=== PATIENT | female | born 1975 | race Caucasian/White ===

== ENCOUNTER → 2018-06-08 14:21 | Outpatient (REF) | payer OTHER, SELFPAY ==
[2018-06-08 18:00] LABS: Basophils # 0.1 K/mm3 (0-0.2); Basophils % 0.5 % (0.1-2.0); Eosinophils # 0.4 K/mm3 (0.0-0.4); Eosinophils % 3.6 % (0.1-12.0); Hematocrit 46.1 % (37.0-47.0); Hemoglobin 14.6 g/dL (12.2-16.2); Lymphocytes # 2.4 K/mm3 (0.7-4.5); Lymphocytes % 23.5 K/mm3 (10-50); Mean Corpuscular HGB Conc 31.7 g/dL (31.8-35.4); Mean Corpuscular Hemoglobin 32.1 pg (27.0-31.2); Mean Platelet Volume 7.6 fl (7.4-10.4); Monocytes # 0.8 K/mm3 (0.1-1.0); Monocytes % 7.4 % (1.7-9.3); Neutrophils # 6.6 K/mm3 (1.8-7.8); Platelet Count 411 K/mm3 (142-424); Red Blood Count 4.57 M/mm3 (4.20-5.40); Red Cell Distribution Width 13.1 % (11.5-17.5); White Blood Count 10.2 K/mm3 (4.8-10.8)
[2018-06-08 19:06] LABS: Chol/HDL Ratio 5.2 (1-3.5); Cholesterol 235 mg/dL (140-200); HDL Cholesterol 45 mg/dL (29-89); LDL Cholesterol 139 mg/dL (0-130); Triglycerides 255 mg/dL (30-200); VLDL Cholesterol 51 mg/dL (0-40)
[2018-06-08 21:20] LABS: Alanine Aminotransferase 26 U/L (12-78); Albumin Level 3.9 gm/dL (3.4-5.0); Albumin/Globulin Ratio 1.4 (1.1-1.8); Alkaline Phosphatase 79 U/L (46-116); Anion Gap 11.5 mEq/L (5-15); Aspartate Amino Transferase 12 U/L (15-37); Bilirubin,Total 0.2 mg/dL (0.2-1.0); Blood Urea Nitrogen 14 mg/dL (7-18); Calcium 9.3 mg/dL (8.5-10.1); Carbon Dioxide 28 mmol/L (21.0-32.0); Chloride 105 mmol/L (98-107); Creatinine,Serum 0.71 mg/dL (0.55-1.02); Estimated Glomerular Filt Rate 89 ml/min (>60); GFR (African American) 108 ML/MIN (>60); Globulin 2.8 gm/dl (1.3-3.2); Glucose 69 mg/dL (74-106); Potassium 4.5 mmoL/L (3.5-5.1); Sodium 140 mmol/L (136-145); T4 (Thyroxine) 6.8 ug/dl (4.7-13.3); Thyroid Stimulating Hormone 0.86 uIU/ml (0.358-3.740); Total Protein,Serum 6.7 gm/dL (6.4-8.2)
[2018-06-15 23:22] LABS: 1,25-Dihydroxy, Vitamin D-2 <10 pg/mL (.)
[2018-06-16 06:15] LABS: 1,25 Dihydroxy Vitamin D 22 pg/mL (.); 1,25-Dihydroxy, Vitamin D-3 22 pg/mL (.)
== END ==
LOC: LAB 14:21
PROVIDERS: Visit Provider Physician Assistant
DX: R63.5 Abnormal weight gain (principal); R68.89 Other general symptoms and signs; E66.9 Obesity, unspecified; Z68.32 Body mass index [BMI] 32.0-32.9, adult; G25.0 Essential tremor; M25.561 Pain in right knee; M25.562 Pain in left knee; G89.29 Other chronic pain
CPT/HCPCS: 80053; 80061; 82652; 84436; 84443; 85025

== ENCOUNTER → 2018-12-02 18:04 | Outpatient (CLI) | payer OTHER, SELFPAY ==
[2018-12-02 18:24] LABS: Basophils # 0.1 K/mm3 (0-0.2); Basophils % 0.4 % (0.1-2.0); Eosinophils # 0.3 K/mm3 (0.0-0.4); Eosinophils % 2.7 % (0.1-12.0); Hematocrit 44.4 % (37.0-47.0); Hemoglobin 14.6 g/dL (12.2-16.2); Lymphocytes # 3.6 K/mm3 (0.7-4.5); Lymphocytes % 32.7 % (10-50); Mean Corpuscular HGB Conc 32.9 g/dL (31.8-35.4); Mean Corpuscular Hemoglobin 33.9 pg (27.0-31.2); Mean Corpuscular Volume 102.9 fl (81-99); Mean Platelet Volume 7.1 fl (7.4-10.4); Monocytes # 0.6 K/mm3 (0.1-1.0); Monocytes % 5.4 % (1.7-9.3); Neutrophils # 6.4 K/mm3 (1.8-7.8); Neutrophils % 58.7 % (37.0-80.0); Platelet Count 439 K/mm3 (142-424); Red Blood Count 4.31 M/mm3 (4.20-5.40); Red Cell Distribution Width 13.1 % (11.5-17.5)
[2018-12-02 19:30] LABS: Alanine Aminotransferase 39 U/L (12-78); Albumin Level 4.1 gm/dL (3.4-5.0); Albumin/Globulin Ratio 1.3 (1.1-1.8); Alkaline Phosphatase 72 U/L (46-116); Aspartate Amino Transferase 20 U/L (15-37); Bilirubin,Total 0.3 mg/dL (0.2-1.0); Blood Urea Nitrogen 14 mg/dL (7-18); Calcium 8.9 mg/dL (8.5-10.1); Carbon Dioxide 26 mmol/L (21.0-32.0); Chloride 101 mmol/L (98-107); Chol/HDL Ratio 5.4 (1-3.5); Cholesterol 243 mg/dL (140-200); Creatinine,Serum 0.63 mg/dL (0.55-1.02); Estimated Glomerular Filt Rate 103 ml/min (>60); GFR (African American) 124 ML/MIN (>60); Globulin 3.1 gm/dl (1.3-3.2); Glucose 81 mg/dL (74-106); HDL Cholesterol 45 mg/dL (29-89); LDL Cholesterol 164 mg/dL (0-130); Sodium 140 mmol/L (136-145); T4 (Thyroxine) 7.9 ug/dl (4.7-13.3); Thyroid Stimulating Hormone 1.14 uIU/ml (0.358-3.740); Total Protein,Serum 7.2 gm/dL (6.4-8.2); Triglycerides 168 mg/dL (30-200); VLDL Cholesterol 34 mg/dL (0-40)
[2018-12-04 11:11] LABS: Testosterone,Total 17 ng/dL (8-48)
[2018-12-04 22:50] LABS: FSH 7.8 mIU/mL (.); LH 9.7 mIU/mL (.); Vitamin D 25 Hydroxy 32.1 ng/mL (30.0-100.0)
[2018-12-06 07:05] LABS: Estrogen 261 pg/mL (.)
== END ==
PROVIDERS: Visit Provider Physician Assistant
DX: E66.9 Obesity, unspecified (principal); R53.83 Other fatigue; R63.5 Abnormal weight gain
CPT/HCPCS: 80053; 80061; 82652; 82672; 83001; 83002; 84403; 84436; 84443; 85025

== ENCOUNTER → 2019-09-21 07:32 | Outpatient (CLI) | payer OTHER, SELFPAY ==
--- NOTE | 2019-09-21 07:38 | CT_ITS ---
PROCEDURE: CT SOFT TISSUE NECK WO CON CLINICAL HISTORY: enlarged thyroid Enlarged thyroid, difficulty swallowing right-sided knot on the inside of the throat COMPARISON: CXR CHEST(2 VIEWS-NOT PORTABLE) from 10/21/2017 TECHNIQUE: Oral Contrast: None IV Contrast: None Axial images obtained with sagittal and coronal reformats. All CT scans at the facility use one or more dose reduction, viz: automated exposure control, ma/kV adjustment per patient size (including targeted exams where dose is matched to indication, i.e. head), or iterative reconstruction technique. FINDINGS: Slight asymmetry in the nasopharyngeal soft tissues noted with minimal prominence on right. This may only be due to incomplete distention. Direct visualization suggested. The oropharynx and hypopharynx have an unremarkable appearance. The epiglottis, glottic region, and subglottic area have an unremarkable appearance. The thyroid gland does not appear enlarged. No obvious mass. The visualized sinuses have an unremarkable appearance. No mastoid effusion. The parotid and submandibular glands are unremarkable. There are scattered small lymph nodes in the neck with no dominant adenopathy. The lung apices are clear. Upper thoracic images show bilateral breast implants. IMPRESSION: 1. Slight asymmetric prominence of the nasopharyngeal soft tissues on the right which may only be due to nondistention. This may be confirmed with direct visualization. Study is somewhat limited without IV contrast. 2. Scattered small cervical lymph nodes. No dominant adenopathy or other significant anomaly. Dictated by: Esvin Pérez MD 09/22/2019 07:22 Electronically signed by Esvin Pérez MD in [place] 09/22/2019 07:22
== END ==
PROVIDERS: PCP Emergency Medicine; Visit Provider Nurse Practitioner Family
DX: E04.9 Nontoxic goiter, unspecified (principal); Z85.3 Personal history of malignant neoplasm of breast
CPT/HCPCS: 70490

== ENCOUNTER → 2019-10-13 16:58 | Outpatient (CLI) | payer OTHER, SELFPAY | PROVIDERS: Visit Provider Nurse Practitioner Family | DX: J02.9 Acute pharyngitis, unspecified (principal) | CPT/HCPCS: 87070 ==

== ENCOUNTER → 2019-12-15 14:44 | Outpatient (CLI) | payer OTHER, SELFPAY ==
[2019-12-15 15:11] LABS: Basophils # 0.1 K/mm3 (0-0.2); Basophils % 0.5 % (0.1-2.0); Eosinophils # 0.3 K/mm3 (0.0-0.4); Eosinophils % 1.9 % (0.1-12.0); Hematocrit 45.7 % (37.0-47.0); Lymphocytes % 26.7 % (10-50); Mean Corpuscular HGB Conc 32.8 g/dL (31.8-35.4); Mean Corpuscular Hemoglobin 33.3 pg (27.0-31.2); Mean Corpuscular Volume 101.4 fl (81-99); Mean Platelet Volume 7.6 fl (7.4-10.4); Monocytes # 0.9 K/mm3 (0.1-1.0); Monocytes % 5.7 % (1.7-9.3); Neutrophils # 9.7 K/mm3 (1.8-7.8); Neutrophils % 65.2 % (37.0-80.0); Platelet Count 423 K/mm3 (142-424); Red Blood Count 4.51 M/mm3 (4.20-5.40); White Blood Count 14.8 K/mm3 (4.8-10.8)
[2019-12-15 15:52] LABS: Alanine Aminotransferase 18 U/L (12-78); Albumin Level 4.1 gm/dL (3.4-5.0); Albumin/Globulin Ratio 1.8 (1.1-1.8); Alkaline Phosphatase 66 U/L (46-116); Aspartate Amino Transferase 16 U/L (15-37); Bilirubin,Total 0.4 mg/dL (0.2-1.0); Blood Urea Nitrogen 16 mg/dL (7-18); Calcium 9.1 mg/dL (8.5-10.1); Carbon Dioxide 29 mmol/L (21.0-32.0); Chloride 103 mmol/L (98-107); Chol/HDL Ratio 5.3 (1-3.5); Cholesterol 217 mg/dL (140-200); Creatinine,Serum 0.72 mg/dL (0.55-1.02); Estimated Glomerular Filt Rate 88 ml/min (>60); GFR (African American) 106 ML/MIN (>60); Globulin 2.3 gm/dl (1.3-3.2); Glucose 76 mg/dL (74-106); HDL Cholesterol 41 mg/dL (29-89); LDL Cholesterol 149 mg/dL (0-130); Sodium 141 mmol/L (136-145); T4 (Thyroxine) 9.2 ug/dl (4.7-13.3); Thyroid Stimulating Hormone 1.43 uIU/ml (0.358-3.740); Total Protein,Serum 6.4 gm/dL (6.4-8.2); Triglycerides 137 mg/dL (30-200); VLDL Cholesterol 27 mg/dL (0-40)
[2019-12-17 09:35] LABS: Vitamin B12 582 pg/mL (232-1245)
[2019-12-17 09:45] LABS: Vitamin D 25 Hydroxy 25.7 ng/mL (30.0-100.0)
== END ==
PROVIDERS: Visit Provider Nurse Practitioner Family
DX: F32.9 Major depressive disorder, single episode, unspecified (principal); E55.9 Vitamin D deficiency, unspecified
CPT/HCPCS: 36415; 80053; 80061; 82607; 82652; 84436; 84443; 85025

== ENCOUNTER → 2019-12-19 12:53 | Outpatient (CLI) | payer OTHER, SELFPAY ==
--- NOTE | 2019-12-19 13:02 | XR_ITS ---
PROCEDURE: XR CHEST 2V CLINICAL HISTORY: elevated wbc, cough Smoker, COMPARISON: CXR CHEST(2 VIEWS-NOT PORTABLE) from 10/21/2017 FINDINGS: The cardiomediastinal silhouette and pulmonary vascularity are within normal limits. There are bilateral breast implants. There is increased density along the right heart border some of which may be due to pericardial fat pad. Superimposed atelectasis or infiltrate is also considered . degenerative changes upper thoracic spine IMPRESSION: Atelectasis or infiltrate of the right middle lobe Dictated by: Esvin Pérez MD 12/19/2019 14:23 Electronically signed by Esvin Pérez MD in [facility] 12/19/2019 14:23
== END ==
PROVIDERS: PCP Emergency Medicine; Visit Provider Nurse Practitioner Family
DX: D72.829 Elevated white blood cell count, unspecified (principal); R05 Cough
CPT/HCPCS: 71046

== ENCOUNTER → 2019-12-27 13:08 | Outpatient (CLI) | payer OTHER, SELFPAY ==
--- NOTE | 2019-12-27 13:15 | XR_ITS ---
PROCEDURE: XR FOOT WT BEARING RT 3V CLINICAL INDICATION: pain Foot pain COMPARISON: Foot R from 06/07/2019 FINDINGS: No fracture or dislocation. No lytic or blastic change. There is normal mineralization. The joint spaces are well-preserved. No significant degenerative/arthritic changes. No erosive changes evident. Other findings:There is a small calcaneal spur in there is mild spurring of the anterior distal tibia. Borderline pes planus IMPRESSION: No acute findings. See above for detail Dictated by: Esvin Pérez MD 12/27/2019 18:17 Electronically signed by Esvin Pérez MD in [facility] 12/27/2019 18:17
--- NOTE | 2019-12-27 13:15 | XR_ITS ---
PROCEDURE: XR FOOT WT BEARING LT 3V CLINICAL INDICATION: pain COMPARISON: Foot R from 06/07/2019 XR FOOT WT BEARING RT 3V from 12/27/2019 FINDINGS: No fracture or dislocation. No lytic or blastic change. There is normal mineralization. The joint spaces are well-preserved. No significant degenerative/arthritic changes. No erosive changes evident. Other findings:There is a small calcaneal spur. There is borderline planus IMPRESSION: No acute findings. Dictated by: Esvin Pérez MD 12/27/2019 18:16 Electronically signed by Esvin Pérez MD in [facility] 12/27/2019 18:16
== END ==
PROVIDERS: PCP Nurse Practitioner Family; Visit Provider Podiatrist
DX: M79.672 Pain in left foot (principal); M79.671 Pain in right foot
CPT/HCPCS: 73630

== ENCOUNTER → 2019-12-29 16:36 | Outpatient (CLI) | payer OTHER, SELFPAY ==
[2019-12-29 17:06] LABS: Basophils # 0.1 K/mm3 (0-0.2); Basophils % 0.4 % (0.1-2.0); Eosinophils # 0.2 K/mm3 (0.0-0.4); Eosinophils % 1.9 % (0.1-12.0); Hematocrit 45.5 % (37.0-47.0); Hemoglobin 15.4 g/dL (12.2-16.2); Lymphocytes # 2.5 K/mm3 (0.7-4.5); Mean Corpuscular HGB Conc 33.9 g/dL (31.8-35.4); Mean Corpuscular Hemoglobin 33.4 pg (27.0-31.2); Mean Corpuscular Volume 98.3 fl (81-99); Mean Platelet Volume 7.8 fl (7.4-10.4); Monocytes # 0.6 K/mm3 (0.1-1.0); Neutrophils # 8.7 K/mm3 (1.8-7.8); Neutrophils % 71.8 % (37.0-80.0); Platelet Count 401 K/mm3 (142-424); Red Blood Count 4.63 M/mm3 (4.20-5.40); Red Cell Distribution Width 12.8 % (11.5-17.5); White Blood Count 12.1 K/mm3 (4.8-10.8)
[2019-12-29 17:40] LABS: Alanine Aminotransferase 22 U/L (12-78); Albumin Level 4.1 gm/dL (3.4-5.0); Albumin/Globulin Ratio 1.6 (1.1-1.8); Alkaline Phosphatase 74 U/L (46-116); Anion Gap 14.9 mEq/L (5-15); Aspartate Amino Transferase 15 U/L (15-37); Bilirubin,Total 0.4 mg/dL (0.2-1.0); Blood Urea Nitrogen 12 mg/dL (7-18); C-Reactive Protein < 0.2 mg/dL (0.0-0.9); Calcium 9.2 mg/dL (8.5-10.1); Carbon Dioxide 26 mmol/L (21.0-32.0); Chloride 104 mmol/L (98-107); Creatinine,Serum 0.74 mg/dL (0.55-1.02); Estimated Glomerular Filt Rate 84 ml/min (>60); GFR (African American) 102 ML/MIN (>60); Globulin 2.6 gm/dl (1.3-3.2); Glucose 90 mg/dL (74-106); Potassium 3.9 mmoL/L (3.5-5.1); Sodium 141 mmol/L (136-145); Total Protein,Serum 6.7 gm/dL (6.4-8.2)
[2019-12-29 18:05] LABS: Erythrocyte Sedimentation Rate 11 mm/hr (0-20)
[2019-12-31 15:30] LABS: RA Latex Turbid. <10.0 IU/mL (0.0-13.9)
[2019-12-31 16:41] LABS: Peripheral Smear Review Scanned Result
[2020-01-01 17:44] LABS: Anti-Cyclic Citrullinated Pept 7 units (0-19)
[2020-01-02 11:08] LABS: Anti-Centromere B Antibodies <0.2 AI (0.0-0.9); Anti-Jo-1 <0.2 AI (0.0-0.9); Anti-Smith Antibody <0.2 AI (0.0-0.9); Antichromatin Antibodies <0.2 AI (0.0-0.9); Antiscleroderma-70 Antibodies <0.2 AI (0.0-0.9); RNP Antibodies <0.2 AI (0.0-0.9); Sjogren's Anti-SS-A <0.2 AI (0.0-0.9); Sjogren's Anti-SS-B <0.2 AI (0.0-0.9)
[2020-01-02 17:10] LABS: Anti-DNA (DS) Ab Qn <1 IU/mL (0-9)
== END ==
PROVIDERS: Visit Provider Nurse Practitioner Family
DX: M77.50 Other enthesopathy of unspecified foot and ankle (principal); M25.50 Pain in unspecified joint
CPT/HCPCS: 80053; 85025; 85651; 86140; 86200; 86225; 86235; 86431

== ENCOUNTER → 2020-02-02 13:08 | Outpatient (CLI) | payer OTHER, SELFPAY ==
--- NOTE | 2020-02-02 13:23 | CT_ITS ---
PROCEDURE: CT SOFT TISSUE NECK W CON CLINICAL HISTORY: mass under left mandible Left-sided neck mass COMPARISON: CT SOFT TISSUE NECK WO CON from 09/21/2019 TECHNIQUE: Oral Contrast: 75ml Optiray 350 IV Contrast: None Axial images obtained with sagittal and coronal reformats. All CT scans at the facility use one or more dose reduction, viz: automated exposure control, ma/kV adjustment per patient size (including targeted exams where dose is matched to indication, i.e. head), or iterative reconstruction technique. FINDINGS: A BB is placed on the left neck marking the area of palpable concern. There is a small lymph node along the anterior lateral aspect of the left submandibular gland measuring approximately 1.5 by 0.8 cm and may correspond to the palpable abnormality. No dominant adenopathy is evident. The nasopharynx, oropharynx, hypopharynx, and laryngeal region have an unremarkable appearance. No abscess is evident. The epiglottis and glottic region has an unremarkable appearance. There is mild degenerative disc disease at C5-C6. The lung apices are clear. There is a small hypodensity of the left lobe of the thyroid gland at 4 mm. The thyroid gland otherwise is unremarkable. IMPRESSION: There is a small left submandibular lymph node which may correspond to the palpable abnormality. This is less than 1 cm in short axis. No dominant adenopathy, abnormal fluid collections, or other significant anomalies evident Dictated by: Esvin Pérez MD 02/03/2020 09:19 Electronically signed by Esvin Pérez MD in [place] 02/03/2020 09:19
[2020-02-02 13:26] LABS: Basophils # 0.1 K/mm3 (0-0.2); Basophils % 0.5 % (0.1-2.0); Eosinophils # 0.4 K/mm3 (0.0-0.4); Eosinophils % 2.8 % (0.1-12.0); Hematocrit 44.9 % (37.0-47.0); Hemoglobin 15.5 g/dL (12.2-16.2); Lymphocytes # 3.3 K/mm3 (0.7-4.5); Lymphocytes % 25.6 % (10-50); Mean Corpuscular HGB Conc 34.5 g/dL (31.8-35.4); Mean Corpuscular Hemoglobin 33.8 pg (27.0-31.2); Mean Corpuscular Volume 98.1 fl (81-99); Mean Platelet Volume 7.5 fl (7.4-10.4); Monocytes # 0.7 K/mm3 (0.1-1.0); Monocytes % 5.4 % (1.7-9.3); Neutrophils # 8.4 K/mm3 (1.8-7.8); Neutrophils % 65.6 % (37.0-80.0); Platelet Count 457 K/mm3 (142-424); Red Blood Count 4.58 M/mm3 (4.20-5.40); Red Cell Distribution Width 12.8 % (11.5-17.5); White Blood Count 12.8 K/mm3 (4.8-10.8)
[2020-02-02 14:48] LABS: Erythrocyte Sedimentation Rate 11 mm/hr (0-20)
[2020-02-02 17:18] LABS: C-Reactive Protein 3.2 mg/L (0-4)
[2020-02-04 13:11] LABS: Peripheral Smear Review Scanned Result
== END ==
PROVIDERS: Internal Medicine Medical Oncology; Visit Provider Physician Assistant
DX: R22.0 Localized swelling, mass and lump, head; D72.829 Elevated white blood cell count, unspecified; F17.210 Nicotine dependence, cigarettes, uncomplicated
CPT/HCPCS: 36415; 70491; 85025; 85651; 86140; Q9967

== ENCOUNTER 2021-04-24 10:29 | Emergency (ER) | payer OTHER, SELFPAY ==
[2021-04-24 10:51] VITALS: BP 117/71; PULSE 71; RESP 18; O2SAT 100; BMI 34.7
--- NOTE | 2021-04-24 11:14 | HMH.EDUTC ---
[facility] [place] Disposition Clinical Impression: Ingrown left big toenail Disposition: Home, Self-Care Condition on Discharge: Good Instructions: Ingrown Toenail, Cephalexin, DI for Infected Ingrown Toenail Additional Instructions: Soak foot in warm water and epson salt for 10-15 min 3-4 times daily then apply ointment Take medication as prescribed FOllow up with Family Doctor or Podiatry for removal Return if needed Straight to ER if any life threatening symptoms Prescriptions: Bacitracin [Bacitracin Oint 0.9GM UDP] 1 each TP TID 10 Days #30 packet Transmission Status: Pending to [facility] cephALEXin [cephALEXin 500mg capsule*] 500 mg PO Q6H 7 Days #28 cap Transmission Status: Pending to [facility] Referrals: Shawn Chester MD [Primary Care Provider] - As needed Nikia Hi DPM [Staff Physician] - Time of Disposition: 11:26 Medical Decision Making - Lopez Inquiry Pt receiving controlled substance: No Lopez was queried for this patient: No Vital Signs: 04/24/21 10:51 Temperature Source Oral Pulse Rate [Right] 71 Respiratory Rate 18 Blood Pressure [Right Arm] 117/71 Blood Pressure Mean [Right Arm] 86 Blood Pressure Source [Right Arm] Automatic Cuff Blood Pressure Position [Right Arm] Sitting 02 Sat by Pulse Oximetry 100 Oxygen Delivery Method Room Air [facility] [place] HPI - General Stated complaint: possible vaginal inf Time Seen by Provider: 04/24/21 11:15 Mode of Arrival: Ambulatory Source of Information: Patient Limitations: No Limitations Description of Symptoms (Recalled from Triage Doc. by RN): pt c/o ingrown toe nail on her big to of her L foot. toe is red and swollen. HEENT Symptoms (Recalled from RN notes): No Resp Symptoms (Recalled from RN notes): No Skin Symptoms (Recalled from RN notes): No MS Symptoms (Recalled from RN notes): Yes (ingrown L big toe) Functional Status (Recalled from RN notes): na - Related Data Home Medications Medication Instructions Recorded Confirmed meloxicam 15 mg tablet 15 mg PO DAILY 09/07/19 02/02/20 Previous Rx's Medication Instructions Recorded diclofenac sodium 1 % topical gel 4 g TOPICAL QID PRN #100 g 12/27/19 mupirocin 2 % topical ointment 1 applic TOPICAL BID #30 g 01/25/20 escitalopram oxalate 20 mg tablet See Rx Instructions .ROUTE 02/10/20 .COMPLEX #90 tablet propranolol 80 mg capsule,24 See Rx Instructions .ROUTE 04/24/20 hr,extended release .COMPLEX #180 each ropinirole 1 mg tablet See Rx Instructions .ROUTE 04/24/20 .COMPLEX #90 each Bacitracin [Bacitracin Oint 0.9GM 1 each TP TID 10 Days #30 packet 04/24/21 UDP] cephALEXin [cephALEXin 500mg 500 mg PO Q6H 7 Days #28 cap 04/24/21 capsule*] Allergies Allergy/AdvReac Type Severity Reaction Status Date / Time atorvastatin Allergy Intermediate Verified 04/24/21 10:58 glucosamine Allergy Mild Verified 04/24/21 10:58 - Worker's Comp Is this a Worker's Comp case?: No [facility] History - Hepatitis A Screen Drug use history?: No High risk sexual behaviors?: No History of sexually transmitted infection?: No Currently employed?: No Childcare worker?: No Do you have indoor plumbing?: Yes Do you have electricity?: Yes Attestation statement:: This patient has been screened for Hepatitis A risk factors. I have reviewed the patient's past medical history: Yes Medical History: Reports:: Anxiety, Cancer, Depression Denies:: Diabetes Mellitus Type 1, Diabetes Mellitus Type 2, MRSA Other Medical History: Reports: Arthritis Laterality Cases: Bilateral: Mastectomy, Tonsillectomy Other Surgeries: Yes: Appendectomy, Cholecystectomy, Colonoscopy, , Plastic Surgery, Other Amputation: No Fractures: No Comment: reconstructive breast surgery - Social History Smoking Status: Current every day smoker Tobacco Type: cigarettes # Packs/Day (cigarettes): 1 Alcohol Intake: never Alcohol Intake Frequency:: holidays/special occasions only Substance Use Type: denies use
[2021-04-24 11:36] VITALS: BP 115/76; PULSE 80; RESP 16; TEMP 36.8
== END 2021-04-24 11:38 | disposition home or self-care (01) ==
PROVIDERS: Emergency Provider Nurse Practitioner; PCP Emergency Medicine
DX: L60.0 Ingrowing nail (principal); F41.8 Other specified anxiety disorders; F17.210 Nicotine dependence, cigarettes, uncomplicated
CPT/HCPCS: 99202; G0463

== ENCOUNTER 2021-06-02 13:44 | Emergency (ER) | payer OTHER, SELFPAY ==
[2021-06-02 14:40] VITALS: BP 142/81; PULSE 69; RESP 18; TEMP 37.2; O2SAT 100; BMI 34.9
--- NOTE | 2021-06-02 15:17 | HMH.EDUTC ---
[facility] [place] Disposition Clinical Impression: Ingrown left big toenail Disposition: Home, Self-Care Condition on Discharge: Good Instructions: Ingrown Toenail, DI for Ingrown Toenail, Mupirocin, Cephalexin Additional Instructions: Continue with soaks in warm water with epson salt Use cream, as prescribed Take oral antibiotics as prescribed Follow up with Family Doctor if no improvement or any worsening of symptoms Return if needed Prescriptions: cephALEXin [cephALEXin 500mg capsule*] 500 mg PO Q6H 7 Days #28 cap Transmission Status: Pending to [facility] Mupirocin Calcium [Mupirocin 2% Cream 15gm] 1 applicatio TP TID 10 Days #1 tube Transmission Status: Pending to [facility] Referrals: hSirin Ortiz APRN [Primary Care Provider] - As needed Time of Disposition: 15:28 Medical Decision Making - Lopez Inquiry Pt receiving controlled substance: No Lopez was queried for this patient: No Vital Signs: 06/02/21 14:40 Temperature 99.0 F Temperature Source Oral Pulse Rate [Left Brachial] 69 Respiratory Rate 18 Blood Pressure [Left Arm] 142/81 H Blood Pressure Mean [Left Arm] 101 Blood Pressure Source [Left Arm] Automatic Cuff Blood Pressure Position [Left Arm] Sitting 02 Sat by Pulse Oximetry 100 Oxygen Delivery Method Room Air [facility] [place] HPI - General Stated complaint: left foot big toe, possible infection Time Seen by Provider: 06/02/21 15:17 Mode of Arrival: Ambulatory Source of Information: Patient Limitations: No Limitations Description of Symptoms (Recalled from Triage Doc. by RN): PATIENT C/O REDNESS AND SWELLING TO LEFT GREAT TOE SINCE MARCH. SHE WAS SEEN IN [facility] ON 04/24 FOR SAME PROBLEM AND GIVEN ORAL ANTIBIOTICS AND OINTMENT, BUT STATES INFECTION HAS GOTTEN WORSE HEENT Symptoms (Recalled from RN notes): No Resp Symptoms (Recalled from RN notes): No Skin Symptoms (Recalled from RN notes): Yes MS Symptoms (Recalled from RN notes): No Functional Status (Recalled from RN notes): WNL - History of Present Illness Provider Complaint: Patient states that she was seen about a month ago for ingrown toenail and was put on antibiotics State that she took all of them and it was doing better no longer red but over the last couple of days it has started to get red and swollen again and she was soaking it and it a spot beside her toenail opened up and large amount of white matter came from it States that now it is starting to look red again so she came in to get it checked Statse that she has appointment with Podiatry in Jun but didnt want to wait that long for antibiotics - Related Data Home Medications Medication Instructions Recorded Confirmed Escitalopram Oxalate 20 mg PO DAILY 06/02/21 06/02/21 Propranolol HCl [Propranolol HCl 80 mg PO DAILY 06/02/21 06/02/21 ER] Ropinirole HCl 1 mg PO HS 06/02/21 06/02/21 Previous Rx's Medication Instructions Recorded Mupirocin Calcium [Mupirocin 2% 1 applicatio TP TID 10 Days #1 tube 06/02/21 Cream 15gm] cephALEXin [cephALEXin 500mg 500 mg PO Q6H 7 Days #28 cap 06/02/21 capsule*] Allergies Allergy/AdvReac Type Severity Reaction Status Date / Time atorvastatin Allergy Intermediate Verified 04/24/21 10:58 glucosamine Allergy Mild Verified 04/24/21 10:58 - Worker's Comp Is this a Worker's Comp case?: No [facility] History - Hepatitis A Screen Drug use history?: No High risk sexual behaviors?: No History of sexually transmitted infection?: No Currently employed?: No Childcare worker?: No Do you have indoor plumbing?: Yes Do you have electricity?: Yes Attestation statement:: This patient has been screened for Hepatitis A risk factors. I have reviewed the patient's past medical history: Yes Medical History: Reports:: Anxiety, Cancer (BREAST), Depression Denies:: Diabetes Mellitus Type 1, Diabetes Mellitus Type 2, MRSA Other Medical History: Reports: Arthritis Laterality Cases: Bilateral: Mastectomy, Tonsillectomy Other Surgeries:
[2021-06-02 15:30] VITALS: BP 142/81; PULSE 69; RESP 18; TEMP 37.2; O2SAT 100
== END 2021-06-02 15:35 | disposition home or self-care (01) ==
PROVIDERS: Emergency Provider Nurse Practitioner; PCP Nurse Practitioner Family
DX: L60.0 Ingrowing nail (principal); F41.8 Other specified anxiety disorders; Z79.899 Other long term (current) drug therapy; F17.210 Nicotine dependence, cigarettes, uncomplicated; Z88.8 Allergy status to other drugs, medicaments and biological substances

== ENCOUNTER → 2021-06-11 14:15 | Outpatient (POV) | payer OTHER, SELFPAY | PROVIDERS: Visit Provider Dermatology | DX: Z00.00 Encounter for general adult medical examination without abnormal findings (principal) ==

== ENCOUNTER 2021-07-21 17:17 | Emergency (ER) | payer OTHER, BC, SELFPAY ==
[2021-07-21 18:02] VITALS: BP 130/79; PULSE 67; RESP 16; TEMP 36.7; O2SAT 98; BMI 34.9
--- NOTE | 2021-07-21 18:08 | ECG_ITS ---
APPROVED REPORT Exam: Resting ECG HR:61 bpm ECG Measurements Heart Rate 61 AXES SC 178 P 54 QRSd 78 QRS 51 QT 422 T 67 QTc 424 Conclusion Normal sinus rhythm Normal ECG Electronically signed by : Alfredo Craig MD 07/23/2021 12:09:44
--- NOTE | 2021-07-21 18:09 | XR_ITS ---
PROCEDURE INFORMATION: Exam: XR Chest Exam date and time: 07/21/2021 6:09 PM Age: 45 years old Clinical indication: Other: Dizzy; Prior surgery; Surgery date: 6+ months; Surgery type: Double mastectomy RT breast cancer; Additional info: Dizziness TECHNIQUE: Imaging protocol: XR of the chest. Views: 1 view. COMPARISON: CR XR CHEST 2V 12/19/2019 1:17 PM FINDINGS: Limitations: Radiographic technique - mild. Tubes, catheters and devices: Surgical clips projected over thorax. Lungs: Apparent rounded density within RIGHT infrahilar region. Pleural spaces: No pleural effusion. No pneumothorax. Heart/Mediastinum: No cardiomegaly. Bones/joints: No displaced fracture. Soft tissues: Unremarkable. IMPRESSION: Apparent rounded density within RIGHT infrahilar region, indeterminate significance. Recommend CT to exclude underlying pathology.
--- NOTE | 2021-07-21 18:10 | CT_ITS ---
PROCEDURE INFORMATION: Exam: CT Head Without Contrast Exam date and time: 07/21/2021 6:10 PM Age: 45 years old Clinical indication: Dizziness TECHNIQUE: Imaging protocol: Computed tomography of the head without contrast. Radiation optimization: All CT scans at this facility use at least one of these dose optimization techniques: automated exposure control; mA and/or kV adjustment per patient size (includes targeted exams where dose is matched to clinical indication); or iterative reconstruction. COMPARISON: CT SOFT TISSUE NECK W CON 02/02/2020 1:50 PM FINDINGS: Brain: Minimal atrophy. No intracranial hemorrhage. No mass. No definite edema. Cerebral ventricles: No hydrocephalus. Paranasal sinuses: No acute sinusitis. Mastoid air cells: No significant effusion. Orbital cavity: Unremarkable as visualized. Bones/joints: No acute fracture. Soft tissues: Unremarkable. IMPRESSION: No definite acute intracranial abnormality. If symptoms persist, consider MRI.
[2021-07-21 18:21] LABS: Basophils # 0.1 K/mm3 (0-0.2); Basophils % 0.9 % (0.1-2.0); Eosinophils # 0.3 K/mm3 (0.0-0.4); Eosinophils % 2.3 % (0.1-12.0); Hematocrit 48.2 % (37.0-47.0); Hemoglobin 15.8 g/dL (12.2-16.2); Lymphocytes # 3.3 K/mm3 (0.7-4.5); Lymphocytes % 26.9 % (10-50); Mean Corpuscular HGB Conc 32.8 g/dL (31.8-35.4); Mean Corpuscular Volume 100.7 fl (81-99); Mean Platelet Volume 7.2 fl (7.4-10.4); Monocytes # 0.6 K/mm3 (0.1-1.0); Neutrophils % 64.8 % (37.0-80.0); Platelet Count 439 K/mm3 (142-424); Red Blood Count 4.78 M/mm3 (4.20-5.40); Red Cell Distribution Width 12.8 % (11.5-17.5); White Blood Count 12.3 K/mm3 (4.8-10.8)
[2021-07-21 18:27] LABS: Alanine Aminotransferase 26 U/L (12-78); Albumin Level 4.3 g/dl (3.5-5.0); Albumin/Globulin Ratio 1.6 (1.1-1.8); Alkaline Phosphatase 66 U/L (38-126); Aspartate Amino Transferase 29 U/L (14-36); Bilirubin,Total 0.3 mg/dl (0.2-1.3); Blood Urea Nitrogen 14 mg/dl (7-17); Calcium 9.4 mg/dl (8.4-10.2); Carbon Dioxide 26 mmol/L (22.0-30.0); Chloride 106 mmol/L (98-107); Creatinine Clearance Estimated 154 mL/min (50-200); Estimated Glomerular Filt Rate 107 ml/min (>60); GFR (African American) 130 ML/MIN (>60); Globulin 2.7 g/dL (1.3-3.2); Glucose 91 mg/dl (74-100); Sodium 141 mmol/L (136-145)
[2021-07-21 18:35] LABS: HCG Qualitative, Serum Negative (Negative)
[2021-07-21 18:43] LABS: Troponin I < 0.01 ng/ml (0.00-0.034)
--- NOTE | 2021-07-21 21:34 | HMH.EDDIZZ ---
ED Disposition Clinical Impression: Benign paroxysmal positional vertigo Qualifiers: Laterality: bilateral Qualified Code(s): H81.13 - Benign paroxysmal vertigo, bilateral Fatigue Qualifiers: Fatigue type: unspecified Qualified Code(s): R53.83 - Other fatigue Disposition: Home, Self-Care Condition on Discharge: Good Instructions: Dizziness, Nonvertigo Additional Instructions: see pcp in am Referrals: Shirin Ortiz APRN [Primary Care Provider] - - Critical Care Critical Care Time: No Attestation: On 07/21/21, the high probability of a clinically significant, sudden or life threatening deterioration of the following system(s) required my full and direct attention, intervention and personal management. The time I documented below is in addition to time spent performing reported procedures but includes the following listed in this critical care notation. Medical Decision Making - Medical Records Medical records reviewed: Yes: I reviewed the patient's medical records. - Lopez Inquiry Pt receiving controlled substance: No Vital Signs: 07/21/21 18:02 Temperature 98.1 F Temperature Source Oral Pulse Rate [Radial] 67 Respiratory Rate 16 Blood Pressure [Right Arm] 130/79 Blood Pressure Mean [Right Arm] 96 Blood Pressure Position [Right Arm] Sitting 02 Sat by Pulse Oximetry 98 Oxygen Delivery Method Room Air - Lab Data Lab results reviewed: Yes: I reviewed the patient's lab results. Lab Results 07/21/21 18:12: WBC 12.3 H, RBC 4.78, Hgb 15.8, Hct 48.2 H, MCV 100.7 H, MCH 33.0 H, MCHC 32.8, RDW 12.8, Plt Count 439 H, MPV 7.2 L, Neut % (Auto) 64.8, Lymph % (Auto) 26.9, [place] % (Auto) 5.0, Eos % (Auto) 2.3, Baso % (Auto) 0.9, Neut # (Auto) 8.0 H, Lymph # (Auto) 3.3, [place] # (Auto) 0.6, Eos # (Auto) 0.3, Baso # (Auto) 0.1 07/21/21 18:12: Sodium 141, Potassium 4.0, Chloride 106, Carbon Dioxide 26, Anion Gap 13.0, BUN 14, Creatinine 0.60, Estimated Creat Clear 154, Estimated GFR 107, Est GFR ( Amer) 130, Glucose 91, Calcium 9.4, Total Bilirubin 0.3, AST 29, ALT 26, Alkaline Phosphatase 66, Troponin I < 0.01, Total Protein 7.0, Albumin 4.3, Globulin 2.7, Albumin/Globulin Ratio 1.6 07/21/21 18:12: Serum HCG, Qual Negative 07/21/21 18:12: C-Reactive Protein 4.6 H 07/21/21 21:10: Troponin I < 0.01 Result diagrams: 07/21/21 18:12 07/21/21 18:12 Orders (Tests/Meds): ED MEDICATIONS Generic Name Dose Route Start Last Admin Trade Name Freq PRN Reason Stop Dose Admin Sodium Chloride 1,000 mls @ 999 mls/hr 07/21/21 19:00 Sod Chlor 0.9% 1000ml Bag IV 07/21/21 20:00 .Q1H1M SARAH Discontinued Medications Generic Name Dose Route Start Last Admin Trade Name Freq PRN Reason Stop Dose Admin Meclizine HCl 25 mg 07/21/21 21:58 Meclizine 25mg Tablet PO 07/21/21 21:59 ONCE ONE ORDERS Category Date Time Status ESR [Erythrocyte Sedimentation Rate] Stat Lab 07/21/21 18:12 Received T4 (Thyroxine) Stat Lab 07/21/21 21:59 Ordered TSH [Thyroid Stimulating Hormone] Stat Lab 07/21/21 21:59 Ordered Troponin I Q3H Lab 07/22/21 00:15 Ordered Urinalysis and Microscopic Stat Lab 07/21/21 18:10 Ordered - Radiology Data #1 Image(s): Chest Image Reviewed: Yes I have reviewed radiologist's interpretation Preliminary Findings: Abnormal (see report ) - CT Data CT Scan: Head Time Received: 21:[address] Reviewed: Yes: I have viewed the radiologist's interpretation Preliminary Findings: Normal/NAD - ECG Data Tracing #1 Normal Sinus Rhythm: Yes Ischemic changes: non-specific ST-T wave changes Medical Decision Narrative: weakness and dizzyness x 10 days - no focal changes- stable labs Dizzy HPI - General Chief Complaint: Dizziness Stated Complaint: weakness Time Seen by Provider: 07/21/21 20:00 Mode of Arrival: Ambulatory Source of Information: Patient, Medical Record Limitations: No Limitations Description of Symptoms (Recalled from ER Triage Doc. by RN): TO
[2021-07-21 21:54] LABS: C-Reactive Protein 4.6 mg/L (0-4)
[2021-07-21 21:55] LABS: Troponin I < 0.01 ng/ml (0.00-0.034)
[2021-07-21 22:05] LABS: Erythrocyte Sedimentation Rate 18 mm/hr (0-20)
[2021-07-21 22:11] VITALS: BP 124/60; PULSE 67; RESP 16; TEMP 36.6; O2SAT 97
[2021-07-21 22:26] LABS: T4 (Thyroxine) 8.3 ug/dl (5.53-11.0)
[2021-07-21 22:40] LABS: Thyroid Stimulating Hormone 1.05 uIU/mL (0.465-4.68)
== END 2021-07-21 22:13 | disposition home or self-care (01) ==
PROVIDERS: Emergency Medicine; Emergency Provider Emergency Medicine; PCP Nurse Practitioner Family
DX: H81.13 Benign paroxysmal vertigo, bilateral (principal); F41.8 Other specified anxiety disorders; E78.5 Hyperlipidemia, unspecified; F17.210 Nicotine dependence, cigarettes, uncomplicated
CPT/HCPCS: 36415; 70450; 71045; 80053; 84436; 84443; 84484; 84703; 85025; 85651; 86140; 93005; 99283

== ENCOUNTER → 2021-07-31 12:53 | Outpatient (CLI) | payer OTHER, BC, SELFPAY | PROVIDERS: PCP Physician Assistant; Visit Provider Physician Assistant | DX: R40.0 Somnolence (principal) | CPT/HCPCS: G0399 ==

== ENCOUNTER → 2021-08-12 13:05 | Outpatient (CLI) | payer OTHER, BC, SELFPAY ==
--- NOTE | 2021-08-12 13:10 | CT_ITS ---
PROCEDURE: CT CHEST WO/W CON CLINCAL INDICATION: abnormal cxr - smoker COMPARISON: No exams were available for comparison TECHNIQUE: IV Contrast: 75ml Isovue 370 Axial images obtained with sagittal and coronal reformats. All CT scans at the facility use one or more dose reduction, viz: automated exposure control, ma/kV adjustment per patient size (including targeted exams where dose is matched to indication, i.e. head), or iterative reconstruction technique. FINDINGS: HEART AND MEDIASTINAL STRUCTURES: No mediastinal or hilar mass or adenopathy. Mild prominence the right atrial appendage as well as a mildly prominent right pericardial fat pad accounting for the radiographic abnormality. Prominent left pericardial fat pad also noted. LUNGS AND PLEURAL SPACES: There are atelectatic or fibrotic changes right middle lobe lingula. Small subpleural opacity in the right middle lobe region nonspecific at 3 mm. 3 mm subpleural opacity left lower lobe also nonspecific. BONY STRUCTURES: No acute bony abnormalities apparent. UPPER ABDOMEN: 13 mm hypodensity is noted in the hepatic dome on the right. A subtle 6 mm hypodensity is present in the right hepatic lobe laterally and also 1 in the medial segment of the left hepatic lobe at 7 mm suggesting hepatic cysts ADDITIONAL FINDINGS: There are bilateral breast implants. Small metallic density is present in the peristomal region on the right in the subcu tissue and a small metallic density is present along the posterior aspect of the left implant in the axillary area. IMPRESSION: 1. Mildly prominent right atrial appendage as well as prominent pericardial fat pad on the right with lingular atelectatic changes which may account for the radiographic abnormality. No suspicious pulmonary nodule evident. 2. The other nonacute findings as described above Dictated by: Esvin Pérez MD 08/13/2021 11:48 Esvin Pérez MD in [place] 08/13/2021 11:48
--- NOTE | 2021-08-12 13:27 | CA_ITS ---
APPROVED REPORT Senior It Security Analyst: [email or web address] Laterality: Bilateral Study Quality: Fair Indications: vertigo Risk Factors Smoking x-migraine headaches Doppler Spectral Velocity Analysis ECA (R) 125.20/18.30 cm/s ECA (L) 114.60/16.40 cm/s dICA (R) 121.40/41.40 cm/s dICA (L) 77.00/32.00 cm/s Janice (R) 85.70/31.80 cm/s Janice (L) 91.00/34.00 cm/s pICA (R) 124.20/27.90 cm/s pICA (L) 99.20/28.90 cm/s dCCA (R) 112.70/32.70 cm/s dCCA (L) 99.20/25.00 cm/s pCCA (R) 108.80/26.00 cm/s pCCA (L) 111.70/19.30 cm/s Vert (R) 50.10/11.60 cm/s Vert (L) 65.00/21.00 cm/s ICA/CCA 1.13 ICA/CCA 1.00 Findings Duplex evaluation demonstrates stenosis of the right proximal internal carotid artery in the range of 20-49% with PSV <140 cm/sec. Duplex evaluation demonstrates stenosis of the left proximal internal carotid artery in the range of 20-49% with PSV <140 cm/sec. Duplex evaluation demonstrates antegrade flow of the right Vertebral Artery. Spectral broadening present in the Left ICA. Conclusion Duplex evaluation demonstrates stenosis of the right proximal internal carotid artery in the range of 20-49% with PSV <140 cm/sec. Duplex evaluation demonstrates stenosis of the left proximal internal carotid artery in the range of 20-49% with PSV <140 cm/sec. Duplex evaluation demonstrates antegrade flow of the right Vertebral Artery. Spectral broadening present in the Left ICA. Electronically signed by : Esvin Pérez MD 08/12/2021 16:29:19
[2021-08-12 14:21] LABS: Basophils # 0.1 K/mm3 (0-0.2); Basophils % 0.6 % (0.1-2.0); Eosinophils # 0.3 K/mm3 (0.0-0.4); Eosinophils % 2.5 % (0.1-12.0); Hematocrit 47.2 % (37.0-47.0); Hemoglobin 15.8 g/dL (12.2-16.2); Lymphocytes # 2.5 K/mm3 (0.7-4.5); Lymphocytes % 22.2 % (10-50); Mean Corpuscular HGB Conc 33.4 g/dL (31.8-35.4); Mean Corpuscular Hemoglobin 33.6 pg (27.0-31.2); Mean Corpuscular Volume 100.7 fl (81-99); Mean Platelet Volume 6.8 fl (7.4-10.4); Monocytes # 0.6 K/mm3 (0.1-1.0); Monocytes % 5.4 % (1.7-9.3); Neutrophils # 7.8 K/mm3 (1.8-7.8); Neutrophils % 69.3 % (37.0-80.0); Platelet Count 407 K/mm3 (142-424); Red Blood Count 4.69 M/mm3 (4.20-5.40); Red Cell Distribution Width 12.7 % (11.5-17.5); White Blood Count 11.3 K/mm3 (4.8-10.8)
--- NOTE | 2021-08-12 14:34 | MR_ITS ---
PROCEDURE: MR HEAD/BRAIN WO CON CLINICAL INDICATION: vertigo, headache COMPARISON: CT CT HEAD/BRAIN WO CON from 07/21/2021 TECHNIQUE: Routine multiplanar multi echo sequences are performed without gadolinium enhancement. FINDINGS: No midline shift, mass effect, intracranial hemorrhage, hydrocephalus, or acute infarction. The cerebellopontine angles, cerebellum, and brainstem have an unremarkable appearance. There are a few scant T2 white matter hyperintensities which are nonspecific. The pituitary, optic chiasm, corpus callosum, and craniocervical junction have an unremarkable appearance. No mastoid effusion or sinus air-fluid level. IMPRESSION: No acute intracranial findings. There are few T2 white matter hyperintensities which are nonspecific most commonly seen with ischemic gliotic foci from microangiopathy. Correlation with clinical parameters needed. Dictated by: Esvin Pérez MD 08/14/2021 07:46 Esvin Pérez MD in [facility] 08/14/2021 07:46
--- NOTE | 2021-08-12 16:18 | MR_ITS ---
PROCEDURE: MR ANGIO HEAD WO CON CLINICAL INDICATION: Dizziness COMPARISON: No exams were available for comparison TECHNIQUE: MR angiography of the intracranial circulation acquired without contrast, using 3D time of flight imaging with multiplanar 3D reformations. FINDINGS: ANTERIOR CIRCULATION: Carotids: The distal cervical, petrous, cavernous, and supraclinoid portions of the internal carotid arteries are patent without any significant stenosis. Anterior circulation: Both supraclinoid ICAs bifurcate into normal anterior and middle cerebral arteries without any significant stenosis, aneurysm, or other abnormality. Anterior additional: POSTERIOR CIRCULATION: Posterior circulation: Both vertebral arteries form a normal caliber basilar trunk that proceeds to terminate in paired superior cerebellar and posterior cerebral arteries bilaterally without any significant stenosis, aneurysm, or other abnormality. Posterior additional: No other significant findings are noted. IMPRESSION: Unremarkable appearance of the intracranial circulation without any significant stenosis, aneurysm, or other abnormality. Dictated by: Esvin Pérez MD 08/14/2021 07:50 Esvin Pérez MD in [place] 08/14/2021 07:50
[2021-08-12 16:48] LABS: Vitamin B12 391 pg/mL (239-931)
[2021-08-12 17:20] LABS: Folate 9.48 ng/mL
[2021-08-12 17:35] LABS: Ferritin 70.6 ng/ml (6.24-137)
== END ==
PROVIDERS: Nurse Practitioner Family; PCP Physician Assistant; Visit Provider Physician Assistant
DX: R51.9 Headache, unspecified (principal); R42 Dizziness and giddiness; R93.89 Abnormal findings on diagnostic imaging of other specified body structures; D75.89 Other specified diseases of blood and blood-forming organs; G25.81 Restless legs syndrome; Z86.69 Personal history of other diseases of the nervous system and sense organs
CPT/HCPCS: 36415; 70544; 70551; 71270; 82607; 82728; 82746; 85025; 93880; Q9967

== ENCOUNTER → 2021-09-05 10:43 | Outpatient (CLI) | payer OTHER, BC, SELFPAY ==
--- NOTE | 2021-09-05 10:50 | NM_ITS ---
APPROVED REPORT Exam: Nuclear Stress Test Indication: Chest pain, SOB, Palpitations, Syncope, Fatigue, High cholesterol, Tobacco use, Family history Patient Location: Outpatient Stress Tech: Harleen Tran [place] Tech:FROY Buckley RT(R)(N) Ht: 5 ft 1 in Wt: 186 lbs Bra Size: D HR: 74 bpm BP: 118/74 mmHg BSA: 1.83 m2 BMI: 35.1 History: Chest pain, SOB, Palpitations, Syncope, Fatigue, High cholesterol, Tobacco use, Family history Procedure: Patient exercised on Wm protocol 9:00 minutes and sec, resting heart rate 74 bpm, resting blood pressure 118/74 mmHg, with exercise maximum heart rate achived was 149 bpm which is 86 % of the maximum predicted heart rate and blood pressure was 180/82 mmHg. Test was stopped due to SOB and fatigue. Patient denied any complaint of chest pain. Patient has good exercise capacity, achieved 10.1 METs of workload on treadmill, the blood pressure response to exercise was Adequate. Electrocardiogram Resting electrocardiogram shows sinus rhythm, with exercise there is less than 1.[address] segment depression noted from the baseline EKG. The EKG portion of the exercise Myoview is negative for ischemia. Cardiac Stress and Resting SPECT Images: Cardiac Stress and Resting SPECT images were obtained using technetium 99m Myoview 30.5 mCi stress and 10.04 mCi at rest. Gated SPECT for analysis of segmental wall motion and calculation of the ejection fraction also done. Cardiac stress and resting SPECT images show mild fixed defect in the anterior wall with normal contractility on the gated SPECT is likely secondary to soft tissue attenuation, no reversible ischemia seen, computer derived ejection fraction is 62% with no regional wall motion abnormality, right ventricle is normal size and contractility. Conclusion: 1. The EKG portion of the exercise is negative for ischemia, patient has good exercise capacity achieved 10.1 METs of workload on treadmill, the blood pressure response to exercise was adequate, there was no exercise-induced chest discomfort. 2. No scintigraphic evidence of reversible ischemia seen, a mild fixed defect in the anterior wall is likely secondary to soft tissue attenuation, computer derived ejection fraction is 62% with no regional wall motion abnormality, right ventricle is normal size and contractility. 3. Normal exercise Myoview study. Electronically signed by : Rubén Wetzel MD 09/06/2021 11:24:06
--- NOTE | 2021-09-05 12:35 | CA_ITS ---
APPROVED REPORT EXAM: Comprehensive 2D, Doppler, and color-flow Echocardiogram Heel Attacher Wood: Jacey Gillis RVT Ht: 5 ft 1 in Wt: 186lbs BSA: 1.83 BP: 123/78 mmHg Indications: CP,SMOKER,GERD,HLD,FATIGUE,HX OF BREAST RECONSTRUCTION SURGERY 2D Dimensions LVOT 2.19 cm (M/F) 1.5-2.5 LA Volume 21.60 mL LA Volume Index 11.80 mL/m2 (M/F) 16-34 M-Mode Dimensions RVDd 1.54 cm (0.9-2.6) LA Diam 3.70 cm (1.9-4.0) LVDd 4.49 cm (3.5-5.7) Ao Diam 2.40 cm (2.0-3.7) LVDs 2.52 cm (3.5-5.7) IVSd 1.17 cm (0.6-1.1) PWd 0.94 cm (0.6-1.1) EF (Teich) 75.20% FS 43.90% EDV (Teich) 92.00 mL TAPSE 2.36 (<1.7) ESV (Teich) 22.80 mL LV Diastology E Decel Time 230.00 (160-240 msec) E/A Ratio 2.0 MED E' 7.90 (< 7 cm/sec) E'/MED E' Ratio 13.77 (>14) LAT E' 14.50 (<10 cm/sec) E/LAT E' Ratio 7.50 (>14) Aortic Valve AO Peak GR. 8.00 mmHg Mitral Valve MV E Max Trent. 109.00 (40-130 cm/s) MV A Velocity 55.00 (40-130 cm/s) E/A Ratio 1.97 MV Decel. Time 230.00 (160-240 ms) MV PHT 67.00 ms Pulmonary Valve PV Peak Velocity 75.00 (50-150 cm/s) Tricuspid Valve TR P. Velocity 201.00 cm/s RAP Estimate 10.00 mmHg RVSP 26.20 mmHg Left Ventricle Left atrium is normal size, left ventricle is normal size, there is no concentric left ventricular hypertrophy, visually estimated ejection fraction 55% with no regional wall motion abnormality. Right Ventricle Right atrium and right ventricle is normal size and contractility. Aortic Valve Aortic valve is grossly normal, there is no aortic stenosis or aortic insufficiency. Mitral Valve Mitral valve is grossly normal, there is mild mitral regurgitation. Tricuspid Valve Tricuspid valve grossly normal, there is trace tricuspid regurgitation, tricuspid regurgitation jet velocity is inadequate for calculation of the right ventricular systolic pressure. Pulmonic Valve Pulmonic valve is poorly visualized. Great Vessels Aortic root is normal size. Inferior vena cava is normal size with normal inspiratory collapse. Pericardium No significant pericardial effusion noted. Conclusion 1. Normal left ventricular size, preserved left ventricular systolic function, visually estimated ejection fraction 55% with no regional wall motion abnormality, diastolic parameters are within normal range. 2. Mild mitral and trace tricuspid regurgitation. 3. No significant pericardial effusion noted. 4. Inferior vena cava is normal size with normal inspiratory collapse. Electronically signed by : Rubén Wetzel MD 09/05/2021 14:29:04
--- NOTE | 2021-09-05 14:57 | HMH.ITSHM ---
Current Home Medications as stated by this patient Brooks Chua or operations support representative. []ROSUVASTATIN ROPINIROLE PROPRANOLOL OMEPRAZOLE MECLIZINE FERROUS SULFATE ESCITALOPRAM
--- NOTE | 2021-09-05 15:45 | CA_ITS ---
APPROVED REPORT Exam: Exercise Treadmill Technologist: ,, Ht: 5 ft 1 in Wt: 186 lbs BSA: 1.83 m2 HR: 65 bpm BP: 123/73 mmHg Indications: Chest pain Medical History Medications: Propranolol,,,,, Ferrous sulfate,,,,, Escitalopram,,,,, Ropinirole,,,,, Meclizine,,,,, RoSUVASTATIN,,,,, Stress Test Details Test: Wm HR Resting HR: 74 bpm Max Heart Rate (APMHR): 173.996333 bpm Max HR Achieved: 149 bpm Target HR (85% APMHR): 147.014109 bpm % of APMHR: 86.13 Recovery HR: 88 bpm BP Resting BP: 118/74 mmHg Max BP: 180/82 mmHg Recovery BP: 133.0/80.0 mmHg ECG Resting ECG: NSR, normal Clinical Exercise duration: 09:00 min Highest Stage Achieved: Exercise capacity: 10.1 METs Stress ECG Conclusion Exercised 9:00 on Wm Protocol. Max HR: 149 % of PM: 86% Max BP: 180/82 METs: 10.1 Test stopped due to: SOA, leg fatigue Symptoms: No CP. Arrhythmias/Ectopy: None. ST-T Changes: Normal ST response to exercise. Conclusion: Normal GXT. Myoview images reported separately. Test Summary RECOVERY 02:00 0.0 0.0 92 . 180/ 82 . . REST . . . . . . . Standing REST 03:06 0.0 0.0 74 . 118/ 74 . . Stage 1 01:00 10.0 1.7 96 . . . . Stage 1 02:00 10.0 1.7 104 . . . . Stage 1 03:00 10.0 1.7 108 . 138/ 76 . . Stage 2 01:00 12.0 2.5 117 . . . . Stage 2 02:00 12.0 2.5 118 . . . . Stage 2 03:00 12.0 2.5 116 . 152/ 76 . . Stage 3 01:00 14.0 3.4 132 . . . . Stage 3 02:00 14.0 3.4 143 . . . . Stage 3 03:00 14.0 3.4 149 . . . Stop exercise at 09:00 RECOVERY 01:00 0.0 0.0 121 . 180/ 82 . . RECOVERY 02:00 0.0 0.0 92 . 180/ 82 . . RECOVERY 03:00 0.0 0.0 96 . 180/ 82 . . RECOVERY 04:00 0.0 0.0 90 . 158/ 85 . . RECOVERY 05:00 0.0 0.0 85 . 133/ 80 . . RECOVERY 05:19 0.0 0.0 84 . 133/ 80 . . Electronically signed by : Rubén Wetzel MD 09/06/2021 09:52:00
== END ==
PROVIDERS: PCP Physician Assistant; Visit Provider Internal Medicine Cardiovascular Disease
DX: R07.89 Other chest pain (principal); I65.23 Occlusion and stenosis of bilateral carotid arteries; E78.5 Hyperlipidemia, unspecified; K21.9 Gastro-esophageal reflux disease without esophagitis; R53.83 Other fatigue; F17.200 Nicotine dependence, unspecified, uncomplicated; E66.9 Obesity, unspecified; Z68.35 Body mass index [BMI] 35.0-35.9, adult
CPT/HCPCS: 78452; 93017; 93306; A9502

== ENCOUNTER → 2021-09-16 09:26 | Outpatient (CLI) | payer OTHER, BC, SELFPAY | PROVIDERS: PCP Physician Assistant; Visit Provider Nurse Practitioner Family | DX: R42 Dizziness and giddiness (principal); R46.89 Other symptoms and signs involving appearance and behavior | CPT/HCPCS: 95819 ==

== ENCOUNTER → 2021-10-02 13:17 | Outpatient (CLI) | payer OTHER, BC, SELFPAY ==
--- NOTE | 2021-10-02 13:20 | XR_ITS ---
PROCEDURE: XR WRIST LT MIN 3V CLINICAL INDICATION: left wrist pain/ CTS COMPARISON: No exams were available for comparison FINDINGS: No fracture or dislocation. No lytic or blastic change. There is normal mineralization. The joint spaces are well-preserved. No significant degenerative/arthritic changes. No erosive changes evident. Other findings:None. IMPRESSION: Negative left wrist Dictated by: Esvin Pérez MD 10/02/2021 14:11 Esvin Pérez MD in [place] 10/02/2021 14:11
--- NOTE | 2021-10-02 13:20 | XR_ITS ---
PROCEDURE: XR WRIST RT MIN 3V CLINICAL INDICATION: RT wrist pain/ CTS COMPARISON: No exams were available for comparison FINDINGS: No fracture or dislocation. No lytic or blastic change. There is normal mineralization. The joint spaces are well-preserved. No significant degenerative/arthritic changes. No erosive changes evident. Other findings:None. IMPRESSION: Negative right wrist Dictated by: Esvin Pérez MD 10/02/2021 14:12 Esvin Pérez MD in [place] 10/02/2021 14:12
== END ==
PROVIDERS: PCP Physician Assistant; Visit Provider Orthopaedic Surgery
DX: M25.531 Pain in right wrist (principal); M25.532 Pain in left wrist
CPT/HCPCS: 73110

== ENCOUNTER → 2021-10-08 13:22 | Outpatient (CLI) | payer OTHER, BC, SELFPAY ==
[2021-10-08 14:12] LABS: Basophils # 0.1 K/mm3 (0-0.2); Basophils % 0.6 % (0.1-2.0); Eosinophils # 0.4 K/mm3 (0.0-0.4); Eosinophils % 2.7 % (0.1-12.0); Hematocrit 45.2 % (37.0-47.0); Hemoglobin 15.6 g/dL (12.2-16.2); Lymphocytes # 2.6 K/mm3 (0.7-4.5); Lymphocytes % 17.7 % (10-50); Mean Corpuscular HGB Conc 34.4 g/dL (31.8-35.4); Mean Corpuscular Hemoglobin 34.2 pg (27.0-31.2); Mean Corpuscular Volume 99.3 fl (81-99); Mean Platelet Volume 7.6 fl (7.4-10.4); Monocytes % 6.5 % (1.7-9.3); Neutrophils # 10.7 K/mm3 (1.8-7.8); Neutrophils % 72.5 % (37.0-80.0); Platelet Count 399 K/mm3 (142-424); Red Blood Count 4.55 M/mm3 (4.20-5.40); Red Cell Distribution Width 13.3 % (11.5-17.5); Urine Pregnancy, HCG Qual. Negative (Negative); White Blood Count 14.8 K/mm3 (4.8-10.8)
[2021-10-08 14:34] LABS: Alanine Aminotransferase 45 U/L (12-78); Albumin Level 4.3 g/dl (3.5-5.0); Alkaline Phosphatase 63 U/L (38-126); Aspartate Amino Transferase 36 U/L (14-36); Bilirubin,Direct 0.1 mg/dl (0.0-0.4); Bilirubin,Indirect 0.4 mg/dL (0.0-0.9); Bilirubin,Total 0.5 mg/dl (0.2-1.3); Bilirubin,Unconjugated 0.3 mg/dL (0.0-1.1); Chol/HDL Ratio 2.4 (1-3.5); Cholesterol 107 mg/dl (140-200); HDL Cholesterol 45 mg/dl (40-60); Total Protein,Serum 6.5 g/dl (6.3-8.2); Triglycerides 90 mg/dl (30-150); VLDL Cholesterol 18 mg/dL (0-40)
[2021-10-08 14:36] LABS: Alanine Aminotransferase 45 U/L (12-78); Albumin Level 4.3 g/dl (3.5-5.0); Albumin/Globulin Ratio 1.8 (1.1-1.8); Alkaline Phosphatase 62 U/L (38-126); Anion Gap 10.5 mEq/L (5-15); Aspartate Amino Transferase 37 U/L (14-36); Bilirubin,Total 0.4 mg/dl (0.2-1.3); Blood Urea Nitrogen 12 mg/dl (7-17); Calcium 9.5 mg/dl (8.4-10.2); Carbon Dioxide 31 mmol/L (22.0-30.0); Chloride 102 mmol/L (98-107); Estimated Glomerular Filt Rate 132 ml/min (>60); GFR (African American) 160 ML/MIN (>60); Globulin 2.4 g/dL (1.3-3.2); Glucose 99 mg/dl (74-100); Potassium 4.5 mmoL/L (3.5-5.1); Sodium 139 mmol/L (136-145); Total Protein,Serum 6.7 g/dl (6.3-8.2)
[2021-10-08 14:45] LABS: Direct LDL Cholesterol 80.75 mg/dL (100-129)
== END ==
PROVIDERS: Internal Medicine Cardiovascular Disease; Visit Provider Orthopaedic Surgery
DX: Z01.818 Encounter for other preprocedural examination (principal); Z11.52 Encounter for screening for COVID-19; G56.02 Carpal tunnel syndrome, left upper limb; I25.10 Atherosclerotic heart disease of native coronary artery without angina pectoris; I10 Essential (primary) hypertension; E78.5 Hyperlipidemia, unspecified; F17.200 Nicotine dependence, unspecified, uncomplicated; I65.29 Occlusion and stenosis of unspecified carotid artery
CPT/HCPCS: 36415; 80053; 80061; 80076; 81025; 85025; C9803; U0003; U0005

== ENCOUNTER 2021-10-10 09:22 | Day surgery (SDC) | payer OTHER, BC, SELFPAY ==
[2021-10-07 11:33] VITALS: BMI 36.1
[2021-10-10] VITALS (9 sets, daily range): BP systolic 103–150; BP diastolic 73–98; PULSE 70–83; RESP 14–18; TEMP 36.7–36.8; O2SAT 91–97
--- NOTE | 2021-10-10 12:12 | HMH.ANESI ---
[facility] Anesthesia Record Part I Intake, IV Amount: 600 Estimated blood loss (mL): 2 Urine output (mL): 0 Blood Pressure: 125/76 SaO2: 97 Pulse Rate: 82 Respiratory Rate: 16 Temperature: 98.3 F Patient is:: Drowsy Stable to PACU at:: 12:07
--- NOTE | 2021-10-10 13:27 | SUR.PHASEI ---
1215- pt in PACU to receive a breathing treatment from respiratory per tatiana Teran. Pt to go to post op immediately following. 1216- respiratory in at this time to give pt a breathing treatment.
--- NOTE | 2021-10-10 16:17 | HMH.OPNOTE ---
Date of procedure: 10/10/21 Pre-op Diagnosis:: Carpal tunnel syndrome, left Post-op Diagnosis:: Same Procedure performed:: Open carpal tunnel release, left wrist Surgeon:: Froilan Coles MD Prn Physical Therapist(s):: Hollie Billingsley PA-C MERCERIZER:: Other (Loc Petersen) Anesthesia: MAC Estimated blood loss (mL): 2 Clinical Note:: Patient is a 45-year-old female with bilateral carpal tunnel syndrome with long-standing symptoms. The clinical findings are consistent with the diagnosis of carpal tunnel syndrome. EMG/NCV studies confirmed carpal tunnel syndrome on both sides and her symptoms are worse on the left side. Patient is having significant and disabling symptoms and has failed to respond adequately to conservative management. Therefore, she opted for left carpal tunnel release to begin with. Carpal tunnel release surgery is necessary to relieve symptoms, preserve the remaining fibers of the median nerve, improve function and decrease the pain, paresthesias and weakness and to prevent permanent nerve damage. Please refer to my office note for full details. Operative findings:: The intraoperative findings showed the median nerve to be tightly compressed and hyperemic. The flexor retinaculum was noted to be thick and tight. There was mild synovitis in the carpal tunnel. There was no evidence of any space-occupying lesions within the carpal tunnel. Operative note:: On the day of the surgery the patient was met in the preoperative area. Patient was positively identified and the operative site was marked and initialed by me. A physical examination was performed and the chart was updated. I have again discussed the procedure, risks, benefits and alternatives with the patient. The complications discussed include but are not limited to- bleeding, injury to nerves, blood vessels and tendons, infection, wound dehiscence, incomplete relief/continued pain, persistent numbness, palmar hypersensitivity, pillar pain, DVT/PE, complex regional pain syndrome(CRPS), worsening of nerve damage, failure of the condition to improve, incomplete return of function, bowstringing of tendons, weakness of gynecologist strength, recurrence, failure of the surgery to accomplish the desired goals, decreased use of the hand, loss of use of the arm, loss of the hand or arm, loss of life. Likely need for further surgery in the future has been discussed. I've indicated to the patient where the proposed incision would be made and also discussed the possibility of extending the incision if needed to accomplish an effective release. We have discussed how the goal of surgery is to protect the fibers which have remained healthy and hopefully reverse the symptoms of the fibers which are compromised but still recoverable. We have explained that, fibers that are permanently damaged will not recover. Patient asked appropriate questions and all have been answered by me. Patient wished to proceed with the surgery. Patient understood the risks, agreed to proceed with surgery and no guarantees or assurances were given or implied. The patient was brought to the operating room and placed supine on the operating table. The left upper extremity was placed over a side table. All the bony prominences were well-padded. The patient had a MAC anesthesia administered by the biology adjunct instructor. A well-padded tourniquet cuff was placed over the upper arm. The left upper extremity was prepped and draped in the usual sterile fashion. A preprocedure timeout was performed as per hospital policy. Administration of prophylactic antibiotics was confirmed with the biology adjunct instructor. The skin incision was marked using the [place]'s landmarks, just ulnar to the thenar crease. The skin and soft tissue around the incision were then infiltrated with 10 mL of lidocaine with epinephrine. The limb was exsanguinated with the Esmarch bandage and tourniquet was inflated to 250 mmHg. Please see nursing records for the total tourniquet time. [place]'s landmarks we
--- NOTE | 2021-10-11 08:05 | P.PN_ITS ---
[facility] Anesthesia Record Part II Discharge Time: 12:27 [facility] nurse assessment reviewed?: Yes Patient Condition:: Good Anesthesia Complications:: None Swallowing reflex intact?: Yes Cyanosis?: No Blood Pressure: 103/77 Pulse Rate: 82 Temperature: 98.2 F Mental Status: Alert & Oriented Pain level:: 0 Nausea and/or vomitting:: None Intake, IV Amount: 1,500
[2021-10-11 08:06] VITALS: BP 103/77; PULSE 82; TEMP 36.8
== END 2021-10-10 13:04 | disposition home or self-care (01) ==
LOC: OR 09:23
PROVIDERS: PCP Physician Assistant; Visit Provider Orthopaedic Surgery
PROC: (CPT 64721; principal; 2021-10-10 11:15)
DX: G56.02 Carpal tunnel syndrome, left upper limb (principal)
CPT/HCPCS: 64721; 94640; 96374; J2405

== ENCOUNTER → 2021-10-24 20:51 | Outpatient (CLI) | payer OTHER, BC, SELFPAY | PROVIDERS: PCP Physician Assistant; Visit Provider Specialist | DX: G47.33 Obstructive sleep apnea (adult) (pediatric) (principal) | CPT/HCPCS: 95810 ==

== ENCOUNTER → 2021-10-29 09:37 | Outpatient (CLI) | payer OTHER, BC, SELFPAY | PROVIDERS: Visit Provider Orthopaedic Surgery | DX: Z01.818 Encounter for other preprocedural examination (principal); Z11.52 Encounter for screening for COVID-19 | CPT/HCPCS: C9803; U0003; U0005 ==

== ENCOUNTER 2021-10-31 07:19 | Day surgery (SDC) | payer OTHER, BC, SELFPAY ==
[2021-10-25 08:47] VITALS: BMI 35.9
[2021-10-31 07:47] LABS: Urine Pregnancy, HCG Qual. Negative (Negative)
[2021-10-31 07:49] VITALS: BP 128/79; PULSE 83; RESP 20; TEMP 36.1; O2SAT 96
--- NOTE | 2021-10-31 09:13 | HMH.ANESCL ---
[facility] Anesthesia Checklist - Patient Identification Patient Identification: Arm Band - Structural Data Admitted From: Home Planned Operative Procedure/s: Right CTR Consent for Planned Operative Procedure(s) Verified: Yes Verified Documents: Surgical Consent, History and Physical - NPO Status Verified Time NPO: 00:00 - Additional verifications Anesthesia Reactions: No Hx Blood Transfusions: No Blood Transfusion Reaction: No - Airway Assessment C-Spine Mobility Assessed: Yes (mp2) TMJ Mobility Assessed: Yes Dentition: Good Dentition - Neurological Assessment Level of Consciousness: Awake, Alert - Anesthesia Plan Anesthesia Risk discussed: Yes Anesthesia Plan: Verified ASA Class: II Anesthesia Type: MAC w/Block (Supraclavicular block. Risks/benefits explained. Pt verbalized understanding) [facility] History I have reviewed the patient's past medical history: Yes Medical History: Reports:: Anxiety, Depression, Hyperlipidemia, Migraine Denies:: Cancer, Diabetes Mellitus Type 1, Diabetes Mellitus Type 2, Internal Pacemaker, MRSA, Seizures *Have you ever received a pneumonia vaccine?: No *Have you received a flu vaccine this season?: Yes Other Medical History: Reports: Arthritis. Denies: Blood Transfusion Reaction Anesthesia experience/problems:: nac Laterality Cases: Left: Carpal Tunnel Release, Right: Lumpectomy, Bilateral: Mastectomy, Tonsillectomy Other Surgeries: Yes: Appendectomy, Cancer Surgery, Cholecystectomy, Colonoscopy, , Plastic Surgery, Other. No: Pacemaker Amputation: No Fractures: No - *Social History Last grade of school completed: High school graduate Smoking Status: Current every day smoker Tobacco Type: cigarettes # Packs/Day (cigarettes): 1 Alcohol Intake: never Alcohol Intake Frequency:: holidays/special occasions only Substance Use Type: denies use *Occupational Status:: employed Housing: house Household Members: spouse *Travel in the last 8 weeks: None - Psychiatric History Pschychiatric History:: Reports:: Anxiety, Depression Family Hx:: Cancer, Heart Attack, Hyperlipidemia, Hypertension, Thyroid Disorder
[2021-10-31 10:12] VITALS: TEMP 43
[2021-10-31 10:30] VITALS: BP 150/102; PULSE 91; RESP 16; TEMP 36.8; O2SAT 91
[2021-10-31 10:45] VITALS: BP 139/90; PULSE 71; RESP 18; O2SAT 92
[2021-10-31 11:00] VITALS: BP 119/63; PULSE 73; RESP 18; O2SAT 95
[2021-10-31 11:30] VITALS: BP 113/75; PULSE 72; RESP 18; O2SAT 96
--- NOTE | 2021-10-31 14:19 | HMH.OPNOTE ---
Date of procedure: 10/31/21 Pre-op Diagnosis:: Carpal tunnel syndrome, right Post-op Diagnosis:: Same Procedure performed:: Open carpal tunnel release, right wrist Surgeon:: Froilan Coles MD Faceter(s):: Hollie Billingsley PA-C ANIMAL NURSERY WORKER:: Jacky Garcia Anesthesia: regional (Supraclavicular nerve block) Estimated blood loss (mL): 2 Clinical Note:: Patient is a 45-year-old female with right carpal tunnel syndrome with long-standing symptoms. The clinical findings are consistent with the diagnosis of carpal tunnel syndrome. Previously EMG/NCV studies confirmed carpal tunnel syndrome on both sides and she previously underwent successful carpal tunnel release on the left side. Patient is having significant and disabling symptoms on the right side and has failed to respond adequately to conservative management. Therefore, carpal tunnel release surgery is necessary to relieve symptoms, preserve the remaining fibers of the median nerve, improve function and decrease the pain, paresthesias and weakness and to prevent permanent nerve damage. Please refer to my office note for full details. Operative findings:: The intraoperative findings showed the median nerve to be tightly compressed and hyperemic. The flexor retinaculum was noted to be thick and tight. There was mild synovitis in the carpal tunnel. There was no evidence of any space-occupying lesions within the carpal tunnel. Operative note:: On the day of the surgery the patient was met in the preoperative area. Patient was positively identified and the operative site was marked and initialed by me. A physical examination was performed and the chart was updated. I have again discussed the procedure, risks, benefits and alternatives with the patient. The complications discussed include but are not limited to- bleeding, injury to nerves, blood vessels and tendons, infection, wound dehiscence, incomplete relief/continued pain, persistent numbness, palmar hypersensitivity, pillar pain, DVT/PE, complex regional pain syndrome(CRPS), worsening of nerve damage, failure of the condition to improve, incomplete return of function, bowstringing of tendons, weakness of dealer account manager strength, recurrence, failure of the surgery to accomplish the desired goals, decreased use of the hand, loss of use of the arm, loss of the hand or arm, loss of life. Likely need for further surgery in the future has been discussed. I've indicated to the patient where the proposed incision would be made and also discussed the possibility of extending the incision if needed to accomplish an effective release. We have discussed how the goal of surgery is to protect the fibers which have remained healthy and hopefully reverse the symptoms of the fibers which are compromised but still recoverable. We have explained that, fibers that are permanently damaged will not recover. Patient asked appropriate questions and all have been answered by me. Patient wished to proceed with the surgery. Patient understood the risks, agreed to proceed with surgery and no guarantees or assurances were given or implied. The patient was brought to the operating room and placed supine on the operating table. The right upper extremity was placed over a side table. All the bony prominences were well-padded. The patient had a supraclavicular nerve block and IV sedation administered by the truck driver supervisor. A well-padded tourniquet cuff was placed over the upper arm. The right upper extremity was prepped and draped in the usual sterile fashion. A preprocedure timeout was performed as per hospital policy. Administration of prophylactic antibiotics was confirmed with the truck driver supervisor. The skin incision was marked using the [place]'s landmarks, just ulnar to the thenar crease. The limb was exsanguinated with the Esmarch bandage and tourniquet was inflated to 250 mmHg. Please see nursing records for the total tourniquet time. [place]'s landmarks were utilized and a skin incision was made p
== END 2021-10-31 11:30 | disposition home or self-care (01) ==
LOC: OR 07:20
PROVIDERS: PCP Physician Assistant; Visit Provider Orthopaedic Surgery
PROC: (CPT 64721; principal; 2021-10-31 07:30)
DX: G56.01 Carpal tunnel syndrome, right upper limb (principal)
CPT/HCPCS: 64721; 81025; 96374; J0670

== ENCOUNTER → 2022-04-22 15:43 | Outpatient (CLI) | payer BC, SELFPAY ==
--- NOTE | 2022-04-22 15:47 | XR_ITS ---
PROCEDURE INFORMATION: Exam: XR Right Knee Exam date and time: 04/22/2022 3:56 PM Age: 46 years old Clinical indication: Pain; Knee; Right; Additional info: Right knee pain TECHNIQUE: Imaging protocol: XR Right knee. Views: 4 or more views. COMPARISON: CR [id number] XR knee RT 3V 05/11/2018 10:22 PM FINDINGS: Bones/joints: Mild-moderate narrowing medial knee compartment. Mild patellofemoral degenerative changes medial aspect of the patellofemoral articulation. No evidence of acute osseous injury. Soft tissues: Normal. IMPRESSION: 1. No evidence of acute osseous injury. 2. Mild-moderate degenerative arthritic type change medial knee compartment.
--- NOTE | 2022-04-22 15:47 | XR_ITS ---
PROCEDURE INFORMATION: Exam: XR Left Knee Exam date and time: 04/22/2022 3:56 PM Age: 46 years old Clinical indication: Pain; Knee; Bilateral; Additional info: Left knee pain TECHNIQUE: Imaging protocol: XR Left knee. Views: 4 or more views. COMPARISON: CR XR FOOT WT BEARING LT 3V 12/27/2019 1:27 PM FINDINGS: Bones/joints: Moderate narrowing of the medial knee compartment. Mild patellofemoral degenerative changes greatest along the medial aspect. Soft tissues: Normal. IMPRESSION: 1. Moderate degenerative arthritic type change lateral knee compartment, left knee. Mild patellofemoral degenerative changes as described above. 2. No evidence of acute osseous injury.
== END ==
PROVIDERS: PCP Physician Assistant; Visit Provider Orthopaedic Surgery
DX: M25.561 Pain in right knee (principal); M25.562 Pain in left knee
CPT/HCPCS: 73564

== ENCOUNTER 2022-05-13 16:01 | Outpatient (RCR) | payer BC, SELFPAY | END 2022-05-13 17:00 | disposition home or self-care (01) | LOC: PT 16:01 | PROVIDERS: Visit Provider Orthopaedic Surgery | DX: M25.562 Pain in left knee (principal) | CPT/HCPCS: 97760 ==

== ENCOUNTER → 2022-05-15 15:50 | Outpatient (CLI) | payer BC, SELFPAY ==
[2022-05-15 17:27] LABS: Thyroid Stimulating Hormone 1.04 uIU/mL (0.465-4.68)
[2022-05-15 17:30] LABS: Ferritin 69.5 ng/ml (6.24-137)
[2022-05-20 04:08] LABS: Estradiol <5.0 pg/mL (.); FSH 15.7 mIU/mL (.); Progesterone 0.1 ng/mL (.)
== END ==
PROVIDERS: Nurse Practitioner Family; PCP Physician Assistant; Visit Provider Obstetrics & Gynecology
DX: R09.89 Other specified symptoms and signs involving the circulatory and respiratory systems (principal); G25.81 Restless legs syndrome; G47.9 Sleep disorder, unspecified
CPT/HCPCS: 36415; 82670; 82728; 83001; 83002; 84144; 84443

== ENCOUNTER → 2022-05-22 07:58 | Outpatient (CLI) | payer BC, SELFPAY ==
--- NOTE | 2022-05-22 08:56 | US_ITS ---
PROCEDURE INFORMATION: Exam: US Right Breast, Complete Exam date and time: 05/22/2022 9:19 AM Age: 46 years old Clinical indication: Bilat mastectomy with implants -- PT states nod bxpd but sister of breast CA; Patient HX: RT lat chest wall palp area TECHNIQUE: Imaging protocol: Complete ultrasound of all four quadrants of the Right breast and the retroareolar regions, including ultrasound of the axilla when performed. COMPARISON: No relevant prior studies available. FINDINGS: Breast: Sonographic images on the right do not demonstrate any solid or cystic masses. No architectural distortion or acoustical shadowing. The patient is status post right mastectomy with implant reconstruction. No focal findings where the patient reports a palpable abnormality along the lateral aspect of the chest. No axillary adenopathy IMPRESSION: No sonographic evidence of malignancy. Further evaluation of a palpable abnormality should be based on clinical grounds regardless of radiographic findings or lack thereof. ASSESSMENT: BI-RADS Category 1: Negative
== END ==
PROVIDERS: PCP Physician Assistant; Visit Provider Obstetrics & Gynecology
DX: N63.10 Unspecified lump in the right breast, unspecified quadrant (principal)
CPT/HCPCS: 76641

== ENCOUNTER → 2022-08-11 08:14 | Outpatient (CLI) | payer BC, SELFPAY ==
--- NOTE | 2022-08-11 08:26 | US_ITS ---
FINAL REPORT CLINICAL HISTORY: RUQ pain FINDINGS: ULTRASOUND RIGHT UPPER QUADRANT Sonographic imaging of the right upper quadrant was obtained. The pancreas is partially obscured. The liver has increased echogenicity consistent with mild fatty infiltration. There is no evidence of gallstones. There is no gallbladder wall thickening. There is no biliary ductal dilatation. The common duct is normal at 3 mm. Limited images of the right kidney are unremarkable. IMPRESSION: Mild fatty liver. Reviewed, Interpreted and Dictated by Moe Samaniego MD Transcribed by Rani Osorio Authenticated and . [facility]
== END ==
PROVIDERS: PCP Physician Assistant; Visit Provider Surgery
DX: R10.11 Right upper quadrant pain (principal)
CPT/HCPCS: 76705

== ENCOUNTER 2022-09-03 08:53 | Emergency (ER) | payer BC, SELFPAY ==
[2022-09-03] VITALS (8 sets, daily range): BP systolic 123–152; BP diastolic 78–97; PULSE 81–89; RESP 12–20; TEMP 36.7–36.8; O2SAT 94–99; BMI 38.4
--- NOTE | 2022-09-03 08:53 | ECG_ITS ---
APPROVED REPORT Exam: Resting ECG HR:80 bpm ECG Measurements Heart Rate 80 AXES SC 160 P 77 QRSd 74 QRS 64 QT 358 T 77 QTc 393 Conclusion SINUS RHYTHM NORMAL ECG UNCONFIRMED REPORT Electronically signed by : Alfredo Craig MD 09/03/2022 14:01:38
--- NOTE | 2022-09-03 09:00 | CT_ITS ---
FINAL REPORT TECHNIQUE: Then section axial CT images of the chest were obtained with contrast. Three-D reformatted images were also obtained.This study was performed with techniques to keep radiation doses as low as reasonably achievable (ALARA). Individualized dose reduction techniques using automated exposure control or adjustment of mA and/or kV according to the patient''s size were employed. CLINICAL HISTORY: mid back pain, HTN COMPARISON: July 2021 FINDINGS: There is no evidence of pulmonary embolism. There is no evidence of thoracic aortic aneurysm or dissection. There is no evidence of mediastinal or hilar mass or adenopathy. There is a 3 mm pleural base nodule in the left lower lobe on image 69, stable. There is a 3 mm left lower lobe nodule on image 94, also stable. These are most likely benign. No follow-up recommended per Fleischner guidelines. No new mass or pulmonary nodule identified. There is mild scarring or atelectasis. IMPRESSION: No evidence of pulmonary embolism. Stable small pulmonary nodules. No follow-up recommended per Fleischner guidelines. Reviewed, Interpreted and Dictated by Brett Horton III, MD Transcribed by Brock Winchester Authenticated and [facility]
--- NOTE | 2022-09-03 09:00 | CT_ITS ---
FINAL REPORT CLINICAL HISTORY: back pain, HTN FINDINGS: Post contrast axial imaging of the abdomen was obtained and reviewed.This study was performed with techniques to keep radiation doses as low as reasonably achievable (ALARA). Individualized dose reduction techniques using automated exposure control or adjustment of mA and/or kV according to the patient''s size were employed. There is no evidence of aortic aneurysm. There is no evidence of aortic stenosis. The celiac axis, superior mesenteric artery and inferior mesenteric artery are patent without stenosis. There is no evidence of renal artery stenosis. The iliac arteries are unremarkable, without stenosis. The internal iliac arteries are patent. Review of the remaining abdomen and pelvis demonstrates fatty infiltration of the liver. There is a 10 mm low-attenuation mass favoring a cyst adjacent to the gallbladder fossa, stable. There is a 13 mm mass in the right liver dome that may represent a cyst or hemangioma, stable from prior. The gallbladder is present. There is a small umbilical hernia containing fat only. An IUD is seen in the uterus. There is a partially calcified 3.3 cm mass in the uterus consistent with uterine fibroid. There are several sigmoid diverticulum. IMPRESSION: No evidence of stenosis or occlusion. No acute process. Reviewed, Interpreted and Dictated by Brett Horton III, MD Transcribed by Brock Winchester Authenticated and [facility]
--- NOTE | 2022-09-03 09:00 | XR_ITS ---
FINAL REPORT CLINICAL HISTORY: SOB/CP COMPARISON: November 2019; June 2021 FINDINGS: The heart size is normal. The mediastinum is within normal limits. There is no acute cardiopulmonary process. There is no pleural effusion. There is no pneumothorax. The bony thorax is intact. There are postoperative changes in the thorax bilaterally. IMPRESSION: No acute cardiopulmonary process. Reviewed, Interpreted and Dictated by Brett Horton III, MD Transcribed by Brock Winchester Authenticated and [facility]
--- NOTE | 2022-09-03 09:00 | HMH.EDGENADL ---
Discharge Plan Disposition Patient Disposition: Home, Self-Care Condition: Good Chief Complaint: Chest Pain Prescriptions Prescriptions: No Action atomoxetine [Strattera] 80 mg capsule 80 mg PO DAILY Qty: 30 1RF aspirin [Adult Aspirin Regimen] 81 mg tablet,delayed release (DR/EC) 81 mg PO DAILY Slow Fe 142 mg (45 mg iron) tablet extended release 142 mg PO DAILY Mirena 20 mcg/24 hours (7 yrs) 52 mg intrauterine device INTRAUTERI melatonin 5 mg tablet 5 mg PO HS PRN propranolol 120 mg capsule,extended release 24 hr 120 mg PO DAILY Qty: 90 3RF ropinirole 1 mg tablet See Rx Instructions .ROUTE .COMPLEX Qty: 90 3RF Dose Instruction: TAKE 1 TABLET BY MOUTH AT BEDTIME Rx Instructions: TAKE 1 TABLET BY MOUTH AT BEDTIME omeprazole 40 mg capsule,delayed release(DR/EC) See Rx Instructions .ROUTE .COMPLEX Qty: 90 1RF Dose Instruction: Take 1 capsule by mouth once daily Rx Instructions: Take 1 capsule by mouth once daily escitalopram oxalate 20 mg tablet See Rx Instructions .ROUTE .COMPLEX Qty: 90 3RF Dose Instruction: TAKE 1 TABLET BY MOUTH ONCE DAILY FOR DEPRESSION Rx Instructions: TAKE 1 TABLET BY MOUTH ONCE DAILY FOR DEPRESSION rosuvastatin 20 MG tablet 20 mg PO QHS Referrals Follow up/Referrals: Jessica Brannon PA [Primary Care Provider] - See instructions Indio Zepeda PA [Physician Video Specialist] - See instructions Clinical Impressions Clinical Impression: Chest pain, Pain in thoracic spine Instructions Patient Instructions: DI for Atypical Chest Pain Discharge ED Provider: Jc Olvera General Adult HPI General Chief complaint: Chest Pain Stated complaint: chest pain Time Seen by Provider: 09/03/22 09:02 Mode of Arrival: Wheelchair History of Present Illness HPI narrative: Patient is a 46-year-old female with past medical history of CAD with calcifications noted on coronary CT, follows with cardiology and in fact was seen at their office this morning and brought from there. She reports having mid scapular back pain described as tearing over the past 2 days and worsening. She did not develop shortness of breath, was noted to be diaphoretic in the office and appeared markedly uncomfortable. EKG obtained in the office showed no acute ischemic changes. She denies numbness, tingling, weakness of the extremities, denies any abdominal pain or other chest pain, cough, fever or other symptoms. She does have history of hypertension blood pressure was noted to be 150 systolic today, denies any known history of aortic dissection or other vascular issues. She had stress test and echocardiogram approximately 1 year ago both which appeared grossly normal. She reports compliance with daily aspirin. Related Data Home Medications Medication Instructions Recorded Confirmed ferrous sulfate 142 mg (45 mg 142 mg PO DAILY Supplement 08/22/21 09/03/22 iron) tablet,extended release (Slow Fe) aspirin 81 mg tablet,delayed 81 mg PO DAILY HEART HEALTH 09/12/21 09/03/22 release (Adult Aspirin Regimen) rosuvastatin 20 mg tablet 20 mg PO QHS Cholesterol 10/07/21 09/03/22 levonorgestrel 20 mcg/24 hours (8 intrauterine 02/24/22 09/03/22 yrs) 52 mg intrauterine device (Mirena) melatonin 5 mg tablet 5 mg PO HS PRN 05/05/22 09/03/22 Previous Rx's Medication Instructions Recorded propranolol 120 mg capsule,24 120 mg PO DAILY Tremors #90 caps 12/02/21 hr,extended release ropinirole 1 mg tablet See Rx Instructions .Route 05/13/22 .COMPLEX #90 tabs omeprazole 40 mg capsule,delayed See Rx Instructions .Route 05/15/22 release .COMPLEX #90 caps escitalopram oxalate 20 mg tablet See Rx Instructions .Route 06/12/22 .COMPLEX #90 tabs atomoxetine 80 mg capsule 80 mg PO DAILY #30 caps 08/14/22 (Strattera) Allergies Allergy/AdvReac Type Severity Reaction Status Date / Time atorvastatin Allergy Intermediate Bret
[2022-09-03 09:16] LABS: Basophils # 0.2 K/mm3 (0-0.2); Basophils % 1.7 % (0.1-2.0); Eosinophils # 0.3 K/mm3 (0.0-0.4); Eosinophils % 2.1 % (0.1-12.0); Hematocrit 46.3 % (37.0-47.0); Hemoglobin 15.3 g/dL (12.2-16.2); Lymphocytes % 25.1 % (10-50); Mean Corpuscular HGB Conc 33.1 g/dL (31.8-35.4); Mean Corpuscular Hemoglobin 32.3 pg (27.0-31.2); Mean Corpuscular Volume 97.8 fl (81-99); Mean Platelet Volume 7.5 fl (7.4-10.4); Monocytes # 0.7 K/mm3 (0.1-1.0); Neutrophils # 7.9 K/mm3 (1.8-7.8); Neutrophils % 65.2 % (37.0-80.0); Platelet Count 382 K/mm3 (142-424); Red Blood Count 4.73 M/mm3 (4.20-5.40); Red Cell Distribution Width 13.4 % (11.5-17.5); White Blood Count 12.1 K/mm3 (4.8-10.8)
[2022-09-03 09:19] LABS: Chloride 101 mmol/L (98-107); Sodium 139 mmol/L (136-145)
[2022-09-03 09:21] LABS: Blood Urea Nitrogen 14 mg/dl (7-17); Creatinine Clearance Estimated 148 mL/min (50-200); Estimated Glomerular Filt Rate 89 ml/min (>60); GFR (African American) 108 ML/MIN (>60)
[2022-09-03 09:22] LABS: Alanine Aminotransferase 50 U/L (12-78); Albumin Level 4.5 g/dl (3.5-5.0); Albumin/Globulin Ratio 1.9 (1.1-1.8); Alkaline Phosphatase 79 U/L (38-126); Aspartate Amino Transferase 50 U/L (14-36); Bilirubin,Total 0.5 mg/dl (0.2-1.3); Calcium 9.1 mg/dl (8.4-10.2); Carbon Dioxide 29 mmol/L (22.0-30.0); Globulin 2.4 g/dL (1.3-3.2); Glucose 88 mg/dl (74-100); Magnesium 2.1 mg/dl (1.6-2.3); Total Protein,Serum 6.9 g/dl (6.3-8.2)
--- NOTE | 2022-09-03 09:23 | PC.NURSE ---
portable xr at the bedside
[2022-09-03 09:31] LABS: NT Pro Brain Natriuretic Pep. 24.9 pg/mL (0-125)
--- NOTE | 2022-09-03 09:36 | PC.NURSE ---
pt to radiology for CT scans
--- NOTE | 2022-09-03 09:38 | PC.NURSE ---
pt back from radiology
[2022-09-03 09:42] LABS: Troponin I < 0.01 ng/ml (0.00-0.034)
--- NOTE | 2022-09-03 09:43 | PC.NURSE ---
pt medicated per MAR. no needs at this time
--- NOTE | 2022-09-03 10:17 | PC.NURSE ---
Rounded on patient. PAtient stated she did not need anything at this time
[2022-09-03 12:20] LABS: Troponin I < 0.01 ng/ml (0.00-0.034)
== END 2022-09-03 12:08 | disposition home or self-care (01) ==
PROVIDERS: Emergency Provider Emergency Medicine; PCP Physician Assistant
DX: R07.9 Chest pain, unspecified (principal); M25.562 Pain in left knee; M25.561 Pain in right knee; M54.6 Pain in thoracic spine; R63.5 Abnormal weight gain; R25.1 Tremor, unspecified; I10 Essential (primary) hypertension; I25.10 Atherosclerotic heart disease of native coronary artery without angina pectoris; K21.9 Gastro-esophageal reflux disease without esophagitis; E78.5 Hyperlipidemia, unspecified; F17.210 Nicotine dependence, cigarettes, uncomplicated; Z79.82 Long term (current) use of aspirin; Z79.899 Other long term (current) drug therapy; Z88.8 Allergy status to other drugs, medicaments and biological substances; Z68.32 Body mass index [BMI] 32.0-32.9, adult
CPT/HCPCS: 36415; 71045; 71275; 74174; 80053; 83735; 83880; 84484; 85025; 93005; 96374; 99285; Q9967

== ENCOUNTER → 2022-09-30 10:33 | Outpatient (CLI) | payer BC, SELFPAY ==
--- NOTE | 2022-09-30 10:34 | NM_ITS ---
FINAL REPORT CLINICAL HISTORY: gallbladder sludge 10:45am 8.14 MCI TC CHOLETEC 1.9 MCG CCK MILD PAIN WITH CCK FINDINGS: HEPATOBILIARY SCAN WITH CCK INJECTION Following intravenous administration of approximately 8.14 of technetium Choletec, multiple scintigraphic images were obtained. The hepatic parenchymal phase shows homogeneous distribution of the tracer throughout the liver. Prompt appearance of tracer is noted in the intrahepatic and extrahepatic biliary systems, gallbladder , and bowel. Following injection of 1.9 uCi of CCK, gallbladder ejection fraction is estimated to be 7 %. IMPRESSION: Abnormally low gallbladder ejection fraction of 7 %. Reviewed, Interpreted and Dictated by Moe Samaniego MD Transcribed by Brock Winchester Authenticated and [facility]
--- NOTE | 2022-09-30 12:37 | HMH.ITSHM ---
Current Home Medications as stated by this patient Brooks Chua or international representative. []SEMAGLUTIDE ROSUVASTATIN ROPINIROLE PROPRANOLOL OMEPRAZOLE MELATONIN LIRAGLUTIDE IRON CLONIDINE ESCITALOPRAM ATOMOXETINE ASA
== END ==
PROVIDERS: PCP Physician Assistant; Visit Provider Physician Assistant
DX: R10.11 Right upper quadrant pain (principal); K82.8 Other specified diseases of gallbladder
CPT/HCPCS: 78227; A9537; J2805

== ENCOUNTER → 2022-10-01 11:07 | Outpatient (CLI) | payer BC, SELFPAY ==
[2022-10-01 11:51] LABS: Basophils # 0.1 K/mm3 (0-0.2); Basophils % 0.9 % (0.1-2.0); Eosinophils # 0.2 K/mm3 (0.0-0.4); Eosinophils % 1.5 % (0.1-12.0); Hematocrit 45.2 % (37.0-47.0); Hemoglobin 14.3 g/dL (12.2-16.2); Lymphocytes # 2.9 K/mm3 (0.7-4.5); Lymphocytes % 24.6 % (10-50); Mean Corpuscular HGB Conc 31.7 g/dL (31.8-35.4); Mean Corpuscular Hemoglobin 32.1 pg (27.0-31.2); Mean Corpuscular Volume 101.4 fl (81-99); Mean Platelet Volume 7.5 fl (7.4-10.4); Monocytes # 0.7 K/mm3 (0.1-1.0); Monocytes % 6.1 % (1.7-9.3); Neutrophils % 66.9 % (37.0-80.0); Platelet Count 374 K/mm3 (142-424); Red Blood Count 4.45 M/mm3 (4.20-5.40); Red Cell Distribution Width 13.2 % (11.5-17.5); White Blood Count 11.9 K/mm3 (4.8-10.8)
[2022-10-01 12:30] LABS: Alanine Aminotransferase 45 U/L (12-78); Albumin Level 4.1 g/dl (3.5-5.0); Albumin/Globulin Ratio 2.1 (1.1-1.8); Alkaline Phosphatase 89 U/L (38-126); Anion Gap 15.9 mEq/L (5-15); Aspartate Amino Transferase 31 U/L (14-36); Bilirubin,Total 0.2 mg/dl (0.2-1.3); Blood Urea Nitrogen 10 mg/dl (7-17); Calcium 9.4 mg/dl (8.4-10.2); Carbon Dioxide 30 mmol/L (22.0-30.0); Chloride 99 mmol/L (98-107); Chol/HDL Ratio 3.1 (1-3.5); Cholesterol 119 mg/dl (140-200); Estimated Glomerular Filt Rate 89 ml/min (>60); GFR (African American) 108 ML/MIN (>60); Glucose 76 mg/dl (74-100); HDL Cholesterol 39 mg/dl (40-60); Potassium 3.9 mmoL/L (3.5-5.1); Sodium 141 mmol/L (136-145); Total Protein,Serum 6.1 g/dl (6.3-8.2); Triglycerides 217 mg/dl (30-150); VLDL Cholesterol 43 mg/dL (0-40)
[2022-10-01 12:42] LABS: Direct LDL Cholesterol 58.02 mg/dL (100-129)
[2022-10-01 12:47] LABS: 25-OH Vitamin D, Total 22.8 ng/mL (30-100)
[2022-10-01 13:02] LABS: Thyroid Stimulating Hormone 0.77 uIU/mL (0.465-4.68)
== END ==
PROVIDERS: PCP Physician Assistant; Visit Provider Physician Assistant
DX: K76.0 Fatty (change of) liver, not elsewhere classified (principal)
CPT/HCPCS: 36415; 80053; 80061; 82306; 84443; 85025

== ENCOUNTER 2022-10-10 14:42 | Outpatient (RCR) | payer BC, SELFPAY | END 2022-10-10 16:00 | disposition home or self-care (01) | LOC: PT 14:42 | PROVIDERS: Visit Provider Orthopaedic Surgery | DX: M25.562 Pain in left knee (principal); M25.561 Pain in right knee ==

== ENCOUNTER → 2022-12-25 13:01 | Outpatient (CLI) | payer BC, SELFPAY ==
--- NOTE | 2022-12-25 13:08 | ECG_ITS ---
APPROVED REPORT Exam: Resting ECG HR:76 bpm ECG Measurements Heart Rate 76 AXES RI 172 P 71 QRSd 81 QRS 58 QT 389 T 65 QTc 419 Conclusion SINUS RHYTHM NORMAL ECG UNCONFIRMED REPORT Electronically signed by : Alfredo Craig MD 12/25/2022 21:49:34
--- NOTE | 2022-12-25 13:21 | XR_ITS ---
FINAL REPORT CLINICAL HISTORY: pre op, cough, congestion COMPARISON: 09/03/2022 FINDINGS: Two views of the chest were obtained. The heart size and pulmonary vascularity are within normal limits. The mediastinum is normal. No acute pulmonary abnormality is identified. There is no pneumothorax. There are postoperative changes in the left thorax. IMPRESSION: No active cardiopulmonary disease. Reviewed, Interpreted and Dictated by Brett Horton III, MD Transcribed by Rani Osorio Authenticated and [facility]
[2022-12-25 14:17] LABS: Chloride 103 mmol/L (98-107); Sodium 139 mmol/L (136-145)
[2022-12-25 14:20] LABS: Alanine Aminotransferase 32 U/L (12-78); Albumin Level 4.3 g/dl (3.5-5.0); Alkaline Phosphatase 78 U/L (38-126); Aspartate Amino Transferase 28 U/L (14-36); Basophils # 0.1 K/mm3 (0-0.2); Bilirubin,Total 0.4 mg/dl (0.2-1.3); Blood Urea Nitrogen 14 mg/dl (7-17); Carbon Dioxide 28 mmol/L (22.0-30.0); Eosinophils # 0.3 K/mm3 (0.0-0.4); Eosinophils % 1.9 % (0.1-12.0); Estimated Glomerular Filt Rate 67 ml/min (>60); GFR (African American) 81 ML/MIN (>60); Globulin 2.2 g/dL (1.3-3.2); Glucose 102 mg/dl (74-100); Hematocrit 45.8 % (37.0-47.0); Hemoglobin 14.6 g/dL (12.2-16.2); Lymphocytes # 3.4 K/mm3 (0.7-4.5); Lymphocytes % 22.7 % (10-50); Mean Corpuscular HGB Conc 31.9 g/dL (31.8-35.4); Mean Corpuscular Hemoglobin 31.8 pg (27.0-31.2); Mean Corpuscular Volume 99.7 fl (81-99); Mean Platelet Volume 8.2 fl (7.4-10.4); Monocytes # 0.8 K/mm3 (0.1-1.0); Monocytes % 5.7 % (1.7-9.3); Neutrophils # 10.1 K/mm3 (1.8-7.8); Neutrophils % 68.7 % (37.0-80.0); Platelet Count 422 K/mm3 (142-424); Red Blood Count 4.59 M/mm3 (4.20-5.40); Total Protein,Serum 6.5 g/dl (6.3-8.2); White Blood Count 14.8 K/mm3 (4.8-10.8)
== END ==
PROVIDERS: PCP Physician Assistant; Visit Provider Orthopaedic Surgery
DX: M17.0 Bilateral primary osteoarthritis of knee; Z01.818 Encounter for other preprocedural examination
CPT/HCPCS: 36415; 71046; 80053; 85025; 86850; 93005

== ENCOUNTER → 2022-12-26 16:08 | Outpatient (CLI) | payer BC, SELFPAY ==
[2022-12-26 16:42] LABS: Barbiturates Screen,Urine Negative ng/ml (<200)
[2022-12-26 16:43] LABS: Benzodiazepines Screen,Urine Negative ng/ml (<200)
[2022-12-26 16:44] LABS: Amphetamine/Metha Screen,Urine Negative ng/ml (<1000)
[2022-12-26 16:45] LABS: Cannabinoid Screen,Urine Negative ng/ml (<50); Methadone Screen,Urine Negative ng/ml (<300)
[2022-12-26 16:46] LABS: Cocaine Screen,Urine Negative ng/ml (<300)
[2022-12-26 16:47] LABS: Opiate Screen,Urine Negative ng/ml (<300); Phencyclidine Screen,Urine Negative ng/ml (<25)
== END ==
PROVIDERS: PCP Physician Assistant; Visit Provider Nurse Practitioner Psychiatric/Mental Health
DX: Z02.83 Encounter for blood-alcohol and blood-drug test (principal)
CPT/HCPCS: 80305

== ENCOUNTER 2023-01-06 13:08 | Observation (INO) | payer BC, SELFPAY ==
--- NOTE | 2022-12-25 13:54 | SW/DCPLANNER ---
I called and spoke with this patient regarding upcoming total knee replacement surgery on 01/06/23. Patient stated that she resides at home with her family and they will be home to assist her. Patient does not have any further needs at this time. I will follow up with this patient once surgery is completed.
--- NOTE | 2023-01-02 13:43 | CARE MANAGER ---
Addendum entered by Pam Mckeon RN 01/07/23 13:36: Patient will have HH services provided by [facility] . PT will see her tomorrow, 01/08. Addendum entered by Angélica Shannon 01/07/23 13:04: [facility] has accepted this patient. Addendum entered by Angélica Shannon 01/07/23 09:04: Patient information/order has been faxed to [facility]. I will follow up once information is reviewed. Patient will discharge home today. Addendum entered by Pam Mckeon RN 01/06/23 15:34: Spoke with patient at bedside. No DME needs. Patient is planned for discharge home with HH services. Choice letter signed for [facility] and Susan, and placed on chart. Order/clinical will be faxed in the AM. Original Note: Called and spoke with patient regarding knee surgery that has been scheduled for 01/06. Patient is planning to return home with HH services, and stated that she has a walker does not feel like she will need a BSC. has taken off for a week to help her following surgery. CM will plan to f/u with patient following surgery.
[2023-01-02 14:37] VITALS: BMI 40.0
--- NOTE | 2023-01-05 09:53 | SUR.PREOP ---
Dr. Mcdonnell made aware of elevated WBC count, no new orders.
[2023-01-06] VITALS (20 sets, daily range): BP systolic 123–165; BP diastolic 69–110; PULSE 73–98; RESP 16–20; TEMP 36.1–43; O2SAT 93–96; BMI 41.6
[2023-01-06 08:50] LABS: Coronavirus 19, PCR Not Detected (NotDetected); Influenza A, PCR Not Detected (NotDetected); Influenza B, PCR Not Detected (NotDetected)
[2023-01-06 08:58] LABS: Urine Pregnancy, HCG Qual. Negative (Negative)
--- NOTE | 2023-01-06 09:15 | EXP.ANES.CKL ---
[facility] Disclaimer: The information contained in this section may have been updated after the patient was seen, as this information can be updated by other users. Medical History Attention deficit disorder (ADD) in adult Bilateral knee pain BMI 32.0-32.9,adult Breast cancer Chest pain Essential tremor Gastroesophageal reflux disease Hyperlipidemia (~06/15/18) Major depressive disorder Migraine Obesity (BMI 30.0-34.9) Osteoarthritis Tobacco dependence syndrome Weight gain Surgical History H/O mastectomy History of appendectomy History of carpal tunnel release of both wrists History of section History of reconstruction of both breasts History of tonsillectomy Family History Other Family history of cancer Lung cancer Social History Smoking Status: Current every day smoker tobacco type: cigarettes packs per day: 1 second hand exposure: Yes alcohol intake: current substance use type: denies use current occupational status: employed Travel in the last 8 weeks: None household members: spouse housing: house number of children: 1 current occupation: [email or web address] current occupational exposures/hazards: No caffeine: Yes [facility] Anesthesia Checklist Patient Identification Patient Identification: Arm Band and Verbal (Name & ) Structural Data Admitted From: Home Planned Operative Procedure/s: TKA Consent for Planned Operative Procedure(s) Verified: Yes NPO Status Verified Time NPO: 00:00 Additional verifications Anesthesia Reactions: No Hx Blood Transfusions: No Blood Transfusion Reaction: No Airway Assessment C-Spine Mobility Assessed: Yes TMJ Mobility Assessed: Yes Dentition: Good Dentition Neurological Assessment Level of Consciousness: Awake Hx Seizures: No Numbness or tingling in extremities: No Anesthesia Plan Anesthesia Risk discussed: Yes Anesthesia Plan: Verified ASA Class: III Anesthesia Type: MAC w/Spinal (Adductor canal block)
--- NOTE | 2023-01-06 12:26 | EXP.OP.NOTE ---
Date of procedure: 01/06/23 Pre-op Diagnosis:: Left knee osteoarthritis Post-op Diagnosis:: Left knee osteoarthritis Procedure performed:: Left total knee arthroplasty Surgeon:: Jcarlos Mcdonnell MD Physician Practice Coordinator(s):: AZIZA Pettit [employer] SHELLER OPERATOR:: Other Anesthesia: MAC, regional, local and spinal Estimated blood loss (mL): 5 Clinical Note:: Brooks is a very pleasant 47-year-old female with activity limiting left knee pain secondary to osteoarthritis. X-rays revealed moderate to severe tricompartmental degenerative changes with almost complete loss of medial joint space and marginal osteophyte formation. She has failed conservative treatment measures including injections. We discussed all the risks, benefits and alternatives to left total knee arthroplasty. She agreed to proceed and surgical consent form was signed. Operative findings:: Left knee moderate to severe tricompartmental degenerative changes with almost complete loss of medial joint space and marginal osteophyte formation with varus deformity. Operative note:: The patient was seen in the preoperative holding area. She was seen by anesthesia. She received Ancef 2 g IV prophylactic antibiotics within 1 hour of incision time. She was brought back to the OR. Spinal was performed without difficulty. She is placed in the supine position all bony prominences were well-padded. Bump placed underneath the left hip. Nonsterile tourniquet applied to the left thigh. Left lower extremity was prepped and draped in usual sterile fashion. Timeout performed to confirm left total knee arthroplasty for Brooks Chua. The left lower extremity was examined with an Esmarch. Tourniquet was inflated to 300 mmHg. With the knee flexed a midline incision was made with a 10 blade scalpel. Adequate hemostasis maintained with Bovie electrocautery. Full-thickness medial and lateral flaps were elevated. We then made a medial parapatellar arthrotomy. The patella was everted. Patellar fat pad and anterior femoral fat pads were excised. Marginal osteophytes were removed. Medial release was performed using Bovie electrocautery. Z retractors placed medially and laterally. Distal femur was then drilled and intramedullary distal femoral cutting guide was pinned in place set at a 5 degree valgus cut for 9.5 mm cut. This cut was made with the oscillating saw. The femur was then sized to a size 3 set it 3 degrees of external rotation. 4-in-1 cutting guide was pinned in place. Anterior and posterior cuts were made as were the chamfer cuts. Cut bone was removed and we then turned our attention to the tibia. The tibia was subluxed anteriorly. PCL retractor was placed as were medial and lateral Hohmann retractors. Using the extramedullary tibial cutting guide set at a 3 degree posterior slope this was pinned in place to remove 5 mm from the low medial side and a centimeter from the high lateral side. This cut was made with the oscillating saw. Medial and lateral menisci were excised as were the posterior osteophytes. With a 9 mm block we achieved full extension and flexion with excellent alignment. Tibia is then sized a size 2 tibial tray centered off the medial third of the tibial tubercle. The tray was pinned in place. We impacted the tibial punch. We then placed a size 3 trial femur and then made the box cuts with the reamer and punch. We proceeded to trial with the 9 mm poly, 3 femur and 2 tibia. With these trial components in place we achieved full extension of flexion with excellent alignment and stable throughout. We turned our attention to the patella. Patella was sized to 22 mm in thickness so we made a 9 mm patellar cut with the reciprocal saw. We then placed 3 drill holes through the guide and then placed a 29 trial button. There seem to be excellent tracking. Trial components removed. Final components have been on the back table. Posterior capsule injected with 20 cc of half percent ropivacaine and 5 mg of m
--- NOTE | 2023-01-06 12:37 | P.PNANES_ITS ---
[facility] Anesthesia Record Part I Anesthesia Record I Intake, IV Amount: 1,100 Estimated blood loss (mL): 50 Urine output (mL): 0 Blood Products used (#): none Blood Pressure: 126/78 SaO2: 93 Pulse Rate: 90 Respiratory Rate: 18 Temperature: 97.2 F Patient is:: Drowsy and Stable Stable to PACU at:: 12:30
--- NOTE | 2023-01-06 12:39 | XR_ITS ---
FINAL REPORT CLINICAL HISTORY: Postop TKA COMPARISON: 04/22/2022 FINDINGS: Left knee Two views were obtained. There is no acute fracture or dislocation. Patient is status total knee replacement. The hardware is intact. There are expected soft tissue changes. No immediate complication is identified. IMPRESSION: Postsurgical changes. Reviewed, Interpreted and Dictated by Fabby Del Castillo MD Transcribed by Juanis Domingo Authenticated and [facility]
--- NOTE | 2023-01-06 13:57 | HMH.PHAINT1 ---
Pharmacy Intervention Comments: Home medication reconciliation completed using external fill history and patient interview
--- NOTE | 2023-01-06 14:53 | PC.NURSE ---
Pt arrived to the floor via PACU staff. She is alert and oriented x4. Polar pack in place to left knee. She denies any pain at this time. She is currently on 2L NC with O2 saturations measuring mid 90's. BP has been slightly elevated (see intervention). Tolerating PO intake. IV fluids infusing at 75 mls/hr per mar. is at bedside. Bed is locked and in the lowest position, call light is within reach.
--- NOTE | 2023-01-06 17:00 | EXP.HP ---
History of Present Illness *Admission Date: 01/06/23 *Reason for visit:: Chief complaint: Osteoarthritis left knee *History of present illness: This is a 47-year-old female that presented to her orthopedic doctor with concerns of left knee pain not responding to conservative care. She presented to [facility] for left total knee arthroplasty performed today. She is currently postoperative and reports adequate pain control with no associated chest pain, dyspnea or confusion. Her postoperative x-ray has been reviewed and identifies no postoperative complications. Laboratory evaluation from December identifies a stable hemoglobin, hematocrit and platelet count. Her electrolytes were normal and her creatinine was 0.9. She is awaiting PT and OT evaluations. She plans to return home to the care of her and family members. She is also interested in home health PT/OT. [facility] Medical History (Updated 01/07/23 @ 09:27 by Pasquale Spann MD) Adult BMI 40.0-44.9 kg/sq m Attention deficit disorder (ADD) in adult Bilateral knee pain Breast cancer Essential tremor Gastroesophageal reflux disease Hyperlipidemia (~06/15/18) Major depressive disorder Migraine Osteoarthritis Tobacco dependence Surgical History (Updated 01/06/23 @ 17:31 by Pasquale Spann MD) H/O mastectomy History of appendectomy History of carpal tunnel release of both wrists History of section History of reconstruction of both breasts History of tonsillectomy S/P total knee arthroplasty Family History Other Family history of cancer Lung cancer Social History Smoking Status: Current every day smoker tobacco type: cigarettes packs per day: 1 second hand exposure: Yes alcohol intake: current substance use type: denies use current occupational status: employed Travel in the last 8 weeks: None household members: spouse housing: house number of children: 1 current occupation: [employer] current occupational exposures/hazards: No caffeine: Yes Review of Systems Review of Systems Review of systems:: pertinent systems reviewed and negative unless documented below Meds Home Medications and Allergies Home Medications Medication Instructions Recorded Confirmed Type levonorgestrel 21 mcg/24 hours (8 1 mcg intrauterine DIRECTED 02/24/22 01/06/23 History yrs) 52 mg intrauterine device control (Mirena) melatonin 5 mg tablet 5 mg PO HS PRN sleep aid 05/05/22 01/06/23 History rosuvastatin 20 mg tablet 20 mg PO QHS Cholesterol #90 tabs 09/10/22 01/06/23 Rx dextroamphetamine-amphetamine ER 10 mg PO DAILY ADHD 01/02/23 01/06/23 History 10 mg 24hr capsule,extend release (Adderall XR) ergocalciferol (vitamin D2) 1,250 1,250 mcg PO WEEKLY Supplement 01/02/23 01/06/23 History mcg (50,000 unit) capsule escitalopram oxalate 20 mg tablet 20 mg PO DAILY Depression 01/02/23 01/06/23 History omeprazole 40 mg capsule,delayed 40 mg PO DAILY acid reflux 01/02/23 01/06/23 History release propranolol 120 mg capsule,24 120 mg PO DAILY Tremors #90 caps 01/02/23 01/06/23 Rx hr,extended release ropinirole 1 mg tablet 1 mg PO HS leg cramps 01/02/23 01/06/23 History varenicline 1 mg tablet (Chantix) 1 mg PO BID smoking cessation 01/02/23 01/06/23 History aspirin 325 mg tablet 325 mg PO DAILY heart health 01/06/23 01/06/23 History clonidine HCl 0.1 mg tablet 0.1 mg PO BIDP PRN hot flashes 01/06/23 01/06/23 History oxycodone 5 mg tablet 5 mg PO Q4H PRN pain #30 tabs 01/06/23 01/06/23 Rx New Prescriptions to Start Prescriptions: Allergies Allergy/AdvReac Type Severity Reaction Status Date / Time glucosamine Allergy Mild Verified 01/02/23 14:30 Exam Data for Last 24 hours Vital signs and Labs for Last 24 Hours: Temp Pulse Resp BP Pulse Ox 97.8 F 81 18 126/88 91 L 01/07/23
--- NOTE | 2023-01-06 17:20 | EXP.MED.CON ---
History of Present Illness *Admission Date: 01/06/23 *Reason for visit:: Chief complaint: Left total knee replacement *History of present illness: This is a 47-year-old female that presented to her orthopedic doctor with concerns of knee pain not responding to conservative care. She presented to [facility] for left total knee arthroplasty performed today. She is currently postoperative and reports adequate pain control with no associated chest pain, dyspnea or confusion. Her postoperative x-ray has been reviewed and identifies no postoperative complications. Laboratory evaluation from December identifies a stable hemoglobin hematocrit and platelet count. Her electrolytes were normal and her creatinine was 0.9. She is awaiting PT and OT evaluations. She plans to return home to the care of her and family members. She is also interested in home health PT/OT. [facility] Medical History (Updated 01/06/23 @ 17:31 by Pasquale Spann MD) Adult BMI 40.0-44.9 kg/sq m Attention deficit disorder (ADD) in adult Bilateral knee pain Breast cancer Essential tremor Gastroesophageal reflux disease Hyperlipidemia (~06/15/18) Major depressive disorder Migraine Osteoarthritis Tobacco dependence Surgical History (Updated 01/06/23 @ 17:31 by Pasquale Spann MD) H/O mastectomy History of appendectomy History of carpal tunnel release of both wrists History of section History of reconstruction of both breasts History of tonsillectomy S/P total knee arthroplasty Family History Other Family history of cancer Lung cancer Social History Smoking Status: Current every day smoker tobacco type: cigarettes packs per day: 1 second hand exposure: Yes alcohol intake: current substance use type: denies use current occupational status: employed Travel in the last 8 weeks: None household members: spouse housing: house number of children: 1 current occupation: [employer] current occupational exposures/hazards: No caffeine: Yes Review of Systems Review of Systems Review of systems:: pertinent systems reviewed and negative unless documented below Exam Data for Last 24 hours Vital signs and Labs for Last 24 Hours: Temp Pulse Resp BP Pulse Ox 97.7 F 98 H 16 133/74 94 L 01/06/23 15:50 01/06/23 15:50 01/06/23 15:50 01/06/23 15:50 01/06/23 15:50 Laboratory Results - last 24 hr 01/06/23 08:42: Urine HCG, Qual Negative 01/06/23 08:47: SARS-CoV-2 (PCR) Not detected, Influenza A Untype (PCR) Not detected, Influenza Type B (PCR) Not detected I & O for Last 24 hours: Intake & Output 01/03/23 01/04/23 01/05/23 01/06/23 23:59 23:59 23:59 23:59 Intake Total 1100 / 1100 Output Total 400 / 400 Balance 700 / 700 Weight 99.96 kg Meds Home Medications and Allergies Home Medications Medication Instructions Recorded Confirmed Type levonorgestrel 21 mcg/24 hours (8 1 mcg intrauterine DIRECTED 02/24/22 01/06/23 History yrs) 52 mg intrauterine device control (Mirena) melatonin 5 mg tablet 5 mg PO HS PRN sleep aid 05/05/22 01/06/23 History rosuvastatin 20 mg tablet 20 mg PO QHS Cholesterol #90 tabs 09/10/22 01/06/23 Rx dextroamphetamine-amphetamine ER 10 mg PO DAILY ADHD 01/02/23 01/06/23 History 10 mg 24hr capsule,extend release (Adderall XR) ergocalciferol (vitamin D2) 1,250 1,250 mcg PO WEEKLY Supplement 01/02/23 01/06/23 History mcg (50,000 unit) capsule escitalopram oxalate 20 mg tablet 20 mg PO DAILY Depression 01/02/23 01/06/23 History omeprazole 40 mg capsule,delayed 40 mg PO DAILY acid reflux 01/02/23 01/06/23 History release propranolol 120 mg capsule,24 120 mg PO DAILY Tremors #90 caps 01/02/23 01/06/23 Rx hr,extended release ropinirole 1 mg tablet 1 mg PO HS leg cramps 01/02/23 01/06/23 History varenicline 1 mg table
[2023-01-07] VITALS: BP 138/60; PULSE 73; RESP 17; TEMP 36.8; O2SAT 94
[2023-01-07 04:00] VITALS: BP 132/78; PULSE 86; RESP 16; TEMP 37; O2SAT 90; BMI 44.2
--- NOTE | 2023-01-07 04:21 | PC.NURSE ---
Pt has been medicated per MAR for left knee pain this shift. Pt has had no other complaints. Voids per bedpan. Pt has no ambulated this shift. Remains on RA. VSS. Call light within reach.
[2023-01-07 06:47] LABS: Basophils % 0.2 % (0.1-2.0); Hemoglobin 12.2 g/dL (12.2-16.2); Lymphocytes # 1.5 K/mm3 (0.7-4.5); Lymphocytes % 7.3 % (10-50); Mean Corpuscular Hemoglobin 32.8 pg (27.0-31.2); Mean Corpuscular Volume 96.6 fl (81-99); Mean Platelet Volume 7.6 fl (7.4-10.4); Monocytes # 1.2 K/mm3 (0.1-1.0); Monocytes % 5.7 % (1.7-9.3); Neutrophils # 17.7 K/mm3 (1.8-7.8); Neutrophils % 86.8 % (37.0-80.0); Platelet Count 369 K/mm3 (142-424); Red Blood Count 3.73 M/mm3 (4.20-5.40); Red Cell Distribution Width 12.8 % (11.5-17.5); White Blood Count 20.4 K/mm3 (4.8-10.8)
[2023-01-07 06:50] LABS: Chloride 108 mmol/L (98-107); Potassium 3.9 mmoL/L (3.5-5.1); Sodium 141 mmol/L (136-145)
[2023-01-07 06:53] LABS: Anion Gap 8.9 mEq/L (5-15); Blood Urea Nitrogen 13 mg/dl (7-17); Calcium 8.2 mg/dl (8.4-10.2); Carbon Dioxide 28 mmol/L (22.0-30.0); Creatinine Clearance Estimated 73 mL/min (50-200); Estimated Glomerular Filt Rate 89 ml/min (>60); GFR (African American) 108 ML/MIN (>60); Glucose 156 mg/dl (74-100)
[2023-01-07 07:04] LABS: MANUAL DIFFERENTIAL MANUAL DIFFERENTIAL (MANUAL DIFF)
[2023-01-07 07:22] LABS: Anisocytosis 1+; Lymphocytes % 8 % (10-50); Macrocytosis 1+; Monocytes % 6 % (2-9); Neutrophils % 86 % (42-76); Platelet Estimate Normal; RBC Morphology Normal; Total Cells Counted 100
[2023-01-07 07:33] VITALS: BP 125/66; PULSE 92; RESP 18; TEMP 36.7; O2SAT 91
--- NOTE | 2023-01-07 07:37 | EXP.ANES.II ---
[facility] Anesthesia Record Part II Anesthesia Record Part II Discharge Time: 13:00 Destination: Second Floor PACU nurse assessment reviewed?: Yes Patient Condition:: Good Anesthesia Complications:: None Swallowing reflex intact?: Yes Cyanosis?: No Blood Pressure: 126/88 Pulse Rate: 81 Temperature: 97.8 F Mental Status: Alert & Oriented Pain level:: 0 Nausea and/or vomitting:: None Intake, IV Amount: 0
[2023-01-07 07:38] VITALS: BP 126/88; PULSE 81; TEMP 36.6
--- NOTE | 2023-01-07 09:30 | EXP.ORTH.PN ---
Subjective *Date: 01/07/23 *Time: 08:45 Interval history: Brooks is a pleasant 47-year-old female patient who underwent an uneventful primary left total knee replacement performed by Dr. Mcdonnell yesterday 01/06/2023. Today the patient is postop day #1. This morning she is sitting up comfortably in bed. She reports some left knee pain as to be expected but states it is well controlled with as needed pain medication and rest. She has been eating and drinking well and denies any episodes of nausea or vomiting. She has not yet ambulated, but is eager to get up and begin mobilizing. She is able to sit at the side of the bed and stand with my assistance this morning. No history of any distal tingling/numbness, fevers, chills, or rigors. She denies any other symptoms or concerns at this time Ortho Exam (Inpt) Vital signs and Labs for Last 24 Hours: Temp Pulse Resp BP Pulse Ox 97.8 F 81 18 126/88 91 L 01/07/23 07:38 01/07/23 07:38 01/07/23 07:33 01/07/23 07:38 01/07/23 07:33 Laboratory Results - last 24 hr 01/06/23 08:47: SARS-CoV-2 (PCR) Not detected, Influenza A Untype (PCR) Not detected, Influenza Type B (PCR) Not detected 01/07/23 06:15: WBC 20.4 H*, RBC 3.73 L, Hgb 12.2, Hct 36.0 L, MCV 96.6, MCH 32.8 H, MCHC 34.0, RDW 12.8, Plt Count 369, MPV 7.6, Neut % (Auto) 86.8 H, Lymph % (Auto) 7.3 L, [place] % (Auto) 5.7, Eos % (Auto) 0.0 L, Baso % (Auto) 0.2, Neut # (Auto) 17.7 H, Lymph # (Auto) 1.5, [place] # (Auto) 1.2 H, Eos # (Auto) 0.0, Baso # (Auto) 0.0, Total Counted 100, Neutrophils % (Manual) 86 H, Lymphocytes % (Manual) 8 L, Monocytes % (Manual) 6, Platelet Estimate Normal, RBC Morphology Normal, Anisocytosis 1+, Macrocytosis 1+ 01/07/23 06:15: Sodium 141, Potassium 3.9, Chloride 108 H, Carbon Dioxide 28, Anion Gap 8.9, BUN 13, Creatinine 0.70, Estimated Creat Clear 73, Estimated GFR 89, Est GFR ( Amer) 108, Glucose 156 H, Calcium 8.2 L I & O for Labs for Last 24 Hours: Intake & Output 01/04/23 01/05/23 01/06/23 01/07/23 23:59 23:59 23:59 23:59 Intake Total 2028 1219 / 1219 Output Total 400 / 400 Balance 1629 / 1629 1219 / 1219 Weight 220 lb 6 oz 234 lb 4.8 oz Head: Present normocephalic and atraumatic Eyes: Present as per HPI ENT: Present normal exam Neck: Present normal inspection, full ROM and trachea midline; Absent lymphadenopathy Respiratory: Present normal respiratory effort, able to speak in complete sentences and symmetric chest movement; Absent accessory muscle use Cardiac: Present Reg Rate and Rhythm GI: Present soft; Absent tenderness Comment:: Upon examination of the left knee: Dressings present are clean, dry, and intact. Out of the dressings, the surgical incision appears healthy and is healing well. No erythema, induration, purulent drainage, bleeding, or other signs of infection noted. There is a Dermabond Prineo skin closure system in place. Attempted movements of left knee are somewhat painful. Thigh and calf are soft nontender; Homans' sign is negative. No clinical evidence of DVT or compartment syndrome noted. Posterior tibial pulse 2+; capillary refill is brisk. Sensation to light touch is grossly intact throughout. Patient is actively mobilizing the foot, ankle, and toes. Diagnostic imaging: Postoperative x-ray performed at [facility] on 01/06/2023 reviewed along with radiologist report. X-ray of the left knee demonstrates a total knee arthroplasty with orthopedic components in satisfactory alignment and fixation. No evidence of orthopedic complications noted. Radiologist report is as follows: FINDINGS: Left knee Two views were obtained. There is no acute fracture or dislocation. Patient is status total knee replacement. The hardware is intact. There are expected soft tissue changes. No immediate complication is identified. IMPRESSION: Postsurgical changes. Reviewed, Interpreted and Dictated by Fabby Del Castillo MD Transcribed by Juanis Kolb
--- NOTE | 2023-01-07 09:45 | EXP.DC.SUM ---
General Admission date:: 01/06/23 Discharge date: 01/07/23 HPI HPI HPI: This is a 47-year-old female that presented to her orthopedic doctor with concerns of left knee pain not responding to conservative care. She presented to [facility] for left total knee arthroplasty performed today. She is currently postoperative and reports adequate pain control with no associated chest pain, dyspnea or confusion. Her postoperative x-ray has been reviewed and identifies no postoperative complications. Laboratory evaluation from December identifies a stable hemoglobin, hematocrit and platelet count. Her electrolytes were normal and her creatinine was 0.9. She is awaiting PT and OT evaluations. She plans to return home to the care of her and family members. She is also interested in home health PT/OT. Hospital Course Hospital Course Hospital Course: The patient was admitted to the medical floor with routine pulse oximetry monitoring. Postop care was provided and the patient reported adequate pain control on her parenterally administered controlled substance. Nursing staff identified that she remained afebrile with stable vital signs and saturated appropriately on room air. PT and OT assessments were made. She identified significant improvement and inquired about discharge home. Case management is assisting with discharge home with home health for PT and OT evaluations. The patient reports a safe home environment with her taking off work to assist with her recovery. She has a follow-up appointment with her orthopedic doctor already scheduled. Orthopedic physician has already prescribed opioid therapy on discharge. Her postop day 1 laboratory results identified a leukocytoses. The patient reports a chronic history of leukocytosis with her previous breast cancer diagnoses and previous hematology evaluations. She reported no fever, no chills, no unusual headaches, no sore throat, no cough, no dyspnea, no nausea, no vomiting, no diarrhea, no abdominal pain, no rashes. She reports being intimate with her prior to her surgical procedure. She reports that she does not usually get UTIs. A urinalysis with culture is requested on day of discharge and the patient will be discharged on a course of cefdinir to follow-up with her PCP. She will continue follow-up with orthopedic as scheduled. I spent 35 minutes in [id number] time with the patient and nursing staff (Ella MARRUFO) concerning the discharge process. We discussed the admitting diagnoses and hospital course. We discussed identified improvement and the patient's desire to be discharged. We reviewed inpatient studies and imaging. The patient voiced understanding on the importance of follow-up with her primary care provider and specialist(s). The patient plans to be compliant with the medication regimen prescribed and follow-up appointments. She understands that she can return to the emergency department with any sudden changes or concerns. Exam Data for Last 24 hours Vital signs and Labs for Last 24 Hours: Temp Pulse Resp BP Pulse Ox 97.8 F 81 18 126/88 91 L 01/07/23 07:38 01/07/23 07:38 01/07/23 07:33 01/07/23 07:38 01/07/23 07:33 Laboratory Results - last 24 hr 01/07/23 06:15: WBC 20.4 H*, RBC 3.73 L, Hgb 12.2, Hct 36.0 L, MCV 96.6, MCH 32.8 H, MCHC 34.0, RDW 12.8, Plt Count 369, MPV 7.6, Neut % (Auto) 86.8 H, Lymph % (Auto) 7.3 L, [place] % (Auto) 5.7, Eos % (Auto) 0.0 L, Baso % (Auto) 0.2, Neut # (Auto) 17.7 H, Lymph # (Auto) 1.5, [place] # (Auto) 1.2 H, Eos # (Auto) 0.0, Baso # (Auto) 0.0, Total Counted 100, Neutrophils % (Manual) 86 H, Lymphocytes % (Manual) 8 L, Monocytes % (Manual) 6, Platelet Estimate Normal, RBC Morphology Normal, Anisocytosis 1+, Macrocytosis 1+ 01/07/23 06:15: Sodium 141, Potassium 3.9, Chloride 108 H, Carbon Dioxide 28, Anion Gap 8.9, BUN 13, Creatinine 0.70, Estimated Creat Clear 73, Estimated GFR 89, Est GFR ( Amer)
--- NOTE | 2023-01-07 09:53 | HMH.PHAINT1 ---
Pharmacy Intervention Comments: Discussed discharge medications with patient. Patient verbalized understanding and had no questions at this time.
--- NOTE | 2023-01-07 09:55 | HMH.PTEV ---
Physical Therapy Evaluation Rehab PT IP Evaluation Start: 01/06/23 12:36 Freq: ONCE Status: Active Protocol: Document 01/07/23 09:50 DEREK (Rec: 01/07/23 09:55 PHOTASH [id number]) Subjective/History History History 47 yowf adm to [facility] for L TKA due to OA. She reports she lives with spouse, 4 steps to enter the home, She was generally independent with all mobility prior to surgery. Subjective Subjective Currently she reports expected post-op knee pain. Rehab PT IP Eval Objective Appearance Patient Behavior Appropriate Patient Orientation Person,Place,Time Difficulty following instructions none Speech Pattern Clear Ambulation Patient Able to Ambulate Yes Ambulation Observation IP General Gait Pattern Observation Antalgic Gait Ambulation Distance (feet) 50 Ambulation Assistive Device Rolling Walker Ambulation Ability Supervision/Stand by Balance Ability to Arise Able, uses arms to help Sitting Balance Steady, safe Standing Balance Steady, wide stance Dynamic Sitting Balance Ability Good Dynamic Standing Balance Ability Good Transfers Bed Transfer Ability Supervision/Stand by Chair Transfer Ability Supervision/Stand by Sit to Stand Bed Transfer Ability Supervision/Stand by Sit to Stand Chair Transfer Ability Supervision/Stand by Rehab PT IP prob,goals,plan Problems Date of Evaluation: 01/07/23 PT IP Problems Bed Mobility,Transfers,Gait Rehab Potential Rehab Potential Good Equipment Needs Assistive Devices Rolling / Wheeled Walker Plan PT Intervention Plan Bed Mobility,Transfers,Gait, Therapeutic Exercise PT Plan Frequency BID Duration LOS Discharge Goals Bed Transfer Ability Independent Sit to Stand Chair Transfer Ability Independent Ambulation Assistive Device Rolling Walker Ambulation Distance (feet) 75 Discharge Plan PT Discharge Plan Pt is appropriate to return home once medically stable for d/c, recommend outpatient therapy. G -code Required No Eval Complexity Eval Charge Codes 16076 - Moderate Complexity PHYSICIAN CERTIFICATION: I certify the specified therapy services for Brooks Chua are required, authorized, and reviewed every 30 days.
--- NOTE | 2023-01-07 10:05 | HMH.OTEV ---
OT Inpatient Evaluation Rehab OT IP Evaluation Start: 01/06/23 12:36 Freq: ONCE Status: Active Protocol: Document 01/07/23 09:49 [facility] (Rec: 01/07/23 10:04 [facility] [id number]) Rehab OT IP Assessment Subjective History Pt was seen resting in bed upon arrivial. Pt was oriented x3 person, place, and . Pt was agreeable to engage in therapy evaluation. Pt was admitted to [facility] on 01/06/23 following a L TKA procedure. Pt reports that she was independent in all ADLs and IADLs. She reports that she lives with her . Pt reports that she was still able to drive prior to the procedure. Pt has a past medical history of the following: Adult BMI 40.0-44.9 kg/sq m Attention deficit disorder ( ADD) in adult Bilateral knee pain Breast cancer Essential tremor Gastroesophageal reflux disease Hyperlipidemia (~06/15/18) Major depressive disorder Migraine Osteoarthritis Tobacco dependence Pt was left resting in bed with call aquino and all other needs within reach. Subjective I'm ready to get up. Objective Patient Orientation Person,Place,Birthday Upper Extremity Gross ROM WNL Bed Mobility bed mobility-scooting,bed mobility - supine/sit Assist Level Supervision/Stand by Transfer Training Sit/Stand Transfer Assist Level Independent Lower Body Dressing Ability Assistance X1 decrease in endurance Yes Rehab OT IP prob,goals,plan Problems Date of Evaluation: 01/07/23 OT IP Problems Bed Mobility,Transfers,Balance ,Self care,Safety Rehab Potential Rehab Potential Good Equipment Needs Assistive Devices Rolling / Wheeled Walker Plan OT intervention Plan Bed Mobility,Transfers,Balance
[2023-01-07 10:32] LABS: Microscopic, Urine URINE MICROSCOPIC (MICROSCOPIC)
[2023-01-07 10:35] LABS: Appearance,Urine CLEAR (Clear); Bilirubin,Urine Negative (Negative); Blood, Urine 1+ (Negative); Color,Urine YELLOW (Yellow); Glucose,Urine (UA) Negative (Negative); Ketones,Urine Negative (Negative); Leukocyte Esterase,Urine Negative (Negative); Nitrate,Urine Negative (Negative); Protein,Urine Negative (Negative); Specific Gravity, Urine <= 1.005 (1.005-1.030); Urobilinogen,Urine 0.2 EU/dl (0.2)
[2023-01-07 10:56] LABS: Bacteria,Urine Trace /lpf
--- NOTE | 2023-01-08 11:44 | CARE MANAGER ---
Called and spoke with patient in regards to recent discharge. Patient stated that she is doing ok, continues to have pain but that is expected. 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 No other concerns or complaints at time of call.
== END 2023-01-07 13:42 | disposition home health service (06) ==
LOC: 2ND 13:09
PROVIDERS: Orthopaedic Surgery; Admitting Provider Family Medicine; PCP Physician Assistant; Visit Provider Family Medicine
PROC: (CPT 27447; principal; 2023-01-06 10:00)
DX: M17.12 Unilateral primary osteoarthritis, left knee (principal); F17.210 Nicotine dependence, cigarettes, uncomplicated; Z79.899 Other long term (current) drug therapy; G25.0 Essential tremor
CPT/HCPCS: 27447; 36415; 73560; 80048; 81001; 81025; 85007; 85025; 87086; 96374; 97162; 97166; C1713; C1776; C9803; G0378; J2405; J2704; U0003; U0005

== ENCOUNTER → 2023-01-21 08:37 | Outpatient (CLI) | payer BC, SELFPAY ==
--- NOTE | 2023-01-21 08:41 | XR_ITS ---
FINAL REPORT CLINICAL HISTORY: s/p knee replacement COMPARISON: 01/06/2023 FINDINGS: AP, lateral and oblique views of the left knee were obtained. There is no acute osseous abnormality of the left knee. There are changes from left knee arthroplasty. The hardware is intact. The previously seen subcutaneous air has resolved. There is a small joint effusion with mild anterior subcutaneous edema. IMPRESSION: Postsurgical changes as detailed above. Reviewed, Interpreted and Dictated by Fabby Del Castillo MD Transcribed by Juanis Domingo Authenticated and [facility]
== END ==
PROVIDERS: PCP Physician Assistant; Visit Provider Orthopaedic Surgery
DX: M25.562 Pain in left knee (principal); Z96.652 Presence of left artificial knee joint
CPT/HCPCS: 73562

== ENCOUNTER → 2023-01-28 12:00 | Outpatient (CLI) | payer BC, SELFPAY ==
[2023-01-28 14:09] LABS: Basophils # 0.1 K/mm3 (0-0.2); Basophils % 0.9 % (0.1-2.0); Eosinophils # 0.3 K/mm3 (0.0-0.4); Eosinophils % 2.7 % (0.1-12.0); Hematocrit 43.4 % (37.0-47.0); Lymphocytes # 2.6 K/mm3 (0.7-4.5); Lymphocytes % 22.8 % (10-50); Mean Corpuscular HGB Conc 32.3 g/dL (31.8-35.4); Mean Corpuscular Volume 98.9 fl (81-99); Mean Platelet Volume 8.5 fl (7.4-10.4); Monocytes # 0.9 K/mm3 (0.1-1.0); Monocytes % 7.7 % (1.7-9.3); Neutrophils # 7.4 K/mm3 (1.8-7.8); Neutrophils % 65.8 % (37.0-80.0); Platelet Count 619 K/mm3 (142-424); Red Blood Count 4.39 M/mm3 (4.20-5.40); Red Cell Distribution Width 13.7 % (11.5-17.5); White Blood Count 11.3 K/mm3 (4.8-10.8)
[2023-01-28 15:25] LABS: Alanine Aminotransferase 32 U/L (12-78); Albumin Level 4.3 g/dl (3.5-5.0); Albumin/Globulin Ratio 1.9 (1.1-1.8); Alkaline Phosphatase 84 U/L (38-126); Aspartate Amino Transferase 36 U/L (14-36); Bilirubin,Total 0.5 mg/dl (0.2-1.3); Blood Urea Nitrogen 15 mg/dl (7-17); Calcium 9.3 mg/dl (8.4-10.2); Carbon Dioxide 29 mmol/L (22.0-30.0); Estimated Glomerular Filt Rate 106 ml/min (>60); GFR (African American) 129 ML/MIN (>60); Globulin 2.3 g/dL (1.3-3.2); Glucose 74 mg/dl (74-100); Potassium 4.4 mmoL/L (3.5-5.1); Sodium 137 mmol/L (136-145); Total Protein,Serum 6.6 g/dl (6.3-8.2)
[2023-01-28 15:26] LABS: Anion Gap 10.4 mEq/L (5-15)
[2023-01-28 15:44] LABS: Hemoglobin A1C 5.4 % (4.0-6.0)
[2023-01-28 15:46] LABS: Chloride 102 mmol/L (98-107)
[2023-01-28 17:16] LABS: Ferritin 167 ng/ml (6.24-137)
[2023-01-28 17:44] LABS: Magnesium 2.3 mg/dl (1.6-2.3)
== END ==
PROVIDERS: PCP Physician Assistant; Visit Provider Physician Assistant
DX: Z00.00 Encounter for general adult medical examination without abnormal findings (principal); R53.83 Other fatigue; Z79.899 Other long term (current) drug therapy
CPT/HCPCS: 80053; 82728; 83036; 83735; 85025

== ENCOUNTER 2023-02-09 13:00 | Outpatient (RCR) | payer BC, SELFPAY ==
--- NOTE | 2023-01-30 10:00 | HMH.PTOPEV ---
PT Outpatient Evaluation Rehab PT Outpatient Evaluation Start: 01/30/23 09:34 Freq: Status: Active Protocol: Document 01/30/23 09:34 TAMICA (Rec: 01/30/23 09:59 TAMICA [id number]) E-signed By Lesa Robles, PT Outpatient Therapy Subjective History Subjective History Pt is a pleasant 47 year old female that presents to the PT clinic s/p L TKA on 01/06/[address] Mcdonnell. Pt reports she was experiencing L knee pain, limited functional ability and L knee popping/clicking for ~ 1 year prior to L TKA. Pt reports she attempted conserverative care prior to surgery but it failed to relieve her pain. Pt presents ambulating with [facility]. Chief Complaint Pain,Stiff,Swelling,Weakness Symptom Type Ache,Burning,Numbness Symptoms Relieved By Rest/Positioning,Ice,Activity, Elevation Symptoms Aggravated By Sitting,Standing,Bending/ Stooping,Walking,Lifting Prior Functional Limitations Lifting,Standing,Squatting, Recreation Activity,Walking, Stairs,Balance,Bending/ Stooping Current Functional Limitations Standing,Sitting,Squatting, Recreation Activity,Walking, Stairs,Balance,Bending/ Stooping Symptom Description Intermittent,Activity Dependent Level of pain today (0-10) 0 Pain scale - at its best (0-10) 0 Pain scale - at its worst (0-10) 5 Hip/Knee Eval Gait Observation General Gait Pattern Observation Antalgic Gait Assistive Device Assistive Devices Straight Cane Palpation Tenderness left Knee Palpation Finding Tenderness Knee Palpation Overall Comment Throughout anterior surface of knee MMT right Hip Strength Reason Not Measured WFL Knee Strength Reason Not Measured WFL left Hip Flexion Strength Grade 4- Good- Hip Abduction Strength Grade 3+ Fair+ Hip Adduction Strength Grade 3+ Fair+ Hip Extension Strength Grade Not Tested Gluteus Jose Strength Grade Not Tested Knee Extension Strength Grade 3+ Fair+ Knee Flexion Strength Grade 4- Good- ROM right Knee Extension Active Range of Motion ( -5 degrees) Knee Flexion Active Range of Motion ( 126 degrees)
== END 2023-02-09 13:05 | disposition home or self-care (01) ==
LOC: PT 13:00
PROVIDERS: PCP Physician Assistant; Visit Provider Orthopaedic Surgery
DX: M25.562 Pain in left knee (principal); Z96.652 Presence of left artificial knee joint
CPT/HCPCS: 97010; 97014; 97110; 97140; 97163; 97530; G0283

== ENCOUNTER → 2023-02-24 13:28 | Outpatient (CLI) | payer BC, SELFPAY ==
--- NOTE | 2023-02-24 13:32 | XR_ITS ---
FINAL REPORT CLINICAL HISTORY: s/p knee replacement COMPARISON: January 21, 2023 FINDINGS: 3 views of the left knee were obtained. There is soft tissue swelling anterior to the patella measuring up to 2.2 cm. There has been total joint arthroplasty. There is no acute bony abnormality. IMPRESSION: Stable postoperative changes. Reviewed, Interpreted and Dictated by Moe Samaniego MD Transcribed by Brock Winchester Authenticated and [facility]
== END ==
LOC: RAD 13:30
PROVIDERS: PCP Physician Assistant; Visit Provider Orthopaedic Surgery
DX: M25.562 Pain in left knee (principal); Z96.652 Presence of left artificial knee joint
CPT/HCPCS: 73562

== ENCOUNTER → 2023-03-18 14:08 | Outpatient (CLI) | payer BC, SELFPAY ==
--- NOTE | 2023-03-18 14:18 | XR_ITS ---
FINAL REPORT CLINICAL HISTORY: post op left knee COMPARISON: 02/24/2023 FINDINGS: LEFT KNEE A two view exam demonstrates surgical changes of total left knee arthroplasty. The hardware has a normal appearance. No fracture is identified. Small calcification medial aspect of the joint is stable. No new abnormality. There is a moderate joint effusion. IMPRESSION: Surgical changes of total left arthroplasty without hardware complication. Moderate joint effusion Reviewed, Interpreted and Dictated by Brett Horton III, MD Transcribed by Gina Javier Authenticated and [facility]
== END ==
LOC: RAD 14:08
PROVIDERS: PCP Family Medicine; Visit Provider Orthopaedic Surgery
DX: M25.562 Pain in left knee (principal); Z96.652 Presence of left artificial knee joint
CPT/HCPCS: 73560

== ENCOUNTER 2023-03-25 08:22 | Emergency (ER) | payer BC, SELFPAY ==
[2023-03-25 08:37] VITALS: BP 140/85; PULSE 77; RESP 16; TEMP 36.9; O2SAT 98; BMI 40.0
--- NOTE | 2023-03-25 08:42 | EXP.UTC ---
Discharge Plan Disposition Patient Disposition: Home, Self-Care Condition: Good Prescriptions Prescriptions: New mupirocin 2 % ointment 1 applic topical TID Qty: 22 0RF Rx Instructions: apply as directed amoxicillin-pot clavulanate 875-125 mg Tablet 1 tab PO Q12H Qty: 20 0RF No Action Mirena 20 mcg/24 hours (7 yrs) 52 mg intrauterine device 1 mcg INTRAUTERI DIRECTED melatonin 5 mg tablet 5 mg PO HS PRN (Reason: sleep aid) metformin 500 mg tablet extended release 24 hr 500 mg PO DAILY Qty: 30 2RF propranolol 120 mg capsule,extended release 24 hr 120 mg PO DAILY Qty: 90 3RF dextroamphetamine-amphetamine [Adderall XR] 10 mg capsule,extended release 24hr 10 mg PO DAILY Qty: 30 0RF clonidine HCl 0.1 mg tablet See Rx Instructions .ROUTE .COMPLEX Qty: 60 0RF Dose Instruction: TAKE 1 TABLET BY MOUTH TWICE DAILY NEEDED FOR HOT FLASHES Rx Instructions: TAKE 1 TABLET BY MOUTH TWICE DAILY NEEDED FOR HOT FLASHES dextroamphetamine-amphetamine [Adderall] 10 mg tablet 5 mg PO BID Qty: 30 0RF Rx Instructions: take in the am; and again at noon dextroamphetamine-amphetamine [Adderall XR] 15 mg capsule,extended release 24hr 15 mg PO DAILY Qty: 30 0RF rosuvastatin 20 mg tablet 20 mg PO QHS Qty: 90 1RF ropinirole 1 mg tablet 1 mg PO HS omeprazole 40 mg capsule,delayed release(DR/EC) 40 mg PO DAILY ergocalciferol (vitamin D2) 1,250 mcg (50,000 unit) capsule 1,250 mcg PO WEEKLY escitalopram oxalate 20 mg tablet 20 mg PO DAILY Eliquis 5 mg Tablet 2.5 mg PO BID Qty: 12 0RF Referrals Follow up/Referrals: Jessica Brannon PA [Primary Care Provider] - See instructions Activity Restrictions/Add. Instructions Additional Instructions/Restrictions: Warm compresses may help Use topical medication as prescribed to the inside of your nose Take oral medication as prescribed Follow up with ENT if no improvement or any worseninng of blisters in nose Return if needed Straight to ER if any life threatening symptoms Clinical Impressions Clinical Impression: Sinusitis Qualifiers: Sinusitis location: unspecified location Chronicity: unspecified Qualified Code(s): J32.9 - Chronic sinusitis, unspecified Instructions Patient Instructions: Sinusitis, DI for Sinusitis, Mupirocin Discharge ED Provider: Aiyana Luna [facility] [place] General Stated complaint: Sore throat, blisters in nose, LT ear pain Mode of Arrival: Ambulatory Source of Information: Patient Limitations: No Limitations Time Seen by Provider: 03/25/23 08:42 Description of Symptoms (Recalled from Triage Doc. by RN): pt c/o a L ear ache, sore throat, and blisters in her nose HEENT Symptoms (Recalled from RN notes): Yes Resp Symptoms (Recalled from RN notes): No Skin Symptoms (Recalled from RN notes): No MS Symptoms (Recalled from RN notes): No Functional Status (Recalled from RN notes): wnl History of Present Illness Provider Complaint: Patient states that she has been having left ear pain, sinus congestion, blisters in her nose and sore throat that has continued for several days States that when she woke up this morning she had some clear like blisters on the tip of her nose and she blew her nose States that she feels like she has a hard area in her throat may be swollen lymph node so she came in to get it checked Related Data Home Medications Medication Instructions Recorded Confirmed levonorgestrel 21 mcg/24 hours (8 1 mcg intrauterine DIRECTED 02/24/22 03/09/23 yrs) 52 mg intrauterine device control (Mirena) melatonin 5 mg tablet 5 mg PO HS PRN sleep aid 05/05/22 03/09/23 ergocalciferol (vitamin D2) 1,250 1,250 mcg PO WEEKLY Supplement 01/02/23 03/09/23 mcg (50,000 unit) capsule escitalopram oxalate 20 mg tablet 20 mg PO DAILY Depression 01/02/23 03/09/23 omeprazole 40 mg capsule,delayed 40 mg PO DAILY acid reflux 01/02/23
[2023-03-25 08:51] LABS: UTC Strep Screen (Rapid) Negative (Negative)
[2023-03-25 09:12] VITALS: BP 140/85; PULSE 77; RESP 16; TEMP 36.9
== END 2023-03-25 09:13 | disposition home or self-care (01) ==
PROVIDERS: Emergency Provider Nurse Practitioner; PCP Physician Assistant
DX: J01.90 Acute sinusitis, unspecified (principal); H92.02 Otalgia, left ear; R07.0 Pain in throat; F17.210 Nicotine dependence, cigarettes, uncomplicated; K21.9 Gastro-esophageal reflux disease without esophagitis; E78.5 Hyperlipidemia, unspecified
CPT/HCPCS: 87880; 99212; 99214; G0463

== ENCOUNTER → 2023-05-27 07:48 | Outpatient (CLI) | payer BC, SELFPAY ==
--- NOTE | 2023-05-27 08:03 | ECG_ITS ---
APPROVED REPORT Exam: Resting ECG HR:73 bpm ECG Measurements Heart Rate 73 AXES HI 168 P 63 QRSd 81 QRS 66 QT 380 T 76 QTc 407 Conclusion SINUS RHYTHM NORMAL ECG UNCONFIRMED REPORT Electronically signed by : Alfredo Craig MD 05/28/2023 21:17:39
[2023-05-27 08:17] LABS: Urine Pregnancy, HCG Qual. Negative (Negative)
[2023-05-27 08:19] LABS: Basophils # 0.1 K/mm3 (0-0.2); Basophils % 0.4 % (0.1-2.0); Eosinophils # 0.4 K/mm3 (0.0-0.4); Eosinophils % 2.9 % (0.1-12.0); Hemoglobin 15.3 g/dL (12.2-16.2); Lymphocytes # 3.2 K/mm3 (0.7-4.5); Mean Corpuscular HGB Conc 31.8 g/dL (31.8-35.4); Mean Corpuscular Hemoglobin 30.9 pg (27.0-31.2); Mean Corpuscular Volume 96.9 fl (81-99); Monocytes # 0.9 K/mm3 (0.1-1.0); Monocytes % 7.6 % (1.7-9.3); Neutrophils # 7.8 K/mm3 (1.8-7.8); Neutrophils % 63.2 % (37.0-80.0); Platelet Count 368 K/mm3 (142-424); Red Blood Count 4.96 M/mm3 (4.20-5.40); Red Cell Distribution Width 14.3 % (11.5-17.5); White Blood Count 12.4 K/mm3 (4.8-10.8)
--- NOTE | 2023-05-27 08:20 | XR_ITS ---
FINAL REPORT CLINICAL HISTORY: Lt knee pain COMPARISON: 02/24/2023 FINDINGS: LEFT KNEE SERIES Three views of the left knee were obtained. There are postoperative changes from a total knee arthroplasty. There is no acute fracture or dislocation. There is a small joint effusion. IMPRESSION: No acute bony abnormality. Small joint effusion. Reviewed, Interpreted and Dictated by Brett Horton III, MD Transcribed by Hugo Magana Authenticated and [facility]
--- NOTE | 2023-05-27 08:20 | XR_ITS ---
FINAL REPORT CLINICAL HISTORY: Rt knee pain COMPARISON: 04/22/2022 FINDINGS: RIGHT KNEE SERIES Three views of the right knee were obtained. There is no acute fracture or dislocation. There is mild degenerative change. There is medial compartment narrowing. There is no soft tissue abnormality. IMPRESSION: Mild degenerative change. Medial compartment narrowing. Reviewed, Interpreted and Dictated by Brett Horton III, MD Transcribed by Hugo Magana Authenticated and [facility]
[2023-05-27 09:23] LABS: Alanine Aminotransferase 44 U/L (12-78); Albumin Level 4.6 g/dl (3.5-5.0); Alkaline Phosphatase 73 U/L (38-126); Anion Gap 14.4 mEq/L (5-15); Aspartate Amino Transferase 44 U/L (14-36); Bilirubin,Total 0.5 mg/dl (0.2-1.3); Blood Urea Nitrogen 15 mg/dl (7-17); Calcium 9.5 mg/dl (8.4-10.2); Carbon Dioxide 27 mmol/L (22.0-30.0); Chloride 100 mmol/L (98-107); Estimated Glomerular Filt Rate 89 ml/min (>60); GFR (African American) 108 ML/MIN (>60); Globulin 2.3 g/dL (1.3-3.2); Glucose 75 mg/dl (74-100); Potassium 4.4 mmoL/L (3.5-5.1); Sodium 137 mmol/L (136-145); Total Protein,Serum 6.9 g/dl (6.3-8.2)
== END ==
LOC: LAB 07:49
PROVIDERS: PCP Physician Assistant; Visit Provider Nurse Practitioner
DX: Z01.818 Encounter for other preprocedural examination (principal); J35.8 Other chronic diseases of tonsils and adenoids; M25.561 Pain in right knee; M25.562 Pain in left knee; Z96.652 Presence of left artificial knee joint
CPT/HCPCS: 36415; 73562; 80053; 81025; 85025; 93005

== ENCOUNTER 2023-06-01 09:40 | Day surgery (SDC) | payer BC, SELFPAY ==
[2023-05-28 15:00] VITALS: BMI 40.2
[2023-06-01] VITALS (13 sets, daily range): BP systolic 89–143; BP diastolic 57–93; PULSE 79–95; RESP 15–22; TEMP 36.2–37.1; O2SAT 92–95
--- NOTE | 2023-06-01 10:41 | P.PN_ITS ---
[facility] Disclaimer: The information contained in this section may have been updated after the patient was seen, as this information can be updated by other users. Medical History Adult BMI 40.0-44.9 kg/sq m Attention deficit disorder (ADD) in adult Blister of nose Breast cancer Essential tremor Gastroesophageal reflux disease Hyperlipidemia (~06/15/18) Major depressive disorder Migraine Osteoarthritis Shingles Tobacco dependence Tonsil stone pre op Surgical History H/O mastectomy History of appendectomy History of carpal tunnel release of both wrists History of section History of reconstruction of both breasts History of tonsillectomy S/P total knee arthroplasty Family History Other Family history of cancer Lung cancer Social History Smoking Status: Current every day smoker tobacco type: cigarettes packs per day: 1 second hand exposure: Yes alcohol intake: current substance use type: denies use current occupational status: employed Travel in the last 8 weeks: None household members: spouse housing: house number of children: 1 current occupation: [employer] current occupational exposures/hazards: No caffeine: Yes [facility] Anesthesia Checklist Patient Identification Patient Identification: Arm Band and Family Structural Data Admitted From: Home Planned Operative Procedure/s: Left Tonsillectomy Consent for Planned Operative Procedure(s) Verified: Yes Verified Documents: Surgical Consent and History and Physical NPO Status Verified Time NPO: 00:00 Additional verifications Anesthesia Reactions: No Hx Blood Transfusions: No Blood Transfusion Reaction: No Airway Assessment C-Spine Mobility Assessed: Yes TMJ Mobility Assessed: Yes Dentition: Good Dentition Neurological Assessment Level of Consciousness: Awake and Alert Anesthesia Plan Anesthesia Risk discussed: Yes Anesthesia Plan: Verified ASA Class: II Anesthesia Type: General
--- NOTE | 2023-06-01 11:41 | EXP.OP.NOTE ---
Date of procedure: 06/01/23 Pre-op Diagnosis:: Chronic left tonsillitis with recurrent tonsil lithiasis Post-op Diagnosis:: Same Procedure performed:: Left completion tonsillectomy Surgeon:: Mendel Sommer III, MD [employer] OPERATOR:: Katelyn Jacobs Anesthesia: GETA Estimated blood loss (mL): 10 Operative findings:: Left inferior pole tonsil remnant with crypt formation Operative note:: The patient was brought to the operating room placed under general endotracheal anesthesia. She was then placed in the Jerilyn position and a McIvor mouthgag was used to better expose the oral cavity and oropharynx. She previous had her tonsils removed but she did have an area inferiorly on the left side with some residual tonsillar tissue and a fairly generous tonsil crypt that had debris present. This was isolated and retracted medially was then dissected free from its underlying fascial and muscular attachments using electrocautery dissection. Any bleeding spots were then spot coagulated. The specimen was inspected grossly but also sent for pathologic evaluation and confirmation. After observation for approximate 5 minutes without evidence of further bleeding, I injected half percent Marcaine with epinephrine into the tonsillar fossa on the left approximately 2 mL total. The patient stomach contents were aspirated clear. She was then awakened in the operating room taken recovery in good condition Condition: stable Disposition: PACU Specimens:: Left tonsil remnant Complications:: none
--- NOTE | 2023-06-01 11:51 | EXP.ANES.I ---
[facility] Anesthesia Record Part I Anesthesia Record I Intake, IV Amount: 600 Estimated blood loss (mL): 30 Urine output (mL): 0 Blood Pressure: 89/57 SaO2: 93 Pulse Rate: 95 Respiratory Rate: 20 Temperature: 97.8 F Patient is:: Awake Stable to PACU at:: 11:50
--- NOTE | 2023-06-02 07:20 | EXP.ANES.II ---
[facility] Anesthesia Record Part II Anesthesia Record Part II Discharge Time: 12:39 Destination: Surgical Day Care (OP Surgery) PACU nurse assessment reviewed?: Yes Patient Condition:: Good Anesthesia Complications:: None Swallowing reflex intact?: Yes Cyanosis?: No Blood Pressure: 141/85 Pulse Rate: 89 Temperature: 98.7 F Mental Status: Alert & Oriented Pain level:: 0 Nausea and/or vomitting:: None Intake, IV Amount: 0
[2023-06-02 07:21] VITALS: BP 141/85; PULSE 89; TEMP 37.1
== END 2023-06-01 13:28 | disposition home or self-care (01) ==
PROVIDERS: PCP Physician Assistant; Visit Provider Otolaryngology
PROC: (CPT 42826; principal; 2023-06-01 11:30)
DX: J35.01 Chronic tonsillitis (principal); J35.8 Other chronic diseases of tonsils and adenoids
CPT/HCPCS: 42826; 96374; J2405

== ENCOUNTER → 2023-10-09 06:33 | Outpatient (CLI) | payer BC, SELFPAY ==
--- NOTE | 2023-10-09 06:36 | US_ITS ---
PROCEDURE: US TRANSVAGINAL CLINICAL INDICATION: pelvic pain COMPARISON: No exams were available for comparison FINDINGS: Transvaginal and transabdominal sonographic images of the pelvis were obtained. UTERUS: 7.7 cm x 4.0 cmx 3.1 cm anteverted with a thin endometrium. There is a fibroid in the anterior lower uterine segment measuring 3.3 cm x 3.6 cm x 3.6 cm. There is an IUD within the endometrial cavity in the correct position. LEFT OVARY: 1.9 cmx2.3 cmx1.2cm with a volume of 2.8ml. RIGHT OVARY: 2.2 cmx 1.7 cmx1.2 cm with a volume of 2.3ml. Both ovaries are seen and appear normal. Doppler flow to both ovaries are seen. There is no fluid in the cul-de-sac. IMPRESSION: 1. Anteverted uterus normal in size. Within the endometrium is an IUD. 2. There is a fibroid anteriorly in the lower uterine segment measuring 3.6 cm. 3. Both ovaries are seen and appear normal. 4. No fluid in the cul-de-sac. Dictated by: Stefan Cordero MD 10/11/2023 11:07 Stefan Cordero MD in OV 10/11/2023 11:07
== END ==
PROVIDERS: PCP Family Medicine; Visit Provider Obstetrics & Gynecology
DX: R10.2 Pelvic and perineal pain (principal); R56.9 Unspecified convulsions
CPT/HCPCS: 76830; 95816; 95819

== ENCOUNTER → 2023-11-13 18:11 | Outpatient (CLI) | payer BC, SELFPAY | LOC: LAB.DROPOF 18:12 | PROVIDERS: PCP Specialist; Visit Provider Specialist | DX: R55 Syncope and collapse (principal); G25.0 Essential tremor; E78.5 Hyperlipidemia, unspecified | CPT/HCPCS: 80053; 80061; 82607; 82746; 84443; 84702; 85025 ==

== ENCOUNTER 2023-11-26 16:10 | Outpatient (CLI) | payer BC, SELFPAY ==
[2023-11-26 18:52] LABS: Coronavirus 19, PCR Not Detected (NotDetected); Influenza A, PCR Not Detected (NotDetected)
[2023-11-26 20:44] LABS: Influenza B, PCR Detected (NotDetected)
== END 2023-11-26 23:59 ==
LOC: LAB.DROPOF 11-27 11:11
PROVIDERS: PCP Family Medicine; Visit Provider Family Medicine
DX: J10.1 Influenza due to other identified influenza virus with other respiratory manifestations (principal); H92.01 Otalgia, right ear; R69 Illness, unspecified; Z72.0 Tobacco use
CPT/HCPCS: 87636

== ENCOUNTER 2024-01-12 16:41 | Outpatient (CLI) | payer BC, SELFPAY | END 2024-01-12 23:59 | LOC: LAB.DROPOF 16:41 | PROVIDERS: PCP Obstetrics & Gynecology; Visit Provider Obstetrics & Gynecology | DX: N39.3 Stress incontinence (female) (male) (principal) | CPT/HCPCS: 87086 ==

== ENCOUNTER 2024-01-14 18:50 | Outpatient (CLI) | payer BC, SELFPAY ==
[2024-01-14 18:07] LABS: Basophils % 0.3 % (0.1-2.0); Eosinophils # 0.2 K/mm3 (0.0-0.4); Eosinophils % 1.2 % (0.1-12.0); Hematocrit 44.4 % (37.0-47.0); Hemoglobin 14.6 g/dL (12.2-16.2); Lymphocytes # 3.7 K/mm3 (0.7-4.5); Lymphocytes % 26.9 % (10-50); Mean Corpuscular HGB Conc 32.9 g/dL (31.8-35.4); Mean Corpuscular Hemoglobin 34.2 pg (27.0-31.2); Mean Corpuscular Volume 104.1 fl (81-99); Mean Platelet Volume 8.4 fl (7.4-10.4); Monocytes # 0.8 K/mm3 (0.1-1.0); Neutrophils # 9.1 K/mm3 (1.8-7.8); Neutrophils % 65.7 % (37.0-80.0); Platelet Count 338 K/mm3 (142-424); Red Blood Count 4.26 M/mm3 (4.20-5.40); Red Cell Distribution Width 13.6 % (11.5-17.5); White Blood Count 13.9 K/mm3 (4.8-10.8)
[2024-01-14 18:09] LABS: Alanine Aminotransferase 39 U/L (12-78); Albumin/Globulin Ratio 1.9 (1.1-1.8); Alkaline Phosphatase 89 U/L (38-126); Anion Gap 8.1 mEq/L (5-15); Aspartate Amino Transferase 38 U/L (14-36); Bilirubin,Total 0.4 mg/dl (0.2-1.3); Blood Urea Nitrogen 12 mg/dl (7-17); Calcium 9.3 mg/dl (8.4-10.2); Carbon Dioxide 28 mmol/L (22.0-30.0); Chloride 105 mmol/L (98-107); Estimated Glomerular Filt Rate 76 ml/min (>60); GFR (African American) 92 ML/MIN (>60); Globulin 2.1 g/dL (1.3-3.2); Glucose 118 mg/dl (74-100); Potassium 4.1 mmoL/L (3.5-5.1); Sodium 137 mmol/L (136-145); Total Protein,Serum 6.1 g/dl (6.3-8.2)
[2024-01-14 18:24] LABS: HCG,Quantitative < 2 mIU/ml (0-5.42)
== END 2024-01-14 23:59 ==
LOC: LAB.DROPOF 18:51
PROVIDERS: PCP Obstetrics & Gynecology; Visit Provider Obstetrics & Gynecology
DX: N39.3 Stress incontinence (female) (male) (principal)
CPT/HCPCS: 80053; 84702; 85025

== ENCOUNTER 2024-01-21 06:02 | Day surgery (SDC) | payer BC, SELFPAY ==
[2024-01-19 16:56] VITALS: BMI 39.2
[2024-01-21] VITALS (9 sets, daily range): BP systolic 93–133; BP diastolic 57–109; PULSE 68–89; RESP 15–20; TEMP 36.1–36.7; O2SAT 88–97
[2024-01-21] MEDS: LACTATED RINGERS 1000ML 1,000 ML 25 ML IV (06:22)
--- NOTE | 2024-01-21 07:17 | P.PNANES_ITS ---
[facility] Disclaimer: The information contained in this section may have been updated after the patient was seen, as this information can be updated by other users. Medical History Attention deficit disorder (ADD) in adult Breast cancer Essential tremor Bilateral hands, minimal with intention, on BB, unchanged for years Gastroesophageal reflux disease Hyperlipidemia (~06/15/18) Major depressive disorder Migraine Osteoarthritis Recurrent major depression resistant to treatment Shingles Syncope Suspected convulsive syncope. Asymptomatic Tobacco dependence Tympanosclerosis, bilateral Surgical History H/O mastectomy History of appendectomy History of carpal tunnel release of both wrists History of section History of reconstruction of both breasts History of tonsillectomy S/P total knee arthroplasty Family History Other Family history of cancer Lung cancer Social History Smoking Status: Former smoker tobacco type: cigarettes packs per day: 1 second hand exposure: Yes alcohol intake: current substance use type: denies use current occupational status: employed Travel in the last 8 weeks: None household members: spouse housing: house number of children: 1 current occupation: [employer] current occupational exposures/hazards: No caffeine: Yes [facility] Anesthesia Checklist Patient Identification Patient Identification: Arm Band Structural Data Admitted From: Home Planned Operative Procedure/s: Tension Free Vaginal Taping, Cystoscopy Consent for Planned Operative Procedure(s) Verified: Yes Verified Documents: Surgical Consent and History and Physical NPO Status Verified Time NPO: 00:00 Additional verifications Anesthesia Reactions: No Hx Blood Transfusions: No Blood Transfusion Reaction: No Airway Assessment Mallampati Score:: Class II C-Spine Mobility Assessed: Yes TMJ Mobility Assessed: Yes Dentition: Good Dentition Neurological Assessment Level of Consciousness: Awake, Alert and Appropriate Anesthesia Plan Anesthesia Risk discussed: Yes Anesthesia Plan: Verified ASA Class: III Anesthesia Type: General
[2024-01-21] MEDS: ROPIVACAINE 0.5% 30ML VIAL 150 MG (07:46)
[2024-01-21] MEDS: LIDOCAINE 1% W/EPI 1:100,000 20ML VIAL 20 ML (07:46)
[2024-01-21] MEDS: WATER FOR IRRIGATION,STERILE 3,000 ML 100 ML IR (07:47)
--- NOTE | 2024-01-21 08:44 | EXP.OP.NOTE ---
Date of procedure: 01/21/24 Pre-op Diagnosis:: Stress urinary incontinence Post-op Diagnosis:: Stress urinary incontinence Procedure performed:: Tension-free retropubic mid urethral sling Surgeon:: Milli Kwan DO Food Safety Manager(s):: Stefan Cordero MD SOCCER PLAYER:: Jacky Garcia Anesthesia: GETA Estimated blood loss (mL): 100 Clinical Note:: Brooks Chua is a 48-year-old presenting today for surgical management of stress urinary incontinence. The patient was counseled on the risks, benefits, and alternatives to a mid-urethral sling, including but not limited to infection, urinary retention, mesh erosion, bleeding, injury to surrounding structures specifically including the bladder, urethra, and surrounding vasculature, voiding dysfunction, and unforeseen complications. Consent was preoperatively signed. Operative findings:: 1. Normal external genitalia. Normal appearing cervix. Mobile and mid-position urethra palpated. 2. On cystourethroscopy, a full survey of the bladder was performed after passage of the trocars, demonstrating no evidence of trocar perforation, other injury, trauma bleeding, or lesions. Brisk bilateral reflux of clear urine was visualized from the ureteral orifices. The urethra was intact without evidence of injury. Operative note:: The patient was taken to the operating room where anesthesia was induced. Preoperative antibiotics were given of 2g IV Ancef. IV access was patent. The patient was positioned in standard dorsal lithotomy using stirrups, taking care to avoid hyperextension and flexion of the joints, as well as pad any pressure points. The patient was prepped and draped in the sterile fashion. A time-out was performed. A Latex-free Leonardo was placed into the bladder. The suprapubic area was marked for the site of the future trocar passes, approximately 2 cm lateral to the midline. This area was hydrodistended with Neurontin 20 mL and each site. An Allis clamp was placed 1 cm proximal to the urethral meatus and another at the level of the urethrovesical junction along the midline. The mid-urethra was palpated. Local anesthetic with epinephrine was injected in the suburethral and bilaterally in the periurethral space. A vertical incision was then made in the vaginal epithelium at the level of the mid urethra. The vaginal epithelium was dissected off the underlying fascia with Metzenbaum scissors. Allis clamps were used for traction and Metzenbaum scissors were used to dissect the periurethral tunnel to the level of the inferior pubic ramus. This was repeated on the contralateral side. The bladder was confirmed to be empty. The rigid urethral catheter guide was placed in the bladder neck, deviating the bladder to the patient's left, with the trocar being passed on the patient's right. The [employer] advantage transvaginal tape trocar was placed in the previously dissected periurethral tunnel and passed retropubically, hugging the back of the pubic bone, and exiting through the suprapubic skin site. The vaginal epithelium was then inspected and no perforation was seen. Passage of the trocar was then repeated on the patient's left side, this time with the bladder deviated to the right with the rigid urethral catheter guide. The vaginal epithelium was inspected and no perforation was seen. The Leonardo was removed and a cystoscopy performed. A full survey of the bladder was performed again, demonstrating no evidence of trocar perforation, other injury, bleeding, or lesions. Brisk bilateral efflux of clear urine was visualized from the ureteral orifices. The urethra was intact without evidence of injury. The cystoscope was removed, and the bladder drained. The mesh was pulled to a tension free position in the mid urethra. An Allis was used to dontrell 1 cm in the midline to ensure that the mesh was not too tight/restrictive. The plastic sheaths were removed. A repeat vaginal exam confirmed that there were no vaginal perforations with the mesh. Curved Montalvo scissors were used to ensure tension-free mesh placement in the midline, setting the sling in place. Excess mesh was removed suprapubically and these sites are closed with Dermabond. The suburethral incision was closed with 2-0 Vicryl running locking stich, taking care to not incorporate the mesh into the closure. Hemostasis was excellent. There was increased bleeding from the mucosal edges and a vaginal packing was placed to hold pressure on the incision line for the next hour of recovery. This must be removed prior to discharge. Nursing staff aware. The counts were correct. The patient tolerated the procedure well. She was brought to the recovery room in stable condition. She will be discharged after meeting all discharge criteria to include voiding independently with a normal PVR. Condition: stable Disposition: same day Specimens:: None Complications:: None
--- NOTE | 2024-01-21 08:48 | EXP.ANES.I ---
[facility] Anesthesia Record Part I Anesthesia Record I Intake, IV Amount: 1,000 Hydration: Adequate Estimated blood loss (mL): 100 Urine output (mL): 0 Blood Products used (#): none Blood Pressure: 122/75 SaO2: 92 Pulse Rate: 76 Airway Patency: Patent Respiratory Rate: 16 Temperature: 98 F Patient is:: Drowsy and Stable Stable to PACU at:: 08:35
--- NOTE | 2024-01-21 09:49 | SUR.PHASEII ---
Pt up to bathroom, voided 10 cc of dark urine. Per orders from Dr. Kwan pt in/out cathed to check residual post void. 5 cc of dark urine noted. Pt tolerated well.
--- NOTE | 2024-01-21 11:40 | SUR.OPER ---
Pt has a vaginal pack in and report was given to HAILEY to remove before discharge.
--- NOTE | 2024-01-22 10:12 | EXP.ANES.II ---
[facility] Anesthesia Record Part II Anesthesia Record Part II Discharge Time: 09:05 Destination: Surgical Day Care (OP Surgery) PACU nurse assessment reviewed?: Yes Patient Condition:: Good Anesthesia Complications:: None Swallowing reflex intact?: Yes Airway Patency: Patent Cyanosis?: No Blood Pressure: 119/57 SaO2: 94 Respiratory Rate: 18 Pulse Rate: 88 Temperature: 98.1 F Mental Status: Alert & Oriented Pain level:: 0 Nausea and/or vomitting:: None Intake, IV Amount: 0 Hydration: Adequate
[2024-01-22 10:14] VITALS: BP 119/57; PULSE 88; RESP 18; TEMP 36.7; O2SAT 94
== END 2024-01-21 10:05 | disposition home or self-care (01) ==
PROVIDERS: PCP Family Medicine; Visit Provider Obstetrics & Gynecology
PROC: (CPT 57288; principal; 2024-01-21 07:30)
DX: N39.3 Stress incontinence (female) (male) (principal)
CPT/HCPCS: 57288; 96374; C1771; J2405

== ENCOUNTER 2024-01-22 21:39 | Inpatient (IN) | payer BC, SELFPAY ==
[2024-01-22 21:41] VITALS: BP 116/63; PULSE 71; RESP 18; TEMP 36.4; O2SAT 97; BMI 39.6
--- NOTE | 2024-01-22 21:45 | XR_ITS ---
PROCEDURE INFORMATION: Exam: XR Chest Exam date and time: 01/22/2024 9:47 PM Age: 48 years old Clinical indication: Shortness of breath; Additional info: SOA, hypoxemia, recent surgery TECHNIQUE: Imaging protocol: Radiologic exam of the chest. Views: 1 view. COMPARISON: CR XR CHEST 2V 12/25/2022 1:37 PM FINDINGS: Tubes, catheters and devices: Left hilar surgical clips are noted. Lungs: There is heterogeneous opacity in the mid to lower lungs bilaterally. Lungs are mildly hyperinflated. Indistinct right hemidiaphragm and right heart border suggest airspace disease. Pleural spaces: No pleural effusion. No pneumothorax. Heart/Mediastinum: Cardiac silhouette is normal in size for technique. Bones/joints: Age appropriate. IMPRESSION: Bilateral mid to lower lung heterogeneous opacity could reflect atelectasis or developing pneumonia.
--- NOTE | 2024-01-22 21:46 | ECG_ITS ---
APPROVED REPORT Exam: Resting ECG HR:76 bpm ECG Measurements Heart Rate 76 AXES TX 185 P 62 QRSd 84 QRS 54 QT 378 T 69 QTc 409 Conclusion SINUS RHYTHM NORMAL ECG Electronically signed by : TIFFANY LUBIN, 01/22/2024 23:45:26
[2024-01-22 22:00] LABS: Basophils # 0.1 K/mm3 (0-0.2); Basophils % 0.7 % (0.1-2.0); Eosinophils # 0.2 K/mm3 (0.0-0.4); Eosinophils % 1.1 % (0.1-12.0); Hematocrit 41.7 % (37.0-47.0); Hemoglobin 13.3 g/dL (12.2-16.2); Lymphocytes # 4.5 K/mm3 (0.7-4.5); Lymphocytes % 27.2 % (10-50); Mean Corpuscular Hemoglobin 33.7 pg (27.0-31.2); Mean Corpuscular Volume 105.5 fl (81-99); Mean Platelet Volume 7.6 fl (7.4-10.4); Monocytes # 0.9 K/mm3 (0.1-1.0); Monocytes % 5.7 % (1.7-9.3); Neutrophils # 10.8 K/mm3 (1.8-7.8); Neutrophils % 65.5 % (37.0-80.0); Platelet Count 360 K/mm3 (142-424); Red Blood Count 3.96 M/mm3 (4.20-5.40); Red Cell Distribution Width 13.9 % (11.5-17.5); White Blood Count 16.5 K/mm3 (4.8-10.8)
[2024-01-22 22:01] LABS: MANUAL DIFFERENTIAL MANUAL DIFFERENTIAL (MANUAL DIFF)
[2024-01-22 22:06] LABS: Alanine Aminotransferase 41 U/L (12-78); Albumin Level 3.9 g/dl (3.5-5.0); Albumin/Globulin Ratio 1.7 (1.1-1.8); Alkaline Phosphatase 81 U/L (38-126); Anion Gap 8.8 mEq/L (5-15); Aspartate Amino Transferase 35 U/L (14-36); Bilirubin,Total 0.5 mg/dl (0.2-1.3); Blood Urea Nitrogen 11 mg/dl (7-17); Calcium 8.9 mg/dl (8.4-10.2); Carbon Dioxide 25 mmol/L (22.0-30.0); Chloride 109 mmol/L (98-107); Creatinine Clearance Estimated 127 mL/min (50-200); Estimated Glomerular Filt Rate 76 ml/min (>60); GFR (African American) 92 ML/MIN (>60); Globulin 2.3 g/dL (1.3-3.2); Glucose 99 mg/dl (74-100); Potassium 3.8 mmoL/L (3.5-5.1); Sodium 139 mmol/L (136-145); Total Protein,Serum 6.2 g/dl (6.3-8.2)
--- NOTE | 2024-01-22 22:07 | ED_ITS ---
Discharge Plan Disposition Patient Disposition: Admitted Chief Complaint: Shortness of Breath/Dyspnea Prescriptions Prescriptions: No Action topiramate 100 mg tablet 150 mg PO HS 90 Days Qty: 135 1RF lisdexamfetamine [Vyvanse] 30 mg capsule 30 mg PO DAILY Qty: 30 0RF Mirena 20 mcg/24 hours (7 yrs) 52 mg intrauterine device 1 mcg INTRAUTERI DIRECTED varenicline [Chantix Starting Month Box] 0.5 mg (11)- 1 mg (42) tablets,dose pack See Rx Instructions PO PER PKG DIR Qty: 53 0RF Rx Instructions: PO PER PKG DIR hydroxyzine pamoate [Vistaril] 25 mg capsule 25 mg PO TID PRN (Reason: for increased anxiety) Qty: 90 0RF omeprazole 40 mg capsule,delayed release(DR/EC) See Rx Instructions .ROUTE .COMPLEX Qty: 90 1RF Dose Instruction: Take 1 capsule by mouth once daily Rx Instructions: Take 1 capsule by mouth once daily ondansetron 4 mg tablet,disintegrating 4 mg PO Q8H PRN (Reason: nausea) Qty: 20 0RF rosuvastatin 20 mg tablet 20 mg PO QHS Qty: 90 1RF escitalopram oxalate 20 mg tablet 20 mg PO DAILY Qty: 90 0RF aripiprazole [Abilify] 5 mg tablet 5 mg PO QHS Qty: 30 2RF clonidine HCl 0.1 mg tablet 0.1 mg PO BID 90 Days Qty: 180 0RF ropinirole 1 mg tablet See Rx Instructions .ROUTE .COMPLEX Qty: 90 1RF Rx Instructions: TAKE 1 TABLET BY MOUTH AT BEDTIME propranolol 120 mg capsule,extended release 24 hr 120 mg PO DAILY Qty: 90 3RF ibuprofen 800 mg tablet 800 mg PO Q8H PRN (Reason: pain) Qty: 60 2RF acetaminophen 500 mg tablet 500 mg PO Q6H PRN (Reason: fever) Qty: 30 3RF oxycodone 5 mg tablet 5 mg PO Q8H PRN (Reason: pain) Qty: 5 0RF ergocalciferol (vitamin D2) 1,250 mcg (50,000 unit) capsule 1,250 mcg PO WEEKLY Referrals Follow up/Referrals: Иван Harris MD [Primary Care Provider] - See instructions Clinical Impressions Clinical Impression: CHF exacerbation, Acute hypoxemic respiratory failure Discharge ED Provider: Mo Rincon HPI General Chief Complaint: Shortness of Breath/Dyspnea Stated Complaint: SOA,Surgery 2 days ago Time Seen by Provider: 01/22/24 21:43 Mode of Arrival: Wheelchair Source of Information: Patient Limitations: No Limitations Description of Symptoms (Recalled from ER Triage Doc. by RN): trouble breathing all day; worse with movement/ walking; wheezing; surgery 2 days ago- transvagin al mesh; feels swollen in chest area; has had productive cough today, sore throat as well; asthma hx but feels different then issues with that in past; had home pulse ox on and said it dropped to 88 with ambulation History of Present Illness HPI narrative: 48-year-old female history of hypertension, hyperlipidemia, long-term tobacco u se not currently smoking with mild COPD not on home oxygen, CAD and is now 1 day status post transabdominal urethral sling placement presenting with shortness of breath. Patient states that she feels short of breath with minimal exertion since her surgery. Better at rest. Denies fevers or chills, but has had also had cough productive of white sputum. No diaphoresis, chest pain, PND, orthopnea, lower extremity swelling, or any other concerns. No history of DVT or PE. Related Data Home Medications Medication Instructions Recorded Confirmed levonorgestrel 21 mcg/24 hours (8 1 mcg intrauterine DIRECTED 02/24/22 yrs) 52 mg intrauterine device control (Mirena) ergocalciferol (vitamin D2) 1,250 1,250 mcg PO WEEKLY Supplement 01/02/23 01/21/24 mcg (50,000 unit) capsule Previous Rx's Medication Instructions Recorded hydroxyzine pamoate 25 mg capsule 25 mg PO TID PRN for increased 07/01/23 (Vistaril) anxiety #90 caps omeprazole 40 mg capsule,delayed See Rx Instructions .Route 08/19/23 release .COMPLEX #90 caps ondansetron 4 mg disintegrating 4 mg PO Q8H PRN nausea #20 tabs 09/10/23 tablet rosuvastatin 20 mg tablet 20 mg PO QHS Cholesterol #90 tabs 09/14/23 escitalopram oxalate 20 mg tablet 20 mg PO DAILY Depression #90 tabs 12/16/23 lisdexamfetamine 30 mg capsule 30 mg PO DAILY #30 caps 12/29/23 (Vyvanse) aripiprazole 5 mg tablet (Abilify) 5 mg PO QHS * #30 tabs 01/01/24 clonidine HCl 0.1 mg tablet 0.1 mg PO BID mood 90 days #180 01/01/24 tabs varenicline 0.5 mg (11)-1 mg (42) See Rx Instructions PO PER PKG DIR 01/06/24 tablets in a dose pack (Chantix #53 tabs Starting Month Box) propranolol 120 mg capsule,24 120 mg PO DAILY Tremors #90 caps 01/11/24 hr,extended release ropinirole 1 mg tablet See Rx Instructions .Route 01/11/24 .COMPLEX * #90 tabs topiramate 100 mg tablet 150 mg PO HS migraine, tremor 90 01/12/24 days #135 tabs acetaminophen 500 mg tablet 500 mg PO Q6H PRN fever #30 tabs 01/21/24 ibuprofen 800 mg tablet 800 mg PO Q8H PRN pain #60 tabs 01/21/24 oxycodone 5 mg tablet 5 mg PO Q8H PRN pain #5 tabs 01/21/24 Allergies Allergy/AdvReac Type Severity Reaction Status Date / Time No Known Allergies Allergy Verified 01/21/24 06:19 [facility] Disclaimer: The information contained in this section may have been updated after the patient was seen, as this information can be updated by other users. Medical History Attention deficit disorder (ADD) in adult Breast cancer Essential tremor Bilateral hands, minimal with intention, on BB, unchanged for years Gastroesophageal reflux disease Hyperlipidemia (~06/15/18) Major depressive disorder Migraine Osteoarthritis Recurrent major depression resistant to treatment Shingles Syncope Suspected convulsive syncope. Asymptomatic Tobacco dependence Tympanosclerosis, bilateral Surgical History H/O mastectomy History of appendectomy History of carpal tunnel release of both wrists History of section History of reconstruction of both breasts History of tonsillectomy S/P total knee arthroplasty Family History Other Family history of cancer Lung cancer Social History Smoking Status: Former smoker tobacco type: cigarettes packs per day: 1 second hand exposure: Yes alcohol intake: current substance use type: denies use current occupational status: employed Travel in the last 8 weeks: None household members: spouse housing: house number of children: 1 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 current occupational exposures/hazards: No caffeine: Yes ROS Obtained: Yes All systems reviewed & no additional complaints except as documented Physical Exam General General appearance: alert Neck Neck exam: Present trachea midline Chest Chest inspection: Present normal inspection and symmetric chest wall rise Respiratory Respiratory exam: Present normal lung sounds bilaterally; Absent respiratory distress, wheezes, stridor, accessory muscle use or prolonged expiratory phase Cardiovascular Cardiovascular exam: Present regular rate, normal rhythm and systolic murmur Extremities Exam Extremities exam: Absent edema Neurological Exam Neurological exam: Present alert, oriented X3 and CN II-XII intact Skin Skin exam: Present warm and dry; Absent cyanosis, diaphoresis or pallor HEART Score HEART Score HEART Score assessment performed?: Yes History (anamnesis): Slightly suspicious ECG: Normal Age: 45-65 years Risk factors: 1-2 risk factors Troponin: </= normal limit HEART Score: 2 Procedures Limited Ultrasound Indication:: Limited cardiac ultrasound Indication: Shortness Identified cardiac views: -Cardiac parasternal long axis -Cardiac parasternal short axis Findings: -Cardiac activity present -Gross wall motion normal -Pericardial effusion absent -Right heart strain absent Impression: -Normal cardiac ultrasound Images were saved to permanent archive The study was technically adequate CPT: 86969 This study was performed by me, and I personally interpreted all images/videos. Based on my clinical judgement, these images were adequate and not necessitate further imaging. Critical Care Critical Care Time Critical Care Time: Yes (CV) Attestation: On 01/22/24, the high probability of a clinically significant, sudden or life threatening deterioration of the following system(s) required my full and direct attention, intervention and personal management. The time I documented below is in addition to time spent performing reported procedures but includes the following listed in this critical care notation. Total Time Total Critical Care Time: 45 Medical Decision Making Medical Records Medical records reviewed: Yes I reviewed the patient's medical records. Lopez Inquiry Pt receiving controlled substance: No Lopez was queried for this patient: No Vital Signs Vital Signs: 01/22/24 21:41 01/22/24 22:24 01/22/24 22:24 Temperature 97.6 F Temperature Source Oral Pulse Rate 87 85 Pulse Rate [Right Brachial] 71 Respiratory Rate 18 Blood Pressure [Right Arm] 116/63 Blood Pressure Mean [Right Arm] 80 Blood Pressure Source [Right Arm] Automatic Cuff Blood Pressure Position [Right Arm] Supine 02 Sat by Pulse Oximetry 97 Oxygen Delivery Method Room Air Lab Data Labs: Lab Results 01/22/24 21:50: WBC 16.5 H, RBC 3.96 L, Hgb 13.3, Hct 41.7, MCV 105.5 H, MCH 33.7 H, MCHC 32.0, RDW 13.9, Plt Count 360, MPV 7.6, Neut % (Auto) 65.5, Lymph % (Auto) 27.2, [place] % (Auto) 5.7, Eos % (Auto) 1.1, Baso % (Auto) 0.7, Neut # (Auto) 10.8 H, Lymph # (Auto) 4.5, [place] # (Auto) 0.9, Eos # (Auto) 0.2, Baso # (Auto) 0.1, Total Counted 100, Neutrophils % (Manual) 67, Lymphocytes % (Manual) 29, Monocytes % (Manual) 4, Platelet Estimate Normal, Macrocytosis 1+, D-Dimer 0.58 H, Sodium 139, Potassium 3.8, Chloride 109 H, Carbon Dioxide 25, Anion Gap 8.8, BUN 11, Creatinine 0.80, Estimated Creat Clear 127, Estimated GFR 76, Est GFR ( Amer) 92, Glucose 99, Calcium 8.9, Total Bilirubin 0.5, AST 35, ALT 41, Alkaline Phosphatase 81, Troponin I < 0.01, NT-Pro-B Natriuret Pep 968 H, T otal Protein 6.2 L, Albumin 3.9, Globulin 2.3, Albumin/Globulin Ratio 1.7 01/22/24 22:29: VBG pH 7.34, VBG pCO2 43.1, VBG pO2 46.3 H, VBG HCO3 22.9 L, VBG Total CO2 24.2, VBG O2 Saturation 81.6 H, VBG Base Excess -2.8 L, VBG Lactic Acid 1.9 01/22/24 21:50 01/22/24 21:50 Response Orders (Tests/Meds): ED MEDICATIONS Discontinued Medications Generic Name Dose Route Start Last Admin Trade Name Chong PRN Reason Stop Dose Admin Albuterol/Ipratropium 6 ml 01/22/24 22:05 01/22/24 22:23 Ipratropium/Albuterol 3 Ml Neb IH 01/22/24 22:06 6 ml ONCE ONE Administration Iopamidol 75 ml 01/22/24 22:44 01/22/24 22:45 Iopamidol-370 (76%);100ml Bottle IV 01/22/24 22:45 75 ml ONCE ONE Administration Methylprednisolone Sodium Succinate 125 mg 01/22/24 22:05 01/22/24 22:14 Methylprednisolone Sod Succ 125mg Vial IV 01/22/24 22:06 125 mg ONCE ONE Administration Sodium Chloride 10 ml 01/22/24 22:44 01/22/24 22:45 Sodium Chloride 0.9% 10ml Syr (Rad Only) IV 01/22/24 22:45 10 ml ONCE ONE Administration Sodium Chloride 50 ml 01/22/24 22:44 01/22/24 22:44 0.9 % Sodium Chloride 50 Ml Vial IV 01/22/24 22:45 50 ml ONCE ONE Administration ORDERS Category Date Time Status CT angio chest PE protocol Stat Cat Scan 01/22/24 22:25 Completed CXR --portable [XR chest portable] Stat Exams 01/22/24 21:45 Completed POCUS Point of Care (ER Only) Stat Exams 01/22/24 21:46 Ordered Brain Natriuretic Peptide Stat Lab 01/22/24 21:50 Completed CBC w/Auto Diff [Complete Blood Count Auto Diff] Stat Lab 01/22/24 21:50 Completed CMP [Comprehensive Metabolic Panel] Stat Lab 01/22/24 21:50 Completed D-Dimer Stat Lab 01/22/24 21:50 Completed Lactate Venous Stat Lab 01/22/24 22:29 Completed Trop I [Troponin I] Stat Lab 01/22/24 21:50 Completed Troponin I Q3H Lab 01/23/24 01:00 Ordered Troponin I Q3H Lab 01/23/24 04:00 Ordered VBG [Venous Blood Gas] Stat RT 01/22/24 22:29 Completed MDM Narrative Medical Decision Narrative: 48-year-old female history of hypertension, hyperlipidemia, long-term tobacco use not currently smoking with mild COPD not on home oxygen, CAD and is now 1 day status post transabdominal urethral sling placement presenting with shortness of breath. Patient states that she feels short of breath with minimal exertion since her surgery. Better at rest. Denies fevers or chills, but has had also had cough productive of white sputum. No diaphoresis, chest pain, PND, orthopnea, lower extremity swelling, or any other concerns. No history of DVT or PE. History was obtained via conversation with patient and chart review. On arrival, patient hemodynamically stable, alert, oriented x4, appropriate, GCS 15, moving all extremities spontaneously, pupils equal and reactive to light. Full physical exam performed and significant for well-appearing woman in no acute distress. 92% with good waveform initially, improved to 95 to 100% at rest. No evidence of wheezes, abnormal lung sounds. Patient does have left upper sternal border 2 out of 6 murmur. No lower extremity edema. Abdomen is soft, tender around incisions. Patient intermittently coughing. Differential includes pneumothorax, pneumonia, PE, COPD exacerbation, ACS, CT, dehydration, among others. Patient was given DuoNeb, Solu-Medrol, for symptomatic management and correction of underlying abnormalities. Workup independently interpreted and significant for Leukocytosis 16.5 with neutrophilia. Nonactionable chemistry. Initial troponin negative, but proBNP elevated around 900. D-dimer elevated 0.58. VBG with pH 7.34, CO2 normal at 43, oxygen and bicarb unremarkable. Lactate negative. Chest x-ray with concern for pulmonary vascular congestion without acute effusion. Given positive D-dim er, recent surgery, and elevated BNP, CT PE was ordered to evaluate for clot. This demonstrated no PE, but sequela of heart failure. See radiology read for full review of final results. Independent interpretation of EKG shows sinus rhythm 76 beats a minute with no ST or T wave changes concerning for acute ischemia. NV, QRS, QT intervals within normal limits. [place] normal. Bedside cardiac ultrasound demonstrated normal cardiac echo. Heart score 2. On reevaluation, patient resting comfortably in bed. Desaturating to 90% with minimal exertion. Patient was given 40 mg IV Lasix. Given patient presentation, workup, history, this most likely represents new onset heart failure. Hospital medicine contacted and case discussed at length, patient be admitted for further cardiac workup. Because patient high risk for clinical decompensation, deemed appropriate for inpatient admission. Results were relayed to patient who voiced understanding and patient was agreeable to inpatient admission and management. Patient was admitted to the hospital for further definitive management.
[2024-01-22] MEDS: METHYLPREDNISOLONE SOD SUCC 125MG VIAL 125 MG IV (22:14)
[2024-01-22 22:16] LABS: Lymphocytes % 29 % (10-50); Macrocytosis 1+; Monocytes % 4 % (2-9); NT Pro Brain Natriuretic Pep. 968 pg/mL (0-125); Neutrophils % 67 % (42-76); Platelet Estimate Normal; Total Cells Counted 100
--- NOTE | 2024-01-22 22:16 | PC.NURSE ---
in room talking with patient at this time.
[2024-01-22 22:19] LABS: Troponin I < 0.01 ng/ml (0.00-0.034)
[2024-01-22 22:20] LABS: D-Dimer 0.58 ug/mL (0.0-0.5)
[2024-01-22] MEDS: IPRATROPIUM/ALBUTEROL 3 ML NEB 6 ML IH (22:23)
[2024-01-22 22:24] VITALS: PULSE 85; PULSE 87
--- NOTE | 2024-01-22 22:25 | CT_ITS ---
PROCEDURE INFORMATION: Exam: CTA Chest With Contrast Exam date and time: 01/22/2024 10:37 PM Age: 48 years old Clinical indication: Shortness of breath; Prior surgery; Surgery date: 6+ months; Surgery type: Double mastectomy; Additional info: Recent surgery, SOA, hypoxemia, bnp elevated TECHNIQUE: Imaging protocol: Computed tomographic angiography of the chest with contrast. Exam focused on the arteries. 3D rendering (Not supervised by radiologist): MIP and/or 3D reconstructed images were created by the technologist. Radiation optimization: All CT scans at this facility use at least one of these dose optimization techniques: automated exposure control; mA and/or kV adjustment per patient size (includes targeted exams where dose is matched to clinical indication); or iterative reconstruction. Contrast material: ISO 370; Contrast volume: 100 ml; Contrast route: INTRAVENOUS (IV); COMPARISON: CT ANGIO CHEST 09/03/2022 9:25 AM FINDINGS: Pulmonary arteries: Normal. No pulmonary emboli. Aorta: Normal caliber aorta with typical branching pattern. No evidence of acute aortic dissection. Lungs: Bilateral basilar interlobular septal thickening is noted. There is diffuse edema the peribronchovascular interstitium. Patchy atelectasis is demonstrated at the right lung base. Patchy atelectasis noted in the lingula. Pleural spaces: Small bilateral pleural effusions without evidence of loculation. Fissural thickening noted bilaterally. No pneumothorax on either side. Heart: Unremarkable. No cardiomegaly. No pericardial effusion. Lymph nodes: Unremarkable. No enlarged lymph nodes. Gallbladder and bile ducts: Postprandial gallbladder is contracted. Adrenal glands: Normal adrenals. Bones/joints: Unremarkable. No acute fracture. Soft tissues: Prior mastectomy with bilateral subpectoral breast prostheses. No periprosthetic fluid. IMPRESSION: Constellation of findings is compelling for heart failure with pulmonary edema and bilateral pleural effusions. No findings of acute pulmonary embolism.
[2024-01-22 22:33] LABS: Lactate Venous 1.9 mmol/L (0.4-2.0); VBG Base Excess -2.8 mmol/L (-2.4-2.3); VBG HCO3 22.9 mmol/L (23-30); VBG Oxygen Saturation 81.6 % (50-70); VBG PCO2 43.1 mmol/L (35-51); VBG PH 7.34 mmol/L (7.31-7.41); VBG PO2 46.3 mmol/L (28-40); VBG Total CO2 24.2 mmol/L (23-27)
--- NOTE | 2024-01-22 22:33 | PC.NURSE ---
patient gone to CT at this time.
--- NOTE | 2024-01-22 22:42 | PC.NURSE ---
patient back in room at this time.
[2024-01-22] MEDS: 0.9 % SODIUM CHLORIDE 50 ML VIAL IV (22:44)
[2024-01-22] MEDS: IOPAMIDOL-370 (76%);100ML BOTTLE 75 ML IV (22:45)
[2024-01-22] MEDS: SODIUM CHLORIDE 0.9% 10ML SYR (RAD ONLY) 10 ML IV (22:45)
--- NOTE | 2024-01-22 23:03 | PC.NURSE ---
on phone with hospitalist
--- NOTE | 2024-01-22 23:07 | PC.NURSE ---
called house piping inspector for bed for admission
[2024-01-22] MEDS: FUROSEMIDE 40MG/4ML VIAL 40 MG IV (23:11)
--- NOTE | 2024-01-22 23:15 | PC.NURSE ---
OBSERVATION ADMISSIONTO 219 WITH DX OF NEW ONSET CHF, AND HYPOEMIA TO SERVICE OF THE HOSPITALIST.
[2024-01-22 23:29] VITALS: BP 118/66; PULSE 82; RESP 18; TEMP 36.5; O2SAT 93
--- NOTE | 2024-01-22 23:34 | PC.NURSE ---
Patient arrived to floor via wheelchair from ED at 23:32.
--- NOTE | 2024-01-22 23:36 | P.HP_ITS ---
Attending attestation Patient was seen and evaluated at the bedside myself, agree with SRI note. History of Present Illness *Admission Date: 01/22/24 *Reason for visit:: chf exacerbation *History of present illness: 48 year old female presented to [facility] ED for c/o SOB. PMHX hypertension, hyperlipidemia, tobacco abuse, COPD not on home oxygen, CAD and is now 1 day status post transabdominal urethral sling placement presenting with shortness of breath. Patient states that she feels short of breath with minimal exertion since her surgery. Her ED workup revealed an elevated bnp of 968. CTA of chest reveals bilateral pleural effusion, pulmonary edema, and heart failure. Her troponins are negative. Her EKG is sinus rhythm without ST elevation. The ED physician reported a new oxygen requirement and need for further cardiac workup. The ED physician consulted the hospitalist team for further medical management. I admitted the pt to the medical floor and have placed a cardiac consult [facility] Disclaimer: The information contained in this section may have been updated after the patient was seen, as this information can be updated by other users. Medical History Attention deficit disorder (ADD) in adult Breast cancer Essential tremor Bilateral hands, minimal with intention, on BB, unchanged for years Gastroesophageal reflux disease Hyperlipidemia (~06/15/18) Major depressive disorder Migraine Osteoarthritis Recurrent major depression resistant to treatment Shingles Syncope Suspected convulsive syncope. Asymptomatic Tobacco dependence Tympanosclerosis, bilateral Surgical History H/O mastectomy History of appendectomy History of carpal tunnel release of both wrists History of section History of reconstruction of both breasts History of tonsillectomy S/P total knee arthroplasty Family History Other Family history of cancer Lung cancer Social History Smoking Status: Former smoker tobacco type: cigarettes packs per day: 1 second hand exposure: Yes alcohol intake: current substance use type: denies use current occupational status: employed Travel in the last 8 weeks: None household members: spouse housing: house number of children: 1 current occupation: [employer] current occupational exposures/hazards: No caffeine: Yes Review of Systems Review of Systems Review of systems:: pertinent systems reviewed and negative unless documented below *Cardiovascular Cardiovascular: Reports dyspnea *Respiratory Respiratory: Reports dyspnea Meds Home Medications and Allergies Home Medications Medication Instructions Recorded Confirmed Type aripiprazole 5 mg tablet 5 mg PO HS 01/22/24 01/22/24 History clonidine HCl 0.1 mg tablet 0.1 mg PO BID 01/22/24 01/22/24 History escitalopram oxalate 20 mg tablet 20 mg PO DAILY 01/22/24 01/22/24 History lisdexamfetamine 30 mg capsule 30 mg PO DAILY 01/22/24 01/22/24 History omeprazole 40 mg capsule,delayed 40 mg PO DAILY 01/22/24 01/22/24 History release propranolol 120 mg capsule,24 120 mg PO DAILY 01/22/24 01/22/24 History hr,extended release ropinirole 1 mg tablet 1 mg PO HS 01/22/24 01/22/24 History rosuvastatin 20 mg tablet 20 mg PO HS 01/22/24 01/22/24 History topiramate 100 mg tablet 150 mg PO HS 01/22/24 01/22/24 History New Prescriptions to Start Prescriptions: Allergies Allergy/AdvReac Type Severity Reaction Status Date / Time No Known Allergies Allergy Verified 01/21/24 06:19 Exam Data for Last 24 hours Vital signs and Labs for Last 24 Hours: Temp Pulse Resp BP Pulse Ox O2 Del Method 97.7 F 82 18 118/66 97 Room Air 01/22/24 23:29 01/22/24 23:29 01/22/24 23:29 01/22/24 23:29 01/22/24 21:41 01/22/24 23:29 Laboratory Results - last 24 hr 01/22/24 21:50: WBC 16.5 H, RBC 3.96 L, Hgb 13.3, Hct 41.7, MCV 105.5 H, MCH 33.7 H, MCHC 32.0, RDW 13.9, Plt Count 360, MPV 7.6, Neut % (Auto) 65.5, Lymph % (Auto) 27.2, [place] % (Auto) 5.7, Eos % (Auto) 1.1, Baso % (Auto) 0.7, Neut # (Auto) 10.8 H, Lymph # (Auto) 4.5, [place] # (Auto) 0.9, Eos # (Auto) 0.2, Baso # (Auto) 0.1, Total Counted 100, Neutrophils % (Manual) 67, Lymphocytes % (Manual) 29, Monocytes % (Manual) 4, Platelet Estimate Normal, Macrocytosis 1+, D-Dimer 0.58 H, Sodium 139, Potassium 3.8, Chloride 109 H, Carbon Dioxide 25, Anion Gap 8.8, BUN 11, Creatinine 0.80, Estimated Creat Clear 127, Estimated GFR 76, Est GFR ( Amer) 92, Glucose 99, Calcium 8.9, Total Bilirubin 0.5, AST 35, ALT 41, Alkaline Phosphatase 81, Troponin I < 0.01, NT-Pro-B Natriuret Pep 968 H, T otal Protein 6.2 L, Albumin 3.9, Globulin 2.3, Albumin/Globulin Ratio 1.7 01/22/24 22:29: VBG pH 7.34, VBG pCO2 43.1, VBG pO2 46.3 H, VBG HCO3 22.9 L, VBG Total CO2 24.2, VBG O2 Saturation 81.6 H, VBG Base Excess -2.8 L, VBG Lactic Acid 1.9 I & O for Last 24 hours: Intake & Output 01/19/24 01/20/24 01/21/24 01/22/24 23:59 23:59 23:59 23:59 Weight 95.254 kg Constitutional Constitutional: obese *Routine HEENT Exam Head: Present normocephalic Eye: Present EOMI ENT: Present mucous membranes moist *Routine Neck Exam Neck: Present full ROM *Routine Respiratory Exam Respiratory: Present wheezes and symmetric chest movement *Routine Cardiovascular Exam Cardiovascular: Present RRR *Routine Abdominal Exam Abdominal: Present soft and normoactive bowel sounds; Absent tenderness *Routine Rectal Exam Rectal:: deferred *Routine Genitalia Exam Genitalia:: deferred *Routine Extremities Exam Extremities: Present edema Comments: BLE edema *Routine Skin Exam Skin: Present intact *Routine Neurological Exam Neurological: Present alert and oriented X3 Assessment and Plan *Assessment and plan (1) CHF exacerbation: Status: Acute Category: Medical Code(s): I50.9 - Heart failure, unspecified (2) Status post creation of urethral sling by suprapubic approach: Status: Acute Category: Surgical Code(s): Z98.890 - Other specified postprocedural states (3) Depression: Problem Comment: Currently asymptomatic. Indications and possible side effect of topiramate were disclosed include but not limited to worsening of depression. He voiced understanding and was in agreement with the plan. Her mi graine can be incapacitating and lasting several days in a row. CGRP therapy in the event of recurrent symptoms. Status: Chronic Qualifiers: Depression Type: unspecified Qualified Code(s): F32.A - Depression, unspecified Category: Medical Code(s): F32.A - Depression, unspecified (4) Hyperlipidemia: Status: Chronic Qualifiers: Hyperlipidemia type: unspecified Qualified Code(s): E78.5 - Hyperlipidemia, unspecified Category: Medical Code(s): E78.5 - Hyperlipidemia, unspecified (5) Tobacco abuse: Problem Comment: On Chantix, has not smoked for 1 week as of 01/12/2024 Status: Chronic Category: Medical Code(s): Z72.0 - Tobacco use (6) BMI 39.0-39.9,adult: Problem Comment: 9 pound weight loss since starting topiramate Status: Chronic Category: Medical Code(s): Z68.39 - Body mass index [BMI] 39.0-39.9, adult Plan 48 year old female presented to [facility] ED for c/o SOB. PMHX hypertension, hyperlipidemia, tobacco abuse, COPD not on home oxygen, CAD and is now 1 day status post transabdominal urethral sling placement presenting with shortness of breath. Patient states that she feels short of breath with minimal exertion since her surgery. Her ED workup revealed an elevated bnp of 968. CTA of chest reveals bilateral pleural effusion, pulmonary edema, and heart failure. Her troponins are negative. Her EKG is sinus rhythm without ST elevation. The ED physician reported a new oxygen requirement and need for further cardiac workup. The ED physician consulted the hospitalist team for further medical management. I admitted the pt to the medical floor and have placed a cardiac consult CHF EXACERBATION -Her ED workup revealed an elevated bnp of 968. -CTA of chest reviewed and reveals bilateral pleural effusion, pulmonary edema, and heart failure. -troponin is negative. EKG is without ST elevation -maintain o2 above 92% -40 mg lasix given in ED. Continue Lasix 40 mg BID ->monitor BMP and mag -echo for morning -strict I/O. please place external catheter -cardiac monitoring -cardiology consult, thank you for the recommendations!! S/P URETHRAL SLING on 01/21/24 -leukocytosis of 16.5 with neutrophil of 10.8 -repeat cbc in morning -UA pending DEPRESSION HLD TOBACCO ABUSE -continue home medications of aripiprazole, protonix, propranolol, requip, rosuvastatin, and topamax. -HAS NOT SMOKED FOR ONE WEEK OBESITY -complicates all aspects of care FULL CODE CARDIAC DIET DVT: HEPARIN SQ
[2024-01-22 23:46] VITALS: BP 113/74; PULSE 76; RESP 17; TEMP 36.8; O2SAT 98
[2024-01-22 23:56] VITALS: BMI 39.6
[2024-01-23] VITALS (8 sets, daily range): BP systolic 103–119; BP diastolic 60–72; PULSE 68–85; RESP 16–19; TEMP 36.7–37.3; O2SAT 93–97; BMI 39.6
[2024-01-23] MEDS: ROPINIROLE 1MG TABLET 1 MG PO ×2 (00:22→20:23)
[2024-01-23] MEDS: TOPIRAMATE 100MG TABLET 150 MG PO ×2 (00:22→20:23)
[2024-01-23] MEDS: PROPRANOLOL HCL 120 MG PO ×2 (00:22→09:27)
[2024-01-23] MEDS: ARIPIPRAZOLE 5 MG 5 EACH PO (00:23)
--- NOTE | 2024-01-23 00:51 | PC.NURSE ---
TECHNICAL SERVICE REP at bedside seeing patient and would like documenting RN to place a [place] external catheter so patient is not getting up and down from bed. TECHNICAL SERVICE REP concerned for acute hypoxic episodes and excretion which could compromise patient's breathing or heart function. Patient is agreeable for this plan.
[2024-01-23 01:16] LABS: Troponin I < 0.01 ng/ml (0.00-0.034)
[2024-01-23 04:58] LABS: Troponin I < 0.01 ng/ml (0.00-0.034)
--- NOTE | 2024-01-23 05:14 | PC.NURSE ---
Patient admitted and has been resting without acute changes. Remains sinus rhythm on tele. Has slept on and off without complaints. NAD, VSS otherwise. Adequate urinary output since her dose of IV Lasix.
[2024-01-23 06:09] LABS: Microscopic, Urine URINE MICROSCOPIC (MICROSCOPIC)
[2024-01-23 06:11] LABS: Appearance,Urine CLEAR (Clear); Bilirubin,Urine Negative (Negative); Blood, Urine TRACE-I (Negative); Color,Urine YELLOW (Yellow); Glucose,Urine (UA) Negative (Negative); Ketones,Urine Negative (Negative); Leukocyte Esterase,Urine Negative (Negative); Nitrate,Urine Negative (Negative); PH,Urine 5.5 (5.0-8.5); Protein,Urine Negative (Negative); Specific Gravity, Urine <= 1.005 (1.005-1.030); Urobilinogen,Urine 0.2 EU/dl (0.2)
[2024-01-23 06:40] LABS: Basophils % 0.2 % (0.1-2.0); Eosinophils # 0.1 K/mm3 (0.0-0.4); Eosinophils % 0.4 % (0.1-12.0); Hematocrit 41.7 % (37.0-47.0); Hemoglobin 13.4 g/dL (12.2-16.2); Lymphocytes # 1.1 K/mm3 (0.7-4.5); Lymphocytes % 7.5 % (10-50); Mean Corpuscular Hemoglobin 33.6 pg (27.0-31.2); Mean Corpuscular Volume 104.8 fl (81-99); Mean Platelet Volume 7.7 fl (7.4-10.4); Monocytes # 0.2 K/mm3 (0.1-1.0); Monocytes % 1.4 % (1.7-9.3); Neutrophils # 13.4 K/mm3 (1.8-7.8); Neutrophils % 90.4 % (37.0-80.0); Platelet Count 334 K/mm3 (142-424); Red Blood Count 3.98 M/mm3 (4.20-5.40); Red Cell Distribution Width 13.9 % (11.5-17.5); White Blood Count 14.8 K/mm3 (4.8-10.8)
[2024-01-23 06:46] LABS: MANUAL DIFFERENTIAL MANUAL DIFFERENTIAL (MANUAL DIFF)
[2024-01-23 07:04] LABS: Anion Gap 11.7 mEq/L (5-15); Blood Urea Nitrogen 13 mg/dl (7-17); Calcium 9.2 mg/dl (8.4-10.2); Carbon Dioxide 26 mmol/L (22.0-30.0); Chloride 105 mmol/L (98-107); Creatinine Clearance Estimated 145 mL/min (50-200); Estimated Glomerular Filt Rate 89 ml/min (>60); GFR (African American) 107 ML/MIN (>60); Glucose 126 mg/dl (74-100); Potassium 3.7 mmoL/L (3.5-5.1); Sodium 139 mmol/L (136-145)
[2024-01-23 08:01] LABS: Bacteria,Urine Trace /lpf; Squamous Epithelial Cell,Urine Occasional #/hpf (0-5)
[2024-01-23] MEDS: CITALOPRAM 40MG TABLET 40 MG PO (09:27)
[2024-01-23] MEDS: HEPARIN SODIUM 5,000 UNIT/ML VIAL 5000 UNIT SQ ×2 (09:27→20:23)
[2024-01-23 11:38] LABS: Lymphocytes % 5 % (10-50); Monocytes % 3 % (2-9); Neutrophils % 89 % (42-76); Total Cells Counted 100
[2024-01-23 11:40] LABS: Platelet Estimate Normal; RBC Morphology Normal
[2024-01-23] MEDS: FUROSEMIDE 40MG/4ML VIAL 40 MG IV (11:45)
--- NOTE | 2024-01-23 14:21 | HMH.PHAINT1 ---
Pharmacy Intervention Comments: MED LIST UPDATED PER FILL HISTORY.
--- NOTE | 2024-01-23 17:37 | P.PN_ITS ---
Subjective *Date: 01/23/24 *Time: 17:37 Interval history: seen at [facility], mentions her SOb is better, her leg swelling has also gone down, she has good UOP Exam Data for Last 24 hours Vital signs and Labs for Last 24 Hours: Temp Pulse Resp BP Pulse Ox O2 Del Method 98.1 F 80 17 119/64 94 L Room Air 01/23/24 15:32 01/23/24 16:00 01/23/24 15:32 01/23/24 15:01/23/24 15:01/23/24 17:00 Laboratory Results - last 24 hr 01/22/24 21:50: WBC 16.5 H, RBC 3.96 L, Hgb 13.3, Hct 41.7, MCV 105.5 H, MCH 33.7 H, MCHC 32.0, RDW 13.9, Plt Count 360, MPV 7.6, Neut % (Auto) 65.5, Lymph % (Auto) 27.2, [place] % (Auto) 5.7, Eos % (Auto) 1.1, Baso % (Auto) 0.7, Neut # (Auto) 10.8 H, Lymph # (Auto) 4.5, [place] # (Auto) 0.9, Eos # (Auto) 0.2, Baso # (Auto) 0.1, Total Counted 100, Neutrophils % (Manual) 67, Lymphocytes % (Manual) 29, Monocytes % (Manual) 4, Platelet Estimate Normal, Macrocytosis 1+, D-Dimer 0.58 H, Sodium 139, Potassium 3.8, Chloride 109 H, Carbon Dioxide 25, Anion Gap 8.8, BUN 11, Creatinine 0.80, Estimated Creat Clear 127, Estimated GFR 76, Est GFR ( Amer) 92, Glucose 99, Calcium 8.9, Total Bilirubin 0.5, AST 35, ALT 41, Alkaline Phosphatase 81, Troponin I < 0.01, NT-Pro-B Natriuret Pep 968 H, Total Protein 6.2 L, Albumin 3.9, Globulin 2.3, Albumin/Globulin Ratio 1.7 01/22/24 22:29: VBG pH 7.34, VBG pCO2 43.1, VBG pO2 46.3 H, VBG HCO3 22.9 L, VBG Total CO2 24.2, VBG O2 Saturation 81.6 H, VBG Base Excess -2.8 L, VBG Lactic Acid 1.9 01/23/24 00:23: Troponin I < 0.01 01/23/24 00:44: Magnesium 2.0 01/23/24 03:16: Urine Color Yellow, Urine Appearance Clear, Urine pH 5.5, Ur Specific [place] <= 1.005, Urine Protein Negative, Urine Glucose (UA) Negative, Urine Ketones Negative, Urine Blood Trace-i, Urine Nitrate Negative, Urine Bilirubin Negative, Urine Urobilinogen 0.2, Ur Leukocyte Esterase Negative, Urine RBC None, Urine WBC None, Ur Squamous Epith Cells Occasional, Urine Bacteria Trace 01/23/24 04:15: Troponin I < 0.01 01/23/24 06:23: WBC 14.8 H, RBC 3.98 L, Hgb 13.4, Hct 41.7, MCV 104.8 H, MCH 33.6 H, MCHC 32.0, RDW 13.9, Plt Count 334, MPV 7.7, Neut % (Auto) 90.4 H, Lymph % (Auto) 7.5 L, [place] % (Auto) 1.4 L, Eos % (Auto) 0.4, Baso % (Auto) 0.2, Neut # (Auto) 13.4 H, Lymph # (Auto) 1.1, [place] # (Auto) 0.2, Eos # (Auto) 0.1, Baso # (Auto) 0.0, Total Counted 100, Neutrophils % (Manual) 89 H, Band Neutrophils % 3.0, Lymphocytes % (Manual) 5 L, Monocytes % (Manual) 3, Platelet Estimate Normal, RBC Morphology Normal, Sodium 139, Potassium 3.7, Chloride 105, Carbon Dioxide 26, Anion Gap 11.7, BUN 13, Creatinine 0.70, Estimated Creat Clear 145, Estimated GFR 89, Est GFR ( Amer) 107, Glucose 126 H D, Calcium 9.2, Magnesium 2.0 I & O for Last 24 hours: Intake & Output 01/20/24 01/21/24 01/22/24 01/23/24 23:59 23:59 23:59 23:59 Intake Total 0 / 0 640 / 640 Output Total 600 / 600 1400 / 1400 Balance -600 / -600 -760 / -760 Weight 95.345 kg 95.3 kg Constitutional Constitutional: no acute distress *Routine HEENT Exam Head: Present normocephalic Eye: Present EOMI and PERRL ENT: Present mucous membranes moist *Routine Neck Exam Neck: Present supple; Absent lymphadenopathy *Routine Respiratory Exam Respiratory: Present CTA bilaterally *Routine Cardiovascular Exam Cardiovascular: Present RRR *Routine Abdominal Exam Abdominal: Present soft and normoactive bowel sounds; Absent tenderness *Routine Extremities Exam Extremities: Absent cyanosis, clubbing or edema *Routine Skin Exam Skin: Present warm; Absent rash *Routine Neurological Exam Neurological: Present alert and oriented X3 Assessment and Plan *Assessment and plan (1) CHF exacerbation: Status: Acute Category: Medical Code(s): I50.9 - Heart failure, unspecified (2) Status post creation of urethral sling by suprapubic approach: Status: Acute Category: Surgical Code(s): Z98.890 - Other specified postprocedural states (3) Depression: Problem Comment: Currently asymptomatic. Indications and possible side effect of topiramate were disclosed include but not limited to worsening of depression. He voiced understanding and was in agreement with the plan. Her migraine can be incapacitating and lasting several days in a row. CGRP therapy in the event of recurrent symptoms. Status: Chronic Qualifiers: Depression Type: unspecified Qualified Code(s): F32.A - Depression, unspecified Category: Medical Code(s): F32.A - Depression, unspecified (4) Hyperlipidemia: Status: Chronic Qualifiers: Hyperlipidemia type: unspecified Qualified Code(s): E78.5 - Hyperlipide [place], unspecified Category: Medical Code(s): E78.5 - Hyperlipidemia, unspecified (5) Tobacco abuse: Problem Comment: On Chantix, has not smoked for 1 week as of 01/12/2024 Status: Chronic Category: Medical Code(s): Z72.0 - Tobacco use (6) BMI 39.0-39.9,adult: Problem Comment: 9 pound weight loss since starting topiramate Status: Chronic Category: Medical Code(s): Z68.39 - Body mass index [BMI] 39.0-39.9, adult Plan 48 year old female presented to [facility] ED for c/o SOB. PMHX hypertension, hyperlipidemia, tobacco abuse, COPD not on home oxygen, CAD and is now 1 day status post transabdominal urethral sling placement presenting with shortness of breath. Patient states that she feels short of breath with minimal exertion since her surgery. Her ED workup revealed an elevated bnp of 968. CTA of chest reveals bilateral pleural effusion, pulmonary edema, and heart failure. Her troponins are negative. Her EKG is sinus rhythm without ST elevation. The ED physician reported a new oxygen requirement and need for further cardiac workup. CHF EXACERBATION -Her ED work-up -CTA of chest reviewed and reveals bilateral pleural effusion, pulmonary edema, and heart failure. -troponin is negative. -EKG is without ST elevation -maintain o2 above 92% Continue Lasix 40 mg BID ->monitor BMP and mag -echo for morning -cardiac monitoring -cardiology consult, may not see patient till thursday, so likely plan to f/u as OP S/P URETHRAL SLING on 01/21/24 -leukocytosis of 16.5 with neutrophil of 10.8 -repeat cbc in morning -UA pending DEPRESSION HLD TOBACCO ABUSE -continue home medications of aripiprazole, protonix, propranolol, requip, rosuvastatin, and topamax. -HAS NOT SMOKED FOR ONE WEEK OBESITY -complicates all aspects of care FULL CODE CARDIAC DIET DVT: HEPARIN SQ -cardiology consult, may not see patient till thursday, so likely plan to f/u as OP, continue IV diuresis
[2024-01-23] MEDS: ARIPiprazole 10MG TABLET 5 MG PO (20:22)
[2024-01-23] MEDS: PANTOPRAZOLE 40MG TABLET 40 MG PO (20:23)
[2024-01-23] MEDS: ATORVASTATIN 40MG TABLET 40 MG PO (20:23)
[2024-01-24] VITALS (8 sets, daily range): BP systolic 93–115; BP diastolic 47–75; PULSE 60–82; RESP 16–18; TEMP 36.3–36.8; O2SAT 90–96; BMI 39.5
--- NOTE | 2024-01-24 06:44 | PC.NURSE ---
PT A/OX4. PT HAS NOT VOICED ANY COMPLAINTS TO STAFF DURING SHIFT. PT HAS RESTED WELL MAJORITY OF NIGHT. NO ACUTE CHANGES. VSS. CALL LIGHT WITHIN REACH.
[2024-01-24] MEDS: PROPRANOLOL HCL 120 MG PO (09:17)
[2024-01-24] MEDS: HEPARIN SODIUM 5,000 UNIT/ML VIAL 5000 UNIT SQ ×2 (09:17→21:07)
[2024-01-24] MEDS: CITALOPRAM 40MG TABLET 40 MG PO (09:17)
--- NOTE | 2024-01-24 11:12 | XR_ITS ---
PROCEDURE INFORMATION: Exam: XR Chest Exam date and time: 01/24/2024 11:57 AM Age: 48 years old Clinical indication: Shortness of breath; Additional info: SOB TECHNIQUE: Imaging protocol: Radiologic exam of the chest. Views: 1 view. COMPARISON: CT ANGIO CHEST PE PROTOCOL 01/22/2024 10:37 PM FINDINGS: Lungs: Increased density seen involving both lung bases likely due to bilateral mammographic implants. Pleural spaces: Unremarkable. No pleural effusion. No pneumothorax. Heart/Mediastinum: Stable prominent right pericardial fat pad. Bones/joints: Unremarkable. Soft tissues: Surgical clips, small overlie the left hilum but on the CT scan these are in the anterior subcutaneous tissues. IMPRESSION: No acute findings.
[2024-01-24] MEDS: FUROSEMIDE 40MG/4ML VIAL 40 MG IV ×2 (11:16→17:33)
--- NOTE | 2024-01-24 16:33 | P.PN_ITS ---
Subjective *Date: 01/24/24 *Time: 16:33 Interval history: seen at [facility], mentions her SOB is better, her breathing is better, denied CP, N/V, she had SOB today in the morning Exam Data for Last 24 hours Vital signs and Labs for Last 24 Hours: Temp Pulse Resp BP Pulse Ox O2 Del Method 98.1 F 66 18 107/68 L 95 Room Air 01/24/24 15:02 01/24/24 15:02 01/24/24 15:02 01/24/24 15:02 01/24/24 15:02 01/24/24 15:02 I & O for Last 24 hours: Intake & Output 01/21/24 01/22/24 01/23/24 01/24/24 23:59 23:59 23:59 23:59 Intake Total 0 / 0 880 / 880 480 / 480 Output Total 600 / 600 1950 / 2150 1000 / 1000 Balance -600 / -600 -1070 / -1270 -520 / -520 Weight 95.345 kg 95.3 kg 95.073 kg Constitutional Constitutional: no acute distress *Routine HEENT Exam Head: Present normocephalic Eye: Present EOMI and PERRL ENT: Present mucous membranes moist *Routine Neck Exam Neck: Present supple; Absent lymphadenopathy *Routine Respiratory Exam Respiratory: Present CTA bilaterally *Routine Cardiovascular Exam Cardiovascular: Present RRR *Routine Abdominal Exam Abdominal: Present soft and normoactive bowel sounds; Absent tenderness *Routine Extremities Exam Extremities: Absent cyanosis, clubbing or edema *Routine Skin Exam Skin: Present warm; Absent rash *Routine Neurological Exam Neurological: Present alert and oriented X3 Assessment and Plan *Assessment and plan (1) CHF exacerbation: Status: Acute Category: Medical Code(s): I50.9 - Heart failure, unspecified (2) Status post creation of urethral sling by suprapubic approach: Status: Acute Category: Surgical Code(s): Z98.890 - Other specified postprocedural states (3) Depression: Problem Comment: Currently asymptomatic. Indications and possible side effect of topiramate were disclosed include but not limited to worsening of depression. He voiced understanding and was in agreement with the plan. Her migraine can be incapacitating and lasting several days in a row. CGRP therapy in the event of recurrent symptoms. Status: Chronic Qualifiers: Depression Type: unspecified Qualified Code(s): F32.A - Depression, unspecified Category: Medical Code(s): F32.A - Depression, unspecified (4) Hyperlipidemia: Status: Chronic Qualifiers: Hyperlipidemia type: unspecified Qualified Code(s): E78.5 - Hyperlipidemia, unspecified Category: Medical Code(s): E78.5 - Hyperlipidemia, unspecified (5) Tobacco abuse: Problem Comment: On Chantix, has not smoked for 1 week as of 01/12/2024 Status: Chronic Category: Medical Code(s): Z72.0 - Tobacco use (6) BMI 39.0-39.9,adult: Problem Comment: 9 pound weight loss since starting topiramate Status: Chronic Category: Medical Code(s): Z68.39 - Body mass index [BMI] 39.0-39.9, adult Plan 48 year old female presented to [facility] ED for c/o SOB. PMHX hypertension, hyperlipidemia, tobacco abuse, COPD not on home oxygen, CAD and is now 1 day status post transabdominal urethral sling placement presenting with shortness of breath. Patient states that she feels short of breath with minimal exertion since her surgery. Her ED workup revealed an elevated bnp of 968. CTA of chest reveals bilateral pleural effusion, pulmonary edema, and heart failure. Her troponins are negative. Her EKG is sinus rhythm without ST elevation. The ED physician reported a new oxygen requirement and need for further cardiac workup. CHF EXACERBATION -CTA of chest reviewed and reveals bilateral pleural effusion, pulmonary edema, and heart failure -troponin is negative -EKG is without ST elevation - Continue Lasix 40 mg BID ->monitor BMP and mag -echo ordered -cardiac monitoring -cardiology consult for possible new onset CHF S/P URETHRAL SLING on 01/21/24 -leukocytosis of 16.5 with neutrophil of 10.8 -repeat cbc in morning -UA pending DEPRESSION HLD TOBACCO ABUSE -continue home medications of aripiprazole, protonix, propranolol, requip, rosuvastatin, and topamax. -HAS NOT SMOKED FOR ONE WEEK OBESITY -complicates all aspects of care FULL CODE CARDIAC DIET DVT: HEPARIN SQ -cardiology consult, continue IV diuresis, cardiac echo, likely dc tomorrow
--- NOTE | 2024-01-24 19:20 | PC.NURSE ---
Patient a&ox4 and vss. Patient tolerating diuretics.
[2024-01-24] MEDS: TOPIRAMATE 100MG TABLET 150 MG PO (21:07)
[2024-01-24] MEDS: ATORVASTATIN 40MG TABLET 40 MG PO (21:07)
[2024-01-24] MEDS: PANTOPRAZOLE 40MG TABLET 40 MG PO (21:07)
[2024-01-24] MEDS: ROPINIROLE 1MG TABLET 1 MG PO (21:07)
[2024-01-24] MEDS: ARIPiprazole 10MG TABLET 5 MG PO (21:08)
[2024-01-25] VITALS: BP 106/64; PULSE 62; PULSE 64; RESP 16; TEMP 36.8; O2SAT 93
[2024-01-25 04:00] VITALS: BP 114/63; PULSE 64; RESP 16; TEMP 36.8; O2SAT 95; BMI 39.5
--- NOTE | 2024-01-25 05:30 | PC.NURSE ---
A&Ox4. Pt has had no complaints throughout the shift and has been resting. Lung sounds clear. No edema noted. No complaints of soa or chest pain. Call light in reach.
[2024-01-25 08:00] VITALS: BP 108/72; PULSE 65; PULSE 70; RESP 18; TEMP 36.6; O2SAT 95
[2024-01-25] MEDS: PROPRANOLOL HCL 120 MG PO (09:20)
[2024-01-25] MEDS: HEPARIN SODIUM 5,000 UNIT/ML VIAL 5000 UNIT SQ (09:20)
[2024-01-25] MEDS: CITALOPRAM 40MG TABLET 40 MG PO (09:20)
[2024-01-25] MEDS: FUROSEMIDE 40MG/4ML VIAL 40 MG IV (09:20)
[2024-01-25 09:33] LABS: Basophils # 0.1 K/mm3 (0-0.2); Basophils % 0.9 % (0.1-2.0); Eosinophils # 0.1 K/mm3 (0.0-0.4); Hematocrit 44.8 % (37.0-47.0); Hemoglobin 14.7 g/dL (12.2-16.2); Lymphocytes # 3.5 K/mm3 (0.7-4.5); Lymphocytes % 25.8 % (10-50); Mean Corpuscular HGB Conc 32.9 g/dL (31.8-35.4); Mean Corpuscular Hemoglobin 34.2 pg (27.0-31.2); Monocytes # 0.9 K/mm3 (0.1-1.0); Monocytes % 6.5 % (1.7-9.3); Neutrophils % 65.8 % (37.0-80.0); Platelet Count 430 K/mm3 (142-424); Red Cell Distribution Width 13.9 % (11.5-17.5); White Blood Count 13.7 K/mm3 (4.8-10.8)
[2024-01-25 09:41] LABS: Anion Gap 11.5 mEq/L (5-15); Blood Urea Nitrogen 27 mg/dl (7-17); Calcium 9.8 mg/dl (8.4-10.2); Carbon Dioxide 27 mmol/L (22.0-30.0); Chloride 104 mmol/L (98-107); Creatinine Clearance Estimated 126 mL/min (50-200); Estimated Glomerular Filt Rate 76 ml/min (>60); GFR (African American) 92 ML/MIN (>60); Glucose 107 mg/dl (74-100); Potassium 3.5 mmoL/L (3.5-5.1); Sodium 139 mmol/L (136-145)
[2024-01-25 12:00] VITALS: BP 120/75; PULSE 65; PULSE 74; RESP 16; TEMP 36.6; O2SAT 96
--- NOTE | 2024-01-25 15:14 | P.CONCA_ITS ---
History of Present Illness History of Present Illness Consult date: 01/25/24 Requesting physician: Jerrell Ag Consult reason: shortness of breath Chief complaint: SOB History of present illness: This is a 48-year-old white female presented to the emergency department complaints of shortness of breath. On of last week the patient had a transabdominal urethral sling placed and the next day she states that she woke up fine but as the day progressed she got more and more short of breath and then had sudden onset of bilateral lower extremity edema. The patient states that she was show short of breath she could not walk from the bathroom to the living room. She decided to come into the emergency department and she was found to have an elevated D-dimer. She had a CTA of her chest which showed no pulmonary emboli but she did have bilateral pleural effusions, pulmonary edema and right- sided heart failure. Her troponins were negative. The patient was diuresed with IV Lasix over the weekend and she is feeling much better today. [facility] Disclaimer: The information contained in this section may have been updated after the patient was seen, as this information can be updated by other users. Medical History (Updated 01/25/24 @ 16:15 by Milli Saunders APRN) (HFpEF) heart failure with preserved ejection fraction Attention deficit disorder (ADD) in adult Breast cancer Essential tremor Gastroesophageal reflux disease Hyperlipidemia (~06/15/18) Major depressive disorder Migraine Mitral regurgitation, acute Osteoarthritis Recurrent major depression resistant to treatment Shingles Syncope Tobacco dependence Tympanosclerosis, bilateral Surgical History H/O mastectomy History of appendectomy History of carpal tunnel release of both wrists History of section History of reconstruction of both breasts History of tonsillectomy S/P total knee arthroplasty Family History Other Family history of cancer Lung cancer Social History Smoking Status: Former smoker tobacco type: cigarettes packs per day: 1 second hand exposure: Yes alcohol intake: current substance use type: denies use current occupational status: employed Travel in the last 8 weeks: None household members: spouse housing: house number of children: 1 current occupation: [employer] current occupational exposures/hazards: No caffeine: Yes Review of Systems Review of Systems Review of systems:: pertinent systems reviewed and negative unless documented below Constitutional Constitutional: Reports system reviewed and no additional complaints, except as documented Eyes Eyes: Reports system reviewed and no additional complaints, except as documented ENT Ears, Nose, Mouth, and Throat: Reports system reviewed and no additional complaints, except as documented *Cardiovascular Cardiovascular: Reports system reviewed and no additional complaints, except as documented, Denies chest pain, Reports dyspnea, Reports dyspnea on exertion and Reports leg edema *Respiratory Respiratory: Reports system reviewed and no additional complaints, except as documented, Reports dyspnea and Reports dyspnea on exertion *Gastrointestinal Gastrointestinal: Reports system reviewed and no additional complaints, except as documented *Musculoskeletal Musculoskeletal: Reports system reviewed and no additional complaints, except as documented Integumentary/Breasts Skin/Breast: Reports system reviewed and no additional complaints, except as documented *Neurologic Neurologic: Reports system reviewed and no additional complaints, except as documented Psychiatric Psychiatric: Reports system reviewed and no additional complaints, except as documented Endocrine Endocrine: Reports system reviewed and no additional complaints, except as documented Hematologic/Lymphatic Hematologic/Lymphatic: Reports system reviewed and no additional complaints, except as documented Allergic/Immunologic Allergic/Immunologic: Reports system reviewed and no additional complaints, except as documented Exam Data for Last 24 hours Vital signs and Labs for Last 24 Hours: Temp Pulse Resp BP Pulse Ox O2 Del Method 98 F 74 16 120/75 96 Room Air 01/25/24 12:00 01/25/24 12:00 01/25/24 12:00 01/25/24 12:00 01/25/24 12:00 01/25/24 15:00 Laboratory Results - last 24 hr 01/25/24 09:20: WBC 13.7 H, RBC 4.30, Hgb 14.7, Hct 44.8, MCV 104.0 H, MCH 34.2 H, MCHC 32.9, RDW 13.9, Plt Count 430 H D, MPV 8.0, Neut % (Auto) 65.8, Lymph % (Auto) 25.8, [place] % (Auto) 6.5, Eos % (Auto) 1.0, Baso % (Auto) 0.9, Neut # (Auto) 9.0 H, Lymph # (Auto) 3.5, [place] # (Auto) 0.9, Eos # (Auto) 0.1, Baso # (Auto) 0.1, Sodium 139, Potassium 3.5, Chloride 104, Carbon Dioxide 27, Anion Gap 11.5, BUN 27 H D, Creatinine 0.80, Estimated Creat Clear 126, Estimated GFR 76, Est GFR ( Amer) 92, Glucose 107 H, Calcium 9.8 I & O for Last 24 hours: Intake & Output 01/22/24 01/23/24 01/24/24 01/25/24 23:59 23:59 23:59 23:59 Intake Total 0 / 0 880 / 880 720 / 720 360 / 360 Output Total 600 / 600 1950 / 2150 1400 / 2300 900 / 900 Balance -600 / -600 -1070 / -1270 -680 / -1580 -540 / -540 Weight 210 lb 3.2 oz 210 lb 1.608 oz 209 lb 7.026 oz 209 lb 9.6 oz Constitutional Constitutional: no acute distress and average body habitus *Routine HEENT Exam Head: Present normocephalic and atraumatic ENT: Present mucous membranes moist *Routine Neck Exam Neck: Present supple, full ROM and normal carotid upstroke; Absent JVD, carotid bruit or lymphadenopathy *Routine Respiratory Exam Respiratory: Present CTA bilaterally, normal respiratory effort, able to speak in complete sentences and symmetric chest movement *Routine Cardiovascular Exam Cardiovascular: Present RRR, Normal S1, Normal S2 and murmur; Absent gallop *Routine Abdominal Exam Abdominal: Present soft and normoactive bowel sounds; Absent tenderness, distended or organomegaly *Routine Extremities Exam Extremities: Present full ROM, pulses intact and normal capillary refill; Absent cyanosis, clubbing or edema *Routine Skin Exam Skin: Present intact and warm; Absent erythema *Routine Neurological Exam Neurological: Present alert, oriented X3 and CN II-XII intact; Absent sensory deficit or motor deficit Routine Psychiatric Exam Psychiatric: Present normal affect Meds Home Medications and Allergies Home Medications Medication Instructions Recorded Confirmed Type aripiprazole 5 mg tablet 5 mg PO HS MOOD 01/22/24 01/22/24 History clonidine HCl 0.1 mg tablet 0.1 mg PO BID Hypertension 01/22/24 01/22/24 History escitalopram oxalate 20 mg tablet 20 mg PO DAILY Depression 01/22/24 01/22/24 History lisdexamfetamine 30 mg capsule 30 mg PO DAILY ADHD 01/22/24 01/22/24 History omeprazole 40 mg capsule,delayed 40 mg PO DAILY GERD 01/22/24 01/22/24 History release propranolol 120 mg capsule,24 120 mg PO DAILY TREMORS 01/22/24 01/22/24 History hr,extended release ropinirole 1 mg tablet 1 mg PO HS RESTLESS LEGS 01/22/24 01/22/24 History rosuvastatin 20 mg tablet 20 mg PO HS Cholesterol 01/22/24 01/22/24 History topiramate 100 mg tablet 150 mg PO HS MIGRAINES, TREMOR 01/22/24 01/22/24 History New Prescriptions to Start Prescriptions: Allergies Allergy/AdvReac Type Severity Reaction Status Date / Time No Known Allergies Allergy Verified 01/21/24 06:19 Assessment and Plan *Assessment and plan (1) (HFpEF) heart failure with preserved ejection fraction: Status: Acute Qualifiers: Heart failure chronicity: acute Qualified Code(s): I50.31 - Acute diastolic (congestive) heart failure Category: Medical Code(s): I50.30 - Unspecified diastolic (congestive) heart failure (2) HTN (hypertension): Status: Acute Qualifiers: Hypertension type: primary hypertension Qualified Code(s): I10 - Essential (primary) hypertension Category: Medical Code(s): I10 - Essential (primary) hypertension (3) Hyperlipidemia: Status: Chronic Qualifiers: Hyperlipidemia type: unspecified Qualified Code(s): E78.5 - Hyperlipidemia, unspecified Category: Medical Code(s): E78.5 - Hyperlipidemia, unspecified (4) Mitral regurgitation, acute: Status: Acute Category: Medical Code(s): I34.0 - Nonrheumatic mitral (valve) insufficiency (5) Coronary artery calcification seen on CAT scan: Status: Chronic Category: Medical Code(s): I25.10 - Atherosclerotic heart disease of solomon coronary artery without angina pectoris (6) Stenosis of carotid artery: Status: Chronic Qualifiers: Laterality: unspecified laterality Qualified Code(s): I65.29 - Occlusion and stenosis of unspecified carotid artery Category: Medical Code(s): I65.29 - Occlusion and stenosis of unspecified carotid artery Plan Plan: 1. The patient was admitted to the hospital with shortness of breath and an elevated BNP at 968. She also had a CT of the chest that showed pulmonary edema and a CHF exacerbation with right-sided heart failure. She did rule out for an PA. The patient has been treated with IV Lasix and did diurese well over the weekend. 2. Preliminary echocardiogram shows a normal ejection fraction with at least moderate mitral regurgitation. The patient likely got fluid overloaded following her surgery due to her mitral regurgitation and the increase fluids given to her mark and postoperatively. 3. We do recommend the patient going home on Lasix 20 mg p.o. daily. 4. We do recommend aspirin 81 mg daily. On further review of her chart it does show that she has a history of coronary calcifications on his CT and a history of carotid artery stenosis. So she should be on aspirin 81 mg daily. 5. Continue Crestor. 6. She would benefit from outpatient stress testing once she has been discharged from the hospital. 7. Her blood pressure is well-controlled. 8. Her LDL goal is less than 55. On Crestor. 9. Carotid artery stenosis is present bilaterally, 20 to 49%. Will need repeat evaluation on an outpatient basis. 10. The patient is stable for discharge home today from a cardiac standpoint. She will need to follow-up in cardiology clinic in 1 week on an outpatient basis to be set up for outpatient stress testing. Thank you for the opportunity to help participate in the care of this patient. All recommendations and orders are per Dr. Henriquez.
[2024-01-25 16:00] VITALS: BP 119/67; PULSE 60; PULSE 67; RESP 16; TEMP 37; O2SAT 95
--- NOTE | 2024-01-25 16:36 | P.DS_ITS ---
General Admission date:: 01/22/24 Discharge date: 01/25/24 HPI HPI HPI: 48 year old female presented to [facility] ED for c/o SOB. PMHX hypertension, hyperlipidemia, tobacco abuse, COPD not on home oxygen, CAD and is now 1 day status post transabdominal urethral sling placement presenting with shortness of breath. Patient states that she feels short of breath with minimal exertion since her surgery. Her ED workup revealed an elevated bnp of 968. CTA of chest reveals bilateral pleural effusion, pulmonary edema, and heart failure. Her troponins are negative. Her EKG is sinus rhythm without ST elevation. The ED p bam reported a new oxygen requirement and need for further cardiac workup. The ED physician consulted the hospitalist team for further medical management. I admitted the pt to the medical floor and have placed a cardiac consult Hospital Course Hospital Course Hospital Course: 48 year old female presented to [facility] ED for c/o SOB. PMHX hypertension, hyperlipidemia, tobacco abuse, COPD not on home oxygen, CAD and is now 1 day status post transabdominal urethral sling placement presenting with shortness of breath. Patient states that she feels short of breath with minimal exertion since her surgery. Her ED workup revealed an elevated bnp of 968. CTA of chest reveals bilateral pleural effusion, pulmonary edema, and heart failure. Her troponins are negative. Her EKG is sinus rhythm without ST elevation. The ED physician reported a new oxygen requirement and need for further cardiac workup. CHF EXACERBATION CAD - dc on [id number], f/u with cardiology as OP DC on lasix DEPRESSION HLD TOBACCO ABUSE - counselled OBESITY -complicates all aspects of care FULL CODE CARDIAC DIET DVT: HEPARIN SQ -cardiology consult, continue IV diuresis, cardiac echo, likely dc tomorrow Exam Data for Last 24 hours Vital signs and Labs for Last 24 Hours: Temp Pulse Resp BP Pulse Ox O2 Del Method 98.6 F 67 16 119/67 95 Room Air 01/25/24 16:00 01/25/24 16:00 01/25/24 16:00 01/25/24 16:00 01/25/24 16:00 01/25/24 16:00 Laboratory Results - last 24 hr 01/25/24 09:20: WBC 13.7 H, RBC 4.30, Hgb 14.7, Hct 44.8, MCV 104.0 H, MCH 34.2 H, MCHC 32.9, RDW 13.9, Plt Count 430 H D, MPV 8.0, Neut % (Auto) 65.8, Lymph % (Auto) 25.8, [place] % (Auto) 6.5, Eos % (Auto) 1.0, Baso % (Auto) 0.9, Neut # (Auto) 9.0 H, Lymph # (Auto) 3.5, [place] # (Auto) 0.9, Eos # (Auto) 0.1, Baso # (Auto) 0.1, Sodium 139, Potassium 3.5, Chloride 104, Carbon Dioxide 27, Anion Gap 11.5, BUN 27 H D, Creatinine 0.80, Estimated Creat Clear 126, Estimated GFR 76, Est GFR ( Amer) 92, Glucose 107 H, Calcium 9.8 I & O for Last 24 hours: Intake & Output 01/22/24 01/23/24 01/24/24 01/25/24 23:59 23:59 23:59 23:59 Intake Total 0 / 0 880 / 880 720 / 720 360 / 360 Output Total 600 / 600 1950 / 2150 1400 / 2300 1800 / 1800 Balance -600 / -600 -1070 / -1270 -680 / -1580 -1440 / -1440 Weight 95.345 kg 95.3 kg 95 kg 95.073 kg Constitutional Constitutional: no acute distress *Routine HEENT Exam Head: Present normocephalic Eye: Present EOMI and PERRL ENT: Present mucous membranes moist *Routine Neck Exam Neck: Present supple; Absent lymphadenopathy *Routine Respiratory Exam Respiratory: Present CTA bilaterally *Routine Cardiovascular Exam Cardiovascular: Present RRR *Routine Abdominal Exam Abdominal: Present soft and normoactive bowel sounds; Absent tenderness *Routine Extremities Exam Extremities: Absent cyanosis, clubbing or edema *Routine Skin Exam Skin: Present warm; Absent rash *Routine Neurological Exam Neurological: Present alert and oriented X3 Results Data Completed and Pending Labs on day of discharge: Labs from last 24 hours 01/25/24 09:20 WBC 13.7 H RBC 4.30 Hgb 14.7 Hct 44.8 MCV 104.0 H MCH 34.2 H MCHC 32.9 RDW 13.9 Plt Count 430 H D MPV 8.0 Neut % (Auto) 65.8 Lymph % (Auto) 25.8 [place] % (Auto) 6.5 Eos % (Auto) 1.0 Baso % (Auto) 0.9 Neut # (Auto) 9.0 H Lymph # (Auto) 3.5 [place] # (Auto) 0.9 Eos # (Auto) 0.1 Baso # (Auto) 0.1 Sodium 139 Potassium 3.5 Chloride 104 Carbon Dioxide 27 Anion Gap 11.5 BUN 27 H D Creatinine 0.80 Estimated Creat Clear 126 Estimated GFR 76 Est GFR ( Amer) 92 Glucose 107 H Calcium 9.8 DS: Diagnosis Discharge Diagnosis (1) (HFpEF) heart failure with preserved ejection fraction: Status: Acute Code(s): I50.30 - Unspecified diastolic (congestive) heart failure Qualifiers: Heart failure chronicity: acute Qualified Code(s): I50.31 - Acute diastolic (congestive) heart failure (2) HTN (hypertension): Status: Acute Code(s): I10 - Essential (primary) hypertension Qualifiers: Hypertension type: primary hypertension Qualified Code(s): I10 - Essential (primary) hypertension (3) Hyperlipidemia: Status: Chronic Code(s): E78.5 - Hyperlipidemia, unspecified Qualifiers: Hyperlipidemia type: unspecified Qualified Code(s): E78.5 - Hyperlipidemia, unspecified (4) Mitral regurgitation, acute: Status: Acute Code(s): I34.0 - Nonrheumatic mitral (valve) insufficiency (5) Coronary artery calcification seen on CAT scan: Status: Chronic Code(s): I25.10 - Atherosclerotic heart disease of [place] coronary artery without angina pectoris (6) Stenosis of carotid artery: Status: Chronic Code(s): I65.29 - Occlusion and stenosis of unspecified carotid artery Qualifiers: Laterality: unspecified laterality Qualified Code(s): I65.29 - Occlusion and stenosis of unspecified carotid artery Meds Home Medications and Allergies Home Medications Medication Instructions Recorded Confirmed Type aripiprazole 5 mg tablet 5 mg PO HS MOOD 01/22/24 01/22/24 History clonidine HCl 0.1 mg tablet 0.1 mg PO BID Hypertension 01/22/24 01/22/24 History escitalopram oxalate 20 mg tablet 20 mg PO DAILY Depression 01/22/24 01/22/24 History lisdexamfetamine 30 mg capsule 30 mg PO DAILY ADHD 01/22/24 01/22/24 History omeprazole 40 mg capsule,delayed 40 mg PO DAILY GERD 01/22/24 01/22/24 History release propranolol 120 mg capsule,24 120 mg PO DAILY TREMORS 01/22/24 01/22/24 History hr,extended release ropinirole 1 mg tablet 1 mg PO HS RESTLESS LEGS 01/22/24 01/22/24 History rosuvastatin 20 mg tablet 20 mg PO HS Cholesterol 01/22/24 01/22/24 History topiramate 100 mg tablet 150 mg PO HS MIGRAINES, TREMOR 01/22/24 01/22/24 History aspirin 81 mg tablet,delayed 81 mg PO DAILY 30 days #30 tabs 01/25/24 Rx release furosemide 20 mg tablet 20 mg PO DAILY 30 days #30 tabs 01/25/24 Rx New Prescriptions to Start Prescriptions: aspirin Jerrell Ag furosemide Ancelmo,Jerrell Allergies Allergy/AdvReac Type Severity Reaction Status Date / Time No Known Allergies Allergy Verified 01/21/24 06:19 Discharge Plan Disposition Patient Disposition: Home, Self-Care Condition: Good Discharge Order Discharge Orders: Discharge Order (Routine); Ordered 01/25/24 Ordered By: Jerrell Ag Follow up Plan Follow up with: Adi Cortes MD [Staff Physician] - 02/04/24 2:00 pm Иван Harris MD [Primary Care Provider] - 02/01/24 10:00 am Prescriptions/Medication Reconciliation: New aspirin 81 mg Tablet,Delayed Release (Dr/Ec) 81 mg PO DAILY 30 Days Qty: 30 0RF furosemide 20 mg Tablet 20 mg PO DAILY 30 Days Qty: 30 0RF Continued clonidine HCl 0.1 mg tablet 0.1 mg PO BID Patient Comments: TAKE 1 TABLET BY MOUTH TWICE DAILY ropinirole 1 mg tablet 1 mg PO HS Patient Comments: TAKE 1 TABLET BY MOUTH AT BEDTIME omeprazole 40 mg capsule,delayed release(DR/EC) 40 mg PO DAILY Patient Comments: TAKE 1 CAPSULE BY MOUTH ONCE DAILY propranolol 120 mg capsule,extended release 24 hr 120 mg PO DAILY Patient Comments: TAKE 1 CAPSULE BY MOUTH ONCE DAILY FOR TREMORS topiramate 100 mg tablet 150 mg PO HS Patient Comments: TAKE 1 & 1/2 (ONE & ONE-HALF) TABLETS BY MOUTH AT BEDTIME NIGHTLY FOR MIGRAINE, TREMOR escitalopram oxalate 20 mg tablet 20 mg PO DAILY Patient Comments: TAKE 1 TABLET BY MOUTH ONCE DAILY FOR DEPRESSION aripiprazole 5 mg tablet 5 mg PO HS Patient Comments: TAKE 1 TABLET BY MOUTH EVERY DAY AT BEDTIME rosuvastatin 20 mg tablet 20 mg PO HS Patient Comments: TAKE 1 TABLET BY MOUTH EVERY DAY AT BEDTIME FOR CHOLESTEROL lisdexamfetamine 30 mg capsule 30 mg PO DAILY Patient Comments: TAKE 1 CAPSULE BY MOUTH ONCE DAILY Problem Reconciliation Problems Reviewed?: Yes Patient Discharge Instructions ACTIVITY: Ambulate as tolerated DIET: continue same diet Patient Instructions: Heart Failure, Heart-Healthy Diet, DI for Heart Failure Providers Primary Care Provider: Иван Harris Admit Provider: Jerrell Ag Attending Provider: Jerrell Ag
[2024-01-25] MEDS: ASPIRIN EC 81MG TABLET 81 MG PO (16:54)
[2024-01-25] MEDS: FUROSEMIDE 20MG TABLET 20 MG PO (16:54)
--- NOTE | 2024-01-25 23:26 | CA_ITS ---
APPROVED REPORT EXAM: Comprehensive 2D, Doppler, and color-flow Echocardiogram Blueprinter: Jumana Cervantes CRT Ht: 5 ft 1 in Wt: 210lbs BSA: 1.93 BP: 118/66 mmHg Indications: Chest Pain, Hypervolemia, COPD, Shortness of Breath, Fatigue, Hyperlipidemia, Hypertension/HDD, bilateral pleural effusions Breast CA, Bilateral Mastectomies and Reconstruction Post op- transabdominal urethral sling placement 01/21/24 2D Dimensions LA Volume 32.90 mL LA Volume Index 16.60 mL/m2 (M/F) 16-34 M-Mode Dimensions RVDd 2.43 cm (0.9-2.6) LA Diam 3.52 cm (1.9-4.0) LVDd 5.15 cm (3.5-5.7) LVDs 3.46 cm (3.5-5.7) IVSd 1.16 cm (0.6-1.1) PWd 0.68 cm (0.6-1.1) EF (Teich) 60.90% FS 32.80% EDV (Teich) 126.60 mL TAPSE 2.02 (<1.7) ESV (Teich) 49.50 mL LV Diastology E Decel Time 220 (160-240 msec) E/A Ratio 0.48 MED A' 6.10 cm/s LAT A' 5.90 cm/s Aortic Valve AO Peak GR. 5.00 mmHg Mitral Valve MV E Max Trent. 119.0 (40-130 cm/s) MV A Velocity 250.0 (40-130 cm/s) E/A Ratio 0.48 MV PHT 64.0 ms Pulmonary Valve PV Peak Velocity 176.0 (50-150 cm/s) Tricuspid Valve TR P. Velocity 122.00 cm/s RAP Estimate 10.00 mmHg RVSP 16.00 mmHg Left Ventricle The left ventricle is normal size. The left ventricular systolic function is normal. The left ventricular ejection fraction is within the normal range. There is increased LV wall thickness. There is normal LV segmental wall motion. Diastolic function is indeterminate. LVEF is 60%. Right Ventricle The right ventricle is normal size. The right ventricular systolic function is normal. Atria The left atrium size is normal. The right atrium size is normal. There is no Doppler evidence of interatrial shunt. Aortic Valve The aortic valve opens well. There is no aortic valvular stenosis. No aortic regurgitation is present. Mitral Valve There is possibly bileaflet mitral valve prolapse. However, this is difficult to visualize in the setting of technically challenging study. Flail segment or chordal rupture cannot be ruled out. No evidence of mitral valve stenosis. MVA by PHT is 3.4 cm???. Moderate to severe mitral regurgitation. The MR jet is eccentric and posteriorly directed. EROA is 0.30 cm2. The EROA may be underestimated in the setting of eccentric jet. Regurgitant volume 52 mL. Regurgitant fraction 50%. Tricuspid Valve The tricuspid valve leaflets are thin and pliable. Trace tricuspid regurgitation. There is insufficient TR jet to estimate RVSP. Pulmonic Valve The pulmonary valve is normal in structure. Trace pulmonic regurgitation. Great Vessels The aortic root is normal in size. The ascending aorta is normal in size. IVC is normal in size and collapses >50% with inspiration. Pericardium There is no pericardial effusion. Other Information Study Quality: Technically Difficult Conclusion Technically difficult study due to poor acoustic windows. Normal biventricular systolic function. Possibly bileaflet mitral valve prolapse. However, this is difficult to visualize in the setting of technically challenging study. Flail segment or chordal rupture cannot be ruled out. Moderate to severe mitral regurgitation. The MR jet is eccentric and posteriorly directed. EROA is 0.30 cm2. The EROA may be underestimated in the setting of eccentric jet. Regurgitant volume 52 mL. Regurgitant fraction 50%. MVA by PHT is 3.4 cm???. In the setting of significant MR and clinical symptoms, further evaluation with LAVELLE is recommended to confirm the mechanism of MR and its severity. Electronically signed by : Caitie Henriquez MD 01/25/2024 21:52:39
--- NOTE | 2024-01-26 14:05 | CARE MANAGER ---
Called and spoke with patient regarding recent discharge. She stated that she has started new medication and was aware of scheduled f/u appts. No questions or concerns voiced at time of call.
== END 2024-01-25 17:41 | disposition home or self-care (01) | DRG 291 ==
LOC: ER 23:13 → 2ND 23:35
PROVIDERS: Nurse Practitioner Critical Care Medicine; Admitting Provider Internal Medicine; Emergency Provider Emergency Medicine; PCP Family Medicine; Visit Provider Internal Medicine
DX: I11.0 Hypertensive heart disease with heart failure (principal); I50.33 Acute on chronic diastolic (congestive) heart failure; Z68.1 Body mass index [BMI] 19.9 or less, adult; E78.5 Hyperlipidemia, unspecified; Z87.891 Personal history of nicotine dependence; F32.A Depression, unspecified; J44.9 Chronic obstructive pulmonary disease, unspecified; E66.9 Obesity, unspecified; I34.0 Nonrheumatic mitral (valve) insufficiency
CPT/HCPCS: 36415; 71045; 71275; 80048; 80053; 81001; 82803; 83605; 83735; 83880; 84484; 85007; 85025; 85378; 93005; 93306; 99291; Q9967

== ENCOUNTER 2024-02-04 15:00 | Outpatient (CLI) | payer BC, SELFPAY ==
[2024-02-05 20:39] LABS: Chloride 101 mmol/L (98-107); Potassium 3.8 mmoL/L (3.5-5.1); Sodium 136 mmol/L (136-145)
[2024-02-05 20:42] LABS: Blood Urea Nitrogen 13 mg/dl (7-17); Estimated Glomerular Filt Rate 89 ml/min (>60); GFR (African American) 107 ML/MIN (>60)
[2024-02-05 20:43] LABS: Anion Gap 9.8 mEq/L (5-15); Calcium 9.3 mg/dl (8.4-10.2); Carbon Dioxide 29 mmol/L (22.0-30.0); Glucose 112 mg/dl (74-100)
== END 2024-02-04 23:59 ==
LOC: LAB.DROPOF 02-25 10:20
PROVIDERS: PCP Internal Medicine; Visit Provider Internal Medicine
DX: I34.0 Nonrheumatic mitral (valve) insufficiency (principal); R93.1 Abnormal findings on diagnostic imaging of heart and coronary circulation; R06.09 Other forms of dyspnea
CPT/HCPCS: 80048

== ENCOUNTER 2024-02-15 19:58 | Outpatient (CLI) | payer BC, SELFPAY ==
[2024-02-15 20:44] LABS: Chloride 103 mmol/L (98-107)
[2024-02-15 20:45] LABS: Potassium 3.3 mmoL/L (3.5-5.1); Sodium 141 mmol/L (136-145)
[2024-02-15 20:47] LABS: Blood Urea Nitrogen 13 mg/dl (7-17); Estimated Glomerular Filt Rate 76 ml/min (>60); GFR (African American) 92 ML/MIN (>60)
[2024-02-15 20:48] LABS: Anion Gap 12.3 mEq/L (5-15); Calcium 9.7 mg/dl (8.4-10.2); Carbon Dioxide 29 mmol/L (22.0-30.0); Glucose 124 mg/dl (74-100)
== END 2024-02-15 23:59 ==
LOC: LAB.DROPOF 20:00
PROVIDERS: PCP Physician Assistant; Visit Provider Physician Assistant
DX: I34.0 Nonrheumatic mitral (valve) insufficiency (principal)
CPT/HCPCS: 80048

== ENCOUNTER 2024-02-24 08:20 | Day surgery (SDC) | payer BC, SELFPAY ==
[2024-02-23 12:03] VITALS: BMI 38.9
[2024-02-24] VITALS (8 sets, daily range): BP systolic 110–145; BP diastolic 68–98; PULSE 63–78; RESP 16–18; TEMP 36.2–36.9; O2SAT 94–100
--- NOTE | 2024-02-24 08:35 | CA_ITS ---
APPROVED REPORT EXAM: Comprehensive 2D, Doppler, and color-flow Echocardiogram Shaker Screen Operator: Jacey Gillis RVT Ht: 5 ft 1 in Wt: 206lbs BSA: 1.91 BP: 121/73 mmHg Indications: MOD TO SEVERE MR,HOLLAND,EX SMOKER,HLD Procedure After obtaining informed consent, patient underwent transesophageal echo in the [facility]. Type of Sedation : MAC Sedation start time: 12:00 Case end Time: 12:15 Sedation was achieved intravenously with: Propofol () Transesophageal probe was inserted and advanced into esophagus without difficulty by Dr. Antonio Henriquez. The LAVELLE was performed without complications. Throughout the procedure, the blood pressure, pulse oximetry, cardiac rhythm, and rate were monitored. The patient tolerated the procedure without adverse effects. Recovery from conscious sedation was uneventful and vital signs were stable. Left Ventricle The left ventricle is normal size. The left ventricular systolic function is normal. The left ventricular ejection fraction is within the normal range. There is increased LV wall thickness. There is normal LV segmental wall motion. LVEF is 65%. Right Ventricle The right ventricle is normal size. The right ventricular systolic function is normal. Atria There is severe left atrial dilatation. The right atrium size is normal. Interatrial septum is intact without evidence of ASD or PFO. Aortic Valve The aortic valve is trileaflet. The aortic valve opens well. There is no aortic valvular stenosis. Trace aortic regurgitation. Mitral Valve The posterior mitral valve leaflet is tethered with restricted motion. No evidence of mitral valve stenosis. There is severe mitral regurgitation. The mitral regurgitation jet is eccentric and posteriorly directed. The mitral regurgitation is likely due to tethering of the posterior MV leaflet (Lina class IIIB). EROA is 0.56 cm2. Regurgitant volume is 74 mL. Coaptation gap is 5 mm. Coaptation depth is 40 mm. There is pulmonary vein systolic flow reversal, consistent with significant mitral regurgitation. 3D LAVELLE is not available in the study. Tricuspid Valve The tricuspid valve leaflets are thin and pliable. Mild tricuspid regurgitation. RVSP is 50 mmHg plus RA pressure. Pulmonic Valve The pulmonary valve is normal in structure. Trace pulmonic regurgitation. Great Vessels The aortic root is normal in size. The ascending aorta is normal in size. Pericardium There is no pericardial effusion. Other Information Study Quality: Fair Conclusion Normal biventricular systolic function. LA dilation. Severe mitral regurgitation. The mitral regurgitation jet is eccentric and posteriorly directed. The mitral regurgitation is likely due to tethering of the posterior MV leaflet (Lina class IIIB). EROA is 0.56 cm2. Regurgitant volume is 74 mL. Coaptation gap is 5 mm. Coaptation depth is 40 mm. There is pulmonary vein systolic flow reversal, consistent with significant mitral regurgitation. 3D LAVELLE is not available in the study. Mild TR. Setting of severe mitral regurgitation, outside referral to interventional cardiology versus CT surgery is recommended in the setting of recent HF symptoms + severe MR. Electronically signed by : Caitie Henriquez MD 02/25/2024 12:21:06
[2024-02-24] MEDS: LACTATED RINGERS 1000ML 1,000 ML 25 ML IV (08:44)
--- NOTE | 2024-02-24 08:55 | ECG_ITS ---
APPROVED REPORT Exam: Resting ECG HR:64 bpm ECG Measurements Heart Rate 64 AXES CA 195 P 45 QRSd 90 QRS 29 QT 421 T 58 QTc 430 Conclusion SINUS RHYTHM NORMAL ECG UNCONFIRMED REPORT Electronically signed by : Alfredo Craig MD 02/25/2024 13:47:31
[2024-02-24 08:59] LABS: Basophils # 0.1 K/mm3 (0-0.2); Chloride 109 mmol/L (98-107); Eosinophils # 0.2 K/mm3 (0.0-0.4); Eosinophils % 1.9 % (0.1-12.0); Hematocrit 44.5 % (37.0-47.0); Hemoglobin 14.5 g/dL (12.2-16.2); Lymphocytes # 2.6 K/mm3 (0.7-4.5); Lymphocytes % 21.7 % (10-50); Mean Corpuscular HGB Conc 32.6 g/dL (31.8-35.4); Mean Corpuscular Hemoglobin 33.7 pg (27.0-31.2); Mean Corpuscular Volume 103.3 fl (81-99); Mean Platelet Volume 7.7 fl (7.4-10.4); Monocytes # 0.6 K/mm3 (0.1-1.0); Monocytes % 4.9 % (1.7-9.3); Neutrophils # 8.4 K/mm3 (1.8-7.8); Neutrophils % 70.6 % (37.0-80.0); Platelet Count 351 K/mm3 (142-424); Potassium 3.7 mmoL/L (3.5-5.1); Red Cell Distribution Width 13.3 % (11.5-17.5); Sodium 138 mmol/L (136-145); White Blood Count 11.9 K/mm3 (4.8-10.8)
[2024-02-24 09:02] LABS: Blood Urea Nitrogen 13 mg/dl (7-17); Creatinine Clearance Estimated 142 mL/min (50-200); Estimated Glomerular Filt Rate 89 ml/min (>60); GFR (African American) 107 ML/MIN (>60)
[2024-02-24 09:02] LABS: Urine Pregnancy, HCG Qual. Negative (Negative)
[2024-02-24 09:03] LABS: Anion Gap 7.7 mEq/L (5-15); Calcium 9.4 mg/dl (8.4-10.2); Carbon Dioxide 25 mmol/L (22.0-30.0); Glucose 116 mg/dl (74-100)
[2024-02-24 09:05] LABS: INR 0.95 (0.9-1.1); Prothrombin Time 10.3 seconds (10.1-12.5)
--- NOTE | 2024-02-24 10:02 | EXP.ANES.I ---
[facility] Anesthesia Record Part I Anesthesia Record I Intake, IV Amount: 500 Hydration: Adequate Estimated blood loss (mL): 0 Urine output (mL): 0 Blood Products used (#): none Blood Pressure: 145/98 SaO2: 94 Pulse Rate: 63 Airway Patency: Patent Respiratory Rate: 16 Temperature: 97.3 F Patient is:: Awake (Talking) and Stable Stable to PACU at:: 10:05
--- NOTE | 2024-02-24 11:32 | EXP.ANES.I ---
[facility] Anesthesia Record Part I Anesthesia Record I Intake, IV Amount: 300 Hydration: Adequate Estimated blood loss (mL): 0 Urine output (mL): 0 Blood Products used (#): none Blood Pressure: 110/68 SaO2: 97 Pulse Rate: 77 Airway Patency: Patent Respiratory Rate: 18 Temperature: 97.1 F Patient is:: Awake (Talking), Oral/Nasal airway (28Fr. nasal trumpet to Left nare) and Stable Stable to PACU at:: 11:36
== END 2024-02-24 12:10 | disposition home or self-care (01) ==
PROVIDERS: PCP Family Medicine; Visit Provider Internal Medicine
DX: I34.0 Nonrheumatic mitral (valve) insufficiency (principal); R93.1 Abnormal findings on diagnostic imaging of heart and coronary circulation; Z79.899 Other long term (current) drug therapy; R06.09 Other forms of dyspnea; Z87.891 Personal history of nicotine dependence; I25.10 Atherosclerotic heart disease of native coronary artery without angina pectoris; I65.29 Occlusion and stenosis of unspecified carotid artery; E78.5 Hyperlipidemia, unspecified
CPT/HCPCS: 80048; 81025; 85025; 85610; 93005; 93270; 93312; 93319

== ENCOUNTER 2024-03-24 20:14 | Emergency (ER) | payer BC, SELFPAY ==
[2024-03-24] VITALS (7 sets, daily range): BP systolic 132–153; BP diastolic 79–92; PULSE 56–104; RESP 16–22; TEMP 36.7–36.9; O2SAT 96–99; BMI 25.1; BMI 39.4
--- NOTE | 2024-03-24 20:25 | ECG_ITS ---
APPROVED REPORT Exam: Resting ECG HR:60 bpm ECG Measurements Heart Rate 60 AXES NH 177 P 57 QRSd 83 QRS 53 QT 427 T 66 QTc 429 Conclusion SINUS RHYTHM Electronically signed by : TIFFANY LUBIN, 03/24/2024 22:37:47
--- NOTE | 2024-03-24 20:32 | ED_ITS ---
Discharge Plan Disposition Patient Disposition: Admitted Condition: Serious Prescriptions Prescriptions: No Action Mirena 21 mcg/24 hours (8 yrs) 52 mg intrauterine device See Rx Instructions .ROUTE .COMPLEX Rx Instructions: . omeprazole 40 mg capsule,delayed release(DR/EC) 40 mg PO DAILY Qty: 90 0RF varenicline 1 mg tablet 1 mg PO BID Qty: 60 0RF furosemide 20 mg tablet See Rx Instructions PO DAILY 30 Days Qty: 45 0RF Rx Instructions: Take two tabs MWF and one tab all other days albuterol sulfate 90 mcg/actuation HFA aerosol inhaler 2 puff inhalation Q4-6H PRN (Reason: shortness of breath or wheezing) Qty: 6.7 1RF lisdexamfetamine [Vyvanse] 30 mg capsule 30 mg PO DAILY Qty: 30 0RF escitalopram oxalate 20 mg tablet 20 mg PO DAILY Qty: 90 0RF rosuvastatin 20 mg tablet 20 mg PO HS Qty: 90 0RF clonidine HCl 0.1 mg tablet 0.1 mg PO BID Patient Comments: TAKE 1 TABLET BY MOUTH TWICE DAILY ropinirole 1 mg tablet 1 mg PO HS Patient Comments: TAKE 1 TABLET BY MOUTH AT BEDTIME propranolol 120 mg capsule,extended release 24 hr 120 mg PO DAILY Patient Comments: TAKE 1 CAPSULE BY MOUTH ONCE DAILY FOR TREMORS topiramate 100 mg tablet 150 mg PO HS Patient Comments: TAKE 1 & 1/2 (ONE & ONE-HALF) TABLETS BY MOUTH AT BEDTIME NIGHTLY FOR MIGRAINE, TREMOR aripiprazole 5 mg tablet 5 mg PO HS Patient Comments: TAKE 1 TABLET BY MOUTH EVERY DAY AT BEDTIME aspirin 81 mg Tablet,Delayed Release (Dr/Ec) 81 mg PO DAILY 30 Days Qty: 30 0RF Referrals Follow up/Referrals: Иван Harris MD [Primary Care Provider] - See instructions Clinical Impressions Clinical Impression: CHF (congestive heart failure), Acute dyspnea Discharge ED Provider: Mo Rincon [facility] <AZIZA Keys - Last Filed: 03/24/24 22:21> General Chief Complaint: Shortness of Breath/Dyspnea Stated Complaint: Difficulty Breathing Time Seen by Provider: 03/24/24 20:19 Mode of Arrival: Ambulatory Source of Information: Patient Limitations: No Limitations Description of Symptoms (Recalled from ER Triage Doc. by RN): pt c/o SOA that started today. pt has hx of CHF and is scheduled fpr a dual heart cart this week History of Present Illness HPI narrative: Patient presents for dyspnea. Patient has a past medical history of flail mitral valve and is currently undergoing workup for mitral valve replacement at the [facility]. Patient reports acute onset of increasing dyspnea at rest that began today. Patient has had dyspnea ongoing since her recent diagnosis however this is different. Patient denies fever chills hemoptysis hematochezia melena nausea vomiting diarrhea. Related Data Home Medications Medication Instructions Recorded Confirmed aripiprazole 5 mg tablet 5 mg PO HS MOOD 01/22/24 02/25/24 clonidine HCl 0.1 mg tablet 0.1 mg PO BID Hypertension 01/22/24 02/25/24 propranolol 120 mg capsule,24 120 mg PO DAILY TREMORS 01/22/24 02/25/24 hr,extended release ropinirole 1 mg tablet 1 mg PO HS RESTLESS LEGS 01/22/24 02/25/24 topiramate 100 mg tablet 150 mg PO HS MIGRAINES, TREMOR 01/22/24 02/25/24 levonorgestrel 21 mcg/24 hours (8 See Rx Instructions .Route .COMPLEX 02/02/24 02/25/24 yrs) 52 mg intrauterine device (Mirena) Previous Rx's Medication Instructions Recorded aspirin 81 mg tablet,delayed 81 mg PO DAILY 30 days #30 tabs 01/25/24 release omeprazole 40 mg capsule,delayed 40 mg PO DAILY GERD #90 caps 02/15/24 release varenicline 1 mg tablet 1 mg PO BID #60 tabs 02/15/24 albuterol sulfate 90 mcg/actuation 2 puff inhalation Q4-6H PRN 03/11/24 aerosol inhaler shortness of breath or wheezing #6.7 grams furosemide 20 mg tablet See Rx Instructions PO DAILY 30 03/11/24 days #45 tabs lisdexamfetamine 30 mg capsule 30 mg PO DAILY ADHD #30 caps 03/14/24 (Vyvanse) escitalopram oxalate 20 mg tablet 20 mg PO DAILY Depression #90 tabs 03/15/24 rosuvastatin 20 mg tablet 20 mg PO HS Cholesterol #90 tabs 03/15/24 Allergies Allergy/AdvReac Type Severity Reaction Status Date / Time No Known Allergies Allergy Verified 02/25/24 13:58 [facility] <AZIZA Keys - Last Filed: 03/24/24 22:21> [facility] Disclaimer: The information contained in this section may have been updated after the patient was seen, as this information can be updated by other users. 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 Shingles Tobacco dependence Migraine Osteoarthritis Breast cancer Attention deficit disorder (ADD) in adult Major depressive disorder Gastroesophageal reflux disease Hyperlipidemia (~06/15/18) Essential tremor Surgical History History of stress incontinence procedure using tension free vaginal tape S/P total knee arthroplasty History of reconstruction of both breasts History of carpal tunnel release of both wrists H/O mastectomy History of tonsillectomy History of appendectomy History of section Family History Other Family history of cancer Lung cancer Social History (Updated 02/24/24 @ 08:44 by Lorelei Dalton, RN) Smoking Status: Current every day smoker tobacco type: cigarettes packs per day: 1 second hand exposure: Yes alcohol intake: never substance use type: denies use current occupational status: employed Travel in the last 8 weeks: None household members: spouse housing: house number of children: 1 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[employer] current occupational exposures/hazards: No caffeine: Yes <AZIZA Keys - Last Filed: 03/24/24 22:21> ROS Obtained: Yes Systems reviewed as appropriate & no additional complaints except as documented Physical Exam <AZIZA Keys - Last Filed: 03/24/24 22:21> General General appearance: alert and in no apparent distress Head Head exam: atraumatic and normal inspection Eye Eye exam: Present normal appearance, PERRL and EOMI ENT ENT exam: Present normal exam, normal oropharynx and mucous membranes moist Neck Neck exam: Present normal inspection, full ROM and trachea midline; Absent lymphadenopathy Chest Chest inspection: Present normal inspection and symmetric chest wall rise Respiratory Respiratory exam: Present normal lung sounds bilaterally; Absent accessory muscle use Cardiovascular Cardiovascular exam: Present regular rate, normal rhythm, normal heart sounds, +S1 and +S2 Abdominal Exam Abdominal exam: Present soft and normal bowel sounds; Absent tenderness, guarding or rebound Extremities Exam Extremities exam: Present normal inspection, full ROM and edema (+1 bilateral dependent pitting nontender) Back Exam Back exam: Present normal inspection and full ROM; Absent tenderness Neurological Exam Neurological exam: Present alert, oriented X3 and CN II-XII intact Psychiatric Psychiatric exam: Present normal affect and normal mood Skin Skin exam: Present warm, dry and normal color Lymphatic Lymphatic Findings: no adenopathy HEART Score <AZIZA Keys - Last Filed: 03/24/24 22:21> HEART Score HEART Score assessment performed?: Yes History (anamnesis): Slightly suspicious ECG: Non-specific disturbance Age: 45-65 years Risk factors: 3 or more risk factors Troponin: </= normal limit HEART Score: 4 <Mo Rincon MD - Last Filed: 03/24/24 22:56> HEART Score HEART Score: 4 Critical Care <AZIZA Keys - Last Filed: 03/24/24 22:21> Critical Care Time Critical Care Time: Yes Attestation: On 03/24/24, the high probability of a clinically significant, sudden or life threatening deterioration of the following system(cardiopulmonary) required my full and direct attention, intervention and personal management. The time I documented below is in addition to time spent performing reported procedures but includes the following listed in this critical care notation. Total Time Total Critical Care Time: 45 Medical Decision Making <AZIZA Keys - Last Filed: 03/24/24 22:21> Medical Records Medical records reviewed: Yes I reviewed the patient's medical records. Lopez Inquiry Pt receiving controlled substance: No Vital Signs Vital Signs: 03/24/24 20:15 03/24/24 20:15 03/24/24 21:00 Temperature 98.1 F 98.5 F Temperature Source Oral Oral Pulse Rate 56 L Pulse Rate [Right] 67 104 H Respiratory Rate 18 22 18 Blood Pressure 146/82 H Blood Pressure [Right Arm] 153/82 H 147/92 H Blood Pressure Mean [Right Arm] 105 110 Blood Pressure Source [Right Arm] Automatic Cuff Blood Pressure Position [Right Arm] Supine 02 Sat by Pulse Oximetry 97 96 97 Oxygen Delivery Method Room Air Room Air 03/24/24 21:15 03/24/24 21:30 03/24/24 21:51 Temperature Temperature Source Pulse Rate 67 59 L 66 Pulse Rate [Right] Respiratory Rate 18 16 Blood Pressure 132/87 138/79 Blood Pressure [Right Arm] Blood Pressure Mean [Right Arm] Blood Pressure Source [Right Arm] Blood Pressure Position [Right Arm] 02 Sat by Pulse Oximetry 98 97 Oxygen Delivery Method Room Air Room Air 03/24/24 21:51 03/24/24 22:00 Temperature Temperature Source Pulse Rate 58 L 76 Pulse Rate [Right] Respiratory Rate 18 Blood Pressure 133/81 Blood Pressure [Right Arm] Blood Pressure Mean [Right Arm] Blood Pressure Source [Right Arm] Blood Pressure Position [Right Arm] 02 Sat by Pulse Oximetry 96 Oxygen Delivery Method Room Air Lab Data Lab results reviewed: Yes I reviewed the patient's lab results. Labs: Lab Results 03/24/24 20:20: WBC 13.6 H, RBC 4.46, Hgb 15.1, Hct 45.0, MCV 100.8 H, MCH 33.9 H, MCHC 33.6, RDW 13.2, Plt Count 394, MPV 7.9, Neut % (Auto) 60.0, Lymph % (Auto) 31.6, [place] % (Auto) 5.5, Eos % (Auto) 2.0, Baso % (Auto) 0.9, Neut # (Auto) 8.1 H, Lymph # (Auto) 4.3, [place] # (Auto) 0.8, Eos # (Auto) 0.3, Baso # (Auto) 0.1, PT 10.2, INR 0.94, D-Dimer 0.50, Sodium 141 03/24/24 20:20: Sodium 142, Potassium 3.3 L 03/24/24 20:20: Potassium 3.3 L, Chloride 110 H 03/24/24 20:20: Chloride 110 H, Carbon Dioxide 26 03/24/24 20:20: Carbon Dioxide 25, Anion Gap 8.3 03/24/24 20:20: Anion Gap 10.3, BUN 10 03/24/24 20:20: BUN 10, Creatinine 0.70 03/24/24 20:20: Creatinine 0.70, Estimated Creat Clear 120 03/24/24 20:20: Estimated Creat Clear 120, Estimated GFR 89 03/24/24 20:20: Estimated GFR 89, Est GFR ( Amer) 107 03/24/24 20:20: Est GFR ( Amer) 107, Glucose 142 H 03/24/24 20:20: Glucose 142 H, Calcium 9.8 03/24/24 20:20: Calcium 9.8, Magnesium 2.0, Total Bilirubin 0.4, AST 40 H, ALT 31, Alkaline Phosphatase 78, Troponin I < 0.01, NT-Pro-B Natriuret Pep 39.6, Total Protein 6.7, Albumin 4.3, Globulin 2.4, Albumin/Globulin Ratio 1.8 03/24/24 21:38: SARS-CoV-2 (PCR) Not detected, Influenza A Untype (PCR) Not detected, Influenza Type B (PCR) Not detected 03/24/24 20:20 03/24/24 20:20 Response Orders (Tests/Meds): ED MEDICATIONS Discontinued Medications Generic Name Dose Route Start Last Admin Trade Name Freq PRN Reason Stop Dose Admin Albuterol/Ipratropium 3 ml 03/24/24 20:41 03/24/24 21:02 Ipratropium/Albuterol 3 Ml Neb IH 03/24/24 20:42 3 ml ONCE ONE Administration Dexamethasone Sodium Phosphate 10 mg 03/24/24 22:21 03/24/24 22:29 Dexamethasone 4mg/Ml 5ml Mdv IV 03/24/24 22:22 10 mg ONCE ONE Administration Diphenhydramine HCl 50 mg 03/24/24 22:21 03/24/24 22:29 Diphenhydramine 50mg/Ml Vial IV 03/24/24 22:22 50 mg ONCE ONE Administration Furosemide 80 mg 03/24/24 20:55 03/24/24 21:04 Furosemide 40mg/4ml Vial IV 03/24/24 20:56 80 mg ONCE ONE Administration Ibuprofen 800 mg 03/24/24 21:08 03/24/24 21:10 Ibuprofen 400 Mg Tablet PO 03/24/24 21:09 800 mg ONCE ONE Administration Ketorolac Tromethamine 15 mg 03/24/24 22:21 03/24/24 22:29 Ketorolac 30mg/Ml Vial IV 03/24/24 22:22 15 mg ONCE ONE Administration Ondansetron HCl 4 mg 03/24/24 22:11 05/02/24 22:16 Ondansetron 4mg/2ml Vial IV 03/24/24 22:12 4 mg ONCE ONE Administration Potassium Chloride 80 meq 03/24/24 21:14 03/24/24 21:22 Potassium Chloride 20meq Tab PO 03/24/24 21:15 80 meq ONCE ONE Administration Prochlorperazine Edisylate 10 mg 03/24/24 22:23 03/24/24 22:30 Prochlorperazine 10mg/2ml Vial IV 03/24/24 22:24 10 mg ONCE ONE Administration ORDERS Category Date Time Status Chest XR -- portable [XR chest portable] Stat Exams 03/24/24 20:42 Completed BMP [Basic Metabolic Panel] Stat Lab 03/24/24 20:20 Completed BNP [NT Pro Brain Natriuretic Pep.] Stat Lab 03/24/24 20:20 Completed CBC w/Auto Diff [Complete Blood Count Auto Diff] Stat Lab 03/24/24 20:20 Completed CMP [Comprehensive Metabolic Panel] Stat Lab 03/24/24 20:20 Completed D-Dimer Stat Lab 03/24/24 20:20 Completed INR [Prothrombin Time INR] Stat Lab 03/24/24 20:20 Completed Magnesium Stat Lab 03/24/24 20:20 Completed Rapid PCR Covid and Flu A/B Stat Lab 03/24/24 21:38 Completed Trop I [Troponin I] Stat Lab 03/24/24 20:20 Completed Troponin I Q3H Lab 03/24/24 23:45 Ordered Troponin I Q3H Lab 03/25/24 02:45 Ordered MDM Narrative Medical Decision Narrative: In summary patient is a 48-year-old female who presents to the emergency department for evaluation of dyspnea. Patient is dynamically stable upon arriva satting at 97% on room air l, afebrile. Physical exam is remarkable for dyspnea at rest however her breath sounds are clear to auscultation bilaterally. Patient does have +1 pitting edema in the bilateral lower extremities but has only gained 1 pound in weight since her discharge from .. Differential diagnosis includes ACS versus PE versus CHF versus worsening mitral valve prolapse etc. Initial workup will be conducted with hematologic labs plain film chest x-ray respiratory swabs. Initial interventions include DuoNeb Lasix challenge. Initial workup reviewed by me shows cephalization on her plain film chest x-ray via my informal interpretation and possibly slight pleural effusion on the right base but otherwise no other acute processes noted. Patient does have slightly elevated white count however that could be stress margination however patient has a negative troponin and a negative NT proBNP and the remainder of her laboratory vesication's are nonactionable. Upon repeat evaluation still reports dyspnea at rest. Given this and interactive discussion with the [facility] who plans to list her for bed but bed will not be available till tomorrow. Given that I had an interactive discussion with hospital medicine regarding patient management and they have agreed for admission here. Mckenzie: Independent interpretation of EKG demonstrates sinus rhythm 60 bpm with normal GA, QRS and QT intervals. Ehrenberg normal, no ST or T wave changes concerning for acute ischemia. Normal EKG. <Mo Rincon MD - Last Filed: 03/24/24 22:56> Vital Signs Vital Signs: 03/24/24 20:15 03/24/24 20:15 03/24/24 21:00 Temperature 98.1 F 98.5 F Temperature Source Oral Oral Pulse Rate 56 L Pulse Rate [Right] 67 104 H Respiratory Rate 18 22 18 Blood Pressure 146/82 H Blood Pressure [Right Arm] 153/82 H 147/92 H Blood Pressure Mean [Right Arm] 105 110 Blood Pressure Source [Right Arm] Automatic Cuff Blood Pressure Position [Right Arm] Supine 02 Sat by Pulse Oximetry 97 96 97 Oxygen Delivery Method Room Air Room Air 03/24/24 21:15 03/24/24 21:30 03/24/24 21:51 Temperature Temperature Source Pulse Rate 67 59 L 66 Pulse Rate [Right] Respiratory Rate 18 16 Blood Pressure 132/87 138/79 Blood Pressure [Right Arm] Blood Pressure Mean [Right Arm] Blood Pressure Source [Right Arm] Blood Pressure Position [Right Arm] 02 Sat by Pulse Oximetry 98 97 Oxygen Delivery Method Room Air Room Air 03/24/24 21:51 03/24/24 22:00 Temperature Temperature Source Pulse Rate 58 L 76 Pulse Rate [Right] Respiratory Rate 18 Blood Pressure 133/81 Blood Pressure [Right Arm] Blood Pressure Mean [Right Arm] Blood Pressure Source [Right Arm] Blood Pressure Position [Right Arm] 02 Sat by Pulse Oximetry 96 Oxygen Delivery Method Room Air Lab Data Labs: Lab Results 03/24/24 20:20: WBC 13.6 H, RBC 4.46, Hgb 15.1, Hct 45.0, MCV 100.8 H, MCH 33.9 H, MCHC 33.6, RDW 13.2, Plt Count 394, MPV 7.9, Neut % (Auto) 60.0, Lymph % (Auto) 31.6, [place] % (Auto) 5.5, Eos % (Auto) 2.0, Baso % (Auto) 0.9, Neut # (Auto) 8.1 H, Lymph # (Auto) 4.3, [place] # (Auto) 0.8, Eos # (Auto) 0.3, Baso # (Auto) 0.1, PT 10.2, INR 0.94, D-Dimer 0.50, Sodium 141 03/24/24 20:20: Sodium 142, Potassium 3.3 L 03/24/24 20:20: Potassium 3.3 L, Chloride 110 H 03/24/24 20:20: Chloride 110 H, Carbon Dioxide 26 03/24/24 20:20: Carbon Dioxide 25, Anion Gap 8.3 03/24/24 20:20: Anion Gap 10.3, BUN 10 03/24/24 20:20: BUN 10, Creatinine 0.70 03/24/24 20:20: Creatinine 0.70, Estimated Creat Clear 120 03/24/24 20:20: Estimated Creat Clear 120, Estimated GFR 89 03/24/24 20:20: Estimated GFR 89, Est GFR ( Amer) 107 03/24/24 20:20: Est GFR ( Amer) 107, Glucose 142 H 03/24/24 20:20: Glucose 142 H, Calcium 9.8 03/24/24 20:20: Calcium 9.8, Magnesium 2.0, Total Bilirubin 0.4, AST 40 H, ALT 31, Alkaline Phosphatase 78, Troponin I < 0.01, NT-Pro-B Natriuret Pep 39.6, Total Protein 6.7, Albumin 4.3, Globulin 2.4, Albumin/Globulin Ratio 1.8 03/24/24 21:38: SARS-CoV-2 (PCR) Not detected, Influenza A Untype (PCR) Not detected, Influenza Type B (PCR) Not detected Response Orders (Tests/Meds): ED MEDICATIONS Discontinued Medications Generic Name Dose Route Start Last Admin Trade Name Freq PRN Reason Stop Dose Admin Albuterol/Ipratropium 3 ml 03/24/24 20:41 03/24/24 21:02 Ipratropium/Albuterol 3 Ml Neb IH 03/24/24 20:42 3 ml ONCE ONE Administration Dexamethasone Sodium Phosphate 10 mg 03/24/24 22:21 03/24/24 22:29 Dexamethasone 4mg/Ml 5ml Mdv IV 03/24/24 22:22 10 mg ONCE ONE Administration Diphenhydramine HCl 50 mg 03/24/24 22:21 03/24/24 22:29 Diphenhydramine 50mg/Ml Vial IV 03/24/24 22:22 50 mg ONCE ONE Administration Furosemide 80 mg 03/24/24 20:55 03/24/24 21:04 Furosemide 40mg/4ml Vial IV 03/24/24 20:56 80 mg ONCE ONE Administration Ibuprofen 800 mg 03/24/24 21:08 03/24/24 21:10 Ibuprofen 400 Mg Tablet PO 03/24/24 21:09 800 mg ONCE ONE Administration Ketorolac Tromethamine 15 mg 03/24/24 22:21 03/24/24 22:29 Ketorolac 30mg/Ml Vial IV 03/24/24 22:22 15 mg ONCE ONE Administration Ondansetron HCl 4 mg 03/24/24 22:11 03/24/24 22:16 Ondansetron 4mg/2ml Vial IV 03/24/24 22:12 4 mg ONCE ONE Administration Potassium Chloride 80 meq 03/24/24 21:14 03/24/24 21:22 Potassium Chloride 20meq Tab PO 03/24/24 21:15 80 meq ONCE ONE Administration Prochlorperazine Edisylate 10 mg 03/24/24 22:23 03/24/24 22:30 Prochlorperazine 10mg/2ml Vial IV 03/24/24 22:24 10 mg ONCE ONE Administration ORDERS Category Date Time Status Chest XR -- portable [XR chest portable] Stat Exams 03/24/24 20:42 Completed BMP [Basic Metabolic Panel] Stat Lab 03/24/24 20:20 Completed BNP [NT Pro Brain Natriuretic Pep.] Stat Lab 03/24/24 20:20 Completed CBC w/Auto Diff [Complete Blood Count Auto Diff] Stat Lab 03/24/24 20:20 Completed CMP [Comprehensive Metabolic Panel] Stat Lab 03/24/24 20:20 Completed D-Dimer Stat Lab 03/24/24 20:20 Completed INR [Prothrombin Time INR] Stat Lab 03/24/24 20:20 Completed Magnesium Stat Lab 03/24/24 20:20 Completed Rapid PCR Covid and Flu A/B Stat Lab 03/24/24 21:38 Completed Trop I [Troponin I] Stat Lab 03/24/24 20:20 Completed Troponin I Q3H Lab 03/24/24 23:45 Ordered Troponin I Q3H Lab 03/25/24 02:45 Ordered MDM Narrative Medical Decision Narrative: In summary patient is a 48-year-old female who presents to the emergency department for evaluation of dyspnea. Patient is dynamically stable upon arriva satting at 97% on room air l, afebrile. Physical exam is remarkable for dyspnea at rest however her breath sounds are clear to auscultation bilaterally. Patient does have +1 pitting edema in the bilateral lower extremities but has only gained 1 pound in weight since her discharge from .. Differential diagnosis includes ACS versus PE versus CHF versus worsening mitral valve prolapse etc. Initial workup will be conducted with hematologic labs plain film chest x-ray respiratory swabs. Initial interventions include DuoNeb Lasix challenge. Initial workup reviewed by me shows cephalization on her plain film chest x-ray via my informal interpretation and possibly slight pleural effusion on the right base but otherwise no other acute processes noted. Patient does have slightly elevated white count however that could be stress margination however patient has a negative troponin and a negative NT proBNP and the remainder of her laboratory vesication's are nonactionable. Upon repeat evaluation still reports dyspnea at rest. Given this and interactive discussion with the [facility] transfer center who plans to list her for bed but bed will not be available till tomorrow. Given that I had an interactive discussion with hospital medicine regarding patient management and they have agreed for admission here. Mckenzie: Independent interpretation of EKG demonstrates sinus rhythm 60 bpm with normal GA, QRS and QT intervals. Ehrenberg normal, no ST or T wave changes concerning for acute ischemia. Normal EKG. I independently interviewed and examined patient. I feel she is appropriate for transfer to [facility] where she has her cardiothoracic and cardiovascular care. [facility] contacted and feel this is appropriate. Because patient high risk for clinical decompensation if discharged, deemed appropriate for transfer and inpatient admission. Results were relayed to patient who voiced understanding and patient was agreeable to transfer, inpatient admission, and management. Patient was graciously accepted and transferred to for further definitive management, under Dr. Win.
--- NOTE | 2024-03-24 20:42 | XR_ITS ---
PROCEDURE INFORMATION: Exam: XR Chest Exam date and time: 03/24/2024 8:43 PM Age: 48 years old Clinical indication: Shortness of breath; Additional info: Dyspnea TECHNIQUE: Imaging protocol: Radiologic exam of the chest. Views: 1 view. Total images: 1 COMPARISON: CR XR CHEST PORTABLE 01/24/2024 11:57 AM FINDINGS: Lungs: Unremarkable. No consolidation. No pulmonary vascular congestion or edema. Pleural spaces: Minor blunting of the right lateral costophrenic angle implying trace pleural effusion. No pneumothorax. No significant left pleural effusion. Heart/Mediastinum: Prominent epicardial fat deposition. No cardiomegaly. No mediastinal widening or hilar enlargement. Bones/joints: Mild osteopenia. Mild degenerative changes thoracic spine and bilateral AC joints. Soft tissues: Tiny surgical clips bilateral chest wall. Breast/implant attenuation artifact. Other findings: Lordotic positioning. IMPRESSION: 1. Suspect trace right pleural effusion. 2. Otherwise, no radiographically acute cardiopulmonary process.
[2024-03-24 20:50] LABS: Basophils # 0.1 K/mm3 (0-0.2); Basophils % 0.9 % (0.1-2.0); Chloride 110 mmol/L (98-107); Eosinophils # 0.3 K/mm3 (0.0-0.4); Hemoglobin 15.1 g/dL (12.2-16.2); Lymphocytes # 4.3 K/mm3 (0.7-4.5); Lymphocytes % 31.6 % (10-50); Mean Corpuscular HGB Conc 33.6 g/dL (31.8-35.4); Mean Corpuscular Hemoglobin 33.9 pg (27.0-31.2); Mean Corpuscular Volume 100.8 fl (81-99); Mean Platelet Volume 7.9 fl (7.4-10.4); Monocytes # 0.8 K/mm3 (0.1-1.0); Monocytes % 5.5 % (1.7-9.3); Neutrophils # 8.1 K/mm3 (1.8-7.8); Platelet Count 394 K/mm3 (142-424); Red Blood Count 4.46 M/mm3 (4.20-5.40); Red Cell Distribution Width 13.2 % (11.5-17.5); White Blood Count 13.6 K/mm3 (4.8-10.8)
[2024-03-24 20:51] LABS: Potassium 3.3 mmoL/L (3.5-5.1); Sodium 141 mmol/L (136-145)
[2024-03-24 20:53] LABS: Blood Urea Nitrogen 10 mg/dl (7-17); Creatinine Clearance Estimated 120 mL/min (50-200); Estimated Glomerular Filt Rate 89 ml/min (>60); GFR (African American) 107 ML/MIN (>60)
[2024-03-24 20:54] LABS: Anion Gap 8.3 mEq/L (5-15); Calcium 9.8 mg/dl (8.4-10.2); Carbon Dioxide 26 mmol/L (22.0-30.0); Glucose 142 mg/dl (74-100)
[2024-03-24 20:55] LABS: INR 0.94 (0.9-1.1); Prothrombin Time 10.2 seconds (10.1-12.5)
[2024-03-24] MEDS: IPRATROPIUM/ALBUTEROL 3 ML NEB IH (21:02)
[2024-03-24 21:04] LABS: NT Pro Brain Natriuretic Pep. 39.6 pg/mL (0-125)
[2024-03-24] MEDS: FUROSEMIDE 40MG/4ML VIAL 80 MG IV (21:04)
--- NOTE | 2024-03-24 21:04 | PC.NURSE ---
pt getting duoneb at this time per rt
[2024-03-24 21:08] LABS: Chloride 110 mmol/L (98-107); Troponin I < 0.01 ng/ml (0.00-0.034)
[2024-03-24 21:09] LABS: Potassium 3.3 mmoL/L (3.5-5.1); Sodium 142 mmol/L (136-145)
[2024-03-24] MEDS: IBUPROFEN 400 MG TABLET 800 MG PO (21:10)
[2024-03-24 21:11] LABS: Alanine Aminotransferase 31 U/L (12-78); Aspartate Amino Transferase 40 U/L (14-36); Blood Urea Nitrogen 10 mg/dl (7-17); Creatinine Clearance Estimated 120 mL/min (50-200); Estimated Glomerular Filt Rate 89 ml/min (>60); GFR (African American) 107 ML/MIN (>60)
[2024-03-24 21:12] LABS: Albumin Level 4.3 g/dl (3.5-5.0); Albumin/Globulin Ratio 1.8 (1.1-1.8); Alkaline Phosphatase 78 U/L (38-126); Anion Gap 10.3 mEq/L (5-15); Bilirubin,Total 0.4 mg/dl (0.2-1.3); Calcium 9.8 mg/dl (8.4-10.2); Carbon Dioxide 25 mmol/L (22.0-30.0); Globulin 2.4 g/dL (1.3-3.2); Glucose 142 mg/dl (74-100); Total Protein,Serum 6.7 g/dl (6.3-8.2)
[2024-03-24] MEDS: POTASSIUM CHLORIDE 20MEQ TAB 80 MEQ PO (21:22)
[2024-03-24 21:41] LABS: Coronavirus 19, PCR Not Detected (NotDetected); Influenza A, PCR Not Detected (NotDetected); Influenza B, PCR Not Detected (NotDetected)
--- NOTE | 2024-03-24 21:43 | PC.NURSE ---
Called [facility] about a consult with CT surgery for Dr Rincon. [facility] advised they will call back [facility]. GERSON
--- NOTE | 2024-03-24 21:59 | PC.NURSE ---
MD Rincon on phone with at this time
--- NOTE | 2024-03-24 22:08 | P.HPDS_ITS ---
General Admission date:: 03/24/2024 [facility] Disclaimer: The information contained in this section may have been updated after the patient was seen, as this information can be updated by other users. 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 Shingles Tobacco dependence Migraine Osteoarthritis Breast cancer Attention deficit disorder (ADD) in adult Major depressive disorder Gastroesophageal reflux disease Hyperlipidemia (~06/15/18) Essential tremor Surgical History History of stress incontinence procedure using tension free vaginal tape S/P total knee arthroplasty History of reconstruction of both breasts History of carpal tunnel release of both wrists H/O mastectomy History of tonsillectomy History of appendectomy History of section Family History Other Family history of cancer Lung cancer Social History (Updated 02/24/24 @ 08:44 by Lorelei Dalton RN) Smoking Status: Current every day smoker tobacco type: cigarettes packs per day: 1 second hand exposure: Yes alcohol intake: never substance use type: denies use current occupational status: employed Travel in the last 8 weeks: None household members: spouse housing: house number of children: 1 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 current occupational exposures/hazards: No caffeine: Yes Exam Data for Last 24 hours Vital signs and Labs for Last 24 Hours: Temp Pulse Resp BP Pulse Ox O2 Del Method 98.5 F 58 L 18 146/82 H 97 Room Air 03/24/24 20:15 03/24/24 21:51 03/24/24 21:00 03/24/24 21:00 03/24/24 21:00 03/24/24 21:00 Laboratory Results - last 24 hr 03/24/24 20:20: WBC 13.6 H, RBC 4.46, Hgb 15.1, Hct 45.0, MCV 100.8 H, MCH 33.9 H, MCHC 33.6, RDW 13.2, Plt Count 394, MPV 7.9, Neut % (Auto) 60.0, Lymph % (Auto) 31.6, [place] % (Auto) 5.5, Eos % (Auto) 2.0, Baso % (Auto) 0.9, Neut # (Auto) 8.1 H, Lymph # (Auto) 4.3, [place] # (Auto) 0.8, Eos # (Auto) 0.3, Baso # (Auto) 0.1, PT 10.2, INR 0.94, D-Dimer 0.50, Sodium 141 03/24/24 20:20: Sodium 142, Potassium 3.3 L 03/24/24 20:20: Potassium 3.3 L, Chloride 110 H 03/24/24 20:20: Chloride 110 H, Carbon Dioxide 26 03/24/24 20:20: Carbon Dioxide 25, Anion Gap 8.3 03/24/24 20:20: Anion Gap 10.3, BUN 10 03/24/24 20:20: BUN 10, Creatinine 0.70 03/24/24 20:20: Creatinine 0.70, Estimated Creat Clear 120 03/24/24 20:20: Estimated Creat Clear 120, Estimated GFR 89 03/24/24 20:20: Estimated GFR 89, Est GFR ( Amer) 107 03/24/24 20:20: Est GFR ( Amer) 107, Glucose 142 H 03/24/24 20:20: Glucose 142 H, Calcium 9.8 03/24/24 20:20: Calcium 9.8, Magnesium 2.0, Total Bilirubin 0.4, AST 40 H, ALT 31, Alkaline Phosphatase 78, Troponin I < 0.01, NT-Pro-B Natriuret Pep 39.6, Total Protein 6.7, Albumin 4.3, Globulin 2.4, Albumin/Globulin Ratio 1.8 03/24/24 21:38: SARS-CoV-2 (PCR) Not detected, Influenza A Untype (PCR) Not detected, Influenza Type B (PCR) Not detected I & O for Last 24 hours: Intake & Output 03/21/24 03/22/24 03/23/24 03/24/24 23:59 23:59 23:59 23:59 Weight 79.379 kg Meds Home Medications and Allergies Home Medications Medication Instructions Recorded Confirmed Type aripiprazole 5 mg tablet 5 mg PO HS MOOD 01/22/24 02/25/24 History clonidine HCl 0.1 mg tablet 0.1 mg PO BID Hypertension 01/22/24 02/25/24 History propranolol 120 mg capsule,24 120 mg PO DAILY TREMORS 01/22/24 02/25/24 History hr,extended release ropinirole 1 mg tablet 1 mg PO HS RESTLESS LEGS 01/22/24 02/25/24 History topiramate 100 mg tablet 150 mg PO HS MIGRAINES, TREMOR 01/22/24 02/25/24 History aspirin 81 mg tablet,delayed 81 mg PO DAILY 30 days #30 tabs 01/25/24 02/25/24 Rx release levonorgestrel 21 mcg/24 hours (8 See Rx Instructions .Route .COMPLEX 02/02/24 02/25/24 History yrs) 52 mg intrauterine device (Mirena) omeprazole 40 mg capsule,delayed 40 mg PO DAILY GERD #90 caps 02/15/24 02/25/24 Rx release varenicline 1 mg tablet 1 mg PO BID #60 tabs 02/15/24 02/25/24 Rx albuterol sulfate 90 mcg/actuation 2 puff inhalation Q4-6H PRN 03/11/24 Rx aerosol inhaler shortness of breath or wheezing #6.7 grams furosemide 20 mg tablet See Rx Instructions PO DAILY 30 03/11/24 Rx days #45 tabs lisdexamfetamine 30 mg capsule 30 mg PO DAILY ADHD #30 caps 03/14/24 Rx (Vyvanse) escitalopram oxalate 20 mg tablet 20 mg PO DAILY Depression #90 tabs 03/15/24 Rx rosuvastatin 20 mg tablet 20 mg PO HS Cholesterol #90 tabs 03/15/24 Rx New Prescriptions to Start Prescriptions: Allergies Allergy/AdvReac Type Severity Reaction Status Date / Time No Known Allergies Allergy Verified 02/25/24 13:58 Results Data Completed and Pending Labs on day of discharge: Labs from last 24 hours 03/24/24 03/24/24 03/24/24 21:38 20:20 20:20 WBC RBC Hgb Hct MCV MCH MCHC RDW Plt Count MPV Neut % (Auto) Lymph % (Auto) [place] % (Auto) Eos % (Auto) Baso % (Auto) Neut # (Auto) Lymph # (Auto) [place] # (Auto) Eos # (Auto) Baso # (Auto) PT INR D-Dimer Sodium Potassium Chloride Carbon Dioxide Anion Gap BUN Creatinine Estimated Creat Clear Estimated GFR Est GFR ( Amer) Glucose 142 H Calcium 9.8 9.8 Magnesium 2.0 Total Bilirubin 0.4 AST 40 H ALT 31 Alkaline Phosphatase 78 Troponin I < 0.01 NT-Pro-B Natriuret Pep 39.6 Total Protein 6.7 Albumin 4.3 Globulin 2.4 Albumin/Globulin Ratio 1.8 SARS-CoV-2 (PCR) Not detected Influenza A Untype (PCR) Not detected Influenza Type B (PCR) Not detected 03/24/24 03/24/24 03/24/24 20:20 20:20 20:20 WBC RBC Hgb Hct MCV MCH MCHC RDW Plt Count MPV Neut % (Auto) Lymph % (Auto) [place] % (Auto) Eos % (Auto) Baso % (Auto) Neut # (Auto) Lymph # (Auto) [place] # (Auto) Eos # (Auto) Baso # (Auto) PT INR D-Dimer Sodium Potassium Chloride Carbon Dioxide Anion Gap BUN Creatinine Estimated Creat Clear 120 Estimated GFR 89 89 Est GFR ( Amer) 107 107 Glucose 142 H Calcium Magnesium Total Bilirubin AST ALT Alkaline Phosphatase Troponin I NT-Pro-B Natriuret Pep Total Protein Albumin Globulin Albumin/Globulin Ratio SARS-CoV-2 (PCR) Influenza A Untype (PCR) Influenza Type B (PCR) 03/24/24 03/24/24 03/24/24 20:20 20:20 20:20 WBC RBC Hgb Hct MCV MCH MCHC RDW Plt Count MPV Neut % (Auto) Lymph % (Auto) [place] % (Auto) Eos % (Auto) Baso % (Auto) Neut # (Auto) Lymph # (Auto) [place] # (Auto) Eos # (Auto) Baso # (Auto) PT INR D-Dimer Sodium Potassium Chloride Carbon Dioxide Anion Gap 10.3 BUN 10 10 Creatinine 0.70 0.70 Estimated Creat Clear 120 Estimated GFR Est GFR ( Amer) Glucose Calcium Magnesium Total Bilirubin AST ALT Alkaline Phosphatase Troponin I NT-Pro-B Natriuret Pep Total Protein Albumin Globulin Albumin/Globulin Ratio SARS-CoV-2 (PCR) Influenza A Untype (PCR) Influenza Type B (PCR) 03/24/24 03/24/24 03/24/24 20:20 20:20 20:20 WBC RBC Hgb Hct MCV MCH MCHC RDW Plt Count MPV Neut % (Auto) Lymph % (Auto) [place] % (Auto) Eos % (Auto) Baso % (Auto) Neut # (Auto) Lymph # (Auto) [place] # (Auto) Eos # (Auto) Baso # (Auto) PT INR D-Dimer Sodium Potassium 3.3 L Chloride 110 H 110 H Carbon Dioxide 25 26 Anion Gap 8.3 BUN Creatinine Estimated Creat Clear Estimated GFR Est GFR ( Amer) Glucose Calcium Magnesium Total Bilirubin AST ALT Alkaline Phosphatase Troponin I NT-Pro-B Natriuret Pep Total Protein Albumin Globulin Albumin/Globulin Ratio SARS-CoV-2 (PCR) Influenza A Untype (PCR) Influenza Type B (PCR) 03/24/24 03/24/24 20:20 20:20 WBC 13.6 H RBC 4.46 Hgb 15.1 Hct 45.0 MCV 100.8 H MCH 33.9 H MCHC 33.6 RDW 13.2 Plt Count 394 MPV 7.9 Neut % (Auto) 60.0 Lymph % (Auto) 31.6 [place] % (Auto) 5.5 Eos % (Auto) 2.0 Baso % (Auto) 0.9 Neut # (Auto) 8.1 H Lymph # (Auto) 4.3 [place] # (Auto) 0.8 Eos # (Auto) 0.3 Baso # (Auto) 0.1 PT 10.2 INR 0.94 D-Dimer 0.50 Sodium 142 141 Potassium 3.3 L Chloride Carbon Dioxide Anion Gap BUN Creatinine Estimated Creat Clear Estimated GFR Est GFR ( Amer) Glucose Calcium Magnesium Total Bilirubin AST ALT Alkaline Phosphatase Troponin I NT-Pro-B Natriuret Pep Total Protein Albumin Globulin Albumin/Globulin Ratio SARS-CoV-2 (PCR) Influenza A Untype (PCR) Influenza Type B (PCR) Discharge Plan Disposition Chief Complaint: Shortness of Breath/Dyspnea Prescriptions Prescriptions: No Action Mirena 21 mcg/24 hours (8 yrs) 52 mg intrauterine device See Rx Instructions .ROUTE .COMPLEX Rx Instructions: . omeprazole 40 mg capsule,delayed release(DR/EC) 40 mg PO DAILY Qty: 90 0RF varenicline 1 mg tablet 1 mg PO BID Qty: 60 0RF furosemide 20 mg tablet See Rx Instructions PO DAILY 30 Days Qty: 45 0RF Rx Instructions: Take two tabs MWF and one tab all other days albuterol sulfate 90 mcg/actuation HFA aerosol inhaler 2 puff inhalation Q4-6H PRN (Reason: shortness of breath or wheezing) Qty: 6.7 1RF lisdexamfetamine [Vyvanse] 30 mg capsule 30 mg PO DAILY Qty: 30 0RF escitalopram oxalate 20 mg tablet 20 mg PO DAILY Qty: 90 0RF rosuvastatin 20 mg tablet 20 mg PO HS Qty: 90 0RF clonidine HCl 0.1 mg tablet 0.1 mg PO BID Patient Comments: TAKE 1 TABLET BY MOUTH TWICE DAILY ropinirole 1 mg tablet 1 mg PO HS Patient Comments: TAKE 1 TABLET BY MOUTH AT BEDTIME propranolol 120 mg capsule,extended release 24 hr 120 mg PO DAILY Patient Comments: TAKE 1 CAPSULE BY MOUTH ONCE DAILY FOR TREMORS topiramate 100 mg tablet 150 mg PO HS Patient Comments: TAKE 1 & 1/2 (ONE & ONE-HALF) TABLETS BY MOUTH AT BEDTIME NIGHTLY FOR MIGRAINE, TREMOR aripiprazole 5 mg tablet 5 mg PO HS Patient Comments: TAKE 1 TABLET BY MOUTH EVERY DAY AT BEDTIME aspirin 81 mg Tablet,Delayed Release (Dr/Ec) 81 mg PO DAILY 30 Days Qty: 30 0RF Referrals Follow up/Referrals: Иван Harris MD [Primary Care Provider] - See instructions Discharge ED Provider: Mo Rincon
--- NOTE | 2024-03-24 22:08 | PC.NURSE ---
housekeeping aid notified of admission
[2024-03-24] MEDS: ONDANSETRON 4MG/2ML VIAL 4 MG IV (22:16)
--- NOTE | 2024-03-24 22:20 | PC.NURSE ---
report called to clary murray rn
[2024-03-24] MEDS: diphenhydrAMINE 50MG/ML VIAL 50 MG IV (22:29)
[2024-03-24] MEDS: DEXAMETHASONE 4MG/ML 5ML MDV 10 MG IV (22:29)
[2024-03-24] MEDS: KETOROLAC 30MG/ML VIAL 15 MG IV (22:29)
[2024-03-24] MEDS: PROCHLORPERAZINE 10MG/2ML VIAL 10 MG IV (22:30)
--- NOTE | 2024-03-24 23:10 | PC.NURSE ---
1700 ml urine output emptied from hat since IV Lasix
== END 2024-03-24 23:18 | disposition admitted as inpatient to this hospital (09) ==
LOC: ER 20:21 → 2ND 22:21 → ER 22:58
PROVIDERS: Physician Assistant; Emergency Provider Emergency Medicine; PCP Family Medicine
DX: R06.02 Shortness of breath (principal); I50.30 Unspecified diastolic (congestive) heart failure; E87.6 Hypokalemia; I11.0 Hypertensive heart disease with heart failure; F17.210 Nicotine dependence, cigarettes, uncomplicated; K21.9 Gastro-esophageal reflux disease without esophagitis; E78.5 Hyperlipidemia, unspecified; I34.0 Nonrheumatic mitral (valve) insufficiency
CPT/HCPCS: 71045; 80048; 80053; 83735; 83880; 84484; 85025; 85378; 85610; 87636; 93005; 96374; 96375; 99285; J2405

== ENCOUNTER 2024-04-07 16:50 | Emergency (ER) | payer BC, SELFPAY ==
[2024-04-07] VITALS (10 sets, daily range): BP systolic 115–131; BP diastolic 68–88; PULSE 61–71; RESP 12–20; TEMP 36.7–36.8; O2SAT 95–99; BMI 30.7
--- NOTE | 2024-04-07 16:52 | ECG_ITS ---
APPROVED REPORT Exam: Resting ECG HR:65 bpm ECG Measurements Heart Rate 65 AXES OR 184 P 77 QRSd 84 QRS 70 QT 433 T 78 QTc 445 Conclusion SINUS RHYTHM NORMAL ECG Electronically signed by : SHAHANA RUSSO, 04/07/2024 23:24:50
--- NOTE | 2024-04-07 16:55 | XR_ITS ---
PROCEDURE INFORMATION: Exam: XR Chest Exam date and time: 04/07/2024 5:06 PM Age: 48 years old Clinical indication: Sternal or substernal pain; Additional info: Chest pain TECHNIQUE: Imaging protocol: Radiologic exam of the chest. Views: 1 view. COMPARISON: CR XR CHEST PORTABLE 03/24/2024 8:[address] and chest x-ray 01/22/2024 FINDINGS: Lungs: Unremarkable. No consolidation. Pleural spaces: Unremarkable. No pleural effusion. No pneumothorax. Heart/Mediastinum: Unremarkable. No cardiomegaly. Bones/joints: Unremarkable. IMPRESSION: Stable chest x-ray with no acute disease.
[2024-04-07 17:08] LABS: Basophils # 0.1 K/mm3 (0-0.2); Basophils % 0.9 % (0.1-2.0); Eosinophils # 0.2 K/mm3 (0.0-0.4); Eosinophils % 1.4 % (0.1-12.0); Hematocrit 44.7 % (37.0-47.0); Hemoglobin 14.9 g/dL (12.2-16.2); Lymphocytes # 3.6 K/mm3 (0.7-4.5); Lymphocytes % 26.9 % (10-50); Mean Corpuscular HGB Conc 33.3 g/dL (31.8-35.4); Mean Corpuscular Hemoglobin 33.6 pg (27.0-31.2); Mean Corpuscular Volume 100.9 fl (81-99); Mean Platelet Volume 7.7 fl (7.4-10.4); Monocytes # 0.7 K/mm3 (0.1-1.0); Monocytes % 5.5 % (1.7-9.3); Neutrophils # 8.6 K/mm3 (1.8-7.8); Neutrophils % 65.2 % (37.0-80.0); Platelet Count 378 K/mm3 (142-424); Red Blood Count 4.43 M/mm3 (4.20-5.40); Red Cell Distribution Width 13.1 % (11.5-17.5); White Blood Count 13.2 K/mm3 (4.8-10.8)
[2024-04-07 17:19] LABS: Alanine Aminotransferase 72 U/L (12-78); Albumin Level 4.6 g/dl (3.5-5.0); Albumin/Globulin Ratio 1.6 (1.1-1.8); Alkaline Phosphatase 77 U/L (38-126); Anion Gap 16.2 mEq/L (5-15); Aspartate Amino Transferase 67 U/L (14-36); Bilirubin,Total 0.6 mg/dl (0.2-1.3); Blood Urea Nitrogen 13 mg/dl (7-17); Calcium 9.9 mg/dl (8.4-10.2); Carbon Dioxide 26 mmol/L (22.0-30.0); Chloride 99 mmol/L (98-107); Estimated Glomerular Filt Rate 76 ml/min (>60); GFR (African American) 92 ML/MIN (>60); Globulin 2.9 g/dL (1.3-3.2); Glucose 106 mg/dl (74-100); Potassium 3.2 mmoL/L (3.5-5.1); Sodium 138 mmol/L (136-145); Total Protein,Serum 7.5 g/dl (6.3-8.2)
[2024-04-07 17:25] LABS: D-Dimer 0.37 ug/mL (0.0-0.5)
--- NOTE | 2024-04-07 17:28 | ED_ITS ---
Discharge Plan Disposition Patient Disposition: Home, Self-Care Condition: Good Prescriptions Prescriptions: No Action Mirena 21 mcg/24 hours (8 yrs) 52 mg intrauterine device See Rx Instructions .ROUTE .COMPLEX Rx Instructions: . omeprazole 40 mg capsule,delayed release(DR/EC) 40 mg PO DAILY Qty: 90 0RF furosemide 20 mg tablet See Rx Instructions PO DAILY 30 Days Qty: 45 0RF Rx Instructions: Take two tabs MWF and one tab all other days albuterol sulfate 90 mcg/actuation HFA aerosol inhaler 2 puff inhalation Q4-6H PRN (Reason: shortness of breath or wheezing) Qty: 6.7 1RF lisdexamfetamine [Vyvanse] 30 mg capsule 30 mg PO DAILY Qty: 30 0RF escitalopram oxalate 20 mg tablet 20 mg PO DAILY Qty: 90 0RF rosuvastatin 20 mg tablet 20 mg PO HS Qty: 90 0RF varenicline 1 mg tablet 1 mg PO BID Qty: 60 0RF clonidine HCl 0.1 mg tablet 0.1 mg PO BID Patient Comments: TAKE 1 TABLET BY MOUTH TWICE DAILY ropinirole 1 mg tablet 1 mg PO HS Patient Comments: TAKE 1 TABLET BY MOUTH AT BEDTIME propranolol 120 mg capsule,extended release 24 hr 120 mg PO DAILY Patient Comments: TAKE 1 CAPSULE BY MOUTH ONCE DAILY FOR TREMORS topiramate 100 mg tablet 150 mg PO HS Patient Comments: TAKE 1 & 1/2 (ONE & ONE-HALF) TABLETS BY MOUTH AT BEDTIME NIGHTLY FOR MIGRAINE, TREMOR aripiprazole 5 mg tablet 5 mg PO HS Patient Comments: TAKE 1 TABLET BY MOUTH EVERY DAY AT BEDTIME aspirin 81 mg Tablet,Delayed Release (Dr/Ec) 81 mg PO DAILY 30 Days Qty: 30 0RF Referrals Follow up/Referrals: Иван Harris MD [Primary Care Provider] - See instructions Activity Restrictions/Add. Instructions Additional Instructions/Restrictions: You were evaluated in the emergency department today. 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 Please follow-up closely with them as well as your neurologist. Return to the emergency department for new or worsening symptoms. Clinical Impressions Clinical Impression: Chest pain, Paresthesias, Hypokalemia Instructions Patient Instructions: DI for Atypical Chest Pain, DI for Numbness/Tingling Discharge ED Provider: Leila Azevedo General Adult HPI General Chief complaint: Chest Pain Stated complaint: chest pain Time Seen by Provider: 04/07/24 16:50 History of Present Illness HPI narrative: This patient is a 48-year-old female with a history of mitral regurgitation, HFpEF, HTN, ADHD, migraines, tobacco use disorder, and obesity presenting to the emergency department for evaluation with concern for chest pain, tingling in her bilateral upper extremities, and tingling in her face. Patient has been dealing with cardiac issues as of late which is prompted a recent admission to [facility] as well as outpatient cardiothoracic surgery referral for mitral regurgitation. She notes that she has not been feeling right for several days with a 7 pound weight loss over the last few days. She has had nausea and poor appetite. Today, she noted that she was having pressure in her chest that felt like dog sitting on her chest. She also notes that she just feels tingling in her bilateral arms and hands as well as her face and head. No other neurologic symptoms noted. She denies any significant abdominal pain, vomiting, changes in bowel movements, swelling, rashes, or calf pain. No notable history of clotting disorders. She does note that she takes 40 mg of Lasix daily, and she is compliant with her medications. On medical record review from [facility], patient was transferred to [facility] 03/25/2024 for further cardiac evaluation with concern for severe mitral regurgitation in the setting of increased shortness of breath. She was noted to have respiratory failure here in the setting of mitral regurgitation and volume overload, prompting the transfer to [facility]. Here, she was treated with IV Lasix and had approximate 1.7 L of urine output prior to transfer, though she was still on 2 L nasal cannula. It appears that they were not concerned based on her presentation, as she was able to be weaned to room air right away, had normal BNP, and did not have evidence of volume overload on their assessment, so they ultimately discharged the patient home. They then had the patient return 03/30/2024 for cardiac catheterization, pulmonary function testing, carotid ultrasound. Patient was found to have mild pulmonary hypertension, angiographically normal coronary arteries, preserved cardiac output, and severe mitral regurgitation. She is currently awaiting her outpatient appointment for definitive management. Related Data Home Medications Medication Instructions Recorded Confirmed aripiprazole 5 mg tablet 5 mg PO HS MOOD 01/22/24 02/25/24 clonidine HCl 0.1 mg tablet 0.1 mg PO BID Hypertension 01/22/24 02/25/24 propranolol 120 mg capsule,24 120 mg PO DAILY TREMORS 01/22/24 02/25/24 hr,extended release ropinirole 1 mg tablet 1 mg PO HS RESTLESS LEGS 01/22/24 02/25/24 topiramate 100 mg tablet 150 mg PO HS MIGRAINES, TREMOR 01/22/24 02/25/24 levonorgestrel 21 mcg/24 hr (up to See Rx Instructions .Route .COMPLEX 02/02/24 02/25/24 8 years) 52 mg intrauterine device (Mirena) Previous Rx's Medication Instructions Recorded aspirin 81 mg tablet,delayed 81 mg PO DAILY 30 days #30 tabs 01/25/24 release omeprazole 40 mg capsule,delayed 40 mg PO DAILY GERD #90 caps 02/15/24 release albuterol sulfate 90 mcg/actuation 2 puff inhalation Q4-6H PRN 03/11/24 aerosol inhaler shortness of breath or wheezing #6.7 grams furosemide 20 mg tablet See Rx Instructions PO DAILY 30 03/11/24 days #45 tabs lisdexamfetamine 30 mg capsule 30 mg PO DAILY ADHD #30 caps 03/14/24 (Vyvanse) escitalopram oxalate 20 mg tablet 20 mg PO DAILY Depression #90 tabs 03/15/24 rosuvastatin 20 mg tablet 20 mg PO HS Cholesterol #90 tabs 03/15/24 varenicline 1 mg tablet 1 mg PO BID #60 tabs 03/28/24 Allergies Allergy/AdvReac Type Severity Reaction Status Date / Time No Known Allergies Allergy Verified 02/25/24 13:[address] [facility] Disclaimer: The information contained in this section may have been updated after the patient was seen, as this information can be updated by other users. Medical History Severe mitral regurgitation Mitral regurgitation, acute (HFpEF) heart failure with preserved ejection fraction Syncope Tympanosclerosis, bilateral Recurrent major depression resistant to treatment Shingles Tobacco dependence Migraine Osteoarthritis Breast cancer Attention deficit disorder (ADD) in adult Major depressive disorder Gastroesophageal reflux disease Hyperlipidemia (~06/15/18) Essential tremor Surgical History History of stress incontinence procedure using tension free vaginal tape S/P total knee arthroplasty History of reconstruction of both breasts History of carpal tunnel release of both wrists H/O mastectomy History of tonsillectomy History of appendectomy History of section Family History Other Family history of cancer Lung cancer Social History Smoking Status: Unknown if ever smoked second hand exposure: Yes alcohol intake: never substance use type: denies use current occupational status: employed Travel in the last 8 weeks: None household members: spouse housing: house number of children: 1 current occupation: [employer] current occupational exposures/hazards: No caffeine: Yes ROS Obtained: Yes All systems reviewed & no additional complaints except as documented Physical Exam General General appearance: alert and in no apparent distress Head Head exam: atraumatic and normocephalic Eye Eye exam: Present normal appearance, PERRL and EOMI ENT ENT exam: Present normal exam, normal oropharynx, mucous membranes moist and normal external ear exam Neck Neck exam: Present normal inspection, full ROM and trachea midline; Absent tenderness Chest Chest inspection: Present normal inspection and symmetric chest wall rise; Absent tenderness Respiratory Respiratory exam: Present normal lung sounds bilaterally; Absent respiratory distress, wheezes, stridor or accessory muscle use Cardiovascular Cardiovascular exam: Present regular rate and normal rhythm Abdominal Exam Abdominal exam: Present soft; Absent distention, tenderness or guarding Extremities Exam Extremities exam: Present normal inspection, full ROM and normal capillary refill; Absent tenderness or edema Back Exam Back exam: Present normal inspection and full ROM; Absent tenderness Neurological Exam Neurological exam: Present alert, oriented X3, CN II-XII intact and normal gait; Absent motor sensory deficit Psychiatric Psychiatric exam: Present normal affect and normal mood Skin Skin exam: Present warm and dry Medical Decision Making Medical Records Medical records reviewed: Yes I reviewed the patient's medical records. Lopez Inquiry Pt receiving controlled substance: No Vital Signs: 04/07/24 16:50 04/07/24 16:56 04/07/24 17:00 Temperature 98.0 F Temperature Source Oral Pulse Rate 67 63 Pulse Rate [Right] 71 Respiratory Rate 20 15 12 Blood Pressure 123/83 130/81 Blood Pressure [Right Arm] 123/68 Blood Pressure Mean Blood Pressure Mean [Right Arm] 86 Blood Pressure Source Blood Pressure Source [Right Arm] Automatic Cuff Blood Pressure Position 02 Sat by Pulse Oximetry 98 95 96 Oxygen Delivery Method Room Air Room Air Room Air 04/07/24 17:30 04/07/24 18:00 04/07/24 18:30 Temperature Temperature Source Pulse Rate 65 67 70 Pulse Rate [Right] Respiratory Rate 12 12 16 Blood Pressure 128/80 131/88 115/86 Blood Pressure [Right Arm] Blood Pressure Mean 95 Blood Pressure Mean [Right Arm] Blood Pressure Source Blood Pressure Source [Right Arm] Blood Pressure Position 02 Sat by Pulse Oximetry 97 96 97 Oxygen Delivery Method Room Air Room Air Room Air 04/07/24 19:26 04/07/24 19:30 04/07/24 20:00 Temperature Temperature Source Pulse Rate 71 68 61 Pulse Rate [Right] Respiratory Rate 15 12 14 Blood Pressure 126/76 122/74 118/77 Blood Pressure [Right Arm] Blood Pressure Mean 87 90 85 Blood Pressure Mean [Right Arm] Blood Pressure Source Blood Pressure Source [Right Arm] Blood Pressure Position 02 Sat by Pulse Oximetry 97 95 96 Oxygen Delivery Method Room Air 04/07/24 20:33 Temperature 98.2 F Temperature Source Oral Pulse Rate 67 Pulse Rate [Right] Respiratory Rate 18 Blood Pressure 130/87 Blood Pressure [Right Arm] Blood Pressure Mean Blood Pressure Mean [Right Arm] Blood Pressure Source Automatic Cuff Blood Pressure Source [Right Arm] Blood Pressure Position Sitting 02 Sat by Pulse Oximetry Oxygen Delivery Method Room Air Lab Data Lab results reviewed: Yes I reviewed the patient's lab results. Lab Results 04/07/24 16:56: WBC 13.2 H, RBC 4.43, Hgb 14.9, Hct 44.7, MCV 100.9 H, MCH 33.6 H, MCHC 33.3, RDW 13.1, Plt Count 378, MPV 7.7, Neut % (Auto) 65.2, Lymph % (Auto) 26.9, Childress % (Auto) 5.5, Eos % (Auto) 1.4, Baso % (Auto) 0.9, Neut # (Auto) 8.6 H, Lymph # (Auto) 3.6, Childress # (Auto) 0.7, Eos # (Auto) 0.2, Baso # (Auto) 0.1, D-Dimer 0.37, Sodium 138, Potassium 3.2 L, Chloride 99, Carbon Dioxide 26, Anion Gap 16.2 H, BUN 13, Creatinine 0.80, Estimated GFR 76, Est GFR ( Amer) 92, Glucose 106 H, Calcium 9.9, Magnesium 1.9, Total Bilirubin 0.6, AST 67 H, ALT 72, Alkaline Phosphatase 77, Troponin I < 0.01, NT-Pro-B Natriuret Pep 29.7, Total Protein 7.5, Albumin 4.6, Globulin 2.9, Albumin/Globulin Ratio 1.6, TSH 1.66, Thyroxine (T4) 10.1 04/07/24 19:45: Troponin I < 0.01 04/07/24 16:56 04/07/24 16:56 Orders (Tests/Meds): ED MEDICATIONS Discontinued Medications Generic Name Dose Route Start Last Admin Trade Name Freq PRN Reason Stop Dose Admin Iopamidol 100 ml 04/07/24 18:53 04/07/24 18:55 Iopamidol-370 (76%);100ml Bottle IV 04/07/24 18:54 100 ml ONCE ONE Administration Iopamidol 100 ml 04/07/24 18:56 04/07/24 18:58 Iopamidol-370 (76%);100ml Bottle IV 04/07/24 18:57 100 ml ONCE ONE Administration Potassium Chloride 40 meq 04/07/24 17:38 04/07/24 17:51 Potassium Chloride 20meq Tab PO 04/07/24 17:39 40 meq ONCE ONE Administration Sodium Chloride 10 ml 04/07/24 18:53 04/07/24 18:55 Sodium Chloride 0.9% 10ml Syr (Rad Only) IV 04/07/24 18:54 10 ml ONCE ONE Administration Sodium Chloride 50 ml 04/07/24 18:53 04/07/24 18:54 0.9 % Sodium Chloride 50 Ml Vial IV 04/07/24 18:54 50 ml ONCE ONE Administration Sodium Chloride 50 ml 04/07/24 18:56 04/07/24 18:58 0.9 % Sodium Chloride 50 Ml Vial IV 04/07/24 18:57 50 ml ONCE ONE Administration ORDERS Category Date Time Status CT angio chest - dissection Stat Cat Scan 04/07/24 18:[address] angio head Stat Cat Scan 04/07/24 18:[address] angio neck Stat Cat Scan 04/07/24 18:[address] head/brain wo con Stat Cat Scan 04/07/24 18:36 Completed XR chest portable Stat Exams 04/07/24 16:55 Completed Calcium, Ionized Stat Lab 04/07/24 17:37 Received Complete Blood Count Auto Diff Stat Lab 04/07/24 16:56 Completed Comprehensive Metabolic Panel Stat Lab 04/07/24 16:56 Completed D-Dimer Stat Lab 04/07/24 16:56 Completed Magnesium Stat Lab 04/07/24 16:56 Completed NT Pro Brain Natriuretic Pep. Stat Lab 04/07/24 16:56 Completed T4 (Thyroxine) Stat Lab 04/07/24 16:56 Completed Thyroid Stimulating Hormone Stat Lab 04/07/24 16:56 Completed Troponin I Q3H Lab 04/07/24 19:45 Completed Troponin I Stat Lab 04/07/24 16:56 Completed ECG Data Tracing #1: I reviewed this ECG and interpreted as documented below: Normal sinus rhythm with a ventricular rate of [address] changes concerning for ischemia. No changes noted from prior EKG. ECG initial impression date: 04/07/24 ECG initial impression time: 16:55 HEART Score History (anamnesis): Moderately suspicious ECG: Normal Age: 45-65 years Risk factors: 1-2 risk factors Troponin: </= normal limit HEART Score: 3 Medical Decision Narrative: In summary, this patient is a 48-year-old female presenting to the Emergency Department for evaluation of chest pain, numbness, and tingling. Differential diagnoses considered include but are not limited to ACS, dysrhythmia, hypokalemia, hypocalcemia, hypomagnesemia, GERD, PE, aortic pathology. Ruling out the most morbid conditions drove assessment. It should be noted patient's history includes severe mitral regurgitation which is not at goal therapy. This complicates all aspects of care by increasing patient's risk for morbidity. I reviewed patient's past medical records and noted previous evaluation here and at [facility] demonstrated her severe mitral regurgitation as per HPI. On exam, the patient is in no acute distress. She has no increased work of breathing. Vitals are reassuring on cardiac telemetry with no significant tachycardia, hypoxia, or severe hypertension. Workup included CBC, CMP, troponin, BNP, magnesium, calcium, D-dimer, and chest x-ray. I independently interpreted x-ray prior to the radiologist read and noted focal consolidation or pneumothorax. Please see their read for final interpretation. Labs were obtained that demonstrated no acutely concerning abnormalities aside from mild hypokalemia, for which oral replacement was ordered. Negative initial troponin. On reassessment, patient had good improvement in chest pain, but she continues to have numbness and tingling in her bilateral upper extremities. Unclear etiology of this at this time. Given this, CTAs of the chest, head and neck, as well as CT head Noncon were ordered. These did not demonstrate any acute vascular or intracranial abnormalities. Second troponin came back negative as well. At this time, I am unsure what is causing the patient's symptoms, however I feel that we have excluded life-threatening pathology, such as ACS, stroke, aortic pathology. Patient already has close follow-up arranged with cardiology, cardiothoracic surgery, and primary care. Given this, feel she is appropriate for discharge home. Strict return precautions were given and the patient expressed understanding and agreement. Critical Care Critical Care Time Critical Care Time: No
[2024-04-07 17:31] LABS: NT Pro Brain Natriuretic Pep. 29.7 pg/mL (0-125)
[2024-04-07 17:33] LABS: Troponin I < 0.01 ng/ml (0.00-0.034)
[2024-04-07 17:42] LABS: Magnesium 1.9 mg/dl (1.6-2.3)
[2024-04-07] MEDS: POTASSIUM CHLORIDE 20MEQ TAB 40 MEQ PO (17:51)
--- NOTE | 2024-04-07 18:36 | CT_ITS ---
PROCEDURE INFORMATION: Exam: CT Head Without Contrast Exam date and time: 04/07/2024 6:49 PM Age: 48 years old Clinical indication: Numbness / parasthesia; Additional info: Chest pain, bue/head numbness TECHNIQUE: Imaging protocol: Computed tomography of the head without contrast. Radiation optimization: All CT scans at this facility use at least one of these dose optimization techniques: automated exposure control; mA and/or kV adjustment per patient size (includes targeted exams where dose is matched to clinical indication); or iterative reconstruction. COMPARISON: MR ANGIO HEAD WO CON 08/12/2021 4:24 PM FINDINGS: Brain: Normal. No hemorrhage. Unremarkable white matter. No mass effect. Cerebral ventricles: No ventriculomegaly. Paranasal sinuses: Visualized sinuses are unremarkable. No fluid levels. Mastoid air cells: Visualized mastoid air cells are well aerated. Bones: Unremarkable. No acute fracture. Soft tissues: Unremarkable. IMPRESSION: No acute intracranial abnormality.
--- NOTE | 2024-04-07 18:36 | CT_ITS ---
PROCEDURE INFORMATION: Exam: CTA Chest With Contrast Exam date and time: 04/07/2024 6:55 PM Age: 48 years old Clinical indication: Other: Chest pain; Additional info: Chest pain, bue/head numbness TECHNIQUE: Imaging protocol: Computed tomographic angiography of the chest with contrast. Exam focused on the arteries. 3D rendering (Not supervised by radiologist): MIP and/or 3D reconstructed images were created by the technologist. Radiation optimization: All CT scans at this facility use at least one of these dose optimization techniques: automated exposure control; mA and/or kV adjustment per patient size (includes targeted exams where dose is matched to clinical indication); or iterative reconstruction. Contrast material: ISOVUE; Contrast volume: 100 ml; Contrast route: INTRAVENOUS (IV); COMPARISON: CT ANGIO CHEST PE PROTOCOL 11/25/2023 22:37 FINDINGS: Pulmonary arteries: No pulmonary emboli. Aorta: The aorta demonstrates mild atherosclerotic disease. Lungs: Multiple nonspecific pulmonary nodules unchanged compared to prior study. Examples include: 3 mm left lower lobe nodule image 51 series 5, 3 mm right upper lobe nodule image 34 series 5, and 2 mm peripheral lingula nodule image 45 series 5. No follow-up imaging is warranted. Mild scarring and atelectasis in the lower lungs. Pleural spaces: Unremarkable. No pneumothorax. No pleural effusion. Heart: Unremarkable. No cardiomegaly. No pericardial effusion. Lymph nodes: Unremarkable. No enlarged lymph nodes. Liver: Low attenuation hepatic lesions measuring up to 1.5 cm in diameter are incompletely characterized, but are likely cysts. No followup imaging is recommended. Hepatic steatosis. Bones/joints: Unremarkable. No acute fracture. Soft tissues: Bilateral breast prostheses. Anterior chest wall surgical clips. Other findings: Stigmata of old granulomatous disease. IMPRESSION: 1. No pulmonary emboli. 2. Hepatic steatosis.
--- NOTE | 2024-04-07 18:36 | CT_ITS ---
PROCEDURE INFORMATION: Exam: CTA Neck With Contrast Exam date and time: 04/07/2024 6:52 PM Age: 48 years old Clinical indication: Numbness; Additional info: Chest pain, bue/head numbness TECHNIQUE: Imaging protocol: Computed tomographic angiography of the neck with contrast. Exam focused on the cervical segments of the vasculature. 3D rendering (Not supervised by radiologist): MIP and/or 3D reconstructed images were created by the technologist. Radiation optimization: All CT scans at this facility use at least one of these dose optimization techniques: automated exposure control; mA and/or kV adjustment per patient size (includes targeted exams where dose is matched to clinical indication); or iterative reconstruction. Contrast material: ISOVUE; Contrast volume: 100 ml; Contrast route: INTRAVENOUS (IV); COMPARISON: CT SOFT TISSUE NECK W CON 02/02/2020 1:50 PM FINDINGS: Right common carotid artery: No stenosis. No dissection or occlusion. Right internal carotid artery: No stenosis of the extracranial segment. No dissection or occlusion. Right external carotid artery: No visible occlusion. Left common carotid artery: No stenosis. No dissection or occlusion. Left internal carotid artery: No stenosis of the extracranial segment. No dissection or occlusion. Left external carotid artery: No visible occlusion. Right vertebral artery: No stenosis. No dissection or occlusion. Left vertebral artery: No stenosis. No dissection or occlusion. Soft tissues: Bilateral breast implants. Bones/joints: No acute fracture. Multilevel cervical spinal degenerative disc disease with moderate suspected spinal canal stenosis C5-C6 incompletely assessed. IMPRESSION: No occlusion or significant stenosis. REFERENCES: NASCET CRITERIA. The degree of stenosis in the cervical segment of the internal carotid artery is based on NASCET criteria. Normal is no stenosis. Mild is less than 50% stenosis. Moderate is 50-69% stenosis. Severe is 70% to 99% stenosis. Total occlusion is no detectable patent lumen.
--- NOTE | 2024-04-07 18:36 | CT_ITS ---
PROCEDURE INFORMATION: Exam: CTA Head With Contrast, Arteriography Exam date and time: 04/07/2024 6:52 PM Age: 48 years old Clinical indication: Numbness; Additional info: Chest pain, bue/head numbness TECHNIQUE: Imaging protocol: Computed tomographic angiography of the head with contrast. Exam focused on the arteries. 3D rendering (Not supervised by radiologist): MIP and/or 3D reconstructed images were created by the technologist. Radiation optimization: All CT scans at this facility use at least one of these dose optimization techniques: automated exposure control; mA and/or kV adjustment per patient size (includes targeted exams where dose is matched to clinical indication); or iterative reconstruction. Contrast material: ISOVUE; Contrast volume: 100 ml; Contrast route: INTRAVENOUS (IV); COMPARISON: CT HEAD/BRAIN WO CON 04/07/2024 6:49 PM FINDINGS: ANTERIOR CIRCULATION: Right internal carotid artery: Intracranial segment is patent with no significant stenosis. No aneurysm. Right middle cerebral artery: No occlusion or significant stenosis. No aneurysm. Right anterior cerebral artery: No occlusion or significant stenosis. No aneurysm. Left internal carotid artery: Intracranial segment is patent with no significant stenosis. No aneurysm. Left middle cerebral artery: No occlusion or significant stenosis. No aneurysm. Left anterior cerebral artery: No occlusion or significant stenosis. No aneurysm. POSTERIOR CIRCULATION: Right vertebral artery: No occlusion or significant stenosis. No aneurysm. Left vertebral artery: No occlusion or significant stenosis. No aneurysm. Basilar artery: No occlusion or significant stenosis. No aneurysm. Right posterior cerebral artery: No occlusion or significant stenosis. No aneurysm. Left posterior cerebral artery: No occlusion or significant stenosis. No aneurysm. Brain: No definite mass, mass effect, or midline shift. Cerebral ventricles: No ventriculomegaly. Bones/joints: No acute fracture. Soft tissues: Unremarkable. IMPRESSION: No acute large vessel occlusion identified.
[2024-04-07] MEDS: 0.9 % SODIUM CHLORIDE 50 ML VIAL IV ×2 (18:54→18:58)
[2024-04-07] MEDS: SODIUM CHLORIDE 0.9% 10ML SYR (RAD ONLY) 10 ML IV (18:55)
[2024-04-07] MEDS: IOPAMIDOL-370 (76%);100ML BOTTLE 100 ML IV ×2 (18:55→18:58)
[2024-04-07 19:09] LABS: T4 (Thyroxine) 10.1 ug/dl (5.53-11.0)
[2024-04-07 19:22] LABS: Thyroid Stimulating Hormone 1.66 uIU/mL (0.465-4.68)
[2024-04-07 20:19] LABS: Troponin I < 0.01 ng/ml (0.00-0.034)
[2024-04-11 15:32] LABS: Calcium, Ionized 4.9 mg/dL (4.5-5.6)
== END 2024-04-07 20:35 | disposition home or self-care (01) ==
PROVIDERS: Emergency Provider Emergency Medicine; PCP Family Medicine
DX: E87.6 Hypokalemia (principal); R07.89 Other chest pain; R20.2 Paresthesia of skin; I34.0 Nonrheumatic mitral (valve) insufficiency; I11.0 Hypertensive heart disease with heart failure; I50.30 Unspecified diastolic (congestive) heart failure; E78.5 Hyperlipidemia, unspecified; K21.9 Gastro-esophageal reflux disease without esophagitis; F17.210 Nicotine dependence, cigarettes, uncomplicated
CPT/HCPCS: 70450; 70496; 70498; 71045; 71275; 80053; 82330; 83735; 83880; 84436; 84443; 84484; 85025; 85378; 93005; 99285; Q9967

== ENCOUNTER 2024-05-25 11:23 | Outpatient (CLI) | payer BC, SELFPAY ==
[2024-05-25 21:06] LABS: Alanine Aminotransferase 50 U/L (12-78); Albumin Level 3.6 g/dl (3.5-5.0); Albumin/Globulin Ratio 1.6 (1.1-1.8); Alkaline Phosphatase 133 U/L (38-126); Anion Gap 11.6 mEq/L (5-15); Aspartate Amino Transferase 34 U/L (14-36); Bilirubin,Total 0.6 mg/dl (0.2-1.3); Blood Urea Nitrogen 14 mg/dl (7-17); Calcium 9.2 mg/dl (8.4-10.2); Carbon Dioxide 28 mmol/L (22.0-30.0); Chloride 103 mmol/L (98-107); Estimated Glomerular Filt Rate 76 ml/min (>60); GFR (African American) 92 ML/MIN (>60); Globulin 2.2 g/dL (1.3-3.2); Glucose 108 mg/dl (74-100); Potassium 3.6 mmoL/L (3.5-5.1); Sodium 139 mmol/L (136-145); Total Protein,Serum 5.8 g/dl (6.3-8.2)
== END 2024-05-25 23:59 | disposition home or self-care (01) ==
LOC: LAB.DROPOF 05-26 11:23
PROVIDERS: PCP Family Medicine; Visit Provider Family Medicine
DX: E78.5 Hyperlipidemia, unspecified (principal)
CPT/HCPCS: 80053

== ENCOUNTER 2024-06-20 14:13 | Observation (INO) | payer BC, SELFPAY ==
[2024-06-20] VITALS (14 sets, daily range): BP systolic 100–160; BP diastolic 48–79; PULSE 58–75; RESP 14–19; TEMP 36.5–36.9; O2SAT 94–99; BMI 36.3; BMI 37.1
--- NOTE | 2024-06-20 14:13 | ECG_ITS ---
APPROVED REPORT Exam: Resting ECG HR:81 bpm ECG Measurements Heart Rate 81 AXES QRSd 82 QRS 79 QT 377 T -10 QTc 414 Conclusion ATRIAL FIBRILLATION MODERATE T-WAVE ABNORMALITY, CONSIDER INFERIOR ISCHEMIA [-0.1+ mV T-WAVE IN II/aVF] Electronically signed by : TIFFANY LUBIN, 06/23/2024 15:07:50
--- NOTE | 2024-06-20 14:18 | ED_ITS ---
<Statement entered by Leila Azevedo DO - 06/20/24 20:03> I was consulted by the SRI, and we discussed the complexity of the problems being addressed. I approved the treatment and management plan for this patient's care in the emergency department, thus performing a substantive portion of the medical decision making. Leila Azevedo DO Discharge Plan Disposition Patient Disposition: Admitted Condition: Fair Clinical Impressions Clinical Impression: Atrial fibrillation with controlled ventricular rate, Hypokalemia, Pulmonary edema Discharge ED Provider: Leila Azevedo General Adult HPI <AZIZA Keys - Last Filed: 06/20/24 16:26> General Chief complaint: Chest Pain Stated complaint: Chest Pain Time Seen by Provider: 06/20/24 14:18 History of Present Illness HPI narrative: Patient presents for evaluation of chest pain. Patient is 6 weeks postop mitral valve replacement via open heart surgery at [facility]. Postoperatively patient went into A-fib I do not know if she went into RVR however she was discharged on amlodipine and aspirin. Patient had a routine follow-up with her PCP today and relayed that she was short of breath which led to him performing EKG that showed she was in atrial fibrillation with a controlled rate. Patient states that her chest pain is only with inspiration and her shortness of breath is worse with even light exertion. She denies fever chills hemoptysis hematochezia melena nausea vomiting diarrhea lower extremity pain calf pain etc. Related Data Home Medications ?Medication ?Instructions ?Recorded ?Confirmed propranolol 120 mg capsule,24 120 mg PO DAILY TREMORS 01/22/24 06/20/24 hr,extended release ropinirole 1 mg tablet 1 mg PO HS RESTLESS LEGS 01/22/24 06/20/24 topiramate 100 mg tablet 150 mg PO HS MIGRAINES, TREMOR 01/22/24 06/20/24 levonorgestrel 21 mcg/24 hr (up to See Rx Instructions .Route .COMPLEX 02/02/24 06/20/24 8 years) 52 mg intrauterine device (Mirena) amiodarone 200 mg tablet 200 mg PO DAILY 05/25/24 06/20/24 hydralazine 25 mg tablet 25 mg PO TID 05/25/24 06/20/24 methocarbamol 750 mg tablet 750 mg PO QID PRN Muscle Pain 05/25/24 06/20/24 metoprolol succinate 25 mg 12.5 mg PO BID 05/25/24 06/20/24 tablet,extended release 24 hr sennosides 8.6 mg capsule (senna) 8.6 mg PO BID 05/25/24 06/20/24 bumetanide 2 mg tablet 1 mg PO DAILY 06/20/24 06/20/24 Previous Rx's ?Medication ?Instructions ?Recorded aspirin 81 mg tablet,delayed 81 mg PO DAILY 30 days #30 tabs 01/25/24 release escitalopram oxalate 20 mg tablet 20 mg PO DAILY Depression #90 tabs 03/15/24 rosuvastatin 20 mg tablet 20 mg PO HS Cholesterol #90 tabs 03/15/24 aripiprazole 5 mg tablet 5 mg PO HS MOOD #90 tabs 04/15/24 clonidine HCl 0.1 mg tablet 0.1 mg PO BID Hypertension #60 tabs 05/23/24 omeprazole 40 mg capsule,delayed 40 mg PO DAILY GERD #90 caps 05/23/24 release Allergies Allergy/AdvReac Type Severity Reaction Status Date / Time No Known Allergies Allergy Verified 06/20/24 12:38 [facility] <AZIZA Keys - Last Filed: 06/20/24 16:26> [facility] Disclaimer: The information contained in this section may have been updated after the patient was seen, as this information can be updated by other users. Medical History Severe mitral regurgitation Mitral regurgitation, acute (HFpEF) heart failure with preserved ejection fraction Syncope Suspected convulsive syncope. 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 Shingles Tobacco dependence Migraine Osteoarthritis Breast cancer Attention deficit disorder (ADD) in adult Major depressive disorder Gastroesophageal reflux disease Hyperlipidemia (~06/15/18) Essential tremor Bilateral hands, minimal with intention, on BB, unchanged for years Surgical History History of stress incontinence procedure using tension free vaginal tape S/P total knee arthroplasty History of reconstruction of both breasts History of carpal tunnel release of both wrists H/O mastectomy History of tonsillectomy History of appendectomy History of section Family History Other Family history of cancer Lung cancer Social History (Updated 06/20/24 @ 17:38 by Jacinta Damon RN) Smoking Status: Never smoker second hand exposure: Yes alcohol intake: never substance use type: denies use current occupational status: employed Travel in the last 8 weeks: None household members: spouse housing: house number of children: 1 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 current occupational exposures/hazards: No caffeine: Yes <AZIZA Keys - Last Filed: 06/20/24 16:26> ROS Obtained: Yes Systems reviewed as appropriate & no additional complaints except as documented Physical Exam <AZIZA Keys - Last Filed: 06/20/24 16:26> General General appearance: alert and in no apparent distress Respiratory Respiratory exam: Present normal lung sounds bilaterally; Absent respiratory distress, wheezes, stridor or accessory muscle use Cardiovascular Cardiovascular exam: Present irregular rhythm (Irregularly irregular slow rate and rhythm) and normal heart sounds; Absent systolic murmur or diastolic murmur Extremities Exam Extremities exam: Present normal inspection and full ROM; Absent tenderness or calf tenderness Neurological Exam Neurological exam: Present alert and oriented X3 Medical Decision Making <AZIZA Keys - Last Filed: 06/20/24 16:26> Medical Records Medical records reviewed: Yes I reviewed the patient's medical records. Lopez Sebastian Pt receiving controlled substance: No Vital Signs: 06/20/24 14:13 06/20/24 14:31 06/20/24 14:45 Temperature 97.7 F Temperature Source Oral Pulse Rate 69 66 Pulse Rate [Left Radial] 74 Respiratory Rate 19 15 16 Blood Pressure 119/74 119/74 Blood Pressure [Right Arm] 132/79 Blood Pressure Mean Blood Pressure Mean [Right Arm] 96 Blood Pressure Source [Right Arm] 02 Sat by Pulse Oximetry 98 97 95 Oxygen Delivery Method Room Air Room Air 06/20/24 15:01 06/20/24 15:31 06/20/24 16:00 Temperature Temperature Source Pulse Rate 72 70 59 L Pulse Rate [Left Radial] Respiratory Rate 17 15 14 Blood Pressure 119/48 L 140/78 160/70 H Blood Pressure [Right Arm] Blood Pressure Mean 73 98 Blood Pressure Mean [Right Arm] Blood Pressure Source [Right Arm] 02 Sat by Pulse Oximetry 97 96 96 Oxygen Delivery Method Room Air 06/20/24 17:13 06/20/24 17:18 06/20/24 17:24 Temperature 98.5 F 98.0 F Temperature Source Oral Pulse Rate 70 60 Pulse Rate [Left Radial] 61 Respiratory Rate 18 14 Blood Pressure 160/70 H Blood Pressure [Right Arm] 108/60 L Blood Pressure Mean Blood Pressure Mean [Right Arm] 76 Blood Pressure Source [Right Arm] Automatic Cuff 02 Sat by Pulse Oximetry 99 Oxygen Delivery Method Room Air Lab Data Lab results reviewed: Yes I reviewed the patient's lab results. Lab Results 06/20/24 14:15: WBC 9.0, RBC 3.71 L, Hgb 11.7 L, Hct 35.6 L, MCV 95.9, MCH 31.5 H, MCHC 32.8, RDW 16.3, Plt Count 376, MPV 8.0, Neut % (Auto) 65.2, Lymph % (Auto) 26.2, Bay % (Auto) 6.7, Eos % (Auto) 1.1, Baso % (Auto) 0.9, Neut # (Auto) 5.8, Lymph # (Auto) 2.4, Bay # (Auto) 0.6, Eos # (Auto) 0.1, Baso # (Auto) 0.1, PT 11.5, INR 1.03, Sodium 143, Potassium 3.3 L, Chloride 110 H, Carbon Dioxide 24, Anion Gap 12.3, BUN 12, Creatinine 0.80, Estimated Creat Clear 136, Estimated GFR 76, Est GFR ( Amer) 92, Glucose 107 H, Calcium 9.7, Magnesium 2.1, Total Bilirubin 0.5, AST 22, ALT 20, Alkaline Phosphatase 112, Troponin I < 0.01, NT-Pro-B Natriuret Pep 1740 H, Total Protein 6.9, Albumin 4.2, Globulin 2.7, Albumin/Globulin Ratio 1.6, TSH 1.66, Free T4 Index 2.9 L, Thyroxine (T4) 9.5, T3 Uptake 30 06/20/24 14:36: Chlamy pneumoniae PCR Not detected, Adenovirus (PCR) Not detected, B. pertussis DNA (PCR) Not detected, Coronavirus OC43 (PCR) Not detected, Coronavirus HKU1 (PCR) Not detected, Coronavirus 229E (PCR) Not detected, SARS-CoV-2 (PCR) Not detected, Coronavirus NL63 (PCR) Not detected, Human Metapneumovir PCR Not detected, Influenza A (H1) PCR Not detected, Influ A (H1N1/09) PCR Not detected, Influenza A (H3) PCR Not detected, Influenza Type A (PCR) Not detected, Influenza Type B (PCR) Not detected, M. pneumoniae (PCR) Not detected, Parainfluenza 1 (PCR) Not detected, Parainfluenza 2 (PCR) Not detected, Parainfluenza 3 (PCR) Not detected, Parainfluenza 4 (PCR) Not detected, RSV (PCR) Not detected, Entero/Rhino (PCR) Not detected 06/20/24 14:15 06/20/24 14:15 Orders (Tests/Meds): ED MEDICATIONS Generic Name Dose Route Start Last Admin Trade Name Freq PRN Reason Stop Dose Admin Amiodarone HCl 200 mg 06/21/24 09:00 Amiodarone 200mg Tablet PO 07/21/24 08:59 DAILY SARAH Aspirin 81 mg 06/21/24 09:00 Aspirin Ec 81mg Tablet PO 07/21/24 08:59 DAILY SARAH Citalopram Hydrobromide 40 mg 06/21/24 09:00 Citalopram 40mg Tablet PO 07/21/24 08:59 DAILY SARAH Clonidine HCl 0.1 mg 06/20/24 21:00 Clonidine 0.1mg Tablet PO 07/20/24 20:59 BID SARAH Enoxaparin Sodium 100 mg 06/20/24 15:15 06/20/24 15:21 Enoxaparin 100mg/Ml Syringe 1 mg/kg (100 mg) 07/20/24 15:14 100 mg SQ Administration Q12H SARAH Hydralazine HCl 25 mg 06/20/24 21:00 Hydralazine Hcl 25mg Tablet PO 07/20/24 20:59 TID SARAH Metoprolol Succinate 12.5 mg 06/20/24 21:00 Metoprolol Succinate Xl 25mg Tablet PO 07/20/24 20:59 BID SARAH Non-Formulary Medication 2 mg 06/21/24 09:00 Bumetanide PO 07/21/24 08:59 DAILY SARAH Non-Formulary Medication 5 mg 06/20/24 21:00 Aripiprazole PO 07/20/24 20:59 HS SARAH Non-Formulary Medication 20 mg 06/20/24 21:00 Rosuvastatin PO 07/20/24 20:59 HS SARAH Pantoprazole Sodium 40 mg 06/20/24 21:00 Pantoprazole 40mg Tablet PO 07/20/24 20:59 HS SARAH Propranolol HCl 120 mg 06/21/24 09:00 Propranolol Hcl 120mg Er Capsule PO 07/21/24 08:59 DAILY SARAH Ropinirole HCl 1 mg 06/20/24 21:00 Ropinirole 1mg Tablet PO 07/20/24 20:59 HS SARAH Sodium Chloride 10 ml 06/20/24 14:54 06/20/24 14:55 Sodium Chloride 0.9% 10ml Syr (Rad Only) IV 07/20/24 14:53 10 ml NEEDED PRN Administration Maintain IV Site Topiramate 150 mg 06/20/24 21:00 Topiramate 100mg Tablet PO 07/20/24 20:59 HS ASRAH Discontinued Medications Generic Name Dose Route Start Last Admin Trade Name Freq PRN Reason Stop Dose Admin Acetaminophen 1,000 mg 06/20/24 14:19 06/20/24 14:33 Acetaminophen 1,000mg/100ml Vial IV 06/20/24 14:20 1,000 mg ONCE ONE Administration Furosemide 80 mg 06/20/24 15:10 06/20/24 15:21 Furosemide 100mg/10ml Vial IV 06/20/24 15:11 80 mg ONCE ONE Administration Iopamidol 70 ml 06/20/24 14:54 06/20/24 14:54 Iopamidol-370 (76%);100ml Bottle IV 06/20/24 14:55 70 ml ONCE ONE Administration Ketorolac Tromethamine 15 mg 06/20/24 14:19 06/20/24 14:33 Ketorolac 30mg/Ml Vial IV 06/20/24 14:20 15 mg ONCE ONE Administration Potassium Chloride 60 meq 06/20/24 14:51 06/20/24 15:10 Potassium Chloride 20meq Tab PO 06/20/24 14:52 60 meq ONCE ONE Administration Sodium Chloride 50 ml 06/20/24 14:54 06/20/24 14:55 0.9 % Sodium Chloride 50 Ml Vial IV 06/20/24 14:55 50 ml ONCE ONE Administration ORDERS Category Date Time Status CT angio chest PE protocol Stat Cat Scan 06/20/24 14:19 Completed BNP [NT Pro Brain Natriuretic Pep.] Stat Lab 06/20/24 14:15 Completed CBC w/Auto Diff [Complete Blood Count Auto Diff] Stat Lab 06/20/24 14:15 Completed CMP [Comprehensive Metabolic Panel] Stat Lab 06/20/24 14:15 Completed Complete Blood Count Auto Diff AMLAB Lab 06/21/24 06:00 Ordered Comprehensive Metabolic Panel AMLAB Lab 06/21/24 06:00 Ordered Full Resp Panel w/COVID ([facility]) Routine Lab 06/20/24 14:36 Completed INR [Prothrombin Time INR] Stat Lab 06/20/24 14:15 Completed Magnesium AMLAB Lab 06/21/24 06:00 Ordered Magnesium Stat Lab 06/20/24 14:15 Completed Thyroid Panel Stat Lab 06/20/24 14:15 Completed Trop I [Troponin I] Stat Lab 06/20/24 14:15 Completed Troponin I Q3H Lab 06/20/24 17:37 Completed Troponin I Q3H Lab 06/20/24 20:30 Ordered CA echo doppler complete Routine Y 06/20/24 15:27 Completed Medical Decision Narrative: In summary patient is a 48-year-old female who presents to the emergency department for evaluation of chest pain and atrial fibrillation. Patient is hemodynamically stable upon arrival, afebrile. Physical exam is remarkable for an irregularly irregular slow rate and rhythm without murmurs gallops rubs or thrills. Breath sounds are clear and equal bilaterally to the bases without adventitious sounds. Patient has no lower extremity tenderness no calf tenderness. Differential diagnosis includes PE versus ACS versus heart failure etc. Initial workup will be conducted with hematologic labs CTA PE protocol twelve-lead EKG. Initial interventions include Tylenol and Toradol. Initial workup reviewed by me which shows that her troponin is undetectable patient however has an elevated NT proBNP and slightly low potassium which has been repleted. CTA PE protocol does not show any acute thrombus however patient has evidence of atelectasis versus pulmonary edema via my informal interpretation prior to radiology read. Patient does not have an oxygen requirement however.. Given this I had a interactive discussion with cardiology regarding patient management and they are agreeable for follow-up with admission and echocardiogram in the a.m. Given this I had interactive discussion with hospital medicine who is agreed for admission for further evaluation and care. <Mo Rincon MD - Last Filed: 06/20/24 14:39> Vital Signs: 06/20/24 14:13 06/20/24 14:31 06/20/24 14:45 Temperature 97.7 F Temperature Source Oral Pulse Rate 69 66 Pulse Rate [Left Radial] 74 Respiratory Rate 19 15 16 Blood Pressure 119/74 119/74 Blood Pressure [Right Arm] 132/79 Blood Pressure Mean Blood Pressure Mean [Right Arm] 96 Blood Pressure Source [Right Arm] 02 Sat by Pulse Oximetry 98 97 95 Oxygen Delivery Method Room Air Room Air 06/20/24 15:01 06/20/24 15:31 06/20/24 16:00 Temperature Temperature Source Pulse Rate 72 70 59 L Pulse Rate [Left Radial] Respiratory Rate 17 15 14 Blood Pressure 119/48 L 140/78 160/70 H Blood Pressure [Right Arm] Blood Pressure Mean 73 98 Blood Pressure Mean [Right Arm] Blood Pressure Source [Right Arm] 02 Sat by Pulse Oximetry 97 96 96 Oxygen Delivery Method Room Air 06/20/24 17:13 06/20/24 17:18 06/20/24 17:24 Temperature 98.5 F 98.0 F Temperature Source Oral Pulse Rate 70 60 Pulse Rate [Left Radial] 61 Respiratory Rate 18 14 Blood Pressure 160/70 H Blood Pressure [Right Arm] 108/60 L Blood Pressure Mean Blood Pressure Mean [Right Arm] 76 Blood Pressure Source [Right Arm] Automatic Cuff 02 Sat by Pulse Oximetry 99 Oxygen Delivery Method Room Air Lab Data Lab Results 06/20/24 14:15: WBC 9.0, RBC 3.71 L, Hgb 11.7 L, Hct 35.6 L, MCV 95.9, MCH 31.5 H, MCHC 32.8, RDW 16.3, Plt Count 376, MPV 8.0, Neut % (Auto) 65.2, Lymph % (Auto) 26.2, Bay % (Auto) 6.7, Eos % (Auto) 1.1, Baso % (Auto) 0.9, Neut # (Auto) 5.8, Lymph # (Auto) 2.4, Bay # (Auto) 0.6, Eos # (Auto) 0.1, Baso # (Auto) 0.1, PT 11.5, INR 1.03, Sodium 143, Potassium 3.3 L, Chloride 110 H, Carbon Dioxide 24, Anion Gap 12.3, BUN 12, Creatinine 0.80, Estimated Creat Clear 136, Estimated GFR 76, Est GFR ( Amer) 92, Glucose 107 H, Calcium 9.7, Magnesium 2.1, Total Bilirubin 0.5, AST 22, ALT 20, Alkaline Phosphatase 112, Troponin I < 0.01, NT-Pro-B Natriuret Pep 1740 H, Total Protein 6.9, Albumin 4.2, Globulin 2.7, Albumin/Globulin Ratio 1.6, TSH 1.66, Free T4 Index 2.9 L, Thyroxine (T4) 9.5, T3 Uptake 30 06/20/24 14:36: Chlamy pneumoniae PCR Not detected, Adenovirus (PCR) Not detected, B. pertussis DNA (PCR) Not detected, Coronavirus OC43 (PCR) Not detected, Coronavirus HKU1 (PCR) Not detected, Coronavirus 229E (PCR) Not detected, SARS-CoV-2 (PCR) Not detected, Coronavirus NL63 (PCR) Not detected, Human Metapneumovir PCR Not detected, Influenza A (H1) PCR Not detected, Influ A (H1N1/09) PCR Not detected, Influenza A (H3) PCR Not detected, Influenza Type A (PCR) Not detected, Influenza Type B (PCR) Not detected, M. pneumoniae (PCR) Not detected, Parainfluenza 1 (PCR) Not detected, Parainfluenza 2 (PCR) Not detected, Parainfluenza 3 (PCR) Not detected, Parainfluenza 4 (PCR) Not detected, RSV (PCR) Not detected, Entero/Rhino (PCR) Not detected Orders (Tests/Meds): ED MEDICATIONS Generic Name Dose Route Start Last Admin Trade Name Chong PRN Reason Stop Dose Admin Amiodarone HCl 200 mg 06/21/24 09:00 Amiodarone 200mg Tablet PO 07/21/24 08:59 DAILY SARAH Aspirin 81 mg 06/21/24 09:00 Aspirin Ec 81mg Tablet PO 07/21/24 08:59 DAILY SARAH Citalopram Hydrobromide 40 mg 06/21/24 09:00 Citalopram 40mg Tablet PO 07/21/24 08:59 DAILY SARAH Clonidine HCl 0.1 mg 06/20/24 21:00 Clonidine 0.1mg Tablet PO 07/20/24 20:59 BID SARAH Enoxaparin Sodium 100 mg 06/20/24 15:15 06/20/24 15:21 Enoxaparin 100mg/Ml Syringe 1 mg/kg (100 mg) 07/20/24 15:14 100 mg SQ Administration Q12H SARAH Hydralazine HCl 25 mg 06/20/24 21:00 Hydralazine Hcl 25mg Tablet PO 07/20/24 20:59 TID SARAH Metoprolol Succinate 12.5 mg 06/20/24 21:00 Metoprolol Succinate Xl 25mg Tablet PO 07/20/24 20:59 BID SARAH Non-Formulary Medication 2 mg 06/21/24 09:00 Bumetanide PO 07/21/24 08:59 DAILY SARAH Non-Formulary Medication 5 mg 06/20/24 21:00 Aripiprazole PO 07/20/24 20:59 HS SARAH Non-Formulary Medication 20 mg 06/20/24 21:00 Rosuvastatin PO 07/20/24 20:59 HS SARAH Pantoprazole Sodium 40 mg 06/20/24 21:00 Pantoprazole 40mg Tablet PO 07/20/24 20:59 HS SARAH Propranolol HCl 120 mg 06/21/24 09:00 Propranolol Hcl 120mg Er Capsule PO 07/21/24 08:59 DAILY SARAH Ropinirole HCl 1 mg 06/20/24 21:00 Ropinirole 1mg Tablet PO 07/20/24 20:59 HS [facility] Sodium Chloride 10 ml 06/20/24 14:54 06/20/24 14:55 Sodium Chloride 0.9% 10ml Syr (Rad Only) IV 07/20/24 14:53 10 ml NEEDED PRN Administration Maintain IV Site Topiramate 150 mg 06/20/24 21:00 Topiramate 100mg Tablet PO 07/20/24 20:59 HS [facility] Discontinued Medications Generic Name Dose Route Start Last Admin Trade Name Freq PRN Reason Stop Dose Admin Acetaminophen 1,000 mg 06/20/24 14:19 06/20/24 14:33 Acetaminophen 1,000mg/100ml Vial IV 06/20/24 14:20 1,000 mg ONCE ONE Administration Furosemide 80 mg 06/20/24 15:10 06/20/24 15:21 Furosemide 100mg/10ml Vial IV 06/20/24 15:11 80 mg ONCE ONE Administration Iopamidol 70 ml 06/20/24 14:54 06/20/24 14:54 Iopamidol-370 (76%);100ml Bottle IV 06/20/24 14:55 70 ml ONCE ONE Administration Ketorolac Tromethamine 15 mg 06/20/24 14:19 06/20/24 14:33 Ketorolac 30mg/Ml Vial IV 06/20/24 14:20 15 mg ONCE ONE Administration Potassium Chloride 60 meq 06/20/24 14:51 06/20/24 15:10 Potassium Chloride 20meq Tab PO 06/20/24 14:52 60 meq ONCE ONE Administration Sodium Chloride 50 ml 06/20/24 14:54 06/20/24 14:55 0.9 % Sodium Chloride 50 Ml Vial IV 06/20/24 14:55 50 ml ONCE ONE Administration ORDERS Category Date Time Status CT angio chest PE protocol Stat Cat Scan 06/20/24 14:19 Completed BNP [NT Pro Brain Natriuretic Pep.] Stat Lab 06/20/24 14:15 Completed CBC w/Auto Diff [Complete Blood Count Auto Diff] Stat Lab 06/20/24 14:15 Completed CMP [Comprehensive Metabolic Panel] Stat Lab 06/20/24 14:15 Completed Complete Blood Count Auto Diff AMLAB Lab 06/21/24 06:00 Ordered Comprehensive Metabolic Panel AMLAB Lab 06/21/24 06:00 Ordered Full Resp Panel w/COVID ([facility]) Routine Lab 06/20/24 14:36 Completed INR [Prothrombin Time INR] Stat Lab 06/20/24 14:15 Completed Magnesium AMLAB Lab 06/21/24 06:00 Ordered Magnesium Stat Lab 06/20/24 14:15 Completed Thyroid Panel Stat Lab 06/20/24 14:15 Completed Trop I [Troponin I] Stat Lab 06/20/24 14:15 Completed Troponin I Q3H Lab 06/20/24 17:37 Completed Troponin I Q3H Lab 06/20/24 20:30 Ordered CA echo doppler complete Routine Y 06/20/24 15:27 Completed ECG Data Tracing #1: I reviewed this ECG and interpreted as documented below: A-fib 81 beats a minute rate controlled. QRS narrow at 82, QTc 414. No ST or T wave changes concerning for acute ischemia. Alvin normal Critical Care <AZIZA Keys - Last Filed: 06/20/24 16:26> Critical Care Time Critical Care Time: No
--- NOTE | 2024-06-20 14:19 | CT_ITS ---
FINAL REPORT TECHNIQUE: Postcontrast axial images of the chest were performed in a CTA protocol. This study was performed with techniques to keep radiation doses as low as reasonably achievable, (ALARA). Individualized dose reduction technique using automated exposure control or adjustment of mA and/or kV according to the patient's size were employed. CLINICAL HISTORY: Chest pain, A-fib COMPARISON: 04/07/2024 FINDINGS: The heart is normal in size. There is been interval median sternotomy. No adenopathy is identified. No pleural or pericardial effusion is identified. The thoracic aorta is normal in caliber with no focal aneurysm or dissection identified. There is no filling defect to suggest pulmonary embolism. There are bilateral lower lobe areas of segmental atelectasis. Lungs are otherwise clear.. The images of the upper abdomen demonstrate fatty infiltration of the liver. Hypodense liver lesion is unchanged from prior exam. There is no acute osseous abnormality. IMPRESSION: No evidence for PE on this exam. Segmental atelectasis Stable hypodense liver lesion. Reviewed, Interpreted and Dictated by Fabby Del Castillo MD Transcribed by Alexandra Batista Authenticated and [facility]
[2024-06-20 14:32] LABS: Basophils # 0.1 K/mm3 (0-0.2); Basophils % 0.9 % (0.1-2.0); Eosinophils # 0.1 K/mm3 (0.0-0.4); Eosinophils % 1.1 % (0.1-12.0); Hematocrit 35.6 % (37.0-47.0); Hemoglobin 11.7 g/dL (12.2-16.2); Lymphocytes # 2.4 K/mm3 (0.7-4.5); Lymphocytes % 26.2 % (10-50); Mean Corpuscular HGB Conc 32.8 g/dL (31.8-35.4); Mean Corpuscular Hemoglobin 31.5 pg (27.0-31.2); Mean Corpuscular Volume 95.9 fl (81-99); Monocytes # 0.6 K/mm3 (0.1-1.0); Monocytes % 6.7 % (1.7-9.3); Neutrophils # 5.8 K/mm3 (1.8-7.8); Neutrophils % 65.2 % (37.0-80.0); Platelet Count 376 K/mm3 (142-424); Red Blood Count 3.71 M/mm3 (4.20-5.40); Red Cell Distribution Width 16.3 % (11.5-17.5)
[2024-06-20] MEDS: KETOROLAC 30MG/ML VIAL 15 MG IV (14:33)
[2024-06-20] MEDS: ACETAMINOPHEN 1,000MG/100ML VIAL 1000 MG IV (14:33)
[2024-06-20 14:38] LABS: Adenovirus,PCR Not Detected (NotDetected); Bordetella Pertussis Not Detected (NotDetected); Chlamydophila Pneumoniae, PCR Not Detected (NotDetected); Coronavirus 19, PCR Not Detected (NotDetected); Coronavirus 229E Not Detected (NotDetected); Coronavirus NL63 Not Detected (NotDetected); Coronavirus OC43 Not Detected (NotDetected); Coronovirus HKU1,PCR Not Detected (NotDetected); Human Metapneumovirus Not Detected (NotDetected); Influenza A, PCR Not Detected (NotDetected); Influenza AH1, 2009 Not Detected (NotDetected); Influenza AH1, PCR Not Detected (NotDetected); Influenza AH3,PCR Not Detected (NotDetected); Influenza B, PCR Not Detected (NotDetected); Mycoplasma Pneumoniae, PCR Not Detected (NotDetected); Parainfluenza 1, PCR Not Detected (NotDetected); Parainfluenza 2, PCR Not Detected (NotDetected); Parainfluenza 3, PCR Not Detected (NotDetected); Parainfluenza 4, PCR Not Detected (NotDetected); Respiratory Syncytial Virus Not Detected (NotDetected); Rhinovirus/Enterovirus Not Detected (NotDetected)
[2024-06-20 14:41] LABS: INR 1.03 (0.9-1.1); Prothrombin Time 11.5 seconds (10.1-12.5)
--- NOTE | 2024-06-20 14:41 | PC.NURSE ---
CARDIOLOGY AT BEDSIDE
[2024-06-20 14:43] LABS: Alanine Aminotransferase 20 U/L (12-78); Alkaline Phosphatase 112 U/L (38-126); Anion Gap 12.3 mEq/L (5-15); Aspartate Amino Transferase 22 U/L (14-36); Bilirubin,Total 0.5 mg/dl (0.2-1.3); Blood Urea Nitrogen 12 mg/dl (7-17); Calcium 9.7 mg/dl (8.4-10.2); Carbon Dioxide 24 mmol/L (22.0-30.0); Chloride 110 mmol/L (98-107); Creatinine Clearance Estimated 136 mL/min (50-200); Estimated Glomerular Filt Rate 76 ml/min (>60); GFR (African American) 92 ML/MIN (>60); Glucose 107 mg/dl (74-100); Magnesium 2.1 mg/dl (1.6-2.3); Potassium 3.3 mmoL/L (3.5-5.1); Sodium 143 mmol/L (136-145); Total Protein,Serum 6.9 g/dl (6.3-8.2)
--- NOTE | 2024-06-20 14:50 | EXP.CARD.CON ---
History of Present Illness History of Present Illness Consult date: 06/20/24 Requesting physician: Mo Rincon Consult reason: chest pain and shortness of breath Chief complaint: chest pain, soa, afib History of present illness: This is a 48-year-old white female with past medical history of carotid artery stenosis, tobacco use and severe MR who recently underwent mitral valve replacement, PFO closure and left atrial appendage closure 6 weeks ago at who presents to ER from PCP office for worsening SOA since Thursday. Upon presentation to pcp office an EKG was obtained which revealed atrial fibrillation. Patient was taken to ER for further evaluation for afib and soa. Patient reports chest pain with inspiration and worsening SOA despite reported compliance of diuretics. Reports developed worsening bilateral lower extremity edema over the weekend. Upon presentation to emergency department patient is noted to be in A-fib at a rate of 75 with nonspecific T wave abnormalities noted on EKG. Labs are as follow: WBC 9, hemoglobin 11.7, sodium 143, potassium 3.3, creatinine 0.8, magnesium 2.1, troponin negative and a proBNP of 1740. Patient is currently awaiting cta chest and appears comfortable and in no acute distress. [facility] Disclaimer: The information contained in this section may have been updated after the patient was seen, as this information can be updated by other users. Medical History Severe mitral regurgitation Mitral regurgitation, acute (HFpEF) heart failure with preserved ejection fraction Syncope Suspected convulsive syncope. 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 Shingles Tobacco dependence Migraine Osteoarthritis Breast cancer Attention deficit disorder (ADD) in adult Major depressive disorder Gastroesophageal reflux disease Hyperlipidemia (~06/15/18) Essential tremor Bilateral hands, minimal with intention, on BB, unchanged for years Surgical History History of stress incontinence procedure using tension free vaginal tape S/P total knee arthroplasty History of reconstruction of both breasts History of carpal tunnel release of both wrists H/O mastectomy History of tonsillectomy History of appendectomy History of section Family History Other Family history of cancer Lung cancer Social History (Updated 06/20/24 @ 17:38 by Jacinta Damon RN) Smoking Status: Never smoker second hand exposure: Yes alcohol intake: never substance use type: denies use current occupational status: employed Travel in the last 8 weeks: None household members: spouse housing: house number of children: 1 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 current occupational exposures/hazards: No caffeine: Yes Review of Systems Review of Systems Review of systems:: pertinent systems reviewed and negative unless documented below Constitutional Constitutional: Reports system reviewed and no additional complaints, except as documented *Cardiovascular Cardiovascular: Reports system reviewed and no additional complaints, except as documented, Reports chest pain and Reports dyspnea *Respiratory Respiratory: Reports system reviewed and no additional complaints, except as documented and Reports dyspnea *Gastrointestinal Gastrointestinal: Reports system reviewed and no additional complaints, except as documented *Neurologic Neurologic: Reports system reviewed and no additional complaints, except as documented and Denies confusion Psychiatric Psychiatric: Reports system reviewed and no additional complaints, except as documented and Denies confusion Exam Data for Last 24 hours Vital signs and Labs for Last 24 Hours: Temp Pulse Resp BP Pulse Ox O2 Del Method 97.7 F 69 15 119/74 97 Room Air 06/20/24 14:13 06/20/24 14:31 06/20/24 14:31 06/20/24 14:31 06/20/24 14:31 06/20/24 14:31 Laboratory Results - last 24 hr 06/20/24 14:15: WBC 9.0, RBC 3.71 L, Hgb 11.7 L, Hct 35.6 L, MCV 95.9, MCH 31.5 H, MCHC 32.8, RDW 16.3, Plt Count 376, MPV 8.0, Neut % (Auto) 65.2, Lymph % (Auto) 26.2, [place] % (Auto) 6.7, Eos % (Auto) 1.1, Baso % (Auto) 0.9, Neut # (Auto) 5.8, Lymph # (Auto) 2.4, [place] # (Auto) 0.6, Eos # (Auto) 0.1, Baso # (Auto) 0.1, Sodium 143, Potassium 3.3 L, Chloride 110 H, Carbon Dioxide 24, Anion Gap 12.3, BUN 12, Creatinine 0.80, Estimated Creat Clear 136, Estimated GFR 76, Est GFR ( Amer) 92, Glucose 107 H, Calcium 9.7, Magnesium 2.1, Total Bilirubin 0.5, AST 22, ALT 20, Alkaline Phosphatase 112, Total Protein 6.9 I & O for Last 24 hours: Intake & Output 06/17/24 06/18/24 06/19/24 06/20/24 23:59 23:59 23:59 23:59 Weight 225 lb Constitutional Constitutional: no acute distress *Routine Respiratory Exam Respiratory: Present CTA bilaterally and symmetric chest movement *Routine Cardiovascular Exam Cardiovascular: Present Normal S1, Normal S2, irregular rhythm and irregularly irregular Comments: afib noted *Routine Abdominal Exam Abdominal: Present soft and normoactive bowel sounds; Absent tenderness *Routine Extremities Exam Extremities: Present full ROM and normal capillary refill; Absent edema *Routine Skin Exam Skin: Present intact, dry and warm Detailed Neck Exam: Thyroids Thyroid: Absent bruit Meds Home Medications and Allergies Home Medications ?Medication ?Instructions ?Recorded ?Confirmed ?Type propranolol 120 mg capsule,24 120 mg PO DAILY TREMORS 01/22/24 06/20/24 History hr,extended release ropinirole 1 mg tablet 1 mg PO HS RESTLESS LEGS 01/22/24 06/20/24 History topiramate 100 mg tablet 150 mg PO HS MIGRAINES, TREMOR 01/22/24 06/20/24 History aspirin 81 mg tablet,delayed 81 mg PO DAILY 30 days #30 tabs 01/25/24 06/20/24 Rx release levonorgestrel 21 mcg/24 hr (up to See Rx Instructions .Route .COMPLEX 02/02/24 06/20/24 History 8 years) 52 mg intrauterine device (Mirena) escitalopram oxalate 20 mg tablet 20 mg PO DAILY Depression #90 tabs 03/15/24 06/20/24 Rx rosuvastatin 20 mg tablet 20 mg PO HS Cholesterol #90 tabs 03/15/24 06/20/24 Rx aripiprazole 5 mg tablet 5 mg PO HS MOOD #90 tabs 04/15/24 06/20/24 Rx clonidine HCl 0.1 mg tablet 0.1 mg PO BID Hypertension #60 tabs 05/23/24 06/20/24 Rx omeprazole 40 mg capsule,delayed 40 mg PO DAILY GERD #90 caps 05/23/24 06/20/24 Rx release amiodarone 200 mg tablet 200 mg PO DAILY 05/25/24 06/20/24 History hydralazine 25 mg tablet 25 mg PO TID 05/25/24 06/20/24 History methocarbamol 750 mg tablet 750 mg PO QID PRN Muscle Pain 05/25/24 06/20/24 History metoprolol succinate 25 mg 12.5 mg PO BID 05/25/24 06/20/24 History tablet,extended release 24 hr sennosides 8.6 mg capsule (senna) 8.6 mg PO BID 05/25/24 06/20/24 History bumetanide 2 mg tablet 1 mg PO DAILY 06/20/24 06/20/24 History New Prescriptions to Start Prescriptions: Allergies Allergy/AdvReac Type Severity Reaction Status Date / Time No Known Allergies Allergy Verified 06/20/24 12:38 Assessment and Plan *Assessment and plan (1) Chest pain: Status: Acute Category: Medical Code(s): R07.9 - Chest pain, unspecified (2) Acute dyspnea: Status: Acute Category: Medical Code(s): R06.00 - Dyspnea, unspecified (3) Severe mitral regurgitation: Status: Acute Category: Medical Code(s): I34.0 - Nonrheumatic mitral (valve) insufficiency (4) (HFpEF) heart failure with preserved ejection fraction: Status: Acute Qualifiers: Heart failure chronicity: acute Qualified Code(s): I50.31 - Acute diastolic (congestive) heart failure Category: Medical Code(s): I50.30 - Unspecified diastolic (congestive) heart failure (5) Mitral valve replaced: Status: Acute Category: Surgical Code(s): Z95.2 - Presence of prosthetic heart valve (6) Status post patent foramen ovale closure: Status: Acute Category: Surgical Code(s): Z87.74 - Personal history of (corrected) congenital malformations of heart and circulatory system (7) History of left atrial appendage closure: Status: Acute Category: Surgical Code(s): Z98.890 - Other specified postprocedural states Plan Worsening shortness of breath S/p Mitral valve replacement for severe MR S/p PFO closure History of HFpEF CTA chest pending to rule out PE ProBNP 1740 Trop negative New onset A-fib Recent ELVA exclusion Currently rate controlled CV summary 06/20/2024: Symptoms likely secondary to volume overload from recent procedures. CTA chest is pending to rule out PE. Will likely need diuretics increased.
[2024-06-20] MEDS: IOPAMIDOL-370 (76%);100ML BOTTLE 70 ML IV (14:54)
[2024-06-20] MEDS: SODIUM CHLORIDE 0.9% 10ML SYR (RAD ONLY) 10 ML IV (14:55)
[2024-06-20] MEDS: 0.9 % SODIUM CHLORIDE 50 ML VIAL IV (14:55)
[2024-06-20 14:56] LABS: NT Pro Brain Natriuretic Pep. 1740 pg/mL (0-125); Troponin I < 0.01 ng/ml (0.00-0.034)
[2024-06-20 15:00] LABS: Free Thyroxine Index 2.9 ug/dL (5.93-13.13); T4 (Thyroxine) 9.5 ug/dl (5.53-11.0); Triiodothryronine (T3) Uptake 30 % (23.5-40.5)
[2024-06-20] MEDS: POTASSIUM CHLORIDE 20MEQ TAB 60 MEQ PO (15:10)
[2024-06-20 15:14] LABS: Thyroid Stimulating Hormone 1.66 uIU/mL (0.465-4.68)
[2024-06-20] MEDS: ENOXAPARIN 100MG/ML SYRINGE 100 MG SQ (15:21)
[2024-06-20] MEDS: FUROSEMIDE 100MG/10ML VIAL 80 MG IV (15:21)
--- NOTE | 2024-06-20 15:27 | CA_ITS ---
APPROVED REPORT EXAM: Comprehensive 2D, Doppler, and color-flow Echocardiogram Predictive Maintenance Specialist: Jacey Gillis RVT Ht: 5 ft 6 in Wt: 225lbs BSA: 2.10 BP: 119/74 mmHg Indications: CP,A-FIB,SOA,S/P MVR,PFO CLOSURE AND ELVA EXCLUSION 6 WEEKS AGO,EDEMA 2D Dimensions Left Atrium 3.62 cm F: 2.7 - 3.8 LA Volume 41.60 mL RVID Base (AP4) 2.94 cm (M/F) 2.5-4.1 LA Volume Index 19.81 mL/m2 (M/F) 16-34 LVOT 1.99 cm (M/F) 1.5-2.5 EF AP4 54.90 % GL Strain -24.2 % M-Mode Dimensions RVDd 2.68 cm (0.9-2.6) LVDd 4.22 cm (3.5-5.7) Ao Diam 2.42 cm (2.0-3.7) LVDs 3.18 cm (3.5-5.7) IVSd 1.43 cm (0.6-1.1) PWd 0.82 cm (0.6-1.1) EF (Teich) 49.30% FS 24.60% EDV (Teich) 79.50 mL ESV (Teich) 40.30 mL LV Diastology E Decel Time 350 (160-240 msec) E/A Ratio 2.6 MED E' 6.5 (>= 7 cm/sec) E'/MED E' Ratio 22.35 (<= 14) LAT E' 8.2 (>= 10 cm/sec) E/LAT E' Ratio 17.72 (<= 14) Aortic Valve LVOT Max 75.5 (70-110 cm/s) AoV Peak Trent. 99.0 (50-130 cm/s) AO Peak GR. 3.90 mmHg Mitral Valve MV E Max Trent. 145.0 (40-130 cm/s) MV A Velocity 55.0 (40-130 cm/s) E/A Ratio 2.65 MV Decel. Time 350 (160-240 ms) MV Mean Gr. 1.80 (<2mmHg) MV PHT 93.0 ms Tricuspid Valve TR P. Velocity 243.00 cm/s RAP Estimate 10.00 mmHg RVSP 33.60 mmHg Left Ventricle The left ventricle is normal size. The left ventricular systolic function is low normal. There is increased LV wall thickness. There is borderline global hypokinesis present. The septum is asynchronous. Diastolic function is indeterminate due to atrial fibrillation. LVEF is 50%. Right Ventricle The right ventricle is mildly dilated. The right ventricular systolic function is normal. Atria The left atrium size is normal. The right atrium size is normal. s/p ASD closure. There is no Doppler evidence of residual interatrial shunt. Aortic Valve The aortic valve is mildly thickened. There is no aortic valvular stenosis. Trace aortic regurgitation. Mitral Valve s/p bioprosthetic MVR. The bioprosthesis is well-seated. No evidence of mitral valve stenosis. Peak E velocity 145 cm/s. Pressure half-time 78 ms. Mean MV gradient 2 mmHg (HR 60 bpm). Trace central mitral regurgitation. No evidence of paravalvular leak. Tricuspid Valve The tricuspid valve leaflets are thin and pliable. Mild tricuspid regurgitation. RVSP is 25-30 mmHg. Pulmonic Valve The pulmonary valve is normal in structure. Trace pulmonic regurgitation. Great Vessels The aortic root is normal in size. The ascending aorta is not well-visualized. IVC is normal in size and collapses >50% with inspiration. Pericardium There is no pericardial effusion. Other Information Study Quality: Technically Difficult Conclusion Technically difficult study due to poor acoustic windows. Low-normal LV systolic function (LVEF 50%). Borderline global hypokinesis present. The septum is asynchronous. Mild RV dilation with normal RV systolic function. Mild TR. s/p bioprosthetic MVR. Trace MR. Acceptable MV parameters (peak E velocity 145 cm/s, pressure half-time 78 ms, mean MV gradient 2 mmHg at HR 60 bpm). s/p ASD closure. No evidence of residual interatrial shunt. Electronically signed by : Caitie Henriquez MD 06/20/2024 21:06:04
[2024-06-20 16:03] LABS: Albumin Level 4.2 g/dl (3.5-5.0); Albumin/Globulin Ratio 1.6 (1.1-1.8); Globulin 2.7 g/dL (1.3-3.2)
--- NOTE | 2024-06-20 16:27 | PC.NURSE ---
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
--- NOTE | 2024-06-20 16:28 | P.HP_ITS ---
History of Present Illness *Admission Date: 06/20/24 *Reason for visit:: dyspnea *History of present illness: Ms. Chua is a 48-year-old female with history of severe mitral regurg who recently underwent mitral valve replacement 6 weeks ago including PFO closure and left atrial appendage closure. She presented from her primary care office to the ER today due to shortness of breath that began over the weekend. EKG in her PCP office revealed A-fib. Taken to the ER for further management. Arrival to the ER, found to be dyspneic but satting in the 90s on room air. She reports having some chest discomfort with inspiration and worsening shortness of breath despite compliance with her medication regimen. Has had some increased lower extremity edema over the weekend. Noted to be in A-fib with rate controlled in the 70s in the ER. Kidney function normal with creatinine 0.8, potassium 3.3, magnesium 2.1. BNP elevated at 1740. Cardiology was consulted. Recommended admission. Medicine consulted for admission. On arrival to the floor, patient is rate controlled. On room air. Appears anxious. Chest pain with inspiration and tender on palpation. No nausea or vomiting however. at bedside. [facility] Disclaimer: The information contained in this section may have been updated after the patient was seen, as this information can be updated by other users. Medical History Severe mitral regurgitation Mitral regurgitation, acute (HFpEF) heart failure with preserved ejection fraction Syncope Tympanosclerosis, bilateral Recurrent major depression resistant to treatment Shingles Tobacco dependence Migraine Osteoarthritis Breast cancer Attention deficit disorder (ADD) in adult Major depressive disorder Gastroesophageal reflux disease Hyperlipidemia (~06/15/18) Essential tremor Surgical History History of stress incontinence procedure using tension free vaginal tape S/P total knee arthroplasty History of reconstruction of both breasts History of carpal tunnel release of both wrists H/O mastectomy History of tonsillectomy History of appendectomy History of section Family History Other Family history of cancer Lung cancer Social History Smoking Status: Never smoker second hand exposure: Yes alcohol intake: never substance use type: denies use current occupational status: employed Travel in the last 8 weeks: None household members: spouse housing: house number of children: 1 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 current occupational exposures/hazards: No caffeine: Yes Review of Systems *Neurologic Neurologic: Reports system reviewed and no additional complaints, except as documented and Denies confusion Psychiatric Psychiatric: Denies confusion Meds Home Medications and Allergies Home Medications ?Medication ?Instructions ?Recorded ?Confirmed ?Type propranolol 120 mg capsule,24 120 mg PO DAILY TREMORS 01/22/24 06/20/24 History hr,extended release ropinirole 1 mg tablet 1 mg PO HS RESTLESS LEGS 01/22/24 06/20/24 History topiramate 100 mg tablet 150 mg PO HS MIGRAINES, TREMOR 01/22/24 06/20/24 History aspirin 81 mg tablet,delayed 81 mg PO DAILY 30 days #30 tabs 01/25/24 06/20/24 Rx release levonorgestrel 21 mcg/24 hr (up to See Rx Instructions .Route .COMPLEX 02/02/24 06/20/24 History 8 years) 52 mg intrauterine device (Mirena) escitalopram oxalate 20 mg tablet 20 mg PO DAILY Depression #90 tabs 03/15/24 06/20/24 Rx rosuvastatin 20 mg tablet 20 mg PO HS Cholesterol #90 tabs 03/15/24 06/20/24 Rx aripiprazole 5 mg tablet 5 mg PO HS MOOD #90 tabs 04/15/24 06/20/24 Rx clonidine HCl 0.1 mg tablet 0.1 mg PO BID Hypertension #60 tabs 05/23/24 06/20/24 Rx omeprazole 40 mg capsule,delayed 40 mg PO DAILY GERD #90 caps 05/23/24 06/20/24 Rx release amiodarone 200 mg tablet 200 mg PO DAILY 05/25/24 06/20/24 History hydralazine 25 mg tablet 25 mg PO TID 05/25/24 06/20/24 History methocarbamol 750 mg tablet 750 mg PO QID PRN Muscle Pain 05/25/24 06/20/24 Hist ory metoprolol succinate 25 mg 12.5 mg PO BID 05/25/24 06/20/24 History tablet,extended release 24 hr sennosides 8.6 mg capsule (senna) 8.6 mg PO BID 07/03/24 07/29/24 History bumetanide 2 mg tablet 1 mg PO DAILY 06/20/24 06/20/24 History New Prescriptions to Start Prescriptions: Allergies Allergy/AdvReac Type Severity Reaction Status Date / Time No Known Allergies Allergy Verified 06/20/24 12:38 Exam Data for Last 24 hours Vital signs and Labs for Last 24 Hours: Temp Pulse Resp BP Pulse Ox O2 Del Method 97.7 F 70 15 140/78 96 Room Air 06/20/24 14:13 06/20/24 15:31 06/20/24 15:31 06/20/24 15:31 06/20/24 15:31 06/20/24 14:31 Laboratory Results - last 24 hr 06/20/24 14:15: WBC 9.0, RBC 3.71 L, Hgb 11.7 L, Hct 35.6 L, MCV 95.9, MCH 31.5 H, MCHC 32.8, RDW 16.3, Plt Count 376, MPV 8.0, Neut % (Auto) 65.2, Lymph % (Auto) 26.2, [place] % (Auto) 6.7, Eos % (Auto) 1.1, Baso % (Auto) 0.9, Neut # (Auto) 5.8, Lymph # (Auto) 2.4, [place] # (Auto) 0.6, Eos # (Auto) 0.1, Baso # (Auto) 0.1, PT 11.5, INR 1.03, Sodium 143, Potassium 3.3 L, Chloride 110 H, Carbon Dioxide 24, Anion Gap 12.3, BUN 12, Creatinine 0.80, Estimated Creat Clear 136, Estimated GFR 76, Est GFR ( Amer) 92, Glucose 107 H, Calcium 9.7, Magnesium 2.1, Total Bilirubin 0.5, AST 22, ALT 20, Alkaline Phosphatase 112, Troponin I < 0.01, NT-Pro-B Natriuret Pep 1740 H, Total Protein 6.9, Albumin 4.2, Globulin 2.7, Albumin/Globulin Ratio 1.6, TSH 1.66, Free T4 Index 2.9 L, Thyroxine (T4) 9.5, T3 Uptake 30 I & O for Last 24 hours: Intake & Output 06/17/24 06/18/24 06/19/24 06/20/24 23:59 23:59 23:59 23:59 Weight 102.058 kg Constitutional Constitutional: no acute distress, obese and cooperative *Routine HEENT Exam Head: Present normocephalic Eye: Present EOMI ENT: Present mucous membranes moist *Routine Neck Exam Neck: Present full ROM *Routine Respiratory Exam Respiratory: Present CTA bilaterally and symmetric chest movement; Absent rhonchi, wheezes or crackles *Routine Cardiovascular Exam Cardiovascular: Present irregularly irregular *Routine Abdominal Exam Abdominal: Present soft and normoactive bowel sounds; Absent tenderness *Routine Rectal Exam Rectal:: deferred *Routine Genitalia Exam Genitalia:: deferred *Routine Extremities Exam Extremities: Present edema (1+ to BLE); Absent cyanosis or clubbing Comments: BLE edema *Routine Skin Exam Skin: Present intact *Routine Neurological Exam Neurological: Present alert, oriented X3 and moving all extremities; Absent altered mental status Assessment and Plan *Assessment and plan (1) Atrial fibrillation with controlled ventricular rate: Status: Acute Category: Medical Code(s): I48.91 - Unspecified atrial fibrillation (2) History of left atrial appendage closure: Status: Acute Category: Surgical Code(s): Z98.890 - Other specified postprocedural states (3) Pulmonary edema: Status: Acute Category: Medical Code(s): J81.1 - Chronic pulmonary edema (4) Status post patent foramen ovale closure: Status: Acute Category: Surgical Code(s): Z87.74 - Personal history of (corrected) congenital malformations of heart and circulatory system (5) Mitral valve replaced: Status: Acute Category: Surgical Code(s): Z95.2 - Presence of prosthetic heart valve (6) Acute on chronic heart failure with preserved ejection fraction (HFpEF): Status: Acute Category: Medical Code(s): I50.33 - Acute on chronic diastolic (congestive) heart failure (7) PTSD (post-traumatic stress disorder): Status: Acute Category: Medical Code(s): F43.10 - Post-traumatic stress disorder, unspecified (8) HTN (hypertension): Status: Acute Qualifiers: Hypertension type: primary hypertension Qualified Code(s): I10 - Essential (primary) hypertension Category: Medical Code(s): I10 - Essential (primary) hypertension Plan Ms. Chua is a 48-year-old female with mitral valve replacement 6 weeks ago. Presented to the ER with worsening shortness of breath and some chest discomfort. Findings concerning for CHF exacerbation with elevated BNP. Also found to be in A-fib. Discussed case with ER physician, request admission for diuresis, further management of A-fib. I agreed to admit for further management. Cardiology consulted to assist with care. 80 mg Lasix IV x 1 prior to admission. Problems addressed as follows: A-fib, new onset CAD continue metoprolol 12.5 mg succinate twice daily. Continue amiodarone 200 mg daily Continue aspirin 81 mg daily Initiated on Lovenox 1 mg/kg twice daily Rate controlled. No adjustment to dosage at this time. Cardiology consulted, will evaluate in the morning Echocardiogram pending Hypertension: Continue clonidine point 1 mg twice daily; continue hydralazine 25 mg 3 times a day Status post mitral valve repair: Volume overload/acute on chronic heart failure with preserved ejection fraction Continue home regimen with Crestor 20 mg nightly; Echo pending as above Appears volume overloaded with elevated BNP, pulmonary edema on chest imaging per my review, and peripheral edema. Lasix 80 mg IV x 1. Will continue bumetanide 2 mg twice Migraines: Continue Topamax 150 mg nightly Tremors: Continue propranolol 120 mg daily restless leg: Continue Requip 1 mg nightly Anxiety: Continue Abilify 5 mg daily/citalopram 40 mg daily Full code Lovenox 1 mg/kg twice daily Cardiac diet
--- NOTE | 2024-06-20 16:50 | PC.NURSE ---
report called to receiving rn
--- NOTE | 2024-06-20 17:13 | PC.NURSE ---
arrived by w/c from ED
[2024-06-20 18:24] LABS: Troponin I < 0.01 ng/ml (0.00-0.034)
[2024-06-20] MEDS: ROPINIROLE 1MG TABLET 1 MG PO (20:45)
[2024-06-20] MEDS: TOPIRAMATE 100MG TABLET 150 MG PO (20:45)
[2024-06-20] MEDS: METOPROLOL SUCCINATE XL 25MG TABLET 12.5 MG PO (20:45)
[2024-06-20] MEDS: ARIPiprazole 10MG TABLET 5 MG PO (20:45)
[2024-06-20] MEDS: PANTOPRAZOLE 40MG TABLET 40 MG PO (20:45)
[2024-06-20 21:28] LABS: Troponin I < 0.01 ng/ml (0.00-0.034)
[2024-06-20] MEDS: ATORVASTATIN 40MG TABLET 80 MG PO (22:04)
[2024-06-21] VITALS (7 sets, daily range): BP systolic 100–114; BP diastolic 60–64; PULSE 60–70; RESP 16–20; TEMP 36.9–37.3; O2SAT 95–97; BMI 37.0
[2024-06-21] MEDS: ENOXAPARIN 100MG/ML SYRINGE 100 MG SQ (03:46)
--- NOTE | 2024-06-21 05:21 | PC.NURSE ---
pt in atrial fib at beginning of shift, re-assesment at 2200 pt in nsr. bp soft, held clonidine and hydralazine. no reports of chest pain.
[2024-06-21 07:06] LABS: Basophils # 0.1 K/mm3 (0-0.2); Basophils % 0.7 % (0.1-2.0); Eosinophils # 0.2 K/mm3 (0.0-0.4); Eosinophils % 2.5 % (0.1-12.0); Hematocrit 34.9 % (37.0-47.0); Hemoglobin 10.9 g/dL (12.2-16.2); Lymphocytes # 2.3 K/mm3 (0.7-4.5); Lymphocytes % 34.9 % (10-50); Mean Corpuscular HGB Conc 31.3 g/dL (31.8-35.4); Mean Corpuscular Hemoglobin 29.3 pg (27.0-31.2); Mean Corpuscular Volume 93.6 fl (81-99); Mean Platelet Volume 7.6 fl (7.4-10.4); Monocytes # 0.5 K/mm3 (0.1-1.0); Monocytes % 7.4 % (1.7-9.3); Neutrophils # 3.5 K/mm3 (1.8-7.8); Neutrophils % 54.5 % (37.0-80.0); Platelet Count 379 K/mm3 (142-424); Red Blood Count 3.73 M/mm3 (4.20-5.40); Red Cell Distribution Width 16.1 % (11.5-17.5); White Blood Count 6.5 K/mm3 (4.8-10.8)
[2024-06-21 07:11] LABS: Alanine Aminotransferase 16 U/L (12-78); Albumin Level 3.8 g/dl (3.5-5.0); Albumin/Globulin Ratio 1.4 (1.1-1.8); Alkaline Phosphatase 123 U/L (38-126); Anion Gap 11.4 mEq/L (5-15); Aspartate Amino Transferase 23 U/L (14-36); Bilirubin,Total 0.5 mg/dl (0.2-1.3); Blood Urea Nitrogen 16 mg/dl (7-17); Calcium 9.4 mg/dl (8.4-10.2); Carbon Dioxide 24 mmol/L (22.0-30.0); Chloride 111 mmol/L (98-107); Creatinine Clearance Estimated 118 mL/min (50-200); Estimated Glomerular Filt Rate 76 ml/min (>60); GFR (African American) 92 ML/MIN (>60); Globulin 2.7 g/dL (1.3-3.2); Glucose 93 mg/dl (74-100); Magnesium 2.2 mg/dl (1.6-2.3); Potassium 3.4 mmoL/L (3.5-5.1); Sodium 143 mmol/L (136-145); Total Protein,Serum 6.5 g/dl (6.3-8.2)
--- NOTE | 2024-06-21 07:48 | ECG_ITS ---
APPROVED REPORT Exam: Resting ECG HR:65 bpm ECG Measurements Heart Rate 65 AXES OR 175 P 58 QRSd 79 QRS 65 QT 389 T 33 QTc 400 Conclusion SINUS RHYTHM NONSPECIFIC ST & T-WAVE ABNORMALITY BORDERLINE ECG UNCONFIRMED REPORT Electronically signed by : Alfredo Craig MD 06/21/2024 17:28:56
--- NOTE | 2024-06-21 08:22 | P.DS_ITS ---
General Admission date:: 06/20/24 Discharge date: 06/21/24 HPI HPI HPI: Ms. Chua is a 48-year-old female with history of severe mitral regurg who recently underwent mitral valve replacement 6 weeks ago including PFO closure and left atrial appendage closure. She presented from her primary care office to the ER today due to shortness of breath that began over the weekend. EKG in her PCP office revealed A-fib. Taken to the ER for further management. Arrival to the ER, found to be dyspneic but satting in the 90s on room air. She reports having some chest discomfort with inspiration and worsening shortness of breath despite compliance with her medication regimen. Has had some increased lower extremity edema over the weekend. Noted to be in A-fib with rate controlled in the 70s in the ER. Kidney function normal with creatinine 0.8, potassium 3.3, magnesium 2.1. BNP elevated at 1740. Cardiology was consulted. Recommended admission. Medicine consulted for admission. On arrival to the floor, patient is rate controlled. On room air. Appears anxious. Chest pain with inspiration and tender on palpation. No nausea or vomiting however. at bedside. Hospital Course Hospital Course Hospital Course: Mrs. Chua is a 48-year-old female with mitral valve replacement 6 weeks ago. Presented to the ER with worsening shortness of breath and some chest discomfort. Findings concerning for CHF exacerbation with elevated BNP. Also found to be in A-fib. Discussed case with ER physician, request admission for diuresis, further management of A-fib. I agreed to admit for further management. Cardiology consulted to assist with care. Patient responded to diuretics. Back to sinus rhythm by the morning. Stable to discharge home with further management as an outpatient. Problems addressed as follows: A-fib, new onset CAD Status post mitral valve replacement for severe MR, PFO closure, left atrial appendage clipping performed 6 weeks ago at . Had A-fib during her hospitalization but resolved to normal sinus rhythm by discharge. Presented to the ER with A-fib. Has converted back to sinus rhythm this morning. Plan to continue metoprolol tartrate 12.5 mg twice daily. Rate controlled with diuresis. Continue amiodarone 200 mg daily. As she had an atrial appendage, no anticoagulation indicated. Continue home aspirin 81 mg daily. Echo obtained, formal read still pending. EF appears to be 50%. Cardiology recommends 2-week event monitor to monitor A-fib burden. Further adjustments pending follow-up with cardiology as an outpatient. Hypertension: Continue clonidine point 1 mg twice daily; continue hydralazine 25 mg 3 times a day Status post mitral valve repair: Volume overload/acute on chronic heart failure with preserved ejection fraction. CT of chest with fluid in right fissure. Noted to have mild edema on exam. Received dose of Lasix on admission. Had good output. Feeling better by morning. Remained stable on room air during admission. Recommend continuing Bumex, increase to 2 mg daily for 3 days, de-escalate back down to 1 mg daily thereafter. Further management pending follow-up with cardiology. Continue home regimen with Crestor 20 mg nightly. Migraines: Continue Topamax 150 mg nightly Tremors: Continue propranolol 120 mg daily restless leg: Continue Requip 1 mg nightly Anxiety: Continue Abilify 5 mg daily/citalopram 40 mg daily Total time spent on discharge 32 minutes in counseling, documentation, chart review, and direct care with patient. Exam Data for Last 24 hours Vital signs and Labs for Last 24 Hours: Temp Pulse Resp BP Pulse Ox O2 Del Method 98.9 F 65 18 114/64 97 Room Air 06/21/24 07:26 06/21/24 07:26 06/21/24 07:26 06/21/24 07:26 06/21/24 07:26 06/21/24 07:26 Laboratory Results - last 24 hr 06/20/24 14:15: WBC 9.0, RBC 3.71 L, Hgb 11.7 L, Hct 35.6 L, MCV 95.9, MCH 31.5 H, MCHC 32.8, RDW 16.3, Plt Count 376, MPV 8.0, Neut % (Auto) 65.2, Lymph % (Auto) 26.2, [place] % (Auto) 6.7, Eos % (Auto) 1.1, Baso % (Auto) 0.9, Neut # (Auto) 5.8, Lymph # (Auto) 2.4, [place] # (Auto) 0.6, Eos # (Auto) 0.1, Baso # (Auto) 0.1, PT 11.5, INR 1.03, Sodium 143, Potassium 3.3 L, Chloride 110 H, Carbon Dioxide 24, Anion Gap 12.3, BUN 12, Creatinine 0.80, Estimated Creat Clear 136, Estimated GFR 76, Est GFR ( Amer) 92, Glucose 107 H, Calcium 9.7, Magnesium 2.1, Total Bilirubin 0.5, AST 22, ALT 20, Alkaline Phosphatase 112, Troponin I < 0.01, NT-Pro-B Natriuret Pep 1740 H, Total Protein 6.9, Albumin 4.2, Globulin 2.7, Albumin/Globulin Ratio 1.6, TSH 1.66, Free T4 Index 2.9 L, Thyroxine (T4) 9.5, T3 Uptake 30 06/20/24 14:36: Chlamy pneumoniae PCR Not detected, Adenovirus (PCR) Not detected, B. pertussis DNA (PCR) Not detected, Coronavirus OC43 (PCR) Not detected, Coronavirus HKU1 (PCR) Not detected, Coronavirus 229E (PCR) Not detected, SARS-CoV-2 (PCR) Not detected, Coronavirus NL63 (PCR) Not detected, Human Metapneumovir PCR Not detected, Influenza A (H1) PCR Not detected, Influ A (H1N1/09) PCR Not detected, Influenza A (H3) PCR Not detected, Influenza Type A (PCR) Not detected, Influenza Type B (PCR) Not detected, M. pneumoniae (PCR) Not detected, Parainfluenza 1 (PCR) Not detected, Parainfluenza 2 (PCR) Not detected, Parainfluenza 3 (PCR) Not detected, Parainfluenza 4 (PCR) Not detected, RSV (PCR) Not detected, Entero/Rhino (PCR) Not detected 06/20/24 17:37: Troponin I < 0.01 06/20/24 20:23: Troponin I < 0.01 06/21/24 05:33: WBC 6.5 D, RBC 3.73 L, Hgb 10.9 L, Hct 34.9 L, MCV 93.6, MCH 29.3, MCHC 31.3 L, RDW 16.1, Plt Count 379, MPV 7.6, Neut % (Auto) 54.5, Lymph % (Auto) 34.9, [place] % (Auto) 7.4, Eos % (Auto) 2.5, Baso % (Auto) 0.7, Neut # (Auto) 3.5, Lymph # (Auto) 2.3, [place] # (Auto) 0.5, Eos # (Auto) 0.2, Baso # (Auto) 0.1, Sodium 143, Potassium 3.4 L, Chloride 111 H, Carbon Dioxide 24, Anion Gap 11.4, BUN 16 D, Creatinine 0.80, Estimated Creat Clear 118, Estimated GFR 76, Est GFR ( Amer) 92, Glucose 93, Calcium 9.4, Magnesium 2.2, Total Bilirubin 0.5, AST 23, ALT 16, Alkaline Phosphatase 123, Total Protein 6.5, Albumin 3.8, Globulin 2.7, Albumin/Globulin Ratio 1.4 I & O for Last 24 hours: Intake & Output 06/18/24 06/19/24 06/20/24 06/21/24 23:59 23:59 23:59 23:59 Intake Total 360 / 360 540 / 540 Output Total 100 / 100 0 / 0 Balance 260 / 260 540 / 540 Weight 89.159 kg 89.159 kg Constitutional Constitutional: no acute distress, obese and cooperative *Routine HEENT Exam Head: Present normocephalic Eye: Present EOMI and PERRL ENT: Present mucous membranes moist *Routine Neck Exam Neck: Present supple; Absent lymphadenopathy Routine Chest/Breast/Axilla Exam Comments: Well-healed sternotomy scar, no erythema. Mild tenderness over incision *Routine Respiratory Exam Respiratory: Present CTA bilaterally; Absent rhonchi, wheezes or crackles *Routine Cardiovascular Exam Cardiovascular: Present RRR *Routine Abdominal Exam Abdominal: Present soft and normoactive bowel sounds; Absent tenderness *Routine Rectal Exam Patient deferred: visual exam *Routine Exam Patient deferred: external exam *Routine Extremities Exam Extremities: Present edema (Trace in ankles); Absent cyanosis or clubbing *Routine Skin Exam Skin: Present warm; Absent rash *Routine Neurological Exam Neurological: Present alert, oriented X3 and moving all extremities; Absent altered mental status Results Data Completed and Pending Labs on day of discharge: Labs from last 24 hours 06/21/24 06/20/24 06/20/24 05:33 20:23 17:37 WBC 6.5 D RBC 3.73 L Hgb 10.9 L Hct 34.9 L MCV 93.6 MCH 29.3 MCHC 31.3 L RDW 16.1 Plt Count 379 MPV 7.6 Neut % (Auto) 54.5 Lymph % (Auto) 34.9 [place] % (Auto) 7.4 Eos % (Auto) 2.5 Baso % (Auto) 0.7 Neut # (Auto) 3.5 Lymph # (Auto) 2.3 [place] # (Auto) 0.5 Eos # (Auto) 0.2 Baso # (Auto) 0.1 PT INR Sodium 143 Potassium 3.4 L Chloride 111 H Carbon Dioxide 24 Anion Gap 11.4 BUN 16 D Creatinine 0.80 Estimated Creat Clear 118 Estimated GFR 76 Est GFR ( Amer) 92 Glucose 93 Calcium 9.4 Magnesium 2.2 Total Bilirubin 0.5 AST 23 ALT 16 Alkaline Phosphatase 123 Troponin I < 0.01 < 0.01 NT-Pro-B Natriuret Pep Total Protein 6.5 Albumin 3.8 Globulin 2.7 Albumin/Globulin Ratio 1.4 TSH Free T4 Index Thyroxine (T4) T3 Uptake Chlamy pneumoniae PCR Adenovirus (PCR) B. pertussis DNA (PCR) Coronavirus OC43 (PCR) Coronavirus HKU1 (PCR) Coronavirus 229E (PCR) SARS-CoV-2 (PCR) Coronavirus NL63 (PCR) Human Metapneumovir PCR Influenza A (H1) PCR Influ A (H1N1/09) PCR Influenza A (H3) PCR Influenza Type A (PCR) Influenza Type B (PCR) M. pneumoniae (PCR) Parainfluenza 1 (PCR) Parainfluenza 2 (PCR) Parainfluenza 3 (PCR) Parainfluenza 4 (PCR) RSV (PCR) Entero/Rhino (PCR) 06/20/24 06/20/24 14:36 14:15 WBC 9.0 RBC 3.71 L Hgb 11.7 L Hct 35.6 L MCV 95.9 MCH 31.5 H MCHC 32.8 RDW 16.3 Plt Count 376 MPV 8.0 Neut % (Auto) 65.2 Lymph % (Auto) 26.2 [place] % (Auto) 6.7 Eos % (Auto) 1.1 Baso % (Auto) 0.9 Neut # (Auto) 5.8 Lymph # (Auto) 2.4 [place] # (Auto) 0.6 Eos # (Auto) 0.1 Baso # (Auto) 0.1 PT 11.5 INR 1.03 Sodium 143 Potassium 3.3 L Chloride 110 H Carbon Dioxide 24 Anion Gap 12.3 BUN 12 Creatinine 0.80 Estimated Creat Clear 136 Estimated GFR 76 Est GFR ( Amer) 92 Glucose 107 H Calcium 9.7 Magnesium 2.1 Total Bilirubin 0.5 AST 22 ALT 20 Alkaline Phosphatase 112 Troponin I < 0.01 NT-Pro-B Natriuret Pep 1740 H Total Protein 6.9 Albumin 4.2 Globulin 2.7 Albumin/Globulin Ratio 1.6 TSH 1.66 Free T4 Index 2.9 L Thyroxine (T4) 9.5 T3 Uptake 30 Chlamy pneumoniae PCR Not detected Adenovirus (PCR) Not detected B. pertussis DNA (PCR) Not detected Coronavirus OC43 (PCR) Not detected Coronavirus HKU1 (PCR) Not detected Coronavirus 229E (PCR) Not detected SARS-CoV-2 (PCR) Not detected Coronavirus NL63 (PCR) Not detected Human Metapneumovir PCR Not detected Influenza A (H1) PCR Not detected Influ A (H1N1/09) PCR Not detected Influenza A (H3) PCR Not detected Influenza Type A (PCR) Not detected Influenza Type B (PCR) Not detected M. pneumoniae (PCR) Not detected Parainfluenza 1 (PCR) Not detected Parainfluenza 2 (PCR) Not detected Parainfluenza 3 (PCR) Not detected Parainfluenza 4 (PCR) Not detected RSV (PCR) Not detected Entero/Rhino (PCR) Not detected DS: Diagnosis Discharge Diagnosis (1) Atrial fibrillation with controlled ventricular rate: Status: Acute Code(s): I48.91 - Unspecified atrial fibrillation (2) History of left atrial appendage closure: Status: Acute Code(s): Z98.890 - Other specified postprocedural states (3) Pulmonary edema: Status: Acute Code(s): J81.1 - Chronic pulmonary edema (4) Status post patent foramen ovale closure: Status: Acute Code(s): Z87.74 - Personal history of (corrected) congenital malformations of heart and circulatory system (5) Mitral valve replaced: Status: Acute Code(s): Z95.2 - Presence of prosthetic heart valve (6) Acute on chronic heart failure with preserved ejection fraction (HFpEF): Status: Acute Code(s): I50.33 - Acute on chronic diastolic (congestive) heart failure (7) PTSD (post-traumatic stress disorder): Status: Acute Code(s): F43.10 - Post-traumatic stress disorder, unspecified (8) HTN (hypertension): Status: Acute Code(s): I10 - Essential (primary) hypertension Qualifiers: Hypertension type: primary hypertension Qualified Code(s): I10 - Essential (primary) hypertension Meds Home Medications and Allergies Home Medications ?Medication ?Instructions ?Recorded ?Confirmed ?Type propranolol 120 mg capsule,24 120 mg PO DAILY TREMORS 01/22/24 06/20/24 History hr,extended release ropinirole 1 mg tablet 1 mg PO HS RESTLESS LEGS 01/22/24 06/20/24 History topiramate 100 mg tablet 150 mg PO HS MIGRAINES, TREMOR 01/22/24 06/20/24 History aspirin 81 mg tablet,delayed 81 mg PO DAILY 30 days #30 tabs 01/25/24 06/20/24 Rx release levonorgestrel 21 mcg/24 hr (up to 1 device intrauterine DIRECTED 02/02/24 06/21/24 History 8 years) 52 mg intrauterine device (Mirena) escitalopram oxalate 20 mg tablet 20 mg PO DAILY Depression #90 tabs 03/15/24 06/20/24 Rx rosuvastatin 20 mg tablet 20 mg PO HS Cholesterol #90 tabs 03/15/24 06/20/24 Rx aripiprazole 5 mg tablet 5 mg PO HS MOOD #90 tabs 04/15/24 06/20/24 Rx clonidine HCl 0.1 mg tablet 0.1 mg PO BID Hypertension #60 tabs 05/23/24 06/20/24 Rx omeprazole 40 mg capsule,delayed 40 mg PO DAILY GERD #90 caps 05/23/24 06/20/24 Rx release amiodarone 200 mg tablet 200 mg PO DAILY 05/25/24 06/20/24 History hydralazine 25 mg tablet 25 mg PO TID 05/25/24 06/20/24 History methocarbamol 750 mg tablet 750 mg PO QID PRN Muscle Pain 05/25/24 06/20/24 History sennosides 8.6 mg capsule (senna) 8.6 mg PO BIDP PRN Constipation 05/25/24 06/21/24 History bumetanide 1 mg tablet 1 mg PO BID 30 days #60 tabs 06/21/24 Rx metoprolol tartrate 25 mg tablet 12.5 mg PO BID 06/21/24 06/21/24 History New Prescriptions to Start Prescriptions: bumetanide Eduardo Spicer Allergies Allergy/AdvReac Type Severity Reaction Status Date / Time No Known Allergies Allergy Verified 06/20/24 12:38 Discharge Plan Disposition Patient Disposition: Home, Self-Care Condition: Fair Follow up Plan Follow up with: Michelle Bhatia APRN [Nurse Practitioner] - 07/05/24 1:45 pm Иван Harris MD [Primary Care Provider] - 07/04/24 2:00 pm Prescriptions/Medication Reconciliation: New bumetanide 1 mg Tablet 1 mg PO BID 30 Days Qty: 60 0RF Continued Mirena 21 mcg/24 hours (8 yrs) 52 mg intrauterine device 1 device intrauterine DIRECTED hydralazine 25 mg tablet 25 mg PO TID methocarbamol 750 mg tablet 750 mg PO QID PRN (Reason: Muscle Pain) senna 8.6 mg capsule 8.6 mg PO BIDP PRN (Reason: Constipation) amiodarone 200 mg tablet 200 mg PO DAILY escitalopram oxalate 20 mg tablet 20 mg PO DAILY Qty: 90 0RF rosuvastatin 20 mg tablet 20 mg PO HS Qty: 90 0RF aripiprazole 5 mg tablet 5 mg PO HS Qty: 90 0RF clonidine HCl 0.1 mg tablet 0.1 mg PO BID Qty: 60 2RF omeprazole 40 mg capsule,delayed release(DR/EC) 40 mg PO DAILY Qty: 90 0RF ropinirole 1 mg tablet 1 mg PO HS Patient Comments: TAKE 1 TABLET BY MOUTH AT BEDTIME propranolol 120 mg capsule,extended release 24 hr 120 mg PO DAILY Patient Comments: TAKE 1 CAPSULE BY MOUTH ONCE DAILY FOR TREMORS topiramate 100 mg tablet 150 mg PO HS Patient Comments: TAKE 1 & 1/2 (ONE & ONE-HALF) TABLETS BY MOUTH AT BEDTIME NIGHTLY FOR MIGRAINE, TREMOR aspirin 81 mg Tablet,Delayed Release (Dr/Ec) 81 mg PO DAILY 30 Days Qty: 30 0RF metoprolol tartrate 25 mg tablet 12.5 mg PO BID Patient Comments: TAKE 1/2 (ONE-HALF) TABLET BY MOUTH TWICE DAILY Discontinued bumetanide 2 mg tablet 1 mg PO DAILY Patient Comments: TAKE 1/2 (ONE-HALF) TABLET BY MOUTH ONCE DAILY Problem Reconciliation Problems Reviewed?: Yes Patient Discharge Instructions ACTIVITY: Continue current activity DIET: continue same diet Patient Instructions: DI for Heart Failure, DI for Atrial Fibrillation Print Language: [place] Providers Primary Care Provider: Иван Harris Admit Provider: Eduardo Spicer Attending Provider: Eduardo Spicer
--- NOTE | 2024-06-21 08:49 | HMH.PHAINT1 ---
Pharmacy Intervention Comments: home medication list verified using list from outpatient pharmacy and pt interview
[2024-06-21] MEDS: CITALOPRAM 40MG TABLET 40 MG PO (09:10)
[2024-06-21] MEDS: BUMETANIDE 1 MG TABLET 2 MG PO (09:10)
[2024-06-21] MEDS: METOPROLOL TARTRATE 25MG TABLET 12.5 MG PO (09:11)
[2024-06-21] MEDS: ASPIRIN EC 81MG TABLET 81 MG PO (09:11)
[2024-06-21] MEDS: AMIODARONE 200MG TABLET 200 MG PO (09:11)
[2024-06-21] MEDS: POTASSIUM CHLORIDE 20MEQ TAB 40 MEQ PO (09:12)
[2024-06-21] MEDS: PROPRANOLOL HCL 120 MG PO (09:14)
[2024-06-21] MEDS: ENOXAPARIN 100MG/ML SYRINGE 90 MG SQ (09:15)
--- NOTE | 2024-06-21 09:58 | EXP.CARD.PN ---
Subjective Subjective Date: 06/21/24 Time: 08:30 Principal diagnosis: HFpEF, afib Interval history: Doing well this morning. Converted to NSR. Labs reviewed and stable. Vitals stable. Exam Data for Last 24 hours Vital signs and Labs for Last 24 Hours: Temp Pulse Resp BP Pulse Ox O2 Del Method 98.9 F 65 18 114/64 97 Room Air 06/21/24 07:26 06/21/24 08:00 06/21/24 07:26 06/21/24 07:26 06/21/24 07:06/21/24 08:58 Laboratory Results - last 24 hr 06/20/24 14:15: WBC 9.0, RBC 3.71 L, Hgb 11.7 L, Hct 35.6 L, MCV 95.9, MCH 31.5 H, MCHC 32.8, RDW 16.3, Plt Count 376, MPV 8.0, Neut % (Auto) 65.2, Lymph % (Auto) 26.2, [place] % (Auto) 6.7, Eos % (Auto) 1.1, Baso % (Auto) 0.9, Neut # (Auto) 5.8, Lymph # (Auto) 2.4, [place] # (Auto) 0.6, Eos # (Auto) 0.1, Baso # (Auto) 0.1, PT 11.5, INR 1.03, Sodium 143, Potassium 3.3 L, Chloride 110 H, Carbon Dioxide 24, Anion Gap 12.3, BUN 12, Creatinine 0.80, Estimated Creat Clear 136, Estimated GFR 76, Est GFR ( Amer) 92, Glucose 107 H, Calcium 9.7, Magnesium 2.1, Total Bilirubin 0.5, AST 22, ALT 20, Alkaline Phosphatase 112, Troponin I < 0.01, NT-Pro-B Natriuret Pep 1740 H, Total Protein 6.9, Albumin 4.2, Globulin 2.7, Albumin/Globulin Ratio 1.6, TSH 1.66, Free T4 Index 2.9 L, Thyroxine (T4) 9.5, T3 Uptake 30 06/20/24 14:36: Chlamy pneumoniae PCR Not detected, Adenovirus (PCR) Not detected, B. pertussis DNA (PCR) Not detected, Coronavirus OC43 (PCR) Not detected, Coronavirus HKU1 (PCR) Not detected, Coronavirus 229E (PCR) Not detected, SARS-CoV-2 (PCR) Not detected, Coronavirus NL63 (PCR) Not detected, Human Metapneumovir PCR Not detected, Influenza A (H1) PCR Not detected, Influ A (H1N1/09) PCR Not detected, Influenza A (H3) PCR Not detected, Influenza Type A (PCR) Not detected, Influenza Type B (PCR) Not detected, M. pneumoniae (PCR) Not detected, Parainfluenza 1 (PCR) Not detected, Parainfluenza 2 (PCR) Not detected, Parainfluenza 3 (PCR) Not detected, Parainfluenza 4 (PCR) Not detected, RSV (PCR) Not detected, Entero/Rhino (PCR) Not detected 06/20/24 17:37: Troponin I < 0.01 06/20/24 20:23: Troponin I < 0.01 06/21/24 05:33: WBC 6.5 D, RBC 3.73 L, Hgb 10.9 L, Hct 34.9 L, MCV 93.6, MCH 29.3, MCHC 31.3 L, RDW 16.1, Plt Count 379, MPV 7.6, Neut % (Auto) 54.5, Lymph % (Auto) 34.9, [place] % (Auto) 7.4, Eos % (Auto) 2.5, Baso % (Auto) 0.7, Neut # (Auto) 3.5, Lymph # (Auto) 2.3, [place] # (Auto) 0.5, Eos # (Auto) 0.2, Baso # (Auto) 0.1, Sodium 143, Potassium 3.4 L, Chloride 111 H, Carbon Dioxide 24, Anion Gap 11.4, BUN 16 D, Creatinine 0.80, Estimated Creat Clear 118, Estimated GFR 76, Est GFR ( Amer) 92, Glucose 93, Calcium 9.4, Magnesium 2.2, Total Bilirubin 0.5, AST 23, ALT 16, Alkaline Phosphatase 123, Total Protein 6.5, Albumin 3.8, Globulin 2.7, Albumin/Globulin Ratio 1.4 I & O for Last 24 hours: Intake & Output 06/18/24 06/19/24 06/20/24 06/21/24 23:59 23:59 23:59 23:59 Intake Total 360 / 360 540 / 540 Output Total 100 / 100 0 / 0 Balance 260 / 260 540 / 540 Weight 196 lb 9 oz 196 lb 8.991 oz Constitutional Constitutional: no acute distress *Routine Respiratory Exam Respiratory: Present CTA bilaterally and symmetric chest movement *Routine Cardiovascular Exam Cardiovascular: Present RRR, Normal S1 and Normal S2 *Routine Abdominal Exam Abdominal: Present soft and normoactive bowel sounds; Absent tenderness *Routine Extremities Exam Extremities: Present full ROM and normal capillary refill; Absent edema *Routine Skin Exam Skin: Present intact, dry and warm Detailed Neck Exam: Thyroids Thyroid: Absent bruit Progress Note: A&P Assessment and plan (1) Atrial fibrillation with controlled ventricular rate: Status: Acute (2) History of left atrial appendage closure: Status: Acute (3) Pulmonary edema: Status: Acute (4) Status post patent foramen ovale closure: Status: Acute (5) Mitral valve replaced: Status: Acute (6) Acute on chronic heart failure with preserved ejection fraction (HFpEF): Status: Acute (7) PTSD (post-traumatic stress disorder): Status: Acute (8) HTN (hypertension): Status: Acute Assessment and Plan Assessment and Plan for All Diagnoses:: Worsening shortness of breath- Resolved S/p Mitral valve replacement for severe MR S/p PFO closure History of HFpEF CTA chest negative for PE and lungs clear ProBNP 1740 Serial trops negative Repeat echo EF 50, borderline global hypokinesis present, mild rv dilation and normal RV systolic function, mild TR, s/p bioprosthetic MVR with trace MR s/p ASD closure, no evidence of residual interatrial shunt Increase Bumux to 2mg po daily. no jardiance due to recent urethral sling Needs outpatient sleep study New onset A-fib Recent ELVA exclusion Converted to NSR Continue amiodarone 200mg po daily and metoprolol 12.5mg po BID DC home in 2 week event monitor CV summary 06/21/2024: CV stable for dc home. Please send patient home in 2 week event monitor and continue below listed medications. Please have patient follow up in cardiology clinic next week for eval. Cardiac Meds: Amiodarone 200 mg p.o. daily Aspirin 81 mg p.o. daily Atorvastatin 40 mg p.o. daily Bumex 2 mg p.o. daily Metoprolol 12.5 mg p.o. twice daily
--- NOTE | 2024-06-21 11:23 | SW/DCPLANNER ---
Patient is currently established w/ [facility]. The plan for this patient is to return home today and resume services. Updated patient information and order to resume services will be faxed to [facility].
--- NOTE | 2024-06-21 12:21 | PC.NURSE ---
RESP CARE NOTE: 2 week event monitor placed on patient at this time.
--- NOTE | 2024-06-22 13:11 | CARE MANAGER ---
Contacted patient related to hospital discharge. She is aware of medication change and has started taking it as directed. She is aware of follow up appointments and denies questions or concerns. YARON Gilbert
== END 2024-06-21 13:52 | disposition home health service (06) ==
LOC: ER 16:26 → 2ND 16:33
PROVIDERS: Physician Assistant; Admitting Provider Internal Medicine Adolescent Medicine; Emergency Provider Emergency Medicine; PCP Family Medicine; Visit Provider Internal Medicine Adolescent Medicine
DX: R07.9 Chest pain, unspecified (principal); R06.00 Dyspnea, unspecified; I48.91 Unspecified atrial fibrillation; I34.0 Nonrheumatic mitral (valve) insufficiency; Z98.890 Other specified postprocedural states; Z95.2 Presence of prosthetic heart valve; Z09 Encounter for follow-up examination after completed treatment for conditions other than malignant neoplasm; Z87.74 Personal history of (corrected) congenital malformations of heart and circulatory system; J81.1 Chronic pulmonary edema; F43.10 Post-traumatic stress disorder, unspecified; I11.0 Hypertensive heart disease with heart failure; I50.33 Acute on chronic diastolic (congestive) heart failure; G43.909 Migraine, unspecified, not intractable, without status migrainosus; R25.1 Tremor, unspecified; F41.9 Anxiety disorder, unspecified; Z79.899 Other long term (current) drug therapy; Z79.82 Long term (current) use of aspirin
CPT/HCPCS: 36415; 71275; 80050; 80053; 83735; 83880; 84436; 84443; 84479; 84484; 85025; 85610; 87581; 87632; 87635; 87798; 93005; 93270; 93306; 99285; G0378; J0131; J1650; J1885; J1940; Q9967

== ENCOUNTER 2024-07-27 15:30 | Outpatient (CLI) | payer BC, SELFPAY ==
[2024-07-27 15:48] LABS: Basophils # 0.2 K/mm3 (0-0.2); Basophils % 1.1 % (0.1-2.0); Eosinophils # 0.1 K/mm3 (0.0-0.4); Eosinophils % 0.7 % (0.1-12.0); Hemoglobin 14.5 g/dL (12.2-16.2); Lymphocytes # 4.8 K/mm3 (0.7-4.5); Lymphocytes % 30.7 % (10-50); Mean Corpuscular HGB Conc 31.5 g/dL (31.8-35.4); Mean Corpuscular Hemoglobin 28.4 pg (27.0-31.2); Mean Corpuscular Volume 90.1 fl (81-99); Mean Platelet Volume 7.6 fl (7.4-10.4); Monocytes # 0.9 K/mm3 (0.1-1.0); Monocytes % 5.9 % (1.7-9.3); Neutrophils # 9.6 K/mm3 (1.8-7.8); Neutrophils % 61.5 % (37.0-80.0); Platelet Count 460 K/mm3 (142-424); Red Cell Distribution Width 16.5 % (11.5-17.5); White Blood Count 15.6 K/mm3 (4.8-10.8)
[2024-07-27 15:50] LABS: MANUAL DIFFERENTIAL MANUAL DIFFERENTIAL (MANUAL DIFF)
[2024-07-27 17:11] LABS: Eosinophils % 2 % (0-3); Lymphocytes % 35 % (10-50); Monocytes % 4 % (2-9); Neutrophils % 59 % (42-76); Platelet Estimate Slight Increase; RBC Morphology Normal; Total Cells Counted 100
[2024-07-27 17:31] LABS: Alanine Aminotransferase 32 U/L (12-78); Albumin Level 4.4 g/dl (3.5-5.0); Alkaline Phosphatase 82 U/L (38-126); Anion Gap 13.9 mEq/L (5-15); Aspartate Amino Transferase 37 U/L (14-36); Bilirubin,Direct 0.3 mg/dl (0.0-0.4); Bilirubin,Indirect 0.1 mg/dL (0.0-0.9); Bilirubin,Total 0.4 mg/dl (0.2-1.3); Bilirubin,Unconjugated 0.2 mg/dL (0.0-1.1); Blood Urea Nitrogen 20 mg/dl (7-17); Calcium 9.9 mg/dl (8.4-10.2); Carbon Dioxide 26 mmol/L (22.0-30.0); Chloride 104 mmol/L (98-107); Chol/HDL Ratio 2.8 (1-3.5); Cholesterol 148 mg/dl (140-200); Estimated Glomerular Filt Rate 89 ml/min (>60); GFR (African American) 107 ML/MIN (>60); Glucose 82 mg/dl (74-100); HDL Cholesterol 52 mg/dl (40-60); Potassium 3.9 mmoL/L (3.5-5.1); Sodium 140 mmol/L (136-145); Total Protein,Serum 7.1 g/dl (6.3-8.2); Triglycerides 207 mg/dl (30-150); VLDL Cholesterol 41 mg/dL (0-40)
[2024-07-27 17:42] LABS: Direct LDL Cholesterol 68.01 mg/dL (100-129)
== END 2024-07-27 23:59 | disposition home or self-care (01) ==
LOC: LAB 15:31
PROVIDERS: PCP Family Medicine; Visit Provider Nurse Practitioner
DX: I48.0 Paroxysmal atrial fibrillation (principal); I50.33 Acute on chronic diastolic (congestive) heart failure; E78.5 Hyperlipidemia, unspecified; E87.6 Hypokalemia
CPT/HCPCS: 36415; 80048; 80061; 80076; 85007; 85025; 85027

== ENCOUNTER 2025-02-20 14:10 | Outpatient (CLI) | payer OTHER, SELFPAY ==
[2025-02-20 14:41] LABS: Alanine Aminotransferase 38 U/L (12-78); Albumin Level 4.4 g/dl (3.5-5.0); Alkaline Phosphatase 74 U/L (38-126); Anion Gap 13.7 mEq/L (5-15); Aspartate Amino Transferase 44 U/L (14-36); Bilirubin,Direct 0.2 mg/dl (0.0-0.4); Bilirubin,Indirect 0.3 mg/dL (0.0-0.9); Bilirubin,Total 0.5 mg/dl (0.2-1.3); Bilirubin,Unconjugated 0.4 mg/dL (0.0-1.1); Blood Urea Nitrogen 9 mg/dl (7-17); Calcium 9.9 mg/dl (8.4-10.2); Carbon Dioxide 29 mmol/L (22.0-30.0); Chloride 102 mmol/L (98-107); Chol/HDL Ratio 3.2 (1-3.5); Cholesterol 113 mg/dl (140-200); Estimated Glomerular Filt Rate 66 ml/min (>60); GFR (African American) 80 ML/MIN (>60); Glucose 92 mg/dl (74-100); HDL Cholesterol 35 mg/dl (40-60); Magnesium 2.4 mg/dl (1.6-2.3); Potassium 3.7 mmoL/L (3.5-5.1); Sodium 141 mmol/L (136-145); Total Protein,Serum 6.9 g/dl (6.3-8.2); Triglycerides 154 mg/dl (30-150); VLDL Cholesterol 31 mg/dL (0-40)
[2025-02-20 14:43] LABS: Eosinophils # 0.2 K/mm3 (0.0-0.4); Monocytes # 0.8 K/mm3 (0.1-1.0)
[2025-02-20 14:47] LABS: D-Dimer 0.36 ug/mL (0.0-0.5)
[2025-02-20 14:52] LABS: Direct LDL Cholesterol 45.36 mg/dL (100-129)
[2025-02-20 15:03] LABS: Eosinophils % 1.9 % (0.1-12.0)
[2025-02-20 15:08] LABS: NT Pro Brain Natriuretic Pep. 235 pg/mL (0-125)
[2025-02-20 15:14] LABS: Basophils # 0.1 K/mm3 (0-0.2); Basophils % 0.6 % (0.1-2.0); Hematocrit 42.4 % (37.0-47.0); Lymphocytes # 2.8 K/mm3 (0.7-4.5); Lymphocytes % 28.9 % (10-50); Mean Corpuscular Hemoglobin 29.3 pg (27.0-31.2); Mean Corpuscular Volume 88.7 fl (81-99); Mean Platelet Volume 9.8 fl (7.4-10.4); Monocytes % 8.1 % (1.7-9.3); Neutrophils # 5.9 K/mm3 (1.8-7.8); Neutrophils % 60.5 % (37.0-80.0); Platelet Count 320 K/mm3 (142-424); Red Blood Count 4.78 M/mm3 (4.20-5.40); Red Cell Distribution Width 14.7 % (11.5-17.5); White Blood Count 9.8 K/mm3 (4.8-10.8)
[2025-02-20 15:15] LABS: Troponin I 0.01 ng/ml (0.00-0.034)
[2025-02-20 15:26] LABS: Thyroid Stimulating Hormone 0.98 uIU/mL (0.465-4.68)
[2025-02-20 16:05] LABS: Free T4 (Free Thyroxine) 1.31 ng/dl (0.78-2.19)
== END 2025-02-20 23:59 | disposition home or self-care (01) ==
LOC: LAB 14:10
PROVIDERS: PCP Family Medicine; Visit Provider Nurse Practitioner
DX: I50.33 Acute on chronic diastolic (congestive) heart failure (principal); I48.0 Paroxysmal atrial fibrillation; E87.6 Hypokalemia; I10 Essential (primary) hypertension; E78.5 Hyperlipidemia, unspecified
CPT/HCPCS: 36415; 80048; 80061; 80076; 83735; 83880; 84439; 84443; 84484; 85025; 85378

== ENCOUNTER 2025-03-09 10:03 | Outpatient (CLI) | payer OTHER, SELFPAY ==
--- NOTE | 2025-03-09 | CA_ITS ---
APPROVED REPORT Exam: Pharmacologic Technologist: Michelle Hess Ht: 5 ft 1 in Wt: 200 lbs BSA: 1.89 m2 Medical History Medications: aripiprazole, aspirin, bumetanide, cyclobenzaprine, escitalopram, mirena, topiramate, vyvanse, methocarbamol, omeprazole, zofran, potassium, propranolol ER, ropinirole, rosuvastatin, senna Stress Test Details Test: Lexiscan Reason for pharmacologic stress test: physical limitation. HR Resting HR: 77 bpm Max Heart Rate (APMHR): 169 bpm Max HR Achieved: 92 bpm Target HR (85% APMHR): 144 bpm % of APMHR: 54 Recovery HR: 89 bpm BP Resting BP: 124.0/78.0 mmHg Max BP: 140.0/76.0 mmHg Recovery BP: 120.0/72.0 mmHg ECG Stress ECG Conclusion Symptoms: Mild SOA, facial flushing. Arrhythmias/Ectopy: None. ST-T Changes: Lexiscan. Electronically signed by : Caitie Henriquez MD 03/12/2025 21:56:48
--- NOTE | 2025-03-09 | CA_ITS ---
APPROVED REPORT EXAM: Comprehensive 2D, Doppler, and color-flow Echocardiogram Outside Salesman: Jyothi Sen, RT(R) Ht: 5 ft 1 in Wt: 200lbs BSA: 1.89 BP: 117/75 mmHg Indications: CP, SOB, abn EKG, smoker, HTN, hyperlipidemia, MVR 2023, AFIB 2D Dimensions Left Atrium 3.67 cm F: 2.7 - 3.8 LVEF (Forbes's) 51.60 % F: 54 - 74 LVOT 1.75 cm (M/F) 1.5-2.5 LV Volume 43.20 mL F: 46 - 106 LV Volume Index 22.9 mL/m2 F: 29 - 61 EF AP4 56.40 % EF AP2 43.0 % EF BP 51.6 % GL Strain -14.5 % M-Mode Dimensions RVDd 2.11 cm (0.9-2.6) LVDd 4.79 cm (3.5-5.7) Ao Diam 2.25 cm (2.0-3.7) LVDs 3.58 cm (3.5-5.7) IVSd 0.74 cm (0.6-1.1) PWd 0.54 cm (0.6-1.1) EF (Teich) 49.80% FS 25.30% EDV (Teich) 107.00 mL ESV (Teich) 53.70 mL LV Diastology E Decel Time 165 (160-240 msec) E/A Ratio 2.1 MED E' 6.3 (>= 7 cm/sec) E'/MED E' Ratio 23.60 (<= 14) LAT E' 7.0 (>= 10 cm/sec) E/LAT E' Ratio 21.24 (<= 14) Mitral Valve MV E Max Trent. 149.0 (40-130 cm/s) MV A Velocity 71.0 (40-130 cm/s) E/A Ratio 2.11 MV Decel. Time 165 (160-240 ms) MV PHT 69.0 ms Tricuspid Valve TR P. Velocity 227.00 cm/s RAP Estimate 10.00 mmHg RVSP 30.70 mmHg Left Ventricle The left ventricle is normal size. The left ventricular systolic function is normal. The left ventricular ejection fraction is within the normal range. There is increased LV wall thickness. There is normal LV segmental wall motion. Diastolic function is indeterminate. LVEF is 55%. Right Ventricle The right ventricle is normal size. The right ventricular systolic function is normal. Atria The left atrium is mildly dilated. The right atrium size is normal. There is no Doppler evidence of interatrial shunt. Aortic Valve The aortic valve is mildly thickened. There is no aortic valvular stenosis. No aortic regurgitation is present. Mitral Valve s/p bioprosthetic MVR (2023). The prosthesis is well-seated. Mean MV gradient 4 mmHg (HR 72 bpm). Trace central mitral regurgitation. No evidence of paravalvular mitral regurgitation. Tricuspid Valve Tricuspid valve is grossly normal in structure and function. Trace tricuspid regurgitation. There is insufficient TR jet to estimate RVSP. Pulmonic Valve The pulmonary valve is normal in structure. Trace pulmonic regurgitation. Great Vessels The aortic root is normal in size. IVC is normal in size and collapses >50% with inspiration. Pericardium There is no pericardial effusion. Other Information Study Quality: Fair Conclusion Normal biventricular systolic function. Mild LA dilation. s/p bioprosthetic MVR (2023). No evidence of significant MR. Acceptable MV gradient 4 mmHg (HR 72.bpm). Electronically signed by : Caitie Henriquez MD 03/12/2025 21:24:39
--- NOTE | 2025-03-09 11:30 | NM_ITS ---
APPROVED REPORT Exam: Nuclear Stress Test Indication: chest pain..soa..fatigue Patient Location: Outpatient Stress Tech: Michelle Vo AL Tech:FROY Buckley RT(R)(N) Ht: 5 ft 1 in Wt: 194 lbs Bra Size: c HR: 77 bpm BP: 124/78 mmHg BSA: 1.86 m2 TID: 1.15 BMI: 36.6 History: chest pain..soa..fatigue Procedure: Patient received 0.4 mg of intravenous Lexiscan, resting heart rate 77 bpm, resting blood pressure 124/78 mmHg, with Lexiscan maximum heart rate achieved was 88 bpm which is 85 % of the maximum predicted heart rate and blood pressure was 120/72 mmHg. With Lexiscan, patient denied any complaint of chest pain. The patient was not able to lay on her abdomen due to recent heart valve replacement. Cardiac Stress and Resting SPECT Images: Cardiac Stress and Resting SPECT images were obtained using technetium 99m Myoview 32.9 mCi stress and 10.41 mCi at rest. Images demonstrate significant soft tissue overlap with the cardiac borders. This may affect the diagnostic interpretation of the study findings. Breast attenuation is present. No definite evidence of fixed or reversible perfusion defects. Gated imaging demonstrates normal global and regional LV systolic function. LVEF is calculated at 58%. Conclusion: Breast attenuation is present. No definite evidence of fixed or reversible perfusion defects. Gated imaging demonstrates normal global and regional LV systolic function. LVEF is calculated at 58%. Electronically signed by : Caitie Henriquez MD 03/12/2025 21:50:12
[2025-03-09] MEDS: ISOTOPE MYOVIEW (PER STUDY) 1 DOSE IV (13:32)
[2025-03-09] MEDS: REGADENOSON 0.4MG/5ML SYRINGE 0.4 MG IV (13:32)
[2025-03-09] MEDS: SODIUM CHLORIDE 0.9% 10ML SYR (RAD ONLY) 10 ML IV ×2 (13:32)
== END 2025-03-09 23:59 | disposition home or self-care (01) ==
LOC: RT 10:03
PROVIDERS: PCP Family Medicine; Visit Provider Nurse Practitioner
DX: I51.7 Cardiomegaly (principal); Z95.2 Presence of prosthetic heart valve; I48.0 Paroxysmal atrial fibrillation; I50.33 Acute on chronic diastolic (congestive) heart failure; R93.1 Abnormal findings on diagnostic imaging of heart and coronary circulation; R06.00 Dyspnea, unspecified
CPT/HCPCS: 78452; 93017; 93018; 93306; A9502; J2785

== ENCOUNTER → 2025-05-29 07:18 | Outpatient (CLI) | payer OTHER, SELFPAY ==
--- OUTSIDE RECORDS SUMMARY | 2025-05-29 07:20 | XMS_ITS | Encounter Summary ---
Author Organization [employer] ([place], [place], [place], [place]) Address [address] [place] [address] Care Team Providers Care Cutter Operator Tile Name Role Phone Unavailable Primary Care Provider Unavailabl e Encounter Details Date Type Department Care Team (Late st Contact Info) Description 10/04/2021 Transcribed Document [facility] Family Medicine [address] [place] [address] ProviderLea MD [address] [place] [address] Social History Tobacco Use Types Packs/Day Years Used Date Smoking Tobacco: Never Assessed Comments Unknown Sex and Gender Information Value Date Recorded Sex Assigned at Female 05/20/2022 8:58 PM CDT Legal Sex Female 8:58 PM CDT Gender Identity Female 05/20/2022 8:58 PM CDT Sexual Orientation Not on file documented as of this encounter Miscellaneous Notes * Cerner Conversion Note - Historical ProviderMD - 10/04/2021 5:00 PM 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
--- OUTSIDE RECORDS SUMMARY | 2025-05-29 07:20 | XMS_ITS | Encounter Summary ---
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 Details Entered On: 10/05/2021 4:06 EST Performed On: 10/05/2021 2:00 EST by Adriana Hunt RN Order Details Transport Mode Order Detail : Wheelchair Isolation Precautions Order Detail : Standard Precautions Order Detail : 0 IV Order Detail : 1 Oxygen Order Detail : 0 Nurse Collect Order Detail : 0 Lift/Transfer : Independent Central Line Order Detail : No Room Service : Appropriate Arterial Line : No Patient Needs Meds Crushed/Liquid : No Adriana Hunt RN - 10/05/2021 4:05 EST Electronically signed by [facility] Conversion Stone Rougher Cerner at 03/09/2023 7:14 PM CDT documented in this encounter Plan of Treatment Not on file documented as of this encounter Visit Diagnoses Not on filedocumented in this encounter
--- OUTSIDE RECORDS SUMMARY | 2025-05-29 07:20 | XMS_ITS | Clinical Summary ---
Author Organization [employer] ([place], [place], [place], [place]) Address [address] [place] [address] Care Team Providers Care Manager Technical Name Role Phone Unavailable Primary Care Provider Unavailabl e Social History Tobacco Use Types Packs/Day Years Used Date Smoking Tobacco: Never Assessed Comments Unknown Sex and Gender Information Value Date Recorded Sex Assigned at Female 05/20/2022 8:58 PM CDT Legal Sex Female 8:58 PM CDT Gender Identity Female 05/20/2022 8:58 PM CDT Sexual Orientation Not on file Plan of Treatment Not on file
--- OUTSIDE RECORDS SUMMARY | 2025-05-29 07:20 | XMS_ITS | Encounter Summary ---
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 Admission History, Adult Entered On: 10/04/2021 11:59 EST Performed On: 10/04/2021 11:50 EST by Ashwini Shaw RN-PATIENT CARE BEDSIDE NON-EXEMPT Advance Directive Patient has Advance Directive *Q : No, patient refuses Advance Directive information Ashwini Shaw RN-PATIENT CARE BEDSIDE NON-EXEMPT - 10/04/2021 11:50 EST Anesthesia/Transfusion History Family History of Anesthesia Reaction : No prior transfusion(s) Transfusion History : Prior anesthesia without reaction Family History of Anesthesia Reaction : None Ashwini Shaw RN-PATIENT CARE BEDSIDE NON-EXEMPT - 10/04/2021 11:50 EST Functional Assessment Living Situation : Home Patient Lives With : Spouse Persons Assisting Patient at Home : Spouse Mobility Assistance Prior to Admission : Independent Current Home Treatments : None Ashwini Shaw RN-PATIENT CARE BEDSIDE NON-EXEMPT - 10/04/2021 11:50 EST General Info Arrived From : Home Mode of Arrival on Unit : Ambulatory Legal Guardian : Unaccompanied Want Family/Rep/Phys Notified of Admit : No Emergency Contact #1 : Alejandro Chua Emergency Contact #1 Emergency Contact #1 Relationship : Emergency Contact #2 : n Emergency Contact #2 Phone Number : n Emergency Contact #2 Relationship : n Primary Language : Persian Communication Barrier : None Teaching Fellow Needed : No Ashwini Shaw RN-PATIENT CARE BEDSIDE NON-EXEMPT - 10/04/2021 11:50 EST Fall Risk Scales ABCs Fall Injury Risk Identification : None Injury Moderate to High Risk Interventions : Video observation in place WELSH Hx Falls Immediate/Within 3 Months : No Welsh Secondary Diagnosis : No WELSH Use of Ambulatory Aid : None WELSH IV Therapy or IV Access : Yes Welsh Gait/Transferring : Normal, bedrest, immobile Welsh Mental Status : Oriented to own ability Welsh Fall Risk Score : 20 WELSH Fall Scale Risk Level : 0-24 Low Risk [place] Fall Interventions : Adequate lighting, Assistive devices within reach, Bed in low position, Call device within reach, Hourly comfort/safety rounds, Non-slip footwear, Personal items within reach, Reinforced to call for assistance before getting out of bed, Room free of clutter/spills, Upper side-rails up, Wheels locked, Wires/Cords secured Barriers to Learning : None evident Learning Style Preferences Patient : Verbal explanation Fall Risk Scale Calc Temp : 0 Ashwini Shaw RN-PATIENT CARE BEDSIDE NON-EXEMPT - 10/04/2021 11:50 EST Health Histories Smoking Status : 10 or more cigarettes (1/2 pack or more)/day in last 30 days Smokeless Tobacco Status : Never Desires Tobacco Cessation Medication : Yes Ashwini Shwa RN-PATIENT CARE BEDSIDE NON-EXEMPT - 10/04/2021 11:50 EST Social History (As Of: 10/04/2021 12:00:00 EST) Alcohol: Alcohol Use History No. Use in Last 12 Months: No. (Last Updated: 10/04/2021 11:53:36 EST by Ashwini Shaw RN-PATIENT CARE BEDSIDE NON-EXEMPT) Substance Abuse: Drug Use Hx: No. Use in Last 12 Months: No. (Last Updated: 10/04/2021 11:53:45 EST by Ashwini Shaw RN-PATIENT CARE BEDSIDE NON-EXEMPT) Height and Weight, Clinical Dosing Height Source : Measured Height Entry Format : [place] Height, Feet : 5 ft(Converted to: 152 cm, 60 Inch) Height, Inches : 1 Inch(Converted to: 0 ft 1 Inch, 2.54 cm) Clinical Height : 154.94 cm Weight Source : Bed scale Weight Entry Format : [place] Clinical Dosing Weight : 86.82 kg Weight, Pounds : 191 lb Body Surface Area (BSA) : 1.85 m2 Body Mass Index : 36.2 kg/m2 (HI) [place] Body Weight : 47 kg Ashwini Shaw RN-PATIENT CARE [facility] NON-EXEMPT - 10/04/2021 11:50 EST Infectious Disease History Does patient have symptoms of COVID-19? : No Has the Patient Been Tested for COVID-19 in the last 14 days? : No, Patient stated Does the Patient state known exposure to a COVID-19 positive case in the last 14 days? : No Patient Vaccinated for COVID-19 : Fully vaccinated Ashwini Shaw RN-PATIENT CARE [facility] NON-EXEMPT - 10/04/2021 11:50 EST Infectious Disease Risk Screening Grid Cough < 2 wks of unknown origin : NO Cough > 2 weeks : NO Blood in Sputum : NO Fever or self-reported Fever : NO Rash of unknown origin : NO Headache : NO Stiff neck : NO Night Sweats : NO Unexplained Weight Loss : NO Diarrhea (3 episode per day) : NO Ashwini Shaw RN-PATIENT CARE [facility] NON-EXEMPT - 10/04/2021 11:50 EST Physical contact outside [place] in the last 30 days : No Hospitalized in Foreign Country : No Infectious Disease History : Chicken pox/Shingles INF Disease TB Screening Calc : 0 INF Disease Recent Travel Calc : 0 Ashwini Shaw RN-PATIENT CARE [facility] NON-EXEMPT - 10/04/2021 11:50 EST Influenza Vaccine Asmt, Adult Previous Vaccines from Immunization Schedule : No qualifying data available. Influenza Immunization, Current Season : Yes Ashwini Shaw RN-PATIENT CARE [facility] NON-EXEMPT - 10/04/2021 11:50 EST Pneumococcal Vaccine Previous Vaccines from Immunization Schedule : No qualifying data available. Pneumonia Immunization Received : No Pneumococcal Risk Assessment < Age 65 : None Ashwini Shaw RN-PATIENT CARE [facility] NON-EXEMPT - 10/04/2021 11:50 EST Order Details Isolation Precautions Order Detail : Standard Precautions IV Order Detail : 1 Lift/Transfer : Independent Room Service : Appropriate Patient Needs Meds Crushed/Liquid : No Ashwini Shaw RN-PATIENT CARE [facility] NON-EXEMPT - 10/04/2021 11:50 EST Nutrition History Eating Poorly Due to Decreased Appetite : No Unplanned Weight Loss in Past 3-6 Months : No Malnutrition Screening Tool Total(mal) : 0 Malnutrition Screening Tool Risk Level : Patient not at risk Ashwini Shaw RN-PATIENT CARE [facility] NON-EXEMPT - 10/04/2021 11:50 EST [place] Suicide Severity Rating Scale (C-SSRS) CSSRS Past Month Wish to be : No CSSRS Past Month Suicidal Thoughts : No CSSRS Lifetime Suicide Behavior : No Suicide Severity Rating Score : 0 Suicide Severity Rating : No Additional Care Required at this time Ashwini Shaw RN-PATIENT CARE [facility] NON-EXEMPT - 10/04/2021 11:50 EST Psychosocial History Currently in Unsafe Situation : No Ashwini Shaw RN-PATIENT CARE [facility] NON-EXEMPT - 10/04/2021 11:50 EST Sleep Apnea Risk Assmt Hx of Obstructive Sleep Apnea Diagnosis : No Snore Loudly : No Tired, Fatigued, or Sleepy During Day : No Observed Stopping Breathing During Sleep : No Have/Are Being Treated for Hypertension : No BMI Greater Than 35 kg/m2 : No Age over 50 Years Old : No Neck Circumference Greater Than 40 cm : No Gender Male : No STOP-BANG Sleep Apnea Risk Level Score : 0 Ashwini Shaw RN-PATIENT CARE [facility] NON-EXEMPT - 10/04/2021 11:50 EST Valuables and Belongings Valuables and Belongings : Clothing, Jewelry, Personal devices, Personal items, Medications Clothing : Common streetwear Clothing Disposition : Bedside Personal Device Disposition : With patient Jewelry : Earrings, Ring, Ring-plain band Jewelry Disposition : With patient Personal Devices : Glasses Personal Items : [place], Cell phone, Credit cards, Electronic device(s), Wallet Personal Items Disposition : Bedside, With patient Medication Disposition : Bedside, With patient Medication Brought With Patient : Yes Ashwini Shaw RN-PATIENT CARE BEDSIDE NON-EXEMPT - 10/04/2021 11:50 EST Electronically signed by [facility] Conversion Color Laboratory Technician Cerner at 03/09/2023 7:31 PM CDT documented in this encounter Plan of Treatment Not on file documented as of this encounter Visit Diagnoses Not on filedocumented in this encounter
--- OUTSIDE RECORDS SUMMARY | 2025-05-29 07:20 | XMS_ITS | Encounter Summary ---
Author Organization [employer] ([place], [place], [place], [place]) Address [address] [place] [address] Care Team Providers Care Merchandise Supervisor Name Role Phone Unavailable Primary Care Provider Unavailabl e Encounter Details Date Type Department Care Team (Late st Contact Info) Description 10/06/2021 Transcribed Document [facility] Family Medicine [facility] [place] [address] ProviderLea MD [facility] [place] [address] Social History Tobacco Use Types Packs/Day Years Used Date Smoking Tobacco: Never Assessed Comments Unknown Sex and Gender Information Value Date Recorded Sex Assigned at Female 05/20/2022 8:58 PM CDT Legal Sex Female 8:58 PM CDT Gender Identity Female 05/20/2022 8:58 PM CDT Sexual Orientation Not on file documented as of this encounter Miscellaneous Notes * Cerner Conversion Note - Lea ProviderMD - 10/06/2021 1:38 PM SEXOLOGIST [facility] [place] [address] RAISSA LISANDRO NEHAL :1975 Visit Time:10/04/2021 Your Visit Summary Your Care Team Admitting Physician - YULIA CHINCHILLA MD-NEU Attending Physician - YULIA CHINCHILLA MD-NEU Primary Care Physician - AXEL HOPE (REF), JOHN Referring Physician - YULIA CHINCHILLA MD-NEU Your Diagnosis Nonepileptic episode These Are Your Goals No qualifying data available. What to do next Instructions From Your Care Team Discharge Activity: No driving, Discharge Activity: Other (use Special Instructions) Diet: Discharge Diet: Regular diet as tolerated Follow-Up Appointments Follow Up with Brittnee Dan When Within 1 week Where: [address] [place] [address]- [facility] (1) Medications What How Much When Instructions Next Dose escitalopram (escitalopram 20 mg oral tablet) 1 Tablet(s) Oral At Bedtime ferrous sulfate (Slow Fe) 2 tabs Oral At Bedtime omeprazole 40 Milligram(s) Oral At Bedtime propranolol (propranolol 40 mg oral tablet) 1 Tablet(s) Oral Every Day rOPINIRole (Requip) 1 Milligram(s) Oral At Bedtime rosuvastatin (rosuvastatin 20 mg oral tablet) 1 Tablet(s) Oral At Bedtime Take your medications faithfully. Do NOT skip medication. Do NOT stop taking medications without the direction of a physician. Carry a list of your medications with you at all times, and take this medication list with you to your first follow up visit. Report any side effects. Avoid herbal remedies unless discussed with your physician. As part of your treatment plan, your physician may have prescribed a limited course of a controlled substance. This medication may be given to help people with moderate or severe pain or for other medical conditions, but there are risks involved with treatment. Common side effects may include nausea, constipation, drowsiness, sweating, itching, dry mouth, and rash. More serious side effects may include cognitive and motor impairment, like problems with thinking, concentrating, alertness, and movement (e.g. slowed reflexes), and driving and operating heavy machinery can be dangerous. It is important for you to talk to your physician if you have these side effects or questions. These controlled substances can produce physical dependence and be habit-forming if taken for an extended period of time, which means that the body has gotten used to them and may experience withdrawal symptoms if they are abruptly stopped. Withdrawal symptoms can include runny nose, sweating, goose bumps, diarrhea, abdominal cramping, rapid heartbeat, difficulty sleeping, and nervousness. Please dispose of unused and medications per your retail pharmacy guidance. Allergies No Known Medication Allergies Immunizations This Visit No Immunizations Found Education Materials Non-Epileptic Seizures, Adult A non-epileptic seizure is a seizure or seizure-like condition that is caused by something other than epilepsy. In epilepsy, seizures are caused by abnormal electrical and chemical activity in the brain. Non-epileptic seizures may look like epileptic seizures, but non-epileptic seizures have a different cause. There are two types of non-epileptic seizures: ??? Physiologic. This type results from an underlying problem that causes a disruption in the brain's electrical activity. ??? Psychogenic. This type results from emotional stress. What are the causes? The cause of this condition depends on the kind of non-epileptic seizure that you have. Causes of physiologic non-epileptic seizures ??? Sudden drop in blood pressure. ??? Low blood sugar (glucose). ??? Low levels of salt (sodium) in your blood. ??? Low levels of calcium in your blood. ??? Migraine. ??? Heart rhythm problems. ??? Sleep disorders, such as narcolepsy. ??? Movement disorders, such as Tourette syndrome. ??? Infection. ??? Certain medicines. ??? Misuse of drugs and alcohol. ??? A fever. Causes of psychogenic non-epileptic seizures ??? Stress. ??? Emotional trauma. ??? Sexual or physical abuse. ??? Major life events, such as divorce or of a loved one. ??? Mental health disorders, including anxiety and depression. What are the signs or symptoms? Symptoms of a non-epileptic seizure can be similar to those of an epileptic seizure. They may include: ??? A change in attention or behavior (altered mental status). ??? A loss of consciousness or fainting. ??? Convulsions with jerking movements. ??? Drooling. ??? Rapid eye movements. ??? Grunting. ??? An inability to control when you urinate or have bowel movements (incontinence). ??? A bitter taste in the mouth. ??? Tongue biting. Some people have unusual sensations (aura) before having a seizure. These can include: ??? A fluttering feeling in the stomach. ??? Abnormal smells or tastes. ??? A feeling of having had a new experience before (d??j?? vu). After a non-epileptic seizure, you may have a headache or sore muscles, or you may feel confused and sleepy. Non-epileptic seizures usually: ??? Do not cause physical injuries. ??? Start slowly. ??? Include crying or shrieking. ??? Last longer than 2 minutes. ??? Include pelvic thrusting. How is this diagnosed? Non-epileptic seizures may be diagnosed by medical history, physical exam, and symptoms. Your health care provider may: ??? Talk with your friends or relatives who have seen you have a seizure. ??? Ask you to write down your seizure activity and share that information with him or her, including the things that led up to the seizure. You may also need to have tests to look for causes of physiologic non-epileptic seizures. Tests may include: ??? An electroencephalogram (EEG) to measure the electrical activity in your brain. ??? Video EEG in the hospital. This takes place over the course of 2???7 days. ??? Blood tests. ??? A lumbar puncture. This involves pulling fluid from your spine to check for infection. ??? An electrocardiogram (ECG) to check for an abnormal heart rhythm. ??? A CT scan. If your health care provider thinks you have had a psychogenic non-epileptic seizure, you may need to see a mental health specialist for an evaluation. How is this treated? The treatment for your seizures will depend on their cause. When the underlying condition is treated, your seizures should stop. If your seizures are being caused by emotional trauma or stress, your health care provider may recommend that you see a mental health specialist. Treatment may include: ??? Relaxation therapy or cognitive behavioral therapy (CBT). ??? Medicines to treat depression or anxiety. ??? Individual or family counseling. Some people have both psychogenic seizures and epileptic seizures. If this is the case for you, you may be prescribed medicine to manage the epileptic seizures. Follow these instructions at home: Home care will depend on the type of non-epileptic seizures that you have. In general: Avoid drugs and alcohol Avoid any substances that may prevent your medicine from working properly. If you are prescribed medicine for seizures: ??? Do not use drugs. ??? Limit or avoid alcohol. If you drink alcohol: ? Limit how much you use to: ? 0???1 drink a day for non women. ? 0???2 drinks a day for men. ? Be aware of how much alcohol is in your drink. In the [place] one drink equals one 12 oz bottle of beer (355 mL), one 5 oz glass of wine (148 mL), or one 1?? oz glass of hard liquor (44 mL). Involve family, friends, and coworkers Make sure family members, friends, and coworkers are trained in how to help you if you have a seizure. If you have a seizure, they should: ??? Lay you on the ground to prevent a fall. ??? Place a pillow or piece of clothing under your head. ??? Loosen any clothing around your neck. ??? Turn you onto your side. If you vomit, this position helps keep your windpipe clear. General instructions ??? Follow all instructions from your health care provider. These may include ways to prevent seizures and what to do if you have a seizure. ??? Take [id number], prescription medicines and herbal remedies only as told by your health care provider. ??? Keep all follow-up visits as told by your health care provider. This is important. Contact a health care provider if: ??? Your seizures change or happen more often. ??? You continue to have seizures after treatment. Get help right away if: ??? You injure yourself during a seizure. ??? You have one seizure after another. ??? You have trouble recovering from a seizure. ??? You have chest pain or trouble breathing. ??? You have a seizure that lasts longer than 5 minutes. These symptoms may represent a serious problem that is an emergency. Do not wait to see if the symptoms will go away. Get medical help right away. Call your local emergency services (911 in the [place] Do not drive yourself to the hospital. Summary ??? Non-epileptic seizures are different from seizures in epilepsy (epileptic seizures). These two seizure types have different causes. ??? The treatment for your seizures will depend on their cause. When the underlying condition is treated, your seizures should stop. ??? Make sure family members, friends, and coworkers are trained in how to help you if you have a seizure. This includes laying you on the ground to prevent a fall, protecting your head and neck, and turning you onto your side. This information is not intended to replace advice given to you by your health care provider. Make sure you discuss any questions you have with your health care provider. Document Revised: 10/15/2020 Document Reviewed: 10/20/2020 [employer] Patient Education ?? 2020 [employer] Emergency Awareness and Preventative Care STROKE is an EMERGENCY Every Minute Counts Act FAST and Check for these signs: FACE Does the face look uneven? ARM Does one arm drift down? SPEECH Does their speech sound strange? TIME Call at any sign of stroke Stroke Risk Factors Atrial Fibrillation (irregular heartbeat) Diabetes Family history of stroke Heart Disease Heavy alcohol use High Blood Pressure High Cholesterol Physical inactivity and obesity Smoking Cigarette Smoking The facts are clear, cigarette smoking will shorten your life. Smoking can cause many illnesses along the way. As a healthcare provider, we recommend that you stop smoking. Assistance with quitting is available by contacting 2-541-IFHHNOW. This is a free resource providing counseling, support, and referral. Or you may contact your personal physician. [employer] Suicide Prevention Lifeline: The National Suicide Prevention Lifeline is a national network of local crisis centers that provides free and confidential emotional support to people in suicidal crisis or emotional distress 24 hours a day, 7 days a week. Don't Wait! Stop a Heart Attack Before it Starts What is a heart attack? A heart attack is damage or to a part of the heart from severely decreased or lack of blood flow to the heart. Over time, arteries can become narrow from the buildup of fat and cholesterol, which is called plaque. The plaque can rupture causing a blood clot to form. When the blood clot forms, the artery can become severely narrowed or completely blocked, causing a heart attack. Heart attack is the leading cause of in the [place]. 85% of muscle damage occurs within the first 2 hours. Delay in the recognition of heart attack symptoms increases the chances of . Know the early symptoms of a heart attack: Nausea Feeling of fullness in chest Jaw Pain Pain that travels down one or both arms Fatigue/being tired Anxiety Back Pain Chest pressure, squeezing, or discomfort Shortness of breath Sweating, or a cold sweat Feeling of impending doom There are unusual signs of a heart attack, too! Women, the elderly, and diabetics may present with atypical symptoms: Fainting/dizziness Weakness Confusion Risk Factors for a Heart Attack Some heart disease risk factors, such as age and family history, cannot be changed. Others, like smoking and lack of exercise, can be changed. Smoking High Cholesterol High Blood Pressure Family History Obesity Age Gender (Males are at higher risk) Lack of Exercise Diabetes Diet Stress Excessive Alcohol Intake If you or someone you know is experiencing the signs and symptoms of a heart attack, DON???T DELAY. Call immediately and seek help. If someone collapses, perform CPR! Do not attempt to drive if you are having symptoms of heart attack. Hands-Only CPR Why Hands-Only CPR? Hands-Only CPR has been shown to be as effective as conventional CPR for cardiac arrests that occur outside of a hospital. Survival depends on immediately receiving CPR from someone nearby. How do you perform Hands-Only CPR? There are two easy steps: Call if you see a teen or adult collapse Push hard and fast in the center of the chest at a beat of 100 beats per minute. Save a life! 4 WAYS TO GET AHEAD OF SEPSIS SEPSIS is a MEDICAL EMERGENCY. Time matters! Infections put you and your family at risk for a life-threatening condition called sepsis. Sepsis is the body's extreme response to an infection. It is life-threatening, and without timely treatment, sepsis can rapidly lead to tissue damage, organ failure, and . Sepsis happens when an infection you already have-in your skin, lungs, urinary tract or somewhere else-triggers a chain reaction throughout your body. 1 PREVENT INFECTIONS Take good care of chronic conditions. Talk to your doctor about getting the recommended vaccines. 2 PRACTICE GOOD HYGIENE Wash your hands frequently. Keep cuts or open sores clean and covered until they are healed. 3 KNOW THE SYMPTOMS Confusion or disorientation Shortness of breath High heart rate Fever, shivering, or feeling very cold Extreme pain or discomfort Clammy or sweaty skin 4 ACT FAST Get medical care IMMEDIATELY if you suspect sepsis or if you have an infection that is not getting better or is getting worse. To learn more about sepsis and how to prevent infections, visit www.cdc.gov/sepsis. Test Results Laboratory or Other Results This Visit (last charted value for your 10/04/2021 visit) No Laboratory or Other Results This Visit Patient Name:LISANDRO CHUA I have received and understand this information and was given the opportunity to ask questions. Patient/Saturation Diver Name: Patient/Saturation Diver Signature: Relationship to Patient: Clinician/Hospital Saturation Diver Signature: Date: documented in this encounter Plan of Treatment Not on file documented as of this encounter Visit Diagnoses Not on filedocumented in this encounter
--- OUTSIDE RECORDS SUMMARY | 2025-05-29 07:20 | XMS_ITS | Encounter Summary ---
Author Organization [employer] ([place], [place], [place], [place]) Address [address] [place] [address] Care Team Providers Care Upper Cutter Out Name Role Phone Unavailable Primary Care Provider Unavailabl e Encounter Details Date Type Department Care Team (Late st Contact Info) Description 10/05/2021 Transcribed Document [facility] Family Medicine [facility] [place] [address] ProviderLea MD [facility] [place] [address] Social History Tobacco Use Types Packs/Day Years Used Date Smoking Tobacco: Never Assessed Comments Unknown Sex and Gender Information Value Date Recorded Sex Assigned at Female 05/20/2022 8:58 PM CDT Legal Sex Female 8:58 PM CDT Gender Identity Female 05/20/2022 8:58 PM CDT Sexual Orientation Not on file documented as of this encounter Miscellaneous Notes * Cerner Conversion Note - Lea Beverly MD - 10/05/2021 10:20 AM PARAMEDIC INSTRUCTOR Patient: LISANDRO CHUA Age: 45 years Sex: Female : 1975 Associated Diagnoses: None Author: YULIA CHINCHILLA MD-CAPRICE Subjective Seizure: Yes [ ] No [x ] Event: Yes [ ] No [x ] ROS Complaint: Yes [ ] No [ x] Headache: Yes [ ] No [ ] Cardiac: Yes [ ] No [ ] Pulmonary: Yes [ ] No [ ] GI: Yes [ ] No [ ] : Yes [ ] No [ ] Skeletal: Yes [ ] No [ ] Health Status Allergies: Allergic Reactions (Selected) No Known Medication Allergies, Allergies (1) Active Reaction No Known Medication Allergies None Documented Current medications: (Selected) Inpatient Medications Ordered LORazepam: 2 mg, IV Push, Q8H, PRN: Seizures Requip: 1 mg, Oral, At Bedtime Zofran: 4 mg, IV Push, Q6H, PRN: Nausea/Vomiting escitalopram: 20 mg, Oral, At Bedtime ferrous sulfate: 325 mg, Oral, At Bedtime ibuprofen: 600 mg, Oral, Q6H, PRN: Headache/Pain nicotine 21 mg/24 hr transdermal film, extended release: 1 Patch, TransDermal, Daily pantoprazole: 40 mg, Oral, Daily propranolol: 40 mg, Oral, Daily rosuvastatin: 20 mg, Oral, At Bedtime Documented Medications Documented Requip: 1 mg, Oral, At Bedtime, 0 Refill(s) Slow Fe: 2 tabs, Oral, At Bedtime, 0 Refill(s) escitalopram 20 mg oral tablet: 1 Tab, Oral, At Bedtime, 0 Refill(s) omeprazole: 40 mg, Oral, At Bedtime, 0 Refill(s) propranolol 40 mg oral tablet: 1 Tab, Oral, Daily, 0 Refill(s) rosuvastatin 20 mg oral tablet: 1 Tab, Oral, At Bedtime, 0 Refill(s), Home Medications (6) Active escitalopram 20 mg oral tablet 20 mg = 1 Tab, Oral, At Bedtime omeprazole 40 mg, Oral, At Bedtime propranolol 40 mg oral tablet 40 mg = 1 Tab, Oral, Daily Requip 1 mg, Oral, At Bedtime rosuvastatin 20 mg oral tablet 20 mg = 1 Tab, Oral, At Bedtime Slow Fe 2 tabs, Oral, At Bedtime , Medications (10) Active Scheduled: (7) escitalopram 20 mg tab 20 mg 1 Tab, Oral, At Bedtime ferrous sulfate 325 mg EC tab 325 mg 1 Tab, Oral, At Bedtime nicotine 21 mg/24 hr patch 1 Patch, TransDermal, Daily pantoprazole EC 40 mg tab 40 mg 1 Tab, Oral, Daily propranolol 20 mg tab 40 mg 2 Tab, Oral, Daily rOPINIRole 1 mg tab 1 mg 1 Tab, Oral, At Bedtime rosuvastatin 20 mg tab 20 mg 1 Tab, Oral, At Bedtime Continuous: (0) PRN: (3) ibuprofen 600 mg tab 600 mg 1 Tab, Oral, Q6H LORazepam 2 mg/mL inj 2 mg 1 mL, IV Push, Q8H ondansetron 4 mg/2 mL inj 4 mg 2 mL, IV Push, Q6H Problem list: No problem items selected or recorded., Active Problems (1) Hyperlipidemia Objective VS/Measurements Vital Signs/Vital Measures 10/05/2021 6:09 EST Blood Pressure Location Arm, left upper Blood Pressure Source Non-Invasive BP Device Blood Pressure Position Sitting Systolic Blood Pressure 124 mmHg Diastolic Blood Pressure 80 mmHg Mean Arterial Pressure (MAP)-BMDI 98 Temperature Source Oral Temperature Mode Fahrenheit Temperature, Fahrenheit 98.2 Deg F Clinical Temperature, C 36.8 Deg C Heart Rate Monitored 78 bpm Respiratory Rate 16 Breaths/Min Oxygen Saturation 94 % Oxygen Therapy Mode Room air 10/04/2021 20:00 EST Oxygen Therapy Mode Room air 10/04/2021 18:00 EST Systolic Blood Pressure 113 mmHg Diastolic Blood Pressure 69 mmHg Mean Arterial Pressure (MAP)-BMDI 82 Temperature Source Oral Temperature Mode Fahrenheit Temperature, Fahrenheit 98.1 Deg F Clinical Temperature, C 36.7 Deg C Heart Rate Monitored 65 bpm Respiratory Rate 16 Breaths/Min 10/04/2021 10:06 EST Heart Rate, Apical Not Done: took prior to admission (Not Done) 10/04/2021 8:06 EST Systolic Blood Pressure 129 mmHg Diastolic Blood Pressure 83 mmHg Mean Arterial Pressure (MAP)-BMDI 96 Temperature Source Oral Temperature Mode Fahrenheit Temperature, Fahrenheit 98.6 Deg F Clinical Temperature, C 37 Deg C Heart Rate Monitored 81 bpm Respiratory Rate 16 Breaths/Min Oxygen Therapy Mode Room air , Measurements from flowsheet : Measurements 10/04/2021 11:50 EST Height Source Measured Height Source Not Done: Task Duplication (Not Done) Height Entry Format [place] Height Entry Format Not Done: Task Duplication (Not Done) Height/Length, LIBERIAN (ft) 5 ft Height/Length LIBERIAN 1 Inch CLINICALHEIGHT 154.94 cm Malcolm Body Weight 47 kg Weight Source Bed scale Weight Source Not Done: Task Duplication (Not Done) Weight Entry Format [place] Weight [place] Islander lb 191 lb CLINICALWEIGHT 86.82 kg Body Surface Area (BSA) 1.85 m2 Body Mass Index 36.2 kg/m2 [place] 10/04/2021 7:50 EST Height Source Not Done: Task Duplication (Not Done) Height Entry Format Not Done: Task Duplication (Not Done) Weight Source Not Done: Task Duplication (Not Done) , Vitals Signs (last 24 hrs) Last Charted Minimum Maximum Temp 98.2 (OCT 05:) 98.2 (OCT 05:) 98.1 (OCT 04 18:00) Mon HR 78 (OCT 05:) 65 (OCT 04 18:00) 78 (OCT 05:) Resp Rate 16 (OCT 05:) 16 (OCT 04 18:00) 16 (OCT 04:00) SBP 124 (OCT 05:) 113 (OCT 04 18:00) 124 (OCT 05:) DBP 80 (OCT 05:) 69 (OCT 04:00) 80 (OCT 05:) MAP 98 (OCT 05:) 82 (OCT 04 18:00) 98 (OCT 05:) SpO2 94 (OCT 05:) 94 (OCT 05:) 94 (OCT 05:) General: Alert and oriented. Eye: Pupils are equal, round and reactive to light. Neurologic: Normal motor function, No focal deficits, Cranial Nerves II-XII are grossly intact. Psychiatric: Appropriate mood & affect. Results Review Continuous EEG: Bilateral temporal slowing Impression and Plan Discussed findings with patient. 1. Continue video EEG monitoring. 2. Encouraged increase in level of activity. 3. Sleep deprivation: Yes [ ] No [ x] Electronically signed by Zaid Coon Conversion Compression Molding Machine Operator Cerner at 03/09/2023 7:17 PM CDT documented in this encounter Plan of Treatment Not on file documented as of this encounter Visit Diagnoses Not on filedocumented in this encounter
--- OUTSIDE RECORDS SUMMARY | 2025-05-29 07:20 | XMS_ITS | Encounter Summary ---
Author Organization [employer] ([place], [place], [place], [place]) Address [address] [place] [address] Care Team Providers Care Resort Manager Name Role Phone Unavailable Primary Care Provider Unavailabl e Encounter Details Date Type Department Care Team (Late st Contact Info) Description 10/06/2021 Transcribed Document [facility] [place] [address] [place] [address] ProviderLea MD [address] [place] [address] Social History Tobacco Use Types [...] Cerner Conversion Note - Historical ProviderMD - 10/06/2021 5:00 AM ASSEMBLER PRODUCT Chart Check - Review Order Profile Entered On: 10/06/2021 3:25 EST Performed On: 10/06/2021 5:00 EST by Adriana Hunt RN Chart Check Powerplans Initiated/Discontinued as Appropriate : Yes All Active Orders Reviewed : Yes Adriana Hunt RN - 10/06/2021 3:25 EST Electronically signed by Jaymie [facility] Conversion Fence Post Cutter Elizabeth at 03/09/2023 7:18 PM CDT documented in this encounter Plan of Treatment Not on file documented as of this encounter Visit Diagnoses Not on filedocumented in this encounter
--- OUTSIDE RECORDS SUMMARY | 2025-05-29 07:20 | XMS_ITS | Data Portability ---
Author Organization [facility] JORGITO Trimble [place] [facility] Address [address] [place] [address] Care Team Providers Care Gas Flow Regulator Name Role Phone ONEL SERRANO Referring Provider [phone] Assessment No assessment recorded. Plan of Treatment Reminders Order Date Submit Date Provider Last Modified By Organization Details Last Modified Time Details Appointments None record ed. Lab None record ed. Referral None record ed. Procedures None record ed. Surgeries None record ed. Imaging None record ed. Medication Orders None record ed. Patient TargetsNo targets recorded. Patient Instructions Encounter Date Encounter Id Patient Instructions Last Modified By Organization Details Last Modified Time 08/21/2021 [id number] 1. Follow up as needed [email or web address] Not available 08/21/2021 14:59:15 She had tonsillectomy as a child but resection on the left was incomplete and she has some residual tonsil tissue at the inferior pole and she is now reducing tonsil stones intermittently from that tonsillar remnant. Her condition his harmless and at this point, symptoms are not severe enough to warrant revision tonsillectomy. She will follow-up if symptoms worsen [email or web address] Not available 08/21/2021 15:03:55 Reason for Referral None Reported. Procedures Surgical History Date Name Laterality Status Provider Name and Address Organization Details Recorded Time Remove tonsils and adenoids completed Joanie [facility] 08/21/2021 14:28:33 append[facility] 08/21/2021 14:29:12 section completed [facility] 08/21/2021 14:29:27 Breast Surgery [facility] 08/21/2021 14:29:59 Reconstructive Surgery [facility] 08/21/2021 14:30:16 Imaging Results None recorded. Procedure Notes None recorded. Medical Equipment None Reported. Allergies No known drug allergies Medications Name Sig Start Date Stop Date Status Note LastModified by Organization Details LastModified Time ropinirole 1 mg tablet Take 1 tablet 3 times a day by oral route. active Not Available Not Available No t Available propranolol ER 120 mg capsule,24 hr,extended release Take 1 capsule every day by oral route. active Not Available Not Available No t Available escitalopram 20 mg tablet Take 1 tablet every day by oral route. active Not Available Not Available No t Available [place] 3 active Not Available Not Avail able Not Available Slow Release Iron active Not Available Not Available Not Available Multi Vitamin active Not Available Not Available Not Available Vitals Date Recorded Body temperature Heart rate Oxygen saturation Oxygen saturation in Arterial blood by Pulse oximetry Body height Body mass index (BMI) Body weight Systolic And Diastolic Provider Name and Address Organization Details Last Updated DateTime 97.4 [degF] 84 /min 97 % 97 % 154.94 cm 35.1 kg/m2 63822.1 8 g 97/69 mm[Hg] Joanie Saldana [facility] 14:25:28 Social History Question Answer Notes LastModified by Organizat ion Details LastModified Time Tobacco Smoking Status Current Every Day Smoker Joanie Saldana [facility] 08/21/2021 14:36:22 Have You Recently Traveled Abroad? No [email or web address] Information not available 08/21/2021 Sex: Unknown Functional Status Question Answer Note LastModified by Organization D etails LastModified Time What is your level of alcohol consumption? None Information not available 08/21/2021 Mental Status None recorded. Family History Relationship Description Onset Age of this Age Resolved Age Notes LastModified by Organization Details LastModified Time Father Hypertensive disorder [email or web address] Not available 08/21 14:33:22 Father Heart disease Not available 08/21 14:33:41 Mother Hypertensive disorder [email or web address] Not available 08/21 14:33:22 Sister Asthma [email or web address] Not available 08/21/2021 14:34:05 Sister Family history of malignant neoplasm [email or web address] Not available 08/21 14:35:08 Medical History Condition Response Arthritis Y Migraines Y Depression Y Asthma Y Gynecological HistoryNo gynecological history recorded. Obstetrics History GPAL:G 0 P 0 0 0 0 Past Encounters Encounter ID Performer Location Encounter Start Date Encounter Closed Date Diagnosis/Indication Diagnosis SNOMED-CT Code Diagnosis ICD10 Code Diagnosis Note [id number] ROBERTH CHEN MD ID [facility] [address] [place] [address] 08/21/2021 13:49:41 08/21/2021 15:02:36 Deviated nasal septum 639326998 J34.2 - right Amygdalolith 0915827 J35 .8 Health Concerns Section Related Observation LastModified by Organization Detai ls LastModified Time None Recorded Concern Status LastModified by Organization Details LastModified Time None Recorded Advance Directives Directive None Recorded Payers Insurance Date Sequence Insurance Name Policy Number Policy Mazariegos Covered Member ID Mazariegos Member ID Guarantor Name 08/21/2021 1 [facility] [id number] Brooks Chua [id number] Brooks Chua 08/21/2021 2 BCBS-ID: [place] [employer] [facility] [id number] H Sajan Chua [id number] Brooks Chua Notes Date Note Type Note Provider Name and Address Organization Details Recorded Time 08/21/2021 text/html Brooks is a 45 year old female here today for an evaluation for recurrent salivary stones, referred by Onel Serrano MD. Over a year ago, the left side of her face was hurting and what she reports being a salivary stone came out. The side of her face will swell. This has happened repeatedly. They looked like sesame seeds. She has pushed out as many as 5 at a time. She had her tonsils removed as a child. She has seen three ENTs but not had any answers. She has had an MRI but it did not show anything. ROBERTH CHEN MD [address] [place], [address], [facility] 08/21/2021 15:04:04 OBGyn Episode No OBEpisode recorded.
--- OUTSIDE RECORDS SUMMARY | 2025-05-29 07:20 | XMS_ITS | Encounter Summary ---
Author Organization [facility] Address [address] [place] [address] Care Team Providers Care Painter Maintenance Name Role Phone Ивна Harris MD Primary Care Provider [phone] Antonio Henriquez MD Unavailable [phone] Encounter Details Date Type Department Care Team (Late st Contact Info) Description 01/25/2024 Orders Only External Location [address] [place] [address] Aleks Snell, SENIOR HADOOP DEVELOPER [address] [place] [address] Social History Tobacco Use Types Packs/Day Years Used Date Smoking Tobacco: Never Assessed Comments Unknown Sex and Gender Information Value Date Recorded Sex Assigned at Not on file Legal Sex Female 10:05 AM EST Gender Identity Not on file Sexual Orientation Not on file documented as of this encounter Plan of Treatment Upcoming Encounters Date Type Department Care Team (Late st Contact Info) Description 05/31/2025 11:15 AM EDT Office Visit [facility] [address], [address] [place] [address] Howie Esparza MD [address] [place] [address] documented as of this encounter Procedures Procedure Name Priority Date/Time Associated Diagnosis Comments POC US ECHOCARDIOGRAPHY COMPLETE W DOPPLER AND COLOR 01/25/2024 7:19 AM EST documented in this encounter Results * POC US Echocardiography Complete W Doppler and Color (01/25/2024 7:19 AM EST) Anatomical Region Laterality Modality Other 01/25/2024 7:19 AM EST Aleks Snell SENIOR HADOOP DEVELOPER IMG POINT OF CARE ULTRASO UND Final Result documented in this encounter Visit Diagnoses Not on filedocumented in this encounter Care Teams Painter Maintenance Relationship Specialty Start Date End Date Иван Harris MD PCP - General 01/05/24 Antonio Henriquez MD [address] [place] [address] [place] [address] Referring Physician Cardiology 05/05/24 documented as of this encounter
--- OUTSIDE RECORDS SUMMARY | 2025-05-29 07:20 | XMS_ITS ---
Author Organization [facility] Address [address] [place] [address] Care Team Providers Care Factory Maintenance Technician Name Role Phone Иван Harris MD Primary Care Provider [phone] Antonio Henriquez MD Unavailable [phone] Active Problems Problem Noted Date Diagnosed Date Acute blood loss anemia 05/14/2024 Leukocytosis 05/14/2024 Thrombocytosis 05/14/2024 Hypocalcemia 05/14/2024 Hypermagnesemia 05/14/2024 Prediabetes 05/14/2024 Transient hyperglycemia post procedure COPD (chronic obstructive pulmonary disease) Migraine 05/14/2024 Essential tremor 05/14/2024 Restless legs syndrome (RLS) 05/14/2024 S/P left atrial appendage ligation 05/14/2024 S/P patent foramen ovale closure 05/14/2024 Hypertriglyceridemia 05/14/2024 Hypoalphalipoproteinemia 05/14/2024 Anxiety 05/07/2024 Overview (05/07/2024): - On clonidine, propranolol Bioprosthetic mitral valve r eplacement, current hospitalization 05/06/2024 Overview (05/09/2024): S/P bMVR with Reda 05/05 - anticoagulation per CT surgery Obesity (BMI 30-39.9) 05/05/2024 Overview (05/05/2024): Complicates all aspects of care Severe pulmonary hypertension 05/05/2024 Overview (05/09/2024): - PA pressures stable - off veletri Obstructive sleep apnea 05/05/2024 Overview (05/06/2024): Evaluate for CPAP vs. HFNC needs overnight Morbid obesity with body mass index (BMI) of 40. 0 or higher 05/05/2024 Overview (05/06/2024): Body mass index is 39.28 kg/m . - Complicates all aspects of care Acute post-operative pain 05/05/2024 Overview (05/08/2024): -MM pain -Holding opioids secondary to neuro status (HFpEF) heart failure with preserved ejection fr action 03/16/2024 Overview (05/05/2024): - EF normal - s/p bMVR Depression 03/16/2024 Overview (05/07/2024): - Resume home meds as appropriate - escitalopram, aripiprazole Osteoarthritis 03/16/2024 ADD (attention deficit disorder) 03/16/2024 Overview (05/07/2024): - Resume home meds as appropriate, on vyvanse GERD (gastroesophageal reflux disease) Overview (05/05/2024): - On home PPI HLD (hyperlipidemia) 03/16/2024 Overview (05/05/2024): - On statin Current Treatment and Therapy Plans No current plan information found. Past Treatment and Therapy Plans No past plan information found. Lifetime Dose Tracking * Chemical Lifetime Dose Automatic Entry Manual Entr y Fluoro Time 3.9 minutes 0 minutes 3.9 minutes Air Kerma 203 mGy 0 mGy 203 mGy Air Kerma Area Product 16,880 Gy-cm2 0 Gy-cm2 16,8 80 Gy-cm2 Resolved Problems Problem Noted Date Diagnosed Date Resolved Date Acute respiratory failure with hypoxia 05/14/2024 05/14/2024 Cardiac volume overload 05/14/202404/24 Pleural effusion 05/14/2024 05/14/2024 Sinus tachycardia 05/14/2024 05/14/2024 Prolonged Q-T interval on ECG 05/14/2024 05/14/2024 Sinus bradycardia 05/14/2024 05/14/2024 Mild tobacco abuse in early remission 05/14/2024 05/14/2024 Hypophosphatemia 05/14/2024 05/14/2024 Hyperkalemia 05/14/2024 05/14/2024 Thrombocytopenia 05/14/2024 05/14/2024 Hypokalemia 05/14/2024 05/14/2024 Fatigue 05/14/2024 05/14/2024 Reactive airway disease with acute exacerbation 05/12/2024 05/14/2024 Overview (05/12/2024): Patient with remote history of wheezing, albuterol MDI at home -bronchospasm intra-op with intubation and possible aspiration event post- operatively - Required Mag,MP, epi, continuous nebs - Continue Dulera and PRN albuterol MDI at D/C, 5 days prednisone (no taper) 40 mg PO - Will need full PFTs post discharge to evaluate for asthma Paroxysmal atrial fibrillation 05/10/2024 05/14/2024 Overview (05/12/2024): Had been on amio infusion, transition to PO per protocol - Metoprolol to 12.5 daily, eval to stop 05/13 Expressive aphasia 05/08/2024 Overview (05/09/2024): - Following commands - Began post extubation on 05/06 - has resolved - CT head negative - Neuro following, recommendation for MRI after removal of pacing wires Atrial fib/flutter, transient 05/08/2024 05/14/2024 Overview (05/11/2024): - s/p cardiac surgery afib - PO amio Hypernatremia 05/08/2024 05/12/2024 Overview (05/08/2024): - Metolazone today Right ventricular dysfunction 05/06/2024 05/12/2024 Overview (05/09/2024): Acute post-operatively - off veletri and milrinone Lactic acidosis 05/06/2024 05/11/2024 Overview (05/09/2024): - resolved Low cardiac output syndrome 05/06/2024 05/14/2024 Overview (05/11/2024): - Required epi and milrinone post op - No off inotropy - BB Post-procedural fever 05/06/20242023 Overview (05/09/2024): Likely post surgical Tobacco use disorder 05/05/2024 024 Overview (05/12/2024): - Current smoker - 20 pack year - NRT upon request History of acute pulmonary edema 05/05/2024 05/12/2024 Overview (05/11/2024): - Notable pink frothy sputum in OR - Resolved PFO (patent foramen ovale) 05/05/2024 0 05/14/2024 Overview (05/05/2024): - Closure on 05/05/[address] Esparza Acute postoperative respiratory insufficiency 05/05/20 24 05/12/2024 Overview (05/11/2024): - Intubated in OR for surgery 05/05/2024 - Wean FiO2 to SpO2 92% - Daily CXR while requiring supplemental O2 - Extubate 05/06 to HFNC - Continue diuresis - On NC 1L Mitral valve insufficiency, unspecified etiology 03/25/2024 05/05/2024 Dyspnea on exertion 03/16/2024 05/14/20 24 Edema 03/16/2024 05/06/2024 Mitral regurgitation 03/16/2024 024 Overview (05/05/2024): S/p bMVR with Dr. Esparza on 05/05 -Monitor CT output -Wean pressors as able -Daily labs and CXR -Diuresis as appropriate Breast cancer 03/16/2024 05/14/2024 Overview (05/05/2024): - s/p bilateral mastectomy
--- OUTSIDE RECORDS SUMMARY | 2025-05-29 07:20 | XMS_ITS | Encounter Summary ---
Author Organization [employer] ([place], [place], [place], [place]) Address [address] [place] [address] Care Team Providers Care Monitoring Analyst Name Role Phone Unavailable Primary Care Provider Unavailabl e Encounter Details Date Type Department Care Team (Late st Contact Info) Description 10/06/2021 Transcribed Document [facility] Family Medicine [facility] [place] [address] ProviderLea MD [address] [place] [address] Social History Tobacco Use Types [...] Conversion Note - Lea ProviderMD - 10/06/2021 1:37 PM BUSINESS CENTER MANAGER Patient Education Materials Follows: Non-Epileptic Seizures, Adult A non-epileptic seizure is [...] of having had a new experience before (d?j? vu). After a non-epileptic seizure, you may [...] This takes place over the course of 2?7 days. ??? Blood tests. ??? A lumbar [...] Limit how much you use to: ? 0?1 drink a day for non women. ? 0?2 drinks a day for men. ? Be aware of how much alcohol is in your drink. In the [place] one drink equals one 12 oz bottle of beer (355 mL), one 5 oz glass of wine (148 mL), or one 1? oz glass of hard liquor (44 mL). [...] if you have a seizure. ??? Take [id number], prescription medicines and herbal remedies only as [...] provider. Document Revised: 10/15/2020 Document Reviewed: 10/20/2020 [employer] Patient Education ? 2020 [employer] documented in this encounter Plan of Treatment Not on file documented as of this encounter Visit Diagnoses Not on filedocumented in this encounter
--- OUTSIDE RECORDS SUMMARY | 2025-05-29 07:20 | XMS_ITS | Encounter Summary ---
Author Organization [employer] ([place], [place], [place], [place]) Address [address] [place] [address] Care Team Providers Care Property Insurance Claims Examiner Name Role Phone Unavailable Primary Care Provider Unavailabl e Encounter Details Date Type Department Care Team (Late st Contact Info) Description 10/04/2021 Transcribed Document [facility] Family Medicine [address] [place] [address] ProviderLea MD [address] [place], [place] [id number] Social History Tobacco Use Types Packs/Day Years [...] Conversion Note - Historical ProviderMD - 10/04/2021 9:50 AM KARATE BLACK BELT [facility] Event Note Entered On: 10/04/2021 9:50 EST Performed On: 10/04/2021 9:50 EST by AYAAN GALICIA Neurodiagnostic Tech Neurodiagnostics Event Note Neurodiagnostic Event Date/Time : 10/04/2021 9:50 EST Neurodiagnostic Event Location : Neurodiagnostic department Neurodiagnostic Event Details : Procedure completed AYAAN GALICIA Neuronaaostic Tech - 10/04/2021 9:50 EST documented in this encounter Plan of Treatment Not on file documented as of this encounter Visit Diagnoses Not on filedocumented in this encounter
--- OUTSIDE RECORDS SUMMARY | 2025-05-29 07:20 | XMS_ITS | Encounter Summary ---
Author Organization [email or web address] ([place], [place], [place], [place]) Address [address] [place] [address] Care Team Providers Care Engineering Faculty Member Name Role Phone Unavailable Primary Care Provider Unavailabl e Encounter Details Date Type Department Care Team (Late st Contact Info) Description 10/06/2021 Transcribed Document [facility] Family Medicine [facility] [place] [address] ProviderLea MD [facility] [place] [address] Social History Tobacco Use Types [...] Conversion Note - Lea ProviderMD - 10/06/2021 11:16 AM BUSINESS PERFORMANCE ADVISOR [address] , [place] [address] Patient Copy Patient Information: Name: LISANDRO CHUA Current Date: 10/06/2021 11:16:42 : 1975 Patient Address: [address] [place] [address] Patient Attending Physician: YULIA CHINCHILLA MD-NEU Primary Care Provider: AXEL HOPE (REF)JOHN Primary Care Provider Discharge Diagnosis: Nonepileptic episode Weight on Admission: 191 lb, 0 oz Comment: Follow-up Instructions: With: Address: When: Brittnee Dan [address] [place] [id number] Business (1) Within 1 week Discharge Instructions: Immunizations Documented During Stay: No Immunizations Found Heart Failure Discharge Instructions (if any): Stroke Related Discharge Instructions (if any): Warfarin Related Discharge Instructions (if any): Final Medication List: Other Medications escitalopram (escitalopram 20 mg oral tablet) 1 Tablet(s) Oral At Bedtime. ferrous sulfate (Slow Fe) 2 tabs Oral At Bedtime. omeprazole 40 Milligram(s) Oral At Bedtime. propranolol (propranolol 40 mg oral tablet) 1 Tablet(s) Oral Every Day. rOPINIRole (Requip) 1 Milligram(s) Oral At Bedtime. rosuvastatin (rosuvastatin 20 mg oral tablet) 1 Tablet(s) Oral At Bedtime. Patient Allergies: No Known Medication Allergies Medication Instructions: Take your medications faithfully. Do NOT skip [...] cramping, rapid heartbeat, difficulty sleeping, and nervousness. CIGARETTE SMOKING: The facts are clear, cigarette smoking will shorten your life. Smoking can cause many illnesses along the way. As a healthcare provider, we recommend that you stop smoking. Assistance with quitting is available by contacting 1-591-ZBCC-NOW. This is a free resource providing counseling, support, and referral. Or you may contact your personal physician. 4 WAYS TO GET AHEAD OF SEPSIS SEPSIS is a MEDICAL EMERGENCY. Time matters! Infections put you and your family at risk for a life-threatening condition called sepsis. Sepsis is the body???s extreme response to an infection. It is life-threatening, and without timely treatment, sepsis can rapidly lead to tissue damage, organ failure, and . Sepsis happens when an infection you already have???in your skin, lungs, urinary tract or somewhere else???triggers a chain reaction throughout your body. 1 [...] sepsis or if you have an infection that???s not getting better or is getting worse. To learn more about sepsis and how to prevent infections, visit www.cdc.gov/sepsis. STROKE is an EMERGENCY Every [employer] ACT F.A.S.T! FACE ?? Facial droop ?? Uneven smile ARM ?? Arm numbness ?? Arm weakness SPEECH ?? Slurred speech ?? Difficulty speaking or understanding TIME ?? Call 911 and get to the hospital immediately Have the ambulance go to the nearest stroke center. STROKE Risk Factors High blood pressure High cholesterol Heart Disease Diabetes Smoking Heavy alcohol use Physical inactivity and obesity Atrial Fibrillation (irregular heartbeat) Family history of stroke Reminder: Be sure to sign up for the [employer] patient portal, which gives you 15/06 access to your medical information ??? including these discharge instructions ??? using your computer, smartphone, or tablet. Just go to Bul[employer] to get started. Questions? Call . [facility] would like to thank you for allowing us to assist you with your healthcare needs. RAISSA Bradley CASEY MARIE, (or customer care representative) have received the above patient education materials/instructions and have verbalized understanding: Patient Signature _ Date/Time Patient Shank Sorter Signature (if needed) Date/Time Clinician/Hospital Shank Sorter Signature (if needed) Date/Time Electronically signed by Zaid Coon Conversion Blocker And Cutter Contact Lens Elizabeth at 03/09/2023 7:39 PM CDT documented in this encounter Plan of Treatment Not on file documented as of this encounter Visit Diagnoses Not on filedocumented in this encounter
--- OUTSIDE RECORDS SUMMARY | 2025-05-29 07:20 | XMS_ITS | Referral Summary ---
Author Organization [employer] ([place], [place], [place], [place]) Address [address] [place] [address] Care Team Providers Care Patrol Mother Name Role Phone Unavailable Primary Care Provider [...]
--- OUTSIDE RECORDS SUMMARY | 2025-05-29 07:20 | XMS_ITS | Encounter Summary ---
Author Organization [facility] Address [address] [place] [address] Care Team Providers Care Sap Director Name Role Phone Иван Harris MD Primary Care Provider [phone] Antonio Henriquez MD Unavailable [phone] Encounter Details Date Type Department Care Team (Late st Contact Info) Description 01/25/2024 Orders Only External Location [address] [place] [address] Aleks Snell, SHEARING MACHINE OPERATOR [address] [place] [address] Social History Tobacco Use Types [...] Description 05/31/2025 11:15 AM EDT Office Visit [facility] [address], [address] [place] [address] Howie Esparza MD [address] [place] [address] documented as of this encounter Procedures Procedure Name Priority Date/Time Associated Diagnosis Comments POC US ECHOCARDIOGRAPHY COMPLETE W DOPPLER AND COLOR 01/25/2024 7:19 AM EST documented in this encounter Results * POC US Echocardiography Complete W Doppler and Color (01/25/2024 7:19 AM EST) Anatomical Region Laterality Modality Other 01/25/2024 7:19 AM EST Aleks Snell SHEARING MACHINE OPERATOR IMG POINT OF CARE ULTRASO UND Final Result documented in this encounter Visit Diagnoses Not on filedocumented in this encounter Care Teams Sap Director Relationship Specialty Start Date End Date Иван Harris MD PCP - General 01/05/24 Antonio Henriquez MD [address] [place] [address] [place] [address] Referring Physician Cardiology 05/05/24 documented as of this encounter
--- OUTSIDE RECORDS SUMMARY | 2025-05-29 07:20 | XMS_ITS | Encounter Summary ---
Author Organization [employer] ([place], [place], [place], [place]) Address [address] [place] [address] Care Team Providers Care Medical Clinic Manager Name Role Phone Unavailable Primary Care Provider Unavailabl e Encounter Details Date Type Department Care Team (Late st Contact Info) Description 10/04/2021 Transcribed Document [facility] [place] Family Medicine [address] [place] [address] ProviderLea MD [address] [place] [address] Social History Tobacco Use Types [...] Cerner Conversion Note - Lea ProviderMD - 10/04/2021 12:25 PM RULING TECHNICIAN EPILEPSY ADMISSION NOTE DATE OF ADMISSION: 10/04/2021 ADMITTING PHYSICIAN: YULIA CHINCHILLA MD REASON FOR ADMISSION: Intractable seizures. HISTORY: This is a 45-year-old woman who has had recurrent spells for the past couple of years. She has had episodes of sudden altered mentation. She has had more recent episodes where she feels foggy at onset. She has clouding of awareness. She then stares and becomes unresponsive. These episodes occur with varying frequency. She may have multiple seizures per day 2 to 3 days per week. PAST MEDICAL HISTORY: 1. GERD. 2. Hyperlipidemia. ALLERGIES: Atorvastatin. MEDICATIONS: At home: 1. Rosuvastatin 20 mg daily. 2. Escitalopram 20 mg daily. 3. Ropinirole 1 mg nightly. 4. Omeprazole 40 mg daily. 5. Propranolol 40 mg daily. PAST SURGICAL HISTORY: 1. Appendectomy. 2. Breast reconstruction. 3. section. 4. Mastectomy. FAMILY HISTORY: 1. Epilepsy. 2. Brain neoplasm. SOCIAL HISTORY: She drinks alcohol on occasion. She smokes tobacco. REVIEW OF SYSTEMS: She has had symptoms of depression, but denies suicidal ideation. She has had joint pains. She denies symptoms referable to the cardiac, pulmonary, gastrointestinal, or genitourinary systems. PHYSICAL EXAMINATION: On the day of admission, VITAL SIGNS: Blood pressure 129/83, heart rate 81 per minute and regular, respiratory rate 16 per minute. HEENT: Pupils are equal and reactive. NECK: Supple. Normal carotid pulses. LUNGS: Clear. HEART: Regular rate and rhythm. Normal peripheral pulses. NEUROLOGIC: She is alert and well oriented. Normal language functions. Cranial nerves: Full range of motion of extraocular muscles. Symmetric facial contractions. Normal tongue movements. Her motor examination was normal with normal strength in the upper and lower extremities. Coordination: Normal [id number]. IMPRESSION: Ms. Chua has had recurrent spells that have been fairly stereotypical. The clinical features suggest the possibility of complex partial seizures. Alternatively, the episodes may be nonepileptic in origin. PLAN: 1. Admit to the epilepsy monitoring unit. 2. Start video EEG monitoring. 3. Seizure precautions. 4. Continue home medications. 5. Use lorazepam 2 mg IV for repetitive or prolonged seizures. /[id number] MD SARAH Adair/JOHN / TAF / MODL documented in this encounter Plan of Treatment Not on file documented as of this encounter Visit Diagnoses Not on filedocumented in this encounter
--- OUTSIDE RECORDS SUMMARY | 2025-05-29 07:20 | XMS_ITS | Encounter Summary ---
Author Organization [employer] ([place], [place], [place], [place]) Address [address] [place] [address] Care Team Providers Care Heating Worker Name Role Phone Unavailable Primary Care Provider Unavailabl e Encounter Details Date Type Department Care Team (Late st Contact Info) Description 10/04/2021 Transcribed Document [facility] [address] [place] [address] ProviderLea MD [address] [place] [address] Social History Tobacco Use Types [...] Conversion Note - Lea ProviderMD - 10/04/2021 12:00 PM BLOCK CUBER Education-Smoking Cessation Entered On: 10/04/2021 16:24 EST Performed On: 10/04/2021 12:00 EST by Ashwini Shaw RN-PATIENT CARE BEDSIDE NON-EXEMPT Teaching/Learning Assessment Barriers To Learning : None evident Readiness to Learn : Uninterested Learning Style Preferences Patient : Verbal explanation Ashwini Shaw RN-PATIENT CARE BEDSIDE NON-EXEMPT - 10/04/2021 16:23 EST Education: Smoking/Tobacco Cessation Topics Smoking Cess Educatin Grid Advice Given to Stop Smoking : Patient/Caregiver declines education Risks/Benefits of Smoking : Patient/Caregiver declines education Second Hand Smoke : Patient/Caregiver declines education Ed-Smoking Cessation Programs : Patient/Caregiver declines education Ashwini Shaw RN-PATIENT CARE BEDSIDE NON-EXEMPT - 10/04/2021 16:23 EST Tobacco Cessation Counseling Grid Recognizing Danger Situations : Refused Negative Moods and/or Stress : Refused Being Around Other Tobacco Users : Refused Drinking Alcohol : Refused Experiencing Urges : Refused Tobacco Cues and Availability : Refused Developing Coping Skills : Refused Anticipate/Avoid Temptation/Triggers : Refused Strategies to Reduce Negative Moods : Refused Reduce Stress/Exposure to Tobacco Cues : Refused Activities to [place] With Smoking Urges : Refused Basic Information About Quitting : Refused Tobacco Use Increases Chance of Relapse : Refused Withdrawal Symptoms Peak After Quitting : Refused Addictive Nature of Tobacco : Refused Ashwini Shaw RN-PATIENT CARE BEDSIDE NON-EXEMPT - 10/04/2021 16:23 EST Electronically signed by [facility], [facility] Conversion Bi Report Developer Cerner at 03/09/2023 7:34 PM CDT documented in this encounter Plan of Treatment Not on file documented as of this encounter Visit Diagnoses Not on filedocumented in this encounter
--- OUTSIDE RECORDS SUMMARY | 2025-05-29 07:20 | XMS_ITS | Encounter Summary ---
Author Organization [employer] ([place], [place], [place], [place]) Address [address] [place] [address] Care Team Providers Care Possum Trapper Name Role Phone Unavailable Primary Care Provider Unavailabl e Encounter Details Date Type Department Care Team (Late st Contact Info) Description 10/04/2021 Transcribed Document [facility] [place] Family Medicine [address] [place] [address] ProviderLea MD [address] [place] [address] Social History Tobacco Use Types [...] Conversion Note - Historical ProviderMD - 10/04/2021 7:50 AM SAW BOSS Meds to Bed Enrollment Entered On: 10/04/2021 7:57 EST Performed On: 10/04/2021 7:50 EST by Alfredo Ugarte Stock Puller Cert Lead Meds to Bed Enrollment Patient Enrollment Decision: : Yes/enroll in meds to bed program Alfredo Ugarte Stock Puller Cert Lead - 10/04/2021 7:56 EST documented in this encounter Plan of Treatment Not on file documented as of this encounter Visit Diagnoses Not on filedocumented in this encounter
--- OUTSIDE RECORDS SUMMARY | 2025-05-29 07:20 | XMS_ITS | Encounter Summary ---
Author Organization Healthcare Address [address] [place] [address] Care Team Providers Care Lapping Machine Operator Name Role Phone Иван Harris MD Primary Care Provider [phone] Antonio Henriquez MD Unavailable [phone] Encounter Details Date Type Department Care Team (Late st Contact Info) Description 05/09/2024 Lab Requisition [facility] [address] [place] [address] Christopher Elizondo MD [address] [facility] [address] [place] [address] Encounter for general adult medical examination without abnormal findings Social History Tobacco Use Types Packs/Day Years Used Date Smoking Tobacco: Former Cigarettes 1 20 Q uit: 01/22/2024 Smokeless Tobacco: Never Alcohol Use Standard Drinks/Week Comments Never 0 (1 standard drink = 0.6 oz pur e alcohol) Social Connection and Isolation Panel Answer Date Recorded Frequency of Communication with Friends and Fami ly Not on file 05/09/2024 Frequency of Social Gatherings with Friends and Family Not on file 05/09/2024 Attends Synagogue Services Not on file 05/09 Active Member of Clubs or Organizations Not on f ile 05/09/2024 Attends Club or Organization Meetings Not on tri e 05/09/2024 Are you , , di vorced, , never , or living with a partner? 05/09/2024 PHQ-2 Answer Date Recorded Patient Health Questionnaire-2 Score 2 03/21/2024 Hunger Vital Sign Answer Date Recorded Within the past 12 months, y ou worried that your food would run out before you got the money to buy more. Never true 05/09/20 24 Within the past 12 months, t he food you bought just didn't last and you didn't have money to get more. Never true 05/09/2024 PRAPARE - Transportation Answer Date Re corded In the past 12 months, has l ack of transportation kept you from medical appointments or from getting medications? No 04/23 In the past 12 months, has l ack of transportation kept you from meetings, work, or from getting things needed for daily living? No 05/09/2024 Housing Stability Vital Sign Answer Khanh e Recorded In the last 12 months, was t here a time when you were not able to pay the mortgage or rent on time? No 05/09/2024 Number of Places Lived in the Last Year Not on f ile 05/09/2024 In the last 12 months, was t here a time when you did not have a steady place to sleep or slept in a jail (including now)? No 05/09/2024 CAGE ASSESSMENT Answer Date Recorded Cage unable to access Not on file 05/13/2024 Cage max number of drinks Not on file 2023 Cage Beverages a week Not on file 05/13/2024 Have you ever felt you should CUT down on your d rinking? 0 05/13/2024 Have you been ANNOYED by people criticizing your drinking? 0 05/13/2024 Have you felt GUILTY about your drinking? 0 05/13/2024 Have you had a drink first t federico in the morning (EYE-BURLAPPER) to steady your nerves or to get rid of a hangover? 0 05/13/2024 CAGE Questionnaire Score 0 024 Utilities Answer Date Recorded In the past 12 months has th e Jaco Solarsi, gas, oil, or water company threatened to shut off services in your home? No 05/09/2024 Comments No Sex and Gender Information Value Date Recorded Sex Assigned at Not on file Legal Sex Female 10:05 AM EST Gender Identity Not on file Sexual Orientation Not on file documented as of this encounter Functional Status * Calculated C-SSRS Risk Score (Lifetime/Recent) Answer Date of Assessment Author No Risk Indicated 05/12/2024 8:00 AM EDT Jose Martin Abreu, YARON * Question Answer Date of Assessment Author 1. Wish to be (Past 1 Month) No 024 8:00 AM EDT Jose Martin Abreu, RN 2. Non-Specific Active Suici remigio Thoughts (Past 1 Month) No 05/12/2024 8:00 AM EDT Jose Martin Abreu, YARON 6. Suicidal Behavior (Lifetime) No 8:00 AM EDT Jose Martin Abreu, RN documented as of this encounter Plan of Treatment Upcoming Encounters Date Type Department Care Team (Late st Contact Info) Description 05/31/2025 11:15 AM EDT Office Visit [facility] Cardiothoracic [address], [address] [place] [address] Howie Esparza MD [address] [place] [address] documented as of this encounter Procedures Procedure Name Priority Date/Time Associated Diagnosis Comments MULTI DRUG RESISTANCE TEST Routine 05/09/2024 9:30 AM EDT Encounter for general adult medical examination without abnormal findings documented in this encounter Results * Multi Drug Resistance Test (05/09/2024 9:30 AM EDT) Culture No growth at day 1 05/10/2024 7:38 AM EDT [facility] Swab (Nares and Va Rectal) 05/09/2024 9:30 AM EDT 05/09/2024 10:14 AM EDT us Christopher Elizondo MD LAB MICROBIOLOGY - GEN ERAL ORDERABLES Final Result [facility] [address] [place] [address] documented in this encounter Visit Diagnoses Diagnosis Encounter for general adult medical examination without abnormal findings documented in this encounter Additional Health Concerns Assessment Noted Time A fall risk assessment has been complete d for the patient 04/20/2024 9:42 AM EDT A Body Mass Index follow-up plan has been documented for the patient 05/14/2024 12:38 PM EDT documented as of this encounter Care Teams Lapping Machine Operator Relationship Specialty Start Date End Date Иван Harris MD PCP - General 01/05/24 Antonio Henriquez MD [address] [place] [address] Referring Physician Cardiology 05/05/24 documented as of this encounter
--- OUTSIDE RECORDS SUMMARY | 2025-05-29 07:20 | XMS_ITS | Encounter Summary ---
Author Organization [facility] Address [address] [place] [address] Care Team Providers Care Assistant Director Of Plant Operations Name Role Phone Иван Harris MD Primary Care Provider [phone] Antonio Henriquez MD Unavailable [phone] Encounter Details Date Type Department Care Team (Late st Contact Info) Description 02/24/2024 Orders Only External Location [address] [place] [address] Antonio Henriquez MD [address] [facility] [address] [place] [address] Social History Tobacco Use Types Packs/Day Years Used Date Smoking Tobacco: Never Assessed Comments Unknown Sex and Gender Information Value Date Recorded Sex Assigned at Not on file Legal Sex Female 10:05 AM EST Gender Identity Not on file Sexual Orientation Not on file documented as of this encounter Plan of Treatment Upcoming Encounters Date Type Department Care Team (Late Contact Info) Description 05/31/2025 11:15 AM EDT [facility] [address], [address] [place] [address] Howie Esparza MD [address] [place] [address] documented as of this encounter Procedures Procedure Name Priority Date/Time Associated Diagnosis Comments POC US ECHOCARDIOGRAPHY COMPLETE W DOPPLER AND COLOR 02/24/2024 11:49 AM EDT documented in this encounter Results * POC US Echocardiography Complete W Doppler and Color (02/24/2024 11:49 AM EDT) Anatomical Region Laterality Modality Other 02/24/2024 11:4 9 AM EDT us Antonio Henriquez MD IMG POINT OF CARE ULTRASOUND Fi nal Result documented in this encounter Visit Diagnoses Not on filedocumented in this encounter Care Teams Assistant Director Of Plant Operations Relationship Specialty Start Date End Date Иван [place] MD PCP - General 01/05/24 Antonio Henriquez MD [address] [place], [place] [id number] Referring Physician Cardiology 05/05/24 documented as of this encounter
--- OUTSIDE RECORDS SUMMARY | 2025-05-29 07:20 | XMS_ITS | Clinical Summary ---
Author Organization [employer] Address [address] [place] [address] Phone Care Team Providers Care Building Energy Consultant Name Role Phone Unavailable Primary Care Provider Unavailabl e Allergies No known active allergies Medications cholecalciferol, vitamin D3, 25 mcg (1,000 unit) Oral Tablet Take 1 Tab by mouth daily. Active lactobacillus rhamnosus, GG, (CULTURELLE) 10 billion cell Oral Capsule Take 1 Cap by mouth daily. Active meloxicam (MOBIC) 15 mg Oral TabletIndications: Generalized osteoarthritis of multiple sites Take 1 Tab by mouth daily. 90 Tab 1 05/17/20 20 Active Varenicline 0.5 mg (11)- 1 mg (42) Oral Tablets, Dose PackIndications:To bacco abuse Take 0.5 mg PO daily for 3 days, then 0.5 mg PO BID for 4 days, and then 1 mg PO BID 53 Tab 05/17/20 20 Active propranoloL (INDERAL LA) 120 mg Oral Capsule,Sustained Action 24 hr Take 1 capsule by mouth once daily 30 Cap 5 03/15/20 21 Active methylPREDNISolone (MEDROL DOSPACK) 4 mg Oral Tablets, Dose PackIndications:Ro tator cuff syndrome of right shoulder follow package directions 1 Package 04/09/20 21 Active Additional Information Patient not taking.Reason: Other (finished), Reported on 05/02/2021 traMADoL (ULTRAM) 50 mg Oral Tablet Take 1 Tab by mouth every 8 hours as needed for Pain. 20 Tab 05/21/20 21 Active rOPINIRole (REQUIP) 1 mg Oral TabletIndications: Restless legs syndrome (RLS) Take 1 Tab by mouth nightly. 90 Tab 05/28/20 21 Active escitalopram oxalate (LEXAPRO) 10 mg Oral TabletIndications: Current mild episode of major depressive disorder without prior episode Take 1 tablet by mouth once daily 30 Tab 06/25/20 21 Active Active Problems Problem Noted Date Diagnosed Date Rotator cuff syndrome of right shoulder 04/09/20 21 Current mild episode of eden r depressive disorder without prior episode 05/17/2020 Family history of breast cancer in sister 2019 Overview (05/17/2020): Her sister was dx at age of 45yo. at 46yo. History of breast lump/mass excision 05/17/2020 Overview (05/17/2020): S/p bilateral mastectomy and reconstructions Dr. Naidu, [place] [facility]. Restless legs syndrome (RLS) 05/17/2020 Generalized osteoarthritis of multiple sites Benign essential tremor 05/17/2020 Overview (05/17/2020): On propranolol Mild intermittent asthma without complication Immunizations Immunization Administration Dates Next Due Pneumococcal Polysaccharide 23 Valent 05/17/2020 Tdap 01/25/2020 Surgical History Surgery Date Site/Laterality Comments MASTECTOMY 11/23/[address] Naidu APPENDECTOMY TONSILLECTOMY SECTION Medical History Medical History Date Comments Cancer (HCC) Breast mass Depression Tremors of nervous system Family History Medical History Relation Name Comments Cancer Father bladder Cataracts Father Glaucoma Father Hypertension Father Cataracts Maternal Grandmother Hypertension Mother Thyroid Disease Paternal Aunt Cataracts Paternal Grandmother Retinal Detachment Paternal Uncle Cancer Sister breast at age 4 5yo Amblyopia Neg Hx Blindness Neg Hx Diabetes Neg Hx Macular Degen Neg Hx Strabismus Neg Hx Stroke Neg Hx Relation Name Status Comments Father Alive Maternal Grandmother Mother Alive Paternal Aunt Alive Paternal Grandmother Paternal Uncle Sister Social History Tobacco Use Types Packs/Day Years Used Date Smoking Tobacco: Every Day Cigarettes 1 31.5 Started: 1995 Smokeless Tobacco: Never Alcohol Use Standard Drinks/Week Comments No 0 (1 standard drink = 0.6 oz pur e alcohol) Overall Financial Resource Strain (CARDIA) Answe r Date Recorded Difficulty of Paying Living Expenses Not hard at all 04/26/2020 PHQ-2 Answer Date Recorded PHQ-2 Score 0 05/17/2020 Hunger Vital Sign Answer Date Recorded Worried About Running Out of Food in the Last Ye ar Never true 04/26/2020 Ran Out of Food in the Last Year Never true 04/26/2020 PRAPARE - Transportation Answer Date Re corded Lack of Transportation (Medical) No 04/26/2020 Lack of Transportation (Non-Medical) No 04/26/2020 Comments No Sex and Gender Information Value Date Recorded Sex Assigned at Not on file Legal Sex Female 4:40 AM EDT Gender Identity Not on file Sexual Orientation Not on file 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 Not on file Not on file Obstetrics History Last Filed Vital Signs Vital Sign Reading Time Taken Comments Blood Pressure 138/84 06/19/2020 12:39 PM EDT Pulse 69 06/19/2020 12:39 PM EDT Temperature 36.2 C (97.2 F) 06/19/2020 12:39 PM EDT Respiratory Rate 18 04/25/2020 11:31 PM EDT Oxygen Saturation 98% 06/19/2020 12:39 PM EDT Inhaled Oxygen Concentration - - Weight 81.6 kg (180 lb) 04/09/2021 1:12 PM EDT Height 154.9 cm (5' 1 ) 04/09/2021 1:12 PM EDT Body Mass Index 34.01 04/09/2021 1:12 PM EDT Plan of Treatment Health Maintenance Due Date Last Done Comments Hepatitis B Vaccine (1 of 3 - 19+ 3-dose series) 1992 HPV/Pap Cotest 2003 Cologuard 2018 FIT 2018 Sigmoidoscopy 2018 Virtual Colonography 2018 Cervical Cancer Screening 11/23/2020 Pap Smear 11/23/2020 11/23/2017 Annual Wellness Exam 05/17/2021 05/17/2020 Pneumococcal Vaccine 50+ (2 of 2 - PCV) 05/17/2021 05/17/2020 Low Dose Lung Cancer Screening 2023 Zoster (1 of 2) 2023 COVID-19 Vaccine (1 - 2023-2 5 season) 2024 Influenza Vaccine (#1) 2025 08/11/2020 Colon Cancer Screening 12/18/2025 Colonoscopy 12/18/2025 12/18/2015 DTaP/TDaP/Td (4 - Td or Tdap) 06/24/2031, 01/25/2020, 11/03/2012 Meningococcal B Vaccine Aged Out No l onger eligible based on patient's age to complete this topic Goals Goal Patient Goal Type Associated Problems Recent Progress Patient-Stated? Author Maintain a healthy diet, exercise regularly and maintain an ideal body weight General No Melita Martins CCMA Stay Tobacco Free Lifestyle No Melita Martins CCMA Insurance CHOICE PLUS Member Subscriber Plan / Payer (Ef fective 2021-Present) Name:Brooks Chua Relation to Subscriber:Self Name:Brooks Chua Payer ID:[id number] (NAIC) Group ID:Not on file Type:Not on file Address: [facility] [address] [place] [id number]
--- OUTSIDE RECORDS SUMMARY | 2025-05-29 07:20 | XMS_ITS | Encounter Summary ---
Author Organization [employer] ([place], [place], [place], [place]) Address [address] [place] [address] Care Team Providers Care Rn Patient Care Name Role Phone Unavailable Primary Care Provider Unavailabl e Encounter Details Date Type Department Care Team (Late st Contact Info) Description 10/05/2021 Transcribed Document [facility] [place] [facility] [address] [place] [address] ProviderLea MD [address] [place] [address] Social History Tobacco Use Types [...] Conversion Note - Historical ProviderMD - 10/05/2021 5:00 AM SCULLION CHIEF Chart Check - Review Order Profile Entered On: 10/05/2021 4:06 EST Performed On: 10/05/2021 5:00 EST by Adriana Hunt RN Chart Check Powerplans Initiated/Discontinued as Appropriate : Yes All Active Orders Reviewed : Yes Adriana Hunt RN - 10/05/2021 4:06 EST Electronically signed by Jaymie [facility] Conversion Tongue Stitcher Elizabeth at 03/09/2023 7:12 PM CDT documented in this encounter Plan of Treatment Not on file documented as of this encounter Visit Diagnoses Not on filedocumented in this encounter
--- OUTSIDE RECORDS SUMMARY | 2025-05-29 07:20 | XMS_ITS | Encounter Summary ---
Author Organization [employer] ([place], [place], [place], [place]) Address [address] [place] [address] Care Team Providers Care Maintenance Painter Name Role Phone Unavailable Primary Care Provider Unavailabl e Encounter Details Date Type Department Care Team (Late st Contact Info) Description 10/04/2021 Transcribed Document [facility] [facility] [place] [address] ProviderLea MD [address] [place] [address] Social History Tobacco Use Types [...] Conversion Note - Lea ProviderMD - 10/04/2021 9:35 AM MOLDER MACHINE TENDER Education-(VTE) / (DVT) Entered On: 10/04/2021 16:23 EST Performed On: 10/04/2021 9:35 EST by Ashwini Shaw RN-PATIENT CARE BEDSIDE NON-EXEMPT Teaching/Learning Assessment Barriers To Learning : None evident Individuals Taught : Patient Readiness to Learn : Cooperative Baseline Knowledge of Topic : Good Readiness to Learn : Explanation Learning Style Preferences Patient : Verbal explanation Ashwini Shaw RN-PATIENT CARE BEDSIDE NON-EXEMPT - 10/04/2021 16:23 EST Education Topics: VTE/DVT Education Topics: VTE/DVT Activity Limitations/Expectations : Verbalizes understanding Signs and symptoms of a VTE : Verbalizes understanding Encourage early ambulation : Verbalizes understanding Ashwini Shaw RN-PATIENT CARE BEDSIDE NON-EXEMPT - 10/04/2021 16:23 EST documented in this encounter Plan of Treatment Not on file documented as of this encounter Visit Diagnoses Not on filedocumented in this encounter
--- OUTSIDE RECORDS SUMMARY | 2025-05-29 07:20 | XMS_ITS | Encounter Summary ---
Author Organization [employer] ([place], [place], [place], [place]) Address [address] [place] [address] Care Team Providers Care Imaging Clerk Name Role Phone Unavailable Primary Care Provider Unavailabl e Encounter Details Date Type Department Care Team (Late st Contact Info) Description 10/06/2021 Transcribed Document [facility] [place] [facility] [place] [address] ProviderLea MD [address] [place] [address] Social History Tobacco Use Types [...] Conversion Note - Historical ProviderMD - 10/06/2021 11:20 AM COREROOM FOUNDRY LABORER DATE OF ADMISSION: 10/04/2021 DATE OF DISCHARGE: 10/06/2021 FINAL DIAGNOSIS: Nonepileptic episodes. HISTORY: This is a 45-year-old woman with recurrent spells for a couple of years. She has episodes characterized by sudden altered mentation. She may feel foggy at onset followed by clouding of awareness, staring and unresponsiveness. She can have clusters of episodes in one day, possibly up to two or three days a week. PAST MEDICAL HISTORY: 1. GERD. 2. Hyperlipidemia. HOSPITAL COURSE: The patient was admitted and had video EEG monitoring. She had no clinical event. On the day of discharge, she reported feeling foggy headed with concomitant EEG showing no change from baseline background activity. Continuous EEG recordings showed no epileptiform abnormality. DISPOSITION: I discussed the results of monitoring with the patient. 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 I recommended consultation with a therapist in that regard. I did not recommend treatment with an antiseizure medication. PHYSICAL EXAMINATION: On the day of discharge: VITAL SIGNS: Blood pressure 123/64, heart rate 90 per minute and regular. HEENT: Pupils equal and reactive. LUNGS: Clear. HEART: Regular rate and rhythm. Normal peripheral pulses. NEUROLOGIC: She is alert and well oriented. Normal language functions. Normal cranial nerves. Normal motor exam. DISCHARGE INSTRUCTIONS: 1. No driving. 2. Escitalopram 20 mg nightly. 3. Ferrous sulfate two tablets nightly. 4. Omeprazole 40 mg daily. 5. Ropinirole 1 mg nightly. 6. Rosuvastatin 20 mg daily. 7. Propranolol 40 mg daily. 8. Follow up with Dr. Dan (patient reports having an appointment in one week). /[id number] Pam Jackson MD TAF/AQ / TAF / MODL /[id number] documented in this encounter Plan of Treatment Not on file documented as of this encounter Visit Diagnoses Not on filedocumented in this encounter
--- OUTSIDE RECORDS SUMMARY | 2025-05-29 07:20 | XMS_ITS | Clinical Summary ---
Author Organization [facility] Address [address] [place] [address] Care Team Providers Care Socket Puller Name Role Phone Иван Harris MD Primary Care Provider [phone] Antonio Henriquez MD Unavailable [phone] Allergies No known active allergies Medications ARIPiprazole (Abilify) 5 MG tablet Take 1 tablet (5 mg) by mouth every night. Active aspirin 81 MG EC tablet Take 1 tablet (81 mg) by mouth every night. Active cloNIDine (Catapres) 0.1 MG tablet Take 1 tablet (0.1 mg) by mouth 2 (two) times a day. Active escitalopram (Lexapro) 20 MG tablet Take 1 tablet (20 mg) by mouth every night. Active levonorgestrel (Mirena) 20 MCG/DAY IUD 1 each by Intrauterine route 1 (one) time. Active omeprazole (PriLOSEC) [address] capsule Take 1 capsule (40 mg) by mouth every night. Do not crush or chew. Active propranolol LA (Inderal LA) 120 MG 24 hr capsule Take 1 capsule (120 mg) by mouth 1 (one) time each day. Do not crush, chew, or split. Active rOPINIRole (Requip) 1 MG tablet Take 1 tablet (1 mg) by mouth every night. Active rosuvastatin (Crestor) 20 MG tablet Take 1 tablet (20 mg) by mouth every night. Active topiramate (Topamax) 100 MG tablet Take 150 mg by mouth every night. 1.5 tablets nightly. Active hydrALAZINE (Apresoline) 25 MG tablet Take 1 tablet (25 mg) by mouth every 8 (eight) hours. 90 tablet 2 Active Additional Information Patient not taking.Reported on 11/30/2024 methocarbamol (Robaxin) 750 MG tablet Take 1 tablet (750 mg) by mouth 4 (four) times a day for 10 days. 40 tablet Active metoprolol tartrate (Lopressor) 25 MG tablet Take 0.5 tablets (12.5 mg) by mouth 2 (two) times a day. 30 tablet 2 Active bumetanide (Bumex) 2 MG tablet Take 0.5 tablets (1 mg) by mouth 1 (one) time each day. 15 tablet 1 Active Additional Information Patient taking differently:1 mg Oral2 times daily (0900 & 1500), Reported on 11/30/2024 cyclobenzaprine (Flexeril) 10 MG tablet Take 1 tablet (10 mg) by mouth 3 (three) times a day if needed for muscle spasms. Active ondansetron (Zofran) 8 MG tablet Take 1 tablet (8 mg) by mouth 1 (one) time each day if needed for nausea or vomiting. Active potassium chloride CR (Klor-Con) 10 MEQ ER tablet Take 1 tablet (10 mEq) by mouth 1 (one) time each day. Do not crush, chew, or split. Active senna (Senokot) 8.6 MG tablet Take 1 tablet (8.6 mg) by mouth 2 (two) times a day if needed for constipation. Active Active Problems Problem Noted Date Diagnosed [...] (hyperlipidemia) 03/16/2024 Overview (05/05/2024): - On statin Resolved Problems Problem Noted Date Diagnosed Date [...] by Dr. Esparza Acute postoperative respiratory insufficiency 05/05/2005/12/2024 Overview (05/11/2024): - Intubated in OR for [...] 05/14/2024 Overview (05/05/2024): - s/p bilateral mastectomy Family History Medical History Relation Name Comments Abnormal EKG Father Reji Cancer Father Reji Heart disease Father Reji Hypertension Father Reji Cancer Father's Sister 1 Erica Thyroid disease Father's Sister 2 Emily Cancer Maternal Grandfather Red Hypertension Mother Joceline Cancer Paternal Grandfather Montrell Asthma Sister 1 Shahnaz Obesity Sister 1 Shahnaz Cancer Sister 2 Juliet Obesity Sister 2 Juliet Anesthesia problems Neg Hx Malig Hyperthermia Neg Hx Relation Name Status Comments Father Reji Father's Sister 1 Erica Father's Sister 2 Emily Maternal Grandfather Red Mother Joceline Paternal Grandfather Montrell Sister 1 Shahnaz Sister 2 Juliet Social History Tobacco Use Types Packs/Day Years Used Date Smoking Tobacco: Former Cigarettes 1 20 Q uit: 01/22/2024 Smokeless Tobacco: Never Tobacco Cessation:Counseling Given: Not Answered Alcohol Use Standard Drinks/Week Comments Never 0 (1 standard drink = 0.6 oz pur e alcohol) Social Connection and Isolation Panel Answer Date Recorded Frequency of Communication with Friends and Fami ly Not on file 05/09/2024 Frequency of Social Gatherings with Friends and Family Not on file 05/09/2024 Attends Jehovah'[employer] Witness Services Not on file 05/09 Active Member [...] place to sleep or slept in a detention (including now)? 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 0 05/13/2024 CAGE Questionnaire Score 0 024 Utilities Answer Date Recorded In the past 12 months has th e Particle, gas, oil, or water company threatened to shut off services in your home? No 05/09/2024 Comments No Sex and Gender Information Value Date Recorded Sex Assigned at Not on file Legal Sex Female 10:05 AM EST Gender Identity Not on file Sexual Orientation Not on file Last Filed Vital Signs Vital Sign Reading Time Taken Comments Blood Pressure 108/73 11/30/2024 11:40 AM EST Pulse 72 11/30/2024 11:40 AM EST Temperature 36.4 C (97.6 F) 06/01/2024 8:48 AM EDT Respiratory Rate 16 06/01/2024 8:48 AM EDT Oxygen Saturation 94% 11/30/2024 11: 40 AM EST Inhaled Oxygen Concentration - - Weight 90.2 kg (198 lb 13.7 oz) 025 11:40 AM EST Height 154.9 cm (5' 1 ) 11/30/2024 11:4 0 AM EST Body Mass Index 37.57 11/30/2024 11:40 AM EST Plan of Treatment Upcoming Encounters Date Type Department Care Team (Late st Contact Info) Description 05/31/2025 11:15 AM EDT Office Visit [facility] [address], [address] [place] [address] Howie Esparza MD [address] [place] [address] Health Maintenance Due Date Last Done Comments [facility]-HIV Screening 1973 [facility]-Hepatitis C Screening 1973 [facility]-Infant/Child/Adol SDOH Screenings 1973 [facility]- SDOH Screenings 1991 [facility]-Adult SDOH Screenings 1991 [facility]-Hepatitis B Vaccines (1 of 3 - 19+ 3-dose series) 1992 [facility]-Pap Smear 1994 [facility]-Cervical Cancer Screening 2003 [facility]-HPV/Cotest 2003 CT Colonography 2018 Colonoscopy 2018 FIT-DNA 2018 FIT 2018 FOBT 2018 Sigmoidoscopy 2018 [facility]-Colorectal Cancer Screening 2018 [facility]-Pneumococcal Vaccine: 50+ Years (2 of 2 - PCV) 05/17/2021 05/17/2020 [facility]-Zoster Vaccines (1 of 2) 2023 JTA-NEUTE-22 Vaccine (2 - 2023- season) 2024 06/24/2021 [facility]-Depression Screening 03/21/2025 03/21/2024 [facility]-Lung Cancer Screening 04/07/2025 04/07/2024 [facility]-Diabetes: Hemoglobin A1C 04/20/2025 04/20/2024 [facility]-Influenza Vaccine (#1) 2025 [facility]-DTaP,Tdap,and Td Vaccines (3 - Td or Tdap) 06/24/2031 06/24/2021, 01/25/2020 [facility]-Obesity Intervention Completed 025, 06/01/2024, 04/21/2024, Additional history exists HPV Vaccines Aged Out No longer eligi ble based on patient's age to complete this topic [facility]-HIB Vaccines Aged Out No longer e ligible based on patient's age to complete this topic [facility]-Hepatitis A Vaccines Aged Out No longer eligible based on patient's age to complete this topic [facility]-IPV Vaccines Aged Out No longer e ligible based on patient's age to complete this topic [facility]-Rotavirus Vaccines Aged Out No lo nger eligible based on patient's age to complete this topic Medical Devices Implanted Type Area Glycerin Operator Device Identifier Shelf Expiration Date Model / Serial / Lot Valve Mitral Shv Epic Plus Porcine 31mm - [id number] - [id number] Implanted:Qty: 1 on 05/05/2024 by Howie Esparza MD at [facility] N/A: Heart [employer]-[id number] 02/15/2027 [id number] / [id number] / [id number] Description:Rinse 10 seconds x2 in saline. Explanted Type Area Glycerin Operator Device Identifier Shelf Expiration Date Model / Serial / Lot Ring Mitral Annuloplasty Physioflex 30mm - [id number] - [id number] Explanted:Qty: 1 on 05/05/2024 at [facility] N/A: Heart [facility]-[id number] 02/26/2027 [id number] / [id number] / [id number] Procedures Procedure Name Priority Date/Time Associated Diagnosis Comments HEMOGLOBIN A1C Routine 04/20/2024 11:57 AM EDT Severe mitral regurgitation CT ANGIO CHEST 04/07/2024 6:55 PM EDT from Last 3 Months or Most Recently Relevant to Health Maintenance Results * (ABNORMAL) Hemoglobin A1c (04/20/2024 11:57 AM EDT) Hemoglobin A1c 5.9(H) <5.7 % 04/20/2024 1:51 PM EDT [facility] Blood Venous blood specimen / Unknown Venipuncture / Unknown 04/20/2024 11:57 AM EDT 04/20/2024 11:57 AM EDT Narrative [facility] - 04/20/2024 1:51 PM EDT HA1C Interpretive Data: Diagnosis of Diabetes: Diabetic > or = 6.5% Pre-diabetic 5.7 to 6.4% Non-diabetic < or = 5.6% Glycemic Targets for Type I and Type II Diabetics: Non- Adults <7.0% Adults <6.0% Children and Adolescents <7.5% Source: [place] [employer]. Standards of medical care in diabetes,2017. Diabetes Care.2017:40 (suppl 1):S1-S135. HbA1c assay performed by an ion-exchange chromatography method that is certified traceable to the DCCT. us Howie Esparza MD LAB BLOOD ORDERABLES Final Resu lt [facility] [address] [place] [address] * CT Angio Chest (04/07/2024 6:55 PM EDT) Anatomical Region Laterality Modality Chest Computed Tomogra phy 04/07/2024 6:55 PM EDT us Leila Azevedo DO IMG CT PROCEDURES Final Result from Last 3 Months or Most Recently Relevant to Health Maintenance Insurance [facility] Advance Directives * Full Code (Latest Code Status on File) Date Activated Date Inactivated Comments 05/05/2024 3:21 PM 05/14/2024 4:07 PM Question Answer Comments Patient has decision-making capacity? Yes * Full Code Date Activated Date Inactivated Comments 03/30/2024 11:47 AM 03/30/2024 7:04 PM Question Answer Comments Patient has decision-making capacity? Yes * Full Code Date Activated Date Inactivated Comments 03/25/2024 12:53 AM 03/25/2024 8:12 PM Question Answer Comments Patient has decision-making capacity? Yes Care Teams Socket Puller Relationship Specialty Start Date End Date Иван Harris MD PCP - General 01/05/24 Antonio Henriquez MD [address] [place] [address] [place] [id number] Referring Physician Cardiology 05/05/24
--- OUTSIDE RECORDS SUMMARY | 2025-05-29 07:20 | XMS_ITS | Encounter Summary ---
Author Organization [employer] ([place], [place], [place], [place]) Address [address] [place] [address] Care Team Providers Care Salesperson Women'S Dresses Name Role Phone Unavailable Primary Care Provider Unavailabl e Encounter Details Date Type Department Care Team (Late st Contact Info) Description 10/05/2021 Transcribed Document [facility] [place] [facility] [place] [address] ProviderLea MD [address] [place] [address] Social History Tobacco Use Types [...] Note - Lea Beverly MD - 10/05/2021 8:29 AM TIME CLOCK MECHANIC DATE OF SERVICE: 10/04/2021 REPORT TYPE: EEG REFERRING PHYSICIAN: Pam Jackson MD REPORT TITLE: Video Electroencephalogram Report STUDY DURATION: One day. HISTORY: This is a 45-year-old woman being evaluated for recurrent seizures. EEG VIDEO MONITORING METHODOLOGY: Time-locked EEG-video monitoring was performed using the 32-channel [employer] monitoring system. The seizure detection computer was used for detection of ictal discharges (subclinical and clinical), interictal discharges, and to record ictal events that were documented by depression of the event button in the patient's room. Analyses of the monitoring data were performed using the following techniques: Review of the relevant EEG-video data. Review of events detected by the computer system in detail. Review of clinical seizures, with both detailed review of EEG and video and playback using multiple montages. A variety of referential and bipolar montages were used. CLINICAL AND EEG ANALYSIS: There was no event reported during the period of monitoring. TIME SAMPLES: The recording was reviewed. During wakefulness, 10.5 to 11 Hz activity is seen posteriorly. Lower amplitude faster activity in the beta range is seen with a wider distribution. 4 to 5 Hz theta waves are seen at F7-T7 and independently at F8-T8. Occasional 2 to 3 Hz delta waves are seen in a similar distribution, particularly during periods of drowsiness. During sleep, well-formed sleep spindles are seen in both hemispheres. SPIKE DETECTION: The spike detection program was activated during the period of monitoring and revealed no abnormal paroxysmal activity. EEG DIAGNOSES: This is an abnormal video EEG study because of focal slow wave activity seen independently at F7-T7 and F8-T8. CLINICAL INTERPRETATION: The patient had no clinical event during the period of monitoring. Continuous EEG recording showed no electrographic ictal discharge or other epileptiform abnormality. This video EEG study therefore provides no definitive evidence to support the diagnosis of epilepsy. However, that diagnosis cannot be excluded, particularly in the absence of a recorded event. 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 /[id number] MD SARAH Adair/JOHN / SARAH / MODL /[id number] Electronically signed by Zaid Coon Conversion Environmental Programs Specialist Cerner at 03/09/2023 7:21 PM CDT documented in this encounter Plan of Treatment Not on file documented as of this encounter Visit Diagnoses Not on filedocumented in this encounter
--- OUTSIDE RECORDS SUMMARY | 2025-05-29 07:20 | XMS_ITS | Encounter Summary ---
Author Organization [employer] ([place], [place], [place]) Address [address] [place] [address] Care Team Providers Care Director Of Strategic Initiatives Name Role Phone Unavailable Primary Care Provider Unavailabl e Encounter Details Date Type Department Care Team (Late st Contact Info) Description 10/06/2021 Transcribed Document [facility] [place] [address] [place] [address] ProviderLea MD [address] [place] [address] Social History Tobacco Use Types [...] Conversion Note - Historical ProviderMD - 10/06/2021 1:37 PM JACKET PREPARER Stroke/Warfarin Instructions Entered On: 10/06/2021 13:37 EST Performed On: 10/06/2021 13:37 EST by SAMANTHA QUINTANA RN Stroke/Warfarin Instructions Stroke/TIA Discharge Ins : N/A Warfarin Discharge Ins : N/A SAMANTHA QUINTANA RN - 10/06/2021 13:37 EST Electronically signed by Jaymei [facility] Conversion Barrow Worker Helper Elizabeth at 03/09/2023 7:28 PM CDT documented in this encounter Plan of Treatment Not on file documented as of this encounter Visit Diagnoses Not on filedocumented in this encounter
--- OUTSIDE RECORDS SUMMARY | 2025-05-29 07:20 | XMS_ITS | Encounter Summary ---
Author Organization [employer] ([place], [place], [place], [place]) Address [address] [place] [address] Care Team Providers Care Geomagnetist Name Role Phone Unavailable Primary Care Provider Unavailabl e Encounter Details Date Type Department Care Team (Late st Contact Info) Description 10/06/2021 Transcribed Document [facility] [place] Medicine [address] [place] [address] ProviderLea MD [address] [place] [address] Social History Tobacco Use Types [...] Conversion Note - Historical ProviderMD - 10/06/2021 2:00 AM CLINICAL LABORATORY TECHNICIAN Trimmer Loader Details Entered On: 10/06/2021 2:31 EST Performed On: 10/06/2021 2:00 EST by Adriana Hunt RN Order [...] Crushed/Liquid : No Adriana Hunt RN - 10/06/2021 2:30 EST Electronically signed by Jaymie [facility] Conversion Interior Wirer Cerner at 03/09/2023 7:23 PM CDT documented in this encounter Plan of Treatment Not on file documented as of this encounter Visit Diagnoses Not on filedocumented in this encounter
--- OUTSIDE RECORDS SUMMARY | 2025-05-29 07:20 | XMS_ITS | Encounter Summary ---
Author Organization [facility] Address [address] [place] [address] Care Team Providers Care Business Development Professional Name Role Phone Иван Harris MD Primary Care Provider [phone] Antonio Henriquez MD Unavailable [phone] Encounter Details Date Type Department Care Team (Late st Contact Info) Description 02/24/2024 Orders Only External Location [address] [place] [address] Antonio Henriquez MD [address] [facility] [address] [place] [address] Social History Tobacco Use Types Packs/Day Years [...] Description 05/31/2025 11:15 AM EDT [facility] Visit [facility] [address], [address] [place] [address] Howie Esparza MD [address] [place] [address] documented as of this encounter [...] on filedocumented in this encounter Care Teams Business Development Professional Relationship Specialty Start Date End Date Иван Harris MD PCP - General 01/05/24 Antonio Henriquez MD [address] [place], [place] [phone] Referring Physician Cardiology 05/05/24 documented as of this encounter
--- OUTSIDE RECORDS SUMMARY | 2025-05-29 07:20 | XMS_ITS | Encounter Summary ---
Author Organization [employer] ([place], [place], [place], [place]) Address [address] [place] [address] Care Team Providers Care Cashier Receptionist Name Role Phone Unavailable Primary Care Provider Unavailabl e Encounter Details Date Type Department Care Team (Late st Contact Info) Description 10/05/2021 Transcribed Document [facility] [place] [facility] [place] [address] ProviderLea MD [address] [place] [address] Social History Tobacco Use Types [...] Conversion Note - Historical ProviderMD - 10/05/2021 4:31 PM EMPLOYMENT LEGAL ASSISTANT UM Authorization Entered On: 10/05/2021 16:31 EST Performed On: 10/05/2021 16:31 EST by AWILDA ALLEN Rn-Utilization Review Primary Insurance Authorization Authorization and Policy Numbers : Insurance 1 Health Plan: [employer] Policy Number: [id number] Authorization Number: Insurance 2 Health Plan: [employer] Policy Number: [id number] Authorization Number: Insurance Primary Name : [employer] Policy Number: [id number] [employer] Policy Number: [id number] Historical Authorization Comments-Primary : No Authorization Comments Found AWILDA ALLEN Rn-Utilization Review - 10/05/2021 16:31 EST Electronically signed by Jaymie [facility] Conversion Kosher Sealer Cerner at 03/09/2023 7:14 PM CDT documented in this encounter Plan of Treatment Not on file documented as of this encounter Visit Diagnoses Not on filedocumented in this encounter
--- OUTSIDE RECORDS SUMMARY | 2025-05-29 07:20 | XMS_ITS | Encounter Summary ---
Author Organization [employer] ([place], [place], [place], [place]) Address [address] [place] [address] Care Team Providers Care Sheep Boner Name Role Phone Unavailable Primary Care Provider Unavailabl e Encounter Details Date Type Department Care Team (Late st Contact Info) Description 10/06/2021 Transcribed Document [facility] [place] [facility] [place] [address] ProviderLea MD [address] [place] [address] Social History Tobacco Use Types [...] Conversion Note - Lea Beverly MD - 10/06/2021 11:47 AM ENGINEERING CLERK DATE OF SERVICE: 10/06/2021 REPORT TYPE: EEG REFERRING PHYSICIAN: Pam Jackson MD REPORT TITLE: Video Electroencephalogram Report STUDY DURATION: 5 hours 30 minutes. HISTORY: This is a 45-year-old woman being evaluated for recurrent seizures. EEG VIDEO MONITORING METHODOLOGY: Time-locked EEG-video monitoring was performed using the 32-channel [employer] monitoring system. The seizure detection computer was [...] CLINICAL AND EEG ANALYSIS: There was no push-button event noted during the period of monitoring. However, the patient reported having a sense of fogginess during the morning after she awaken. Review of the EEG showed no ictal discharge during wakefulness. TIME SAMPLES: The recording was reviewed. During wakefulness, 10 to 11 Hz activity is seen posteriorly. Lower amplitude faster activity in the beta range is noted with a wider distribution in both hemispheres. 4 to 5 Hz theta waves are noted at F7-T7 and independently at F8-T8. Sleep was recorded with the appearance of well-formed sleep spindles in both hemispheres. SPIKE DETECTION: The spike detection program was activated during the period of monitoring and revealed no abnormal paroxysmal activity. EEG DIAGNOSES: This is an abnormal video EEG study because of focal slow wave activity noted at F7-T7 and independently at F8-T8. CLINICAL INTERPRETATION: The patient reported a sense of fogginess after awakening, although she did not push the event button. Review of the EEG showed no electrographic ictal discharge. The patient's symptoms were therefore nonepileptic in origin. Continuous EEG recording showed no epileptiform abnormality, and therefore no evidence to support the diagnosis of epilepsy. 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 /[id number] MD SARAH Adair/JOHN / TAF / MODL /[id number] documented in this encounter Plan of Treatment Not on file documented as of this encounter Visit Diagnoses Not on filedocumented in this encounter
--- OUTSIDE RECORDS SUMMARY | 2025-05-29 07:21 | XMS_ITS | Encounter Summary ---
Author Organization [employer] ([place], [place], [place], [place]) Address [address] [place] [address] Care Team Providers Care Director Educational Radio Name Role Phone Unavailable Primary Care Provider Unavailabl e Encounter Details Date Type Department Care Team (Late st Contact Info) Description 10/06/2021 Transcribed Document [facility] [place] [facility] [place] [address] ProviderLea MD [facility] [place] [address] Social History Tobacco Use Types [...] - Lea ProviderMD - 10/06/2021 1:37 PM TELEPHONE ADVICE NURSE [facility] [place] [address] RAISSA LISANDROSandy GUTIÉRREZE :1975 Visit Time:10/04/2021 Your Visit Summary Your [...] 1 week Where: [address] [place] [address]- [facility] (1) Medications What How Much [...] if you have a seizure. ??? Take uoqp-sqk-rtzvmnl, prescription medicines and herbal remedies only as [...] provider. Document Revised: 10/15/2020 Document Reviewed: 10/20/2020 [employer] Patient Education ?? 2020 [employer] Inc. Emergency Awareness and Preventative Care STROKE [...] Assistance with quitting is available by contacting 3-798-UATJNOW. This is a free resource providing counseling, support, and referral. Or you may contact your personal physician. Novo[employer] Suicide Prevention Lifeline: The National Suicide Prevention [...] was given the opportunity to ask questions. Patient/Assistant Professor Of Art Name: Patient/Assistant Professor Of Art Signature: Relationship to Patient: Clinician/Hospital Assistant Professor Of Art Signature: Date: documented in this encounter Plan of Treatment Not on file documented as of this encounter Visit Diagnoses Not on filedocumented in this encounter
--- OUTSIDE RECORDS SUMMARY | 2025-05-29 07:21 | XMS_ITS | Encounter Summary ---
Author Organization [employer] ([place], [place], [place], [place]) Address [address] [place] [address] Care Team Providers Care Substation Electrician Name Role Phone Unavailable Primary Care Provider Unavailabl e Encounter Details Date Type Department Care Team (Late st Contact Info) Description 10/06/2021 Transcribed Document [facility] [place] [facility] [place] [address] ProviderLea MD [address] [place] [address] Social History Tobacco Use Types [...] Note - Lea Beverly MD - 10/06/2021 8:30 AM HANDBELL CHOIR DIRECTOR DATE OF SERVICE: 10/05/2021 REPORT TYPE: EEG REFERRING PHYSICIAN: Pam Jackson MD REPORT TITLE: Video Electroencephalogram Report STUDY DURATION: One day. HISTORY: This is a 45-year-old woman being evaluated for recurrent seizures. EEG VIDEO MONITORING METHODOLOGY: Time-locked EEG-video monitoring was performed using the 32-channel SimpleRegistry monitoring system. The seizure detection computer was [...] During wakefulness, 10.5 to 11 Hz activity was seen posteriorly. Lower amplitude faster activity in the beta range is seen with a wider distribution in both hemispheres. 4 to 5 Hz theta waves are noted independently at F7-T7 and F8-T8. Less frequent 2 to 3 Hz delta waves are seen in a similar distribution. During sleep, well-formed sleep spindles were seen in both hemispheres. SPIKE DETECTION: The spike detection program was activated during the period of monitoring. Rare sharply contoured waves are seen at T8-P8-F8. EEG DIAGNOSES: This is an abnormal video EEG study because of: 1. Focal slow wave activity noted at F7-T7 and F8-T8. 2. Rare sharply contoured waves at T8-P8. CLINICAL INTERPRETATION: The patient had no clinical event during the period of monitoring. Continuous EEG recordings showed no electrographic ictal discharge. EEG recordings showed slow wave activity in the anterior temporal electrodes in both hemispheres, consistent with focal cerebral dysfunction in the anterior temporal regions. Rare sharply contoured slow waves were seen in the right temporal electrodes, raising the possibility of potential epileptogenicity in the right temporal region. /[id number] MD SARAH Adair/JOHN / SARAH / MODL /[id number] documented in this encounter Plan of Treatment Not on file documented as of this encounter Visit Diagnoses Not on filedocumented in this encounter
== END ==
LOC: SL 07:19
PROVIDERS: PCP Nurse Practitioner; Visit Provider Nurse Practitioner
DX: I50.33 Acute on chronic diastolic (congestive) heart failure (principal); R06.00 Dyspnea, unspecified; R06.83 Snoring; G47.36 Sleep related hypoventilation in conditions classified elsewhere
CPT/HCPCS: 95806

== ENCOUNTER 2025-07-27 06:49 | Outpatient (CLI) | payer OTHER, SELFPAY ==
--- OUTSIDE RECORDS SUMMARY | 2025-07-27 06:51 | XMS_ITS | Encounter Summary ---
Author Organization [facility] Address [address] [place] [address] Care Team Providers Care Apparel Manager Name Role Phone Иван Harris MD Primary Care Provider [phone] Antonio Henriquez MD Unavailable [phone] Encounter Details Date Type Department Care Team (Late st Contact Info) Description 01/25/2024 Orders Only External Location [address] [place] [phone] Aleks Snell, REBAR FABRICATOR [address] [place] [address] Social History Tobacco Use Types [...] Care Team (Late st Contact Info) Description 08/23/2025 10:30 AM EDT Appointment Cardiac Imaging [address] [place] [address] 08/23/2025 12:00 PM EDT Office Visit [facility] [address], [facility] [address] [place] [address] Howie Esparza MD [address] [place] [address] documented as of this encounter Procedures Procedure Name Priority Date/Time Associated Diagnosis Comments POC US ECHOCARDIOGRAPHY COMPLETE W DOPPLER AND COLOR 01/25/2024 7:19 AM EST documented in this encounter Results * POC US Echocardiography Complete W Doppler and Color (01/25/2024 7:19 AM EST) Anatomical Region Laterality Modality Other 01/25/2024 7:19 AM EST us Aleks Snell REBAR FABRICATOR IMG POINT OF CARE ULTRASO UND Final Result documented in this encounter Visit Diagnoses Not on filedocumented in this encounter Care Teams Apparel Manager Relationship Specialty Start Date End Date Иван Harris MD PCP - General 01/05/24 Antonio Henriquez MD [address] [place] [address] [place] [address] Referring Physician Cardiology 05/05/24 documented as of this encounter
--- OUTSIDE RECORDS SUMMARY | 2025-07-27 06:51 | XMS_ITS | Encounter Summary ---
Author Organization [facility] Address [address] [place] [address] Care Team Providers Care Registered Respiratory Technician Name Role Phone Иван Harris MD Primary Care Provider [phone] Atnonio Henriquez MD Unavailable [phone] Encounter Details Date Type Department Care Team (Late Contact Info) Description 02/24/2024 Orders Only External Location [address] [place] [phone] Antonio Henriquez MD [address] [facility] [address] [place] [address] Social History Tobacco Use Types Packs/Day Years Used Date Smoking Tobacco: Never Assessed Comments Unknown Sex and Gender Information Value Date Recorded Sex Assigned at Not on file Legal Sex Female 10:05 AM EST Gender Identity Not on file Sexual Orientation Not on file documented as of this encounter Plan of Treatment Upcoming Encounters Date Type Department Care Team (Late Contact Info) Description 08/23/2025 10:30 AM EDT Appointment Cardiac Imaging [address] [place] [address] 08/23/2025 12:00 PM EDT Office Visit [facility] [address], [facility] [address] [place] [address] Howie Esparza MD [address] [place] [address] documented as of this encounter [...] on filedocumented in this encounter Care Teams Registered Respiratory Technician Relationship Specialty Start Date End Date Иван Harris MD PCP - General 01/05/24 Antonio Henriquez MD [address] [place] [address] [place] [address] Referring Physician Cardiology 05/05/24 documented as of this encounter
--- OUTSIDE RECORDS SUMMARY | 2025-07-27 06:51 | XMS_ITS | Encounter Summary ---
Author Organization [facility] Address [address] [place] [address] Care Team Providers Care Register Repairer Name Role Phone Иван Harris MD Primary Care Provider [phone] Antonio Henriquez MD Unavailable [phone] Encounter Details Date Type Department Care Team (Late Contact Info) Description 02/24/2024 Orders Only External Location [address] [place] [phone] Antonio Henriquez MD [address] [facility] [address] [place] [address] Social History Tobacco Use Types Packs/Day Years [...] AM EDT Appointment Cardiac Imaging [address] [place] [address] 08/23/2025 12:00 PM EDT Office Visit [facility] [address], [facility] [address] [place] [address] Howie Esparza MD [address] [place] [address] documented as of this encounter [...] on filedocumented in this encounter Care Teams Register Repairer Relationship Specialty Start Date End Date Иван Harris MD PCP - General 01/05/24 Antonio Henriquez MD [address] [place] [address] [place] [address] Referring Physician Cardiology 05/05/24 documented as of this encounter
--- OUTSIDE RECORDS SUMMARY | 2025-07-27 06:51 | XMS_ITS | Referral Summary ---
Author Organization [employer] ([place], [place], [place], [place]) Address [address] [place] [address] Care Team Providers Care Molder Setter Name Role Phone Unavailable Primary Care Provider [...]
--- OUTSIDE RECORDS SUMMARY | 2025-07-27 06:52 | XMS_ITS | Encounter Summary ---
Author Organization [employer] ([place], [place], [place], [place]) Address [address] [place] [address] Care Team Providers Care Radiology Services Manager Name Role Phone Unavailable Primary Care Provider Unavailabl e Encounter Details Date Type Department Care Team (Late st Contact Info) Description 10/06/2021 Transcribed Document [facility] [place] [address] [place] [address] ProviderLea MD [address] [place] [address] Social History Tobacco Use Types [...] - Historical ProviderMD - 10/06/2021 1:37 PM CUTCH CLEANER Stroke/Warfarin Instructions Entered On: 10/06/2021 13:37 EST Performed On: 10/06/2021 13:37 EST by SAMANTHA QUINTANA RN Stroke/Warfarin Instructions Stroke/TIA Discharge Ins : N/A Warfarin Discharge Ins : N/A SAMANTHA QUINTANA RN - 10/06/2021 13:37 EST Electronically signed by Jaymie [facility] Conversion Software Computer Specialist Elizabeth at 03/09/2023 7:28 PM CDT documented in this encounter Plan of Treatment Not on file documented as of this encounter Visit Diagnoses Not on filedocumented in this encounter
--- OUTSIDE RECORDS SUMMARY | 2025-07-27 06:52 | XMS_ITS | Encounter Summary ---
Author Organization [employer] ([place], [place], [place], [place]) Address [address] [place] [address] Care Team Providers Care Registry Rn Name Role Phone Unavailable Primary Care Provider Unavailabl e Encounter Details Date Type Department Care Team (Late st Contact Info) Description 10/05/2021 Transcribed Document [facility] [place] [facility] [place] [address] ProviderLea MD [place] [address] Social History Tobacco Use Types [...] Lea Beverly MD - 10/05/2021 10:20 AM QUALITY SYSTEMS ENGINEER Patient: LISANDRO CHUA Age: 45 years Sex: [...] Task Duplication (Not Done) Height Entry Format Gilliam Height Entry Format Not Done: Task Duplication (Not Done) Height/Length, [place] (ft) 5 ft Height/Length [place] 1 Inch CLINICALHEIGHT 154.94 cm Melber Body Weight 47 kg Weight Source Bed scale Weight Source Not Done: Task Duplication (Not Done) Weight Entry Format Gilliam Weight Citizen [place] lb 191 lb CLINICALWEIGHT 86.82 kg Body Surface Area (BSA) 1.85 m2 Body Mass Index 36.2 kg/m2 NC 10/04/2021 7:50 EST Height Source Not Done: [...] deprivation: Yes [ ] No [ x] documented in this encounter Plan of Treatment Not on file documented as of this encounter Visit Diagnoses Not on filedocumented in this encounter
--- OUTSIDE RECORDS SUMMARY | 2025-07-27 06:52 | XMS_ITS | Encounter Summary ---
Author Organization [employer] ([place], [place], [place], [place]) Address [address] [place] [address] Care Team Providers Care Reproductive Endocrinologist Name Role Phone Unavailable Primary Care Provider Unavailabl e Encounter Details Date Type Department Care Team (Late st Contact Info) Description 10/06/[address] [facility] [place] Medicine [facility] [place] [address] ProviderLea MD [place] [address] Social History Tobacco Use Types [...] - Lea ProviderMD - 10/06/2021 1:38 PM GROUNDWATER CONSULTANT [facility] [place] [id number] LISANDRO CHUAE :1975 Visit Time:10/04/2021 Your Visit Summary Your [...] 1 week Where: [address] [place] [address]- [facility] (1) Medications What How Much When Instructions [...] if you have a seizure. ??? Take cnax-phw-lccjhkc, prescription medicines and herbal remedies only as [...] provider. Document Revised: 10/15/2020 Document Reviewed: 10/20/2020 [employer]ite Patient Education ?? 2020 [employer] Inc. Emergency Awareness and Preventative Care STROKE [...] Assistance with quitting is available by contacting 4-116-PADHNOW. This is a free resource providing counseling, support, and referral. Or you may contact your personal physician. [employer] Suicide Prevention Lifeline: The National Suicide Prevention [...] was given the opportunity to ask questions. Patient/Traveling Freight Agent Name: Patient/Traveling Freight Agent Signature: Relationship to Patient: Clinician/Hospital Traveling Freight Agent Signature: Date: documented in this encounter Plan of Treatment Not on file documented as of this encounter Visit Diagnoses Not on filedocumented in this encounter
--- OUTSIDE RECORDS SUMMARY | 2025-07-27 06:52 | XMS_ITS | Encounter Summary ---
Author Organization [employer] ([place], [place], [place], [place]) Address [address] [place] [address] Care Team Providers Care Tree Puller Name Role Phone Unavailable Primary Care Provider Unavailabl e Encounter Details Date Type Department Care Team (Late st Contact Info) Description 10/06/2021 Transcribed Document [facility] [place] Medicine [facility] [place] [address] ProviderLea MD [address] [place] [address] Social History Tobacco Use Types [...] - Lea ProviderMD - 10/06/2021 1:37 PM FISHERIES OFFICER Patient Education Materials Follows: Non-Epileptic Seizures, Adult [...] if you have a seizure. ??? Take rudn-ozn-bnbwjyh, prescription medicines and herbal remedies only as [...] provider. Document Revised: 10/15/2020 Document Reviewed: 10/20/2020 [employer] Patient Education ? 2020 [employer]. documented in this encounter Plan of Treatment Not on file documented as of this encounter Visit Diagnoses Not on filedocumented in this encounter
--- OUTSIDE RECORDS SUMMARY | 2025-07-27 06:52 | XMS_ITS | Encounter Summary ---
Author Organization [employer] ([place], [place], [place], [place]) Address [address] [place] [address] Care Team Providers Care Supervisor Inspection Name Role Phone Unavailable Primary Care Provider Unavailabl e Encounter Details Date Type Department Care Team (Late st Contact Info) Description 10/04/2021 Transcribed Document [facility] [place] [address] [place] [address] ProviderLea MD [address] [place] [address] Social History Tobacco Use Types [...] - Historical ProviderMD - 10/04/2021 7:50 AM CORPORATE DIRECTOR TALENT ASSESSMENT Meds to Bed Enrollment Entered On: 10/04/2021 7:57 EST Performed On: 10/04/2021 7:50 EST by Alfredo Ugarte Ash Collector Cert Lead Meds to Bed Enrollment Patient Enrollment Decision: : Yes/enroll in meds to bed program Alfredo Ugarte Ash Collector Cert Lead - 10/04/2021 7:56 EST documented in this encounter Plan of Treatment Not on file documented as of this encounter Visit Diagnoses Not on filedocumented in this encounter
--- OUTSIDE RECORDS SUMMARY | 2025-07-27 06:52 | XMS_ITS | Encounter Summary ---
Author Organization [employer] ([place], [place], [place], [place]) Address [address] [place] [address] Care Team Providers Care Lab Systems Analyst Name Role Phone Unavailable Primary Care Provider Unavailabl e Encounter Details Date Type Department Care Team (Late st Contact Info) Description 10/05/2021 Transcribed Document [facility] [place] [facility] [place] [address] ProviderLea MD [address] [place] [address] Social History Tobacco Use Types [...] Lea Beverly MD - 10/05/2021 8:29 AM SPECIAL NEEDS BABYSITTER DATE OF SERVICE: 10/04/2021 REPORT TYPE: EEG REFERRING PHYSICIAN: Pam Jackson MD REPORT TITLE: Video Electroencephalogram Report STUDY DURATION: One day. HISTORY: This is a 45-year-old woman being evaluated for recurrent seizures. EEG VIDEO MONITORING METHODOLOGY: Time-locked EEG-video monitoring was performed using the 32-channel Tissue Regenix monitoring system. The seizure detection computer was [...] cerebral dysfunction in the anterior temporal regions. /[id number] MD SARAH Adair/JOHN / SARAH / MODL /[id number] documented in this encounter Plan of Treatment Not on file documented as of this encounter Visit Diagnoses Not on filedocumented in this encounter
--- OUTSIDE RECORDS SUMMARY | 2025-07-27 06:52 | XMS_ITS | Encounter Summary ---
Author Organization [employer] ([place], [place], [place], [place]) Address [address] [place] [address] Care Team Providers Care Grain Operations Manager Name Role Phone Unavailable Primary Care Provider Unavailabl e Encounter Details Date Type Department Care Team (Late st Contact Info) Description 10/05/2021 Transcribed Document [facility] [place] [facility] [place] [address] ProviderLea MD [address] [place] [address] Social History Tobacco Use Types [...] - Historical ProviderMD - 10/05/2021 4:31 PM PEDIATRIC DENTAL ASSISTANT UM Authorization Entered On: 10/05/2021 16:31 EST Performed On: 10/05/2021 16:31 EST by AWILDA ALLEN Rn-Utilization Review Primary Insurance Authorization Authorization and Policy Numbers : Insurance 1 Health Plan: [employer] Policy Number: [id number] Authorization Number: Insurance 2 Health Plan: ANTHEM HMOPPO Policy Number: [id number] Authorization Number: Insurance Primary Name : [employer] Policy Number: [id number] AN[employer]M HMOPPO Policy Number: [id number] Historical Authorization Comments-Primary : No Authorization Comments Found AWILDA ALLEN Rn-Utilization Review - 10/05/2021 16:31 EST Electronically signed by Jaymie [facility] Conversion Power Shovel Operator Cerner at 03/09/2023 7:14 PM CDT documented in this encounter Plan of Treatment Not on file documented as of this encounter Visit Diagnoses Not on filedocumented in this encounter
--- OUTSIDE RECORDS SUMMARY | 2025-07-27 06:52 | XMS_ITS | Encounter Summary ---
Author Organization [employer] ([place], [place], [place], [place]) Address [address] [place] [address] Care Team Providers Care Solar Engineer Name Role Phone Unavailable Primary Care Provider Unavailabl e Encounter Details Date Type Department Care Team (Late st Contact Info) Description 10/05/2021 Transcribed Document [facility] [place] Family Medicine [address] [place] [address] ProviderLea MD [address] [place] [address] Social History Tobacco Use Types [...] - Historical ProviderMD - 10/05/2021 2:00 AM AUTOMOTIVE GLASS MECHANIC Green Chain Worker Details Entered On: 10/05/2021 4:06 EST Performed [...] 10/05/2021 4:05 EST Electronically signed by Jaymie [facility] Conversion Professional Driver Cerner at 03/09/2023 7:14 PM CDT documented in this encounter Plan of Treatment Not on file documented as of this encounter Visit Diagnoses Not on filedocumented in this encounter
--- OUTSIDE RECORDS SUMMARY | 2025-07-27 06:52 | XMS_ITS | Clinical Summary ---
Author Organization [employer] Address [address] [place] [address] Phone Care Team Providers Care Dietary Aide Teacher Name Role Phone Unavailable Primary Care Provider [...] S/p bilateral mastectomy and reconstructions Dr. Naidu, [place] [facility]. Restless legs syndrome (RLS) 05/17/2020 [...] Date Smoking Tobacco: Every Day Cigarettes 1 31.7 Started: 1995 Smokeless Tobacco: Never Alcohol Use [...] 04/09/2021 1:12 PM EDT Plan of Treatment Upcoming Encounters Date Type Department Care Team (Late st Contact Info) Description 08/08/2025 9:30 AM EDT Office Visit [facility] [place] [address] Kev Farris MD [address] [place] [address] Health Maintenance Due Date Last Done Comments [...] Free Lifestyle No Melita Martins CCMA Insurance [facility] CHOICE PLUS Member Subscriber Plan / Payer (Ef fective 2020-Present) Name:Brooks Chua Relation to Subscriber:Self Name:Brooks Chua Payer ID:[id number] (NAIC) Group ID:Not on file Type:Not on file Address: [id number] [place] [id number] [facility]
--- OUTSIDE RECORDS SUMMARY | 2025-07-27 06:52 | XMS_ITS | Encounter Summary ---
Author Organization [employer] ([place], [place], [place], [place]) Address [address] [place] [address] Care Team Providers Care Tip Cutter Name Role Phone Unavailable Primary Care Provider Unavailabl e Encounter Details Date Type Department Care Team (Late st Contact Info) Description 10/04/2021 Transcribed Document [facility] [place] [address] [place] [address] ProviderLea MD [address] [place] [address] Social History Tobacco Use Types [...] - Lea ProviderMD - 10/04/2021 12:25 PM LUGGAGE MAKER EPILEPSY ADMISSION NOTE DATE OF ADMISSION: 10/04/2021 [...] the upper and lower extremities. Coordination: Normal chizuf-eo-okaw. IMPRESSION: Ms. Chua has had recurrent spells that have been fairly stereotypical. The clinical features suggest the possibility of complex partial seizures. Alternatively, the episodes may be nonepileptic in origin. PLAN: 1. Admit to the epilepsy monitoring unit. 2. Start video EEG monitoring. 3. Seizure precautions. 4. Continue home medications. 5. Use lorazepam 2 mg IV for repetitive or prolonged seizures. /[id number] MD SARAH Adair/JOHN / TAF / MODL documented in this encounter Plan of Treatment Not on file documented as of this encounter Visit Diagnoses Not on filedocumented in this encounter
--- OUTSIDE RECORDS SUMMARY | 2025-07-27 06:52 | XMS_ITS | Encounter Summary ---
Author Organization [employer] ([place], [place], [place], [place]) Address [address] [place] [address] Care Team Providers Care Loan Associate Name Role Phone Unavailable Primary Care Provider Unavailabl e Encounter Details Date Type Department Care Team (Late st Contact Info) Description 10/06/2021 Transcribed Document [facility] [place] [facility] [place] [address] ProviderLea MD [facility] [place] [address] Social History Tobacco Use Types [...] - Lea ProviderMD - 10/06/2021 11:16 AM INTERRELATED SPECIAL EDUCATION TEACHER [address] , [place] [address] Patient Copy Patient Information: Name: LISANDRO CHUA Current Date: 10/06/2021 11:16:42 : 1975 Patient Address: [address] [place] [id number] Patient Attending Physician: YULIA CHINCHILLA MD-NEU Primary Care Provider: AXEL HOPE (REF)JOHN Primary Care Provider Discharge Diagnosis: Nonepileptic episode Weight on Admission: 191 lb, 0 oz Comment: Follow-up Instructions: With: Address: When: Brittnee Dan [address] [place] [id number] Business (1) Within 1 week Discharge Instructions: [...] Assistance with quitting is available by contacting 5-209-PGCC-NOW. This is a free resource providing counseling, [...] Be sure to sign up for the [employer] patient portal, which gives you 15/06 access to your medical information ??? including these discharge instructions ??? using your computer, smartphone, or tablet. Just go to [employer] to get started. Questions? Call . [facility] would like to thank you for allowing us to assist you with your healthcare needs. RIASSA Bradley CASEY MARIE, (or textile designs sales representative) have received the above patient education materials/instructions and have verbalized understanding: Patient Signature _ Date/Time Patient Transmission Operator Signature (if needed) Date/Time Clinician/Hospital Transmission Operator Signature (if needed) Date/Time documented in this encounter Plan of Treatment Not on file documented as of this encounter Visit Diagnoses Not on filedocumented in this encounter
--- OUTSIDE RECORDS SUMMARY | 2025-07-27 06:52 | XMS_ITS | Clinical Summary ---
Author Organization [employer] ([place], [place], [place], [place]) Address [address] [place] [address] Care Team Providers Care Kitchen Helper Name Role Phone Unavailable Primary Care Provider [...]
--- OUTSIDE RECORDS SUMMARY | 2025-07-27 06:52 | XMS_ITS ---
Author Organization [facility] Address [address] [place] [address] Care Team Providers Care Game Producer Name Role Phone Иван Harris MD Primary Care Provider [phone] Antonio Henriquez MD Unavailable [phone] Active Problems Problem Noted Date Diagnosed Date [...]
--- OUTSIDE RECORDS SUMMARY | 2025-07-27 06:52 | XMS_ITS | Encounter Summary ---
Author Organization [employer] ([place], [place], [place], [place]) Address [address] [place] [address] Care Team Providers Care Tool Keeper Name Role Phone Unavailable Primary Care Provider Unavailabl e Encounter Details Date Type Department Care Team (Late st Contact Info) Description 10/04/2021 Transcribed Document [facility] [place] [address] [place] [address] ProviderLea MD [address] [place] [address] Social History Tobacco Use Types [...] - Lea ProviderMD - 10/04/2021 12:00 PM GOGGLES ASSEMBLER Education-Smoking Cessation Entered On: 10/04/2021 16:24 EST [...] to Tobacco Cues : Refused Activities to [place] With Smoking Urges : Refused Basic Information About Quitting : Refused Tobacco Use Increases Chance of Relapse : Refused Withdrawal Symptoms Peak After Quitting : Refused Addictive Nature of Tobacco : Refused Ashwini Shaw RN-PATIENT CARE BEDSIDE NON-EXEMPT - 10/04/2021 16:23 EST Electronically signed by [facility] Conversion Paint Grinder Cerner at 03/09/2023 7:34 PM CDT documented in this encounter Plan of Treatment Not on file documented as of this encounter Visit Diagnoses Not on filedocumented in this encounter
--- OUTSIDE RECORDS SUMMARY | 2025-07-27 06:52 | XMS_ITS | Encounter Summary ---
Author Organization [facility] Address [address] [place] [address] Care Team Providers Care Tube Filler Name Role Phone Иван Harris MD Primary Care Provider [phone] Antonio Henriquez MD Unavailable [phone] Encounter Details Date Type Department Care Team (Late st Contact Info) Description 05/09/2024 Lab Requisition [facility] [address] [place] [address] Christopher Elizondo MD [address] [facility] [address] [place] [address] Encounter for general adult medical [...] and Family Not on file 05/09/2024 Attends Scientology Services Not on file 05/09 Active Member [...] place to sleep or slept in a care home (including now)? No 05/09/2024 CAGE ASSESSMENT Answer [...] drink first t federico in the morning (EYE-CHIEF ENGINEER) to steady your nerves or to get rid of a hangover? 0 05/13/2024 CAGE Questionnaire Score 0 024 Utilities Answer Date Recorded In the past 12 months has th e [employer], gas, oil, or water company threatened to [...] AM EDT Appointment Cardiac Imaging [address] [place] [address] 08/23/2025 12:00 PM EDT Office Visit [facility] [address], [address] [place] [address] Howie Esparza MD [address] [place] [address] documented as of this encounter Procedures Procedure Name Priority Date/Time Associated Diagnosis Comments MULTI DRUG RESISTANCE TEST Routine 05/09/2024 9:30 AM EDT Encounter for general adult medical examination without abnormal findings documented in this encounter Results * Multi Drug Resistance Test (05/09/2024 9:30 AM EDT) Culture No growth at day 1 05/10/2024 7:38 AM EDT HEALTHCARE LAB Swab (Nares and Va Rectal) 05/09/2024 9:30 AM EDT 05/09/2024 10:14 AM EDT us Christopher Elizondo MD LAB MICROBIOLOGY - GEN ERAL ORDERABLES Final Result [facility]ALTHCARE [facility] [address] [place] [address] documented in this encounter Visit Diagnoses Diagnosis [...] documented as of this encounter Care Teams Tube Filler Relationship Specialty Start Date End Date Иван Harris MD PCP - General 01/05/24 Antonio Henriquez MD [address] [place] [address] [place] [address] Referring Physician Cardiology 05/05/24 documented as of this encounter
--- OUTSIDE RECORDS SUMMARY | 2025-07-27 06:52 | XMS_ITS | Encounter Summary ---
Author Organization [employer] ([place], [place], [place], [place]) Address [address] [place] [address] Care Team Providers Care Medical Assistant Name Role Phone Unavailable Primary Care Provider Unavailabl e Encounter Details Date Type Department Care Team (Late st Contact Info) Description 10/04/2021 Transcribed Document [facility] [place] [address] [place] [address] ProviderLea MD [address] [place], [place] [address] Social History Tobacco Use Types Packs/Day Years [...] - Historical ProviderMD - 10/04/2021 9:50 AM PRINTED CIRCUIT BOARD PANELS PLATER [facility] Event Note Entered On: 10/04/2021 9:50 EST Performed On: 10/04/2021 9:50 EST by AYAAN GALICIA Neurodiagnostic Tech Neurodiagnostics Event Note Neurodiagnostic Event Date/Time : 10/04/2021 9:50 EST Neurodiagnostic Event Location : Neurodiagnostic department Neurodiagnostic Event Details : Procedure completed AYAAN GALICIA Neuronaaostic Tech - 10/04/2021 9:50 EST Electronically signed by Jaymie [facility] Conversion Head Of Conservation Cerner at 03/09/2023 7:20 PM CDT documented in this encounter Plan of Treatment Not on file documented as of this encounter Visit Diagnoses Not on filedocumented in this encounter
--- OUTSIDE RECORDS SUMMARY | 2025-07-27 06:52 | XMS_ITS | Encounter Summary ---
Author Organization [facility] ([place], [place], [place], [place]) Address [address] [place] [address] Care Team Providers Care Disease Control Inspector Name Role Phone Unavailable Primary Care Provider Unavailabl e Encounter Details Date Type Department Care Team (Late st Contact Info) Description 10/04/2021 Transcribed Document [facility] [place] [facility] [place] [address] ProviderLea MD [address] [place] [address] Social History Tobacco Use Types [...] - Lea ProviderMD - 10/04/2021 9:35 AM PHYSICIANS AND SURGEONS Education-(VTE) / (DVT) Entered On: 10/04/2021 16:23 [...]
--- OUTSIDE RECORDS SUMMARY | 2025-07-27 06:52 | XMS_ITS | Encounter Summary ---
Author Organization [employer] ([place], [place], [place], [place]) Address [address] [place] [address] Care Team Providers Care Lining Parts Sewer Name Role Phone Unavailable Primary Care Provider Unavailabl e Encounter Details Date Type Department Care Team (Late st Contact Info) Description 10/05/2021 Transcribed Document [facility] [place] [address] [place] [address] ProviderLea MD [address] [place] [address] Social History Tobacco Use Types [...] - Historical ProviderMD - 10/05/2021 5:00 AM EXPRESS CLERK Chart Check - Review Order Profile Entered On: 10/05/2021 4:06 EST Performed On: 10/05/2021 5:00 EST by Adriana Hunt RN Chart Check Powerplans Initiated/Discontinued as Appropriate : Yes All Active Orders Reviewed : Yes Adriana Hunt RN - 10/05/2021 4:06 EST Electronically signed by Jaymie [facility] Conversion Detacher Elizabeth at 03/09/2023 7:12 PM CDT documented in this encounter Plan of Treatment Not on file documented as of this encounter Visit Diagnoses Not on filedocumented in this encounter
--- OUTSIDE RECORDS SUMMARY | 2025-07-27 06:52 | XMS_ITS | Encounter Summary ---
Author Organization [employer] ([place], [place], [place], [place]) Address [address] [place] [address] Care Team Providers Care Machine I Trimmer Name Role Phone Unavailable Primary Care Provider Unavailabl e Encounter Details Date Type Department Care Team (Late st Contact Info) Description 10/06/2021 Transcribed Document [facility] [place] [facility] [place] [address] ProviderLea MD [address] [place] [address] Social History Tobacco Use [...] - Historical ProviderMD - 10/06/2021 11:20 AM CORPORATE STAFF ACCOUNTANT DATE OF ADMISSION: 10/04/2021 DATE OF DISCHARGE: [...] reports having an appointment in one week). /[id number] Pam Jackson MD TAF/AQ / TAF / MODL /[id number] documented in this encounter Plan of Treatment Not on file documented as of this encounter Visit Diagnoses Not on filedocumented in this encounter
--- OUTSIDE RECORDS SUMMARY | 2025-07-27 06:52 | XMS_ITS | Clinical Summary ---
Author Organization [facility] Address [address] [place] [address] Care Team Providers Care Software Integrator Name Role Phone Иван Harris MD Primary Care Provider [phone] Antonio Henriquez MD Unavailable [phone] Allergies No known active allergies Medications ARIPiprazole [...] and Family Not on file 05/09/2024 Attends Muslim Services Not on file 05/09 Active Member [...] place to sleep or slept in a chcf (including now)? No 05/09/2024 CAGE ASSESSMENT Answer [...] drink first t federico in the morning (EYE-PSS DELIVERY PROFESSIONAL) to steady your nerves or to get rid of a hangover? 0 05/13/2024 CAGE Questionnaire Score 0 024 Utilities Answer Date Recorded In the past 12 months has th e [employer], gas, oil, or water company threatened to [...] AM EDT Appointment Cardiac Imaging [address] [place] [address] 08/23/2025 12:00 PM EDT Office Visit [facility] [address], [address] [place] [address] Howie Esparza MD [address] [place] [address] Health Maintenance Due Date Last Done Comments [...] 05/17/2020 [facility]-Zoster Vaccines (1 of 2) 2023 [id number]-52 Vaccine (2 - season) 2024 06/24/2021 [facility]-Depression Screening 03/21/2025 03/21/2024 [...] this topic Medical Devices Implanted Type Area Program Scheduler Device Identifier Shelf Expiration Date Model / Serial / Lot Valve Mitral Shv Epic Plus Porcine 31mm - [id number] - [id number] Implanted:Qty: 1 on 05/05/2024 by Howie Esparza MD at [facility] N/A: Heart [id number] 02/15/2027 E-200-31M / [id number] / [id number] Description:Rinse 10 seconds x2 in saline. Explanted Type Area Program Scheduler Device Identifier Shelf Expiration Date Model / Serial / Lot Ring Mitral Annuloplasty Physioflex 30mm - [id number] - [id number] Explanted:Qty: 1 on 05/05/2024 at [facility] N/A: [facility][id number] 02/26/2027 [id number] / [id number] / [id number] Procedures Procedure Name Priority Date/Time Associated Diagnosis Comments HEMOGLOBIN A1C Routine 04/20/2024 11:57 AM EDT Severe mitral regurgitation CT ANGIO CHEST 04/07/2024 6:55 PM EDT from Last 3 Months or Most Recently Relevant to Health Maintenance Results * (ABNORMAL) Hemoglobin A1c (04/20/2024 11:57 AM EDT) Hemoglobin A1c 5.9(H) <5.7 % 04/20/2024 1:51 PM EDT [facility] Blood Venous blood specimen / Unknown [...] Adults <6.0% Children and Adolescents <7.5% Source: [place] [employer] Diabetes Association. Standards of medical care in diabetes,2017. Diabetes Care.2017:40 (suppl 1):S1-S135. HbA1c assay performed by an ion-exchange chromatography method that is certified traceable to the DCCT. us Howie Esparza MD LAB BLOOD ORDERABLES Final Resu lt HEALTHCARE LAB [address] [place] [address] * CT Angio Chest (04/07/2024 6:55 PM EDT) Anatomical Region Laterality Modality Chest Computed Tomogra phy 04/07/2024 6:55 PM EDT us Leila Azevedo DO IMG CT PROCEDURES Final Result from Last 3 Months or Most Recently Relevant to Health Maintenance Insurance Advance Directives * Full Code (Latest Code [...] Patient has decision-making capacity? Yes Care Teams Software Integrator Relationship Specialty Start Date End Date Иван Harris MD PCP - General 01/05/24 Antonio Henriquez MD [facility] [place] [address] [address] [place] [address] Referring Physician Cardiology 05/05/24
--- OUTSIDE RECORDS SUMMARY | 2025-07-27 06:52 | XMS_ITS | Encounter Summary ---
Author Organization [employer] ([place], [place], [place], [place]) Address [address] [place] [address] Care Team Providers Care Dog Or Animal Sitter Name Role Phone Unavailable Primary Care Provider Unavailabl e Encounter Details Date Type Department Care Team (Late st Contact Info) Description 10/06/2021 Transcribed Document [facility] [place] [facility] [place] [address] ProviderLea MD [address] [place] [address] Social History Tobacco Use Types [...] Lea Beverly MD - 10/06/2021 8:30 AM ARCHITECT INTERNSHIP DATE OF SERVICE: 10/05/2021 REPORT TYPE: EEG REFERRING PHYSICIAN: Pam Jackson MD REPORT TITLE: Video Electroencephalogram Report STUDY DURATION: One day. HISTORY: This is a 45-year-old woman being evaluated for recurrent seizures. EEG VIDEO MONITORING METHODOLOGY: Time-locked EEG-video monitoring was performed using the 32-channel [employer] monitoring system. The seizure detection computer was [...] potential epileptogenicity in the right temporal region. /[id number] MD SARAH Adair/JOHN / SARAH / MODL /[id number] documented in this encounter Plan of Treatment Not on file documented as of this encounter Visit Diagnoses Not on filedocumented in this encounter
--- OUTSIDE RECORDS SUMMARY | 2025-07-27 06:52 | XMS_ITS | Encounter Summary ---
Author Organization [employer] ([place], [place], [place], [place]) Address [address] [place] [address] Care Team Providers Care Lunchroom Worker Name Role Phone Unavailable Primary Care Provider Unavailabl e Encounter Details Date Type Department Care Team (Late st Contact Info) Description 10/04/2021 Transcribed Document [facility] [place] Family Medicine [address] [place] [address] ProviderLea MD [address] [place] [address] Social History Tobacco Use Types [...] - Historical ProviderMD - 10/04/2021 5:00 PM SOA INTEGRATION DEVELOPER Chart Check - Review Order Profile Entered On: 10/04/2021 16:24 EST Performed On: 10/04/2021 17:00 EST by Ashwini Shaw RN-PATIENT CARE BEDSIDE NON-EXEMPT Chart Check Powerplans Initiated/Discontinued as Appropriate : Yes All Active Orders Reviewed : Yes Ashwini Shaw RN-PATIENT CARE BEDSIDE NON-EXEMPT - 10/04/2021 16:24 EST Electronically signed by Jaymie [facility] Conversion Technical Services Specialist Cerhan at 03/09/2023 7:22 PM CDT documented in this encounter Plan of Treatment Not on file documented as of this encounter Visit Diagnoses Not on filedocumented in this encounter
--- OUTSIDE RECORDS SUMMARY | 2025-07-27 06:52 | XMS_ITS | Encounter Summary ---
Author Organization [employer] ([place], [place], [place], [place]) Address [address] [place] [address] Care Team Providers Care Casino Floorperson Name Role Phone Unavailable Primary Care Provider Unavailabl e Encounter Details Date Type Department Care Team (Late st Contact Info) Description 10/06/2021 Transcribed Document [facility] [place] [facility] [address] ProviderLea MD [address] [place] [address] Social History Tobacco Use Types [...] Lea Beverly MD - 10/06/2021 11:47 AM WAITER/WAITRESS DINING CAR DATE OF SERVICE: 10/06/2021 REPORT TYPE: EEG REFERRING PHYSICIAN: Pam Jackson MD REPORT TITLE: Video Electroencephalogram Report STUDY DURATION: 5 hours 30 minutes. HISTORY: This is a 45-year-old woman being evaluated for recurrent seizures. EEG VIDEO MONITORING METHODOLOGY: Time-locked EEG-video monitoring was performed using the 32-channel [employer] monitoring system. The seizure detection computer was [...] cerebral dysfunction in the anterior temporal regions. /[id number] MD SARAH Adair/JOHN / TAF / MODL /[id number] documented in this encounter Plan of Treatment Not on file documented as of this encounter Visit Diagnoses Not on filedocumented in this encounter
--- OUTSIDE RECORDS SUMMARY | 2025-07-27 06:52 | XMS_ITS | Encounter Summary ---
Author Organization [email or web address] ([place], [place], [place], [place]) Address [address] [place] [address] Care Team Providers Care Roofer Name Role Phone Unavailable Primary Care Provider Unavailabl e Encounter Details Date Type Department Care Team (Late st Contact Info) Description 10/06/2021 Transcribed Document [facility] [place] [address] [place] [address] ProviderLea MD [address] [place] [address] Social History Tobacco Use Types [...] - Historical ProviderMD - 10/06/2021 5:00 AM ALARM MECHANISM ADJUSTER Chart Check - Review Order Profile Entered On: 10/06/2021 3:25 EST Performed On: 10/06/2021 5:00 EST by Adriana Hunt RN Chart Check Powerplans Initiated/Discontinued as Appropriate : Yes All Active Orders Reviewed : Yes Adriana Hunt RN - 10/06/2021 3:25 EST Electronically signed by Jaymie [facility] Conversion Field Service Representative Elizabeth at 03/09/2023 7:18 PM CDT documented in this encounter Plan of Treatment Not on file documented as of this encounter Visit Diagnoses Not on filedocumented in this encounter
--- OUTSIDE RECORDS SUMMARY | 2025-07-27 06:52 | XMS_ITS | Encounter Summary ---
Author Organization [employer] ([place], [place], [place], [place]) Address [address] [place] [address] Care Team Providers Care Workforce Staffing Advisor Name Role Phone Unavailable Primary Care Provider Unavailabl e Encounter Details Date Type Department Care Team (Late st Contact Info) Description 10/06/2021 Transcribed Document [facility] Family Medicine [address] [place] [address] ProviderLea MD [address] [place] [address] Social History Tobacco Use Types [...] - Historical ProviderMD - 10/06/2021 2:00 AM EMPLOYMENT LAW SPECIALIST Software Quality Specialist Details Entered On: 10/06/2021 2:31 EST Performed [...] 10/06/2021 2:30 EST Electronically signed by Jaymie [facility] Conversion Hr Business Partner Consultant Cerner at 03/09/2023 7:23 PM CDT documented in this encounter Plan of Treatment Not on file documented as of this encounter Visit Diagnoses Not on filedocumented in this encounter
--- OUTSIDE RECORDS SUMMARY | 2025-07-27 06:52 | XMS_ITS | Encounter Summary ---
Author Organization [facility] Address [address] [place] [address] Care Team Providers Care Grounds Manager Name Role Phone Иван Harris MD Primary Care Provider [phone] Antonio Henriquez MD Unavailable [phone] Encounter Details Date Type Department Care Team (Late st Contact Info) Description 01/25/2024 Orders Only External Location [address] [place] [id number] Aleks Snell, INDIGO VAT TENDER CLOTH [address] [place] [address] Social History Tobacco Use Types [...] AM EDT Appointment Cardiac Imaging [address] [place] [address] 08/23/2025 12:00 PM EDT Office Visit [facility] [address] [facility] [address] [place] [address] Howie Esparza MD [address] [place] [address] documented as of this encounter Procedures Procedure Name Priority Date/Time Associated Diagnosis Comments POC US ECHOCARDIOGRAPHY COMPLETE W DOPPLER AND COLOR 01/25/2024 7:19 AM EST documented in this encounter Results * POC US Echocardiography Complete W Doppler and Color (01/25/2024 7:19 AM EST) Anatomical Region Laterality Modality Other 01/25/2024 7:19 AM EST us Aleks Snell INDIGO VAT TENDER CLOTH IMG POINT OF CARE ULTRASO UND Final Result documented in this encounter Visit Diagnoses Not on filedocumented in this encounter Care Teams Grounds Manager Relationship Specialty Start Date End Date Иван Harris MD PCP - General 01/05/24 Antonio Henriquez MD [address] [place] [address] [place] [address] Referring Physician Cardiology 05/05/24 documented as of this encounter
--- OUTSIDE RECORDS SUMMARY | 2025-07-27 06:52 | XMS_ITS | Encounter Summary ---
Author Organization [employer] ([place], [place], [place], [place]) Address [address] [place] [address] Care Team Providers Care Autoclave Operator Name Role Phone Unavailable Primary Care Provider Unavailabl e Encounter Details Date Type Department Care Team (Late st Contact Info) Description 10/06/2021 Transcribed Document [facility] [place] [facility] [place] [address] ProviderLea MD [place] [address] Social History Tobacco Use Types [...] - Lea ProviderMD - 10/06/2021 1:37 PM CORRECTIONAL THERAPY TEACHER [place] [id number] LISANDRO CHUAE :1975 Visit Time:10/04/2021 [...] 1 week Where: [address] [place] [address]- [facility] (1) Medications What [...] if you have a seizure. ??? Take [id number], prescription medicines and herbal remedies only as [...] provider. Document Revised: 10/15/2020 Document Reviewed: 10/20/2020 [employer] Patient Education ?? 2020 [employer] Emergency Awareness and Preventative Care STROKE [...] Assistance with quitting is available by contacting 4-273-ZEJUNOW. This is a free resource providing counseling, support, and referral. Or you may contact your personal physician. [employer] Suicide Prevention Lifeline: The National Suicide Prevention [...] was given the opportunity to ask questions. Patient/Glass Sagger Name: Patient/Glass Sagger Signature: Relationship to Patient: Clinician/Hospital Glass Sagger Signature: Date: Electronically signed by Ángel Coon Conversion Residential Program Coordinator Elizabeth at 03/09/2023 7:19 PM CDT documented in this encounter Plan of Treatment Not on file documented as of this encounter Visit Diagnoses Not on filedocumented in this encounter
--- OUTSIDE RECORDS SUMMARY | 2025-07-27 06:52 | XMS_ITS | Encounter Summary ---
Author Organization [employer] ([place], [place], [place], [place]) Address [address] [place] [address] Care Team Providers Care Fuel Efficient Aircraft Designer Name Role Phone Unavailable Primary Care Provider Unavailabl e Encounter Details Date Type Department Care Team (Late st Contact Info) Description 10/04/2021 Transcribed Document [facility] Family Medicine [facility] [place] [address] ProviderLea MD [address] [place] [address] Social History Tobacco Use Types [...] - Historical ProviderMD - 10/04/2021 11:50 AM US MARKETING DIRECTOR Admission History, Adult Entered On: 10/04/2021 11:59 [...] #2 Relationship : n Primary Language : Omani Communication Barrier : None Cement Tile Maker Needed : No Ashwini Shaw RN-PATIENT CARE [...] Scale Risk Level : 0-24 Low Risk Cubero Fall Interventions : Adequate lighting, Assistive devices [...] Desires Tobacco Cessation Medication : Yes Ashwini Shaw RN-PATIENT CARE BEDSIDE [...] Source : Measured Height Entry Format : [facility] Height, Feet : 5 ft(Converted to: 152 cm, 60 Inch) Height, Inches : 1 Inch(Converted to: 0 ft 1 Inch, 2.54 cm) Clinical Height : 154.94 cm Weight Source : Bed scale Weight Entry Format : [facility] Clinical Dosing Weight : 86.82 kg Weight, Pounds : 191 lb Body Surface Area (BSA) : 1.85 m2 Body Mass Index : 36.2 kg/m2 (HI) Harrells Body Weight : 47 kg Ashwini Shaw RN-PATIENT CARE [facility] NON-EXEMPT - 10/04/2021 11:50 EST Infectious Disease [...] RN-PATIENT CARE [facility] NON-EXEMPT - 10/04/2021 11:50 EST Infectious Disease [...] RN-PATIENT CARE [facility] NON-EXEMPT - 10/04/2021 11:50 EST Physical contact outside [place] in the last 30 days : No Hospitalized in Foreign Country : No Infectious Disease History : Chicken pox/Shingles INF Disease TB Screening Calc : 0 INF Disease Recent Travel Calc : 0 Ashwini Shaw RN-PATIENT CARE [facility] NON-EXEMPT - 10/04/2021 11:50 EST Influenza Vaccine Asmt, Adult Previous Vaccines from Immunization Schedule : No qualifying data available. Influenza Immunization, Current Season : Yes Ashwini Shaw RN-PATIENT CARE [facility] NON-EXEMPT - 10/04/2021 11:50 EST Pneumococcal Vaccine Previous Vaccines from Immunization Schedule : No qualifying data available. Pneumonia Immunization Received : No Pneumococcal Risk Assessment < Age 65 : None Ashwini Shaw RN-PATIENT CARE [facility] NON-EXEMPT - 10/04/2021 11:50 EST Order Details Isolation Precautions Order Detail : Standard Precautions IV Order Detail : 1 Lift/Transfer : Independent Room Service : Appropriate Patient Needs Meds Crushed/Liquid : No Ashwini Shaw RN-PATIENT CARE [facility] NON-EXEMPT - 10/04/2021 11:50 EST Nutrition History Eating Poorly Due to Decreased Appetite : No Unplanned Weight Loss in Past 3-6 Months : No Malnutrition Screening Tool Total(mal) : 0 Malnutrition Screening Tool Risk Level : Patient not at risk Ashwini Shaw RN-PATIENT CARE [facility] NON-EXEMPT - 10/04/2021 11:50 EST Hughes Suicide Severity Rating Scale (C-SSRS) CSSRS Past Month Wish to be : No CSSRS Past Month Suicidal Thoughts : No CSSRS Lifetime Suicide Behavior : No Suicide Severity Rating Score : 0 Suicide Severity Rating : No Additional Care Required at this time Ashwini Shaw RN-PATIENT CARE [facility] NON-EXEMPT - 10/04/2021 11:50 EST Psychosocial History Currently in Unsafe Situation : No Ashwini Shaw RN-PATIENT CARE [facility]EXEMPT - 10/04/2021 11:50 EST Sleep Apnea [...] RN-PATIENT CARE [facility] NON-EXEMPT - 10/04/2021 11:50 EST Valuables and [...] - 10/04/2021 11:50 EST Electronically signed by [facility], [facility] Home Director Cerner at 03/09/2023 7:31 PM CDT documented in this encounter Plan of Treatment Not on file documented as of this encounter Visit Diagnoses Not on filedocumented in this encounter
--- NOTE | 2025-07-27 07:00 | CT_ITS ---
FINAL REPORT TECHNIQUE: Axial images were obtained from the lung apex to the mid abdomen by computed tomography. This study was performed with techniques to keep radiation doses as low as reasonably achievable (ALARA). Individualized dose reduction techniques using automated exposure control or adjustment of mA and/or kV according to the patient's size were employed. CLINICAL HISTORY: lung cancer screening current smoker 1/2ppd x30 years COMPARISON: 04/07/2024 FINDINGS: CHEST CT LOW DOSE CTDI vol (mGy): DLP (mGy-cm): There is no axillary adenopathy. There is no hilar or mediastinal adenopathy. Bilateral subglandular breast implants are noted. Patient is status postmedian sternotomy. The heart is normal in size. There is no pericardial or pleural effusion. There is a pleural-based nodule at the left base measuring 4 mm on image 47, series 3. There is a pleural-based nodule in the anterior right upper lobe measuring 4 mm on image 36, series 3. Limited images of the upper abdomen demonstrates a 1.8 cm benign-appearing cyst in the right lobe of the liver. IMPRESSION: Pulmonary nodules as detailed above. Lung RADS category 2. Recommend 12 month follow-up low-dose chest CT. Reviewed, Interpreted and Dictated by Moe Samaniego MD Transcribed by Juanis Domingo Authenticated and [facility]
== END 2025-07-27 23:59 | disposition home or self-care (01) ==
LOC: RAD 06:50
PROVIDERS: PCP Family Medicine; Visit Provider Internal Medicine Pulmonary Disease
DX: R91.8 Other nonspecific abnormal finding of lung field (principal); Z12.2 Encounter for screening for malignant neoplasm of respiratory organs; F17.210 Nicotine dependence, cigarettes, uncomplicated
CPT/HCPCS: 71271

== ENCOUNTER 2025-09-01 08:31 | Outpatient (CLI) | payer OTHER, SELFPAY ==
[2025-09-01 07:57] VITALS: BMI 32.6
--- OUTSIDE RECORDS SUMMARY | 2025-09-01 08:39 | XMS_ITS | Referral Summary ---
Author Organization [employer] ([place], [place], [place], [place]) Address [address] [place] [address] Care Team Providers Care It Recruiter Name Role Phone Unavailable Primary Care Provider [...]
--- OUTSIDE RECORDS SUMMARY | 2025-09-01 08:39 | XMS_ITS | Encounter Summary ---
Author Organization [facility] Address [address] [place] [address] Care Team Providers Care Director Of Occupational Health Name Role Phone Иван Harris MD Primary Care Provider [phone] Antonio Henriquez MD Unavailable [phone] Encounter Details Date Type Department Care Team (Late Contact Info) Description 02/24/2024 Orders Only External Location [address] [place] [address] Antonio Henriquez MD [address] [facility] [address] [place] [address] Social History Tobacco Use Types Packs/Day Years Used Date Smoking Tobacco: Never Assessed Comments Unknown Sex and Gender Information Value Date Recorded Sex Assigned at Not on file Legal Sex Female 10:05 AM EST Gender Identity Not on file Sexual Orientation Not on file documented as of this encounter Plan of Treatment Upcoming Encounters Date Type Department Care Team (Late Contact Info) Description 11/29/2025 8:30 AM EST Appointment Cardiac Imaging [address] [place] [address] 11/29/2025 10:30 AM EST Office Visit [facility] [address], [facility] [address] [place] [address] Howie Esparza MD [address] [place] [address] documented as of this encounter [...] on filedocumented in this encounter Care Teams Director Of Occupational Health Relationship Specialty Start Date End Date Иван Harris MD PCP - General 01/05/24 Antonio Henriquez MD [address] [place] [address] [place] [address] Referring Physician Cardiology 05/05/24 documented as of this encounter
--- OUTSIDE RECORDS SUMMARY | 2025-09-01 08:39 | XMS_ITS | Encounter Summary ---
Author Organization [facility] Address [address] [place] [address] Care Team Providers Care Cash Application Representative Name Role Phone Иван Harris MD Primary Care Provider [phone] Antonio Henriquez MD Unavailable [phone] Encounter Details Date Type Department Care Team (Late Contact Info) Description 02/24/2024 Orders Only External Location [address] [place] [address] Antonio Henriquez MD 12[address] [facility] [address] [place] [address] Social History Tobacco Use Types Packs/Day Years [...] AM EST Appointment Cardiac Imaging [address] [place] [address] 11/29/2025 10:30 AM EST [facility] [address], [facility] [address] [place] [address] Howie Esparza MD [address] [place] [address] documented as of this encounter [...] on filedocumented in this encounter Care Teams Cash Application Representative Relationship Specialty Start Date End Date Иван Harris MD PCP - General 01/05/24 Antonio Henriquez MD [address] [place] [address] [place] [address] Referring Physician Cardiology 05/05/24 documented as of this encounter
--- OUTSIDE RECORDS SUMMARY | 2025-09-01 08:40 | XMS_ITS | Encounter Summary ---
Author Organization [employer] ([place], [place], [place], [place]) Address [address] [place] [address] Care Team Providers Care Hearing Therapy Director Name Role Phone Unavailable Primary Care Provider Unavailabl e Encounter Details Date Type Department Care Team (Late st Contact Info) Description 10/06/2021 Transcribed Document [facility] [place] Family Medicine [facility] [place] [address] ProviderLea MD [address] [place] [address] Social History Tobacco Use Types [...] - Lea ProviderMD - 10/06/2021 1:37 PM BELL CAPTAIN Patient Education Materials Follows: Non-Epileptic Seizures, Adult [...] if you have a seizure. ??? Take [id number]-[id number], prescription medicines and herbal remedies only as [...] provider. Document Revised: 10/15/2020 Document Reviewed: 10/20/2020 [employer] Patient Education ? 2020 [employer] documented in this encounter Plan of Treatment Not on file documented as of this encounter Visit Diagnoses Not on filedocumented in this encounter
--- OUTSIDE RECORDS SUMMARY | 2025-09-01 08:40 | XMS_ITS | Encounter Summary ---
Author Organization [employer] ([place], [place] Address [address] [place] [address] Care Team Providers Care Sap Pp Consultant Name Role Phone Unavailable Primary Care Provider Unavailabl e Encounter Details Date Type Department Care Team (Late st Contact Info) Description 10/05/2021 Transcribed Document [facility] Family Medicine [address] [place] [address] ProviderLea MD [address] [place] [address] Social History Tobacco Use Types [...] - Historical ProviderMD - 10/05/2021 5:00 AM LAYOUT TECHNICIAN Chart Check - Review Order Profile Entered On: 10/05/2021 4:06 EST Performed On: 10/05/2021 5:00 EST by Adriana Hunt RN Chart Check Powerplans Initiated/Discontinued as Appropriate : Yes All Active Orders Reviewed : Yes Adriana Hunt RN - 10/05/2021 4:06 EST documented in this encounter Plan of Treatment Not on file documented as of this encounter Visit Diagnoses Not on filedocumented in this encounter
--- OUTSIDE RECORDS SUMMARY | 2025-09-01 08:40 | XMS_ITS | Encounter Summary ---
Author Organization [employer] ([place], [place], [place], [place]) Address [address] [place] [address] Care Team Providers Care Ice Guard Tester Name Role Phone Unavailable Primary Care Provider Unavailabl e Encounter Details Date Type Department Care Team (Late st Contact Info) Description 10/06/[address] [facility] [place] Family Medicine [facility] [place] [address] ProviderLea MD [address] [place] [address] Social History Tobacco Use Types [...] Lea Beverly MD - 10/06/2021 11:47 AM SENIOR IT AUDITOR DATE OF SERVICE: 10/06/2021 REPORT TYPE: EEG REFERRING PHYSICIAN: Pam Jackson MD REPORT TITLE: Video Electroencephalogram Report STUDY DURATION: 5 hours 30 minutes. HISTORY: This is a 45-year-old woman being evaluated for recurrent seizures. EEG VIDEO MONITORING METHODOLOGY: Time-locked EEG-video monitoring was performed using the 32-channel Recommind monitoring system. The seizure detection computer was [...] cerebral dysfunction in the anterior temporal regions. /[id number] MD SARAH Adair/JOHN / TAF / MODL /[id number] documented in this encounter Plan of Treatment Not on file documented as of this encounter Visit Diagnoses Not on filedocumented in this encounter
--- OUTSIDE RECORDS SUMMARY | 2025-09-01 08:40 | XMS_ITS | Encounter Summary ---
Author Organization [facility] Address [address] [place] [address] Care Team Providers Care Sales Team Leader Name Role Phone Иван Harris MD Primary Care Provider [phone] Antonio Henriquez MD Unavailable [phone] Encounter Details Date Type Department Care Team (Late st Contact Info) Description 01/25/2024 Orders Only External Location [address] [place] [address] Aleks Snell, NURSE TECH [address] [place] [address] Social History Tobacco Use Types [...] Care Team (Late st Contact Info) Description 11/29/2025 8:30 AM EST Appointment Cardiac Imaging [address] [place] [address] 11/29/2025 10:30 AM EST Office Visit [place] [facility] [address], [address] [address] Howie Esparza MD [id number] [place] [address] documented as of this encounter Procedures Procedure Name Priority Date/Time Associated Diagnosis Comments POC US ECHOCARDIOGRAPHY COMPLETE W DOPPLER AND COLOR 01/25/2024 7:19 AM EST documented in this encounter Results * POC US Echocardiography Complete W Doppler and Color (01/25/2024 7:19 AM EST) Anatomical Region Laterality Modality Other 01/25/2024 7:19 AM EST us Aleks Snell NURSE TECH IMG POINT OF CARE ULTRASO UND Final Result documented in this encounter Visit Diagnoses Not on filedocumented in this encounter Care Teams Sales Team Leader Relationship Specialty Start Date End Date Иван Harris MD PCP - General 01/05/24 Antonio Henriquez MD [address] [place] [address] [address] [place] [address] Referring Physician Cardiology 05/05/24 documented as of this encounter
--- OUTSIDE RECORDS SUMMARY | 2025-09-01 08:40 | XMS_ITS | Encounter Summary ---
Author Organization [employer] ([place], [place], [place], [place]) Address [address] [place] [address] Care Team Providers Care Landscape Architecture Professor Name Role Phone Unavailable Primary Care Provider Unavailabl e Encounter Details Date Type Department Care Team (Late st Contact Info) Description 10/04/2021 Transcribed Document [facility] [place] [address] [place] [address] ProviderLea MD [address] [place] [address] Social History Tobacco Use Types [...] - Lea ProviderMD - 10/04/2021 12:00 PM SENIOR MARKETING ANALYST Education-Smoking Cessation Entered On: 10/04/2021 16:24 EST [...] to Tobacco Cues : Refused Activities to [place] With Smoking Urges : Refused Basic Information About Quitting : Refused Tobacco Use Increases Chance of Relapse : Refused Withdrawal Symptoms Peak After Quitting : Refused Addictive Nature of Tobacco : Refused Ashwini Shaw RN-PATIENT CARE BEDSIDE NON-EXEMPT - 10/04/2021 16:23 EST Electronically signed by [facility], [facility] Conversion Junior Project Coordinator Cerner at 03/09/2023 7:34 PM CDT documented in this encounter Plan of Treatment Not on file documented as of this encounter Visit Diagnoses Not on filedocumented in this encounter
--- OUTSIDE RECORDS SUMMARY | 2025-09-01 08:40 | XMS_ITS | Encounter Summary ---
Author Organization [employer] ([place], [place], [place], [place]) Address [address] [place] [address] Care Team Providers Care Telegraph Service Rater Name Role Phone Unavailable Primary Care Provider Unavailabl e Encounter Details Date Type Department Care Team (Late st Contact Info) Description 10/04/2021 Transcribed Document [facility] Family Medicine [facility] [place] [address] ProviderLea MD [address] [place] [address] Social History Tobacco Use Types [...] - Lea ProviderMD - 10/04/2021 9:35 AM CALL CENTER OPERATIONS MANAGER Education-(VTE) / (DVT) Entered On: 10/04/2021 16:23 [...]
--- OUTSIDE RECORDS SUMMARY | 2025-09-01 08:40 | XMS_ITS | Encounter Summary ---
Author Organization [employer] ([place], [place], [place], [place]) Address [address] [place] [address] Care Team Providers Care Yard Associate Name Role Phone Unavailable Primary Care Provider Unavailabl e Encounter Details Date Type Department Care Team (Late st Contact Info) Description 10/04/2021 Transcribed Document [facility] [place] Family Medicine [address] [place] [address] ProviderLea MD [address] [place], [place] [address] Social History Tobacco Use Types Packs/Day Years [...] - Historical ProviderMD - 10/04/2021 9:50 AM SPONGE PRESS OPERATOR Neurodiagnostics Event Note Entered On: 10/04/2021 9:50 EST Performed On: 10/04/2021 9:50 EST by AYAAN GALICIA Neurodiagnostic Tech Neurodiagnostics Event Note Neurodiagnostic Event Date/Time : 10/04/2021 9:50 EST Neurodiagnostic Event Location : Neurodiagnostic department Neurodiagnostic Event Details : Procedure completed AYAAN GALICIA Neuronaaostic Tech - 10/04/2021 9:50 EST Electronically signed by [facility] Conversion Public Relations Specialist Cerner at 03/09/2023 7:20 PM CDT documented in this encounter Plan of Treatment Not on file documented as of this encounter Visit Diagnoses Not on filedocumented in this encounter
--- OUTSIDE RECORDS SUMMARY | 2025-09-01 08:40 | XMS_ITS ---
Author Organization [facility] Address [address] [place] [address] Care Team Providers Care Senior Pastor Name Role Phone Иван Harris MD Primary Care Provider [phone] Antonio Henriquez MD Unavailable [phone] Active Problems Problem Noted Date Diagnosed Date Acute blood loss anemia 05/14/2024 Leukocytosis 05/14/2024 Thrombocytosis 05/14/2024 Hypocalcemia 05/14/2024 Hypermagnesemia 05/14/2024 Prediabetes 05/14/2024 Transient hyperglycemia post procedure COPD (chronic obstructive pulmonary disease) Migraine 05/14/2024 Essential tremor 05/14/2024 Restless legs syndrome (RLS) 05/14/2024 S/P patent foramen ovale closure 05/14/2024 [...] . - Complicates all aspects of care (HFpEF) heart failure with preserved ejection fr [...] 05/14/2024 Hypokalemia 05/14/2024 05/14/2024 Fatigue 05/14/2024 05/14/2024 S/P left atrial appendage ligation 05/14/2024 08/13/2025 Reactive airway disease with acute exacerbation 05/12/2024 [...] - Continue diuresis - On NC 1L Acute post-operative pain 05/05/2024 Overview (05/08/2024): -MM pain -Holding opioids secondary to neuro status Mitral valve insufficiency, unspecified etiology 03/25/2024 05/05/2024 Dyspnea on exertion 03/16/2024 05/14/20 24 Edema 03/16/2024 05/06/2024 Mitral regurgitation 03/16/2024 024 Overview (05/05/2024): S/p bMVR with Dr. Esparza on 05/05 -Monitor CT output -Wean pressors as able -Daily labs and CXR -Diuresis as appropriate Breast cancer 03/16/2024 05/14/2024 Overview (05/05/2024): - s/p bilateral mastectomy
--- OUTSIDE RECORDS SUMMARY | 2025-09-01 08:40 | XMS_ITS | Encounter Summary ---
Author Organization [employer] ([place], [place], [place], [place]) Address [address] [place] [address] Care Team Providers Care Humidifier Maintenance Worker Name Role Phone Unavailable Primary Care Provider Unavailabl e Encounter Details Date Type Department Care Team (Late st Contact Info) Description 10/06/2021 Transcribed Document [facility] [place] Family Medicine [facility] [place] [address] ProviderLea MD [facility] [place] [address] Social History Tobacco Use Types [...] - Lea ProviderMD - 10/06/2021 11:16 AM BATCH FREEZER OPERATOR [address] , [place] [address] Patient Copy Patient Information: Name: LISANDRO CHUA Current Date: 10/06/2021 11:16:42 : 1975 Patient Address: [address] [place] [id number] Patient Attending Physician: YULIA CHINCHILLA MD-NEU Primary Care Provider: AXEL HOPE (REF)JOHN Primary Care Provider Discharge Diagnosis: Nonepileptic episode Weight on Admission: 191 lb, 0 oz Comment: Follow-up Instructions: With: Address: When: Brittnee Dan [address] [place] [id number] Business (1) Within 1 week Discharge Instructions: [...] Assistance with quitting is available by contacting 2-981-LPPK-NOW. This is a free resource providing counseling, [...] Be sure to sign up for the [employer] patient portal, which gives you 15/06 access to your medical information ??? including these discharge instructions ??? using your computer, smartphone, or tablet. Just go to JumpCam to get started. Questions? Call . [facility] would like to thank you for allowing us to assist you with your healthcare needs. RAISSA Bradley CASEY MARIE, (or authorization representative) have received the above patient education materials/instructions and have verbalized understanding: Patient Signature _ Date/Time Patient Eyelet Operator Signature (if needed) Date/Time Clinician/Hospital Eyelet Operator Signature (if needed) Date/Time documented in this encounter Plan of Treatment Not on file documented as of this encounter Visit Diagnoses Not on filedocumented in this encounter
--- OUTSIDE RECORDS SUMMARY | 2025-09-01 08:40 | XMS_ITS | Clinical Summary ---
Author Organization [facility] Address [address] [place] [address] Care Team Providers Care Gas Pumping Station Operator Name Role Phone Иван Harris MD Primary Care Provider [phone] Antonio Henriquez MD Unavailable [phone] Allergies No known active allergies Medications ARIPiprazole [...] and Family Not on file 05/09/2024 Attends [employer] Not on file 05/09 Active Member [...] place to sleep or slept in a group home (including now)? No 05/09/2024 CAGE ASSESSMENT [...] drink first t federico in the morning (EYE-SCABBLER) to steady your nerves or to get rid of a hangover? 0 05/13/2024 CAGE Questionnaire Score 0 024 Utilities Answer Date Recorded In the past 12 months has th e electric, gas, oil, or water company threatened to [...] AM EST Appointment Cardiac Imaging [address] [place] [address] 11/29/2025 10:30 AM EST Office Visit [place] [facility] [address], [address] [place] [address] Howie Esparza MD [address] [place] [address] Health Maintenance Due Date Last Done Comments [facility]-HIV Screening 1975 [facility]-Hepatitis C Screening 1975 [facility]-/Child/Adol SDOH Screenings 1975 [facility]- SDOH Screenings 1991 [...] 05/17/2020 [facility]-Zoster Vaccines (1 of 2) 2023 [facility]-Depression Screening 03/21/2025 03/21/2024 [facility]-Lung Cancer Screening 04/07/2025 04/07/2024 [facility]-Diabetes: Hemoglobin A1C 04/20/2025 04/20/2024 [id number] Vaccine (2 - season) 2025 06/24/2021 [facility]-Influenza Vaccine (#1) 2025 [facility]-DTaP,Tdap,and Td Vaccines [...] this topic Medical Devices Implanted Type Area Cellulose Insulation Helper Device Identifier Shelf Expiration Date Model / Serial / Lot Valve Mitral Shv Epic Plus Porcine 31mm - [id number] - [id number] Implanted:Qty: 1 on 05/05/2024 by Howie Esparza MD at [facility] N/A: Heart [id number] 02/15/2027 [id number] / [id number] / [id number] Description:Rinse 10 seconds x2 in saline. Explanted Type Area Cellulose Insulation Helper Device Identifier Shelf Expiration Date Model / Serial / Lot Ring Mitral Annuloplasty Physioflex 30mm - [id number] - [id number] Explanted:Qty: 1 on 05/05/2024 at [facility] N/A: Heart [id number] 02/26/2027 [id number] / [id number] / [id number] Procedures Procedure Name Priority Date/Time Associated Diagnosis Comments HEMOGLOBIN A1C Routine 04/20/2024 11:57 AM EDT Severe mitral regurgitation CT ANGIO CHEST 04/07/2024 6:55 PM EDT from Last 3 Months or Most Recently Relevant to Health Maintenance Results * (ABNORMAL) Hemoglobin A1c (04/20/2024 11:57 AM EDT) Hemoglobin A1c 5.9(H) <5.7 % 04/20/2024 1:51 PM EDT [facility] Blood Venous blood specimen / Unknown [...] Adults <6.0% Children and Adolescents <7.5% Source: [place] Diabetes Association. Standards of medical care in diabetes,2017. Diabetes Care.2017:40 (suppl 1):S1-S135. HbA1c assay performed by an ion-exchange chromatography method that is certified traceable to the DCCT. us Hwoie Esparza MD LAB BLOOD ORDERABLES Final Resu lt [facility] [address] [place] [address] * CT Angio Chest (04/07/2024 6:55 PM EDT) Anatomical Region Laterality Modality Chest Computed Tomogra phy 04/07/2024 6:55 PM EDT us Leila Azevedo DO IMG CT PROCEDURES Final Result from Last 3 Months or Most Recently Relevant to Health Maintenance Insurance [facility] Advance Directives * Full Code (Latest Code [...] Patient has decision-making capacity? Yes Care Teams Gas Pumping Station Operator Relationship Specialty Start Date End Date Иван Harris MD PCP - General 01/05/24 Antonio Henriquez MD [address] [facility] [address] [place] [address] Referring Physician Cardiology 05/05/24
--- OUTSIDE RECORDS SUMMARY | 2025-09-01 08:40 | XMS_ITS | Encounter Summary ---
Author Organization [facility] ([place], [place], [place], [place]) Address [address] [place] [address] Care Team Providers Care Welt Treater Name Role Phone Unavailable Primary Care Provider Unavailabl e Encounter Details Date Type Department Care Team (Late st Contact Info) Description 10/04/2021 Transcribed Document [facility] [place] Family Medicine [facility] [place] [address] ProviderLea MD [address] [place] [address] Social History Tobacco Use Types [...] - Historical ProviderMD - 10/04/2021 11:50 AM ROLLER TURNER Admission History, Adult Entered On: 10/04/2021 11:59 [...] #2 Relationship : n Primary Language : Mexican Communication Barrier : None Business Analytics Faculty Member Needed : No Ashwini Shaw RN-PATIENT CARE [...] Scale Risk Level : 0-24 Low Risk [place] Fall Interventions : Adequate lighting, Assistive devices [...] Source : Measured Height Entry Format : Barrow Height, Feet : 5 ft(Converted to: 152 cm, 60 Inch) Height, Inches : 1 Inch(Converted to: 0 ft 1 Inch, 2.54 cm) Clinical Height : 154.94 cm Weight Source : Bed scale Weight Entry Format : Barrow Clinical Dosing Weight : 86.82 kg Weight, Pounds : 191 lb Body Surface Area (BSA) : 1.85 m2 Body Mass Index : 36.2 kg/m2 (HI) Michael Body Weight : 47 kg Ashwini Shaw RN-PATIENT CARE [facility] NON-EXEMPT - 10/04/2021 11:50 EST Infectious Disease History Does patient have symptoms of COVID-19? : No Has the Patient Been Tested for COVID-19 in the last 14 days? : No, Patient stated Does the Patient state known exposure to a COVID-19 positive case in the last 14 days? : No Patient Vaccinated for COVID-19 : Fully vaccinated Ashwini Shaw RN-PATIENT CARE [facility] NON-EXEMPT - 10/04/2021 11:50 EST Infectious Disease [...] day) : NO Ashwini Shaw RN-PATIENT CARE [facility] NON-EXEMPT - 10/04/2021 11:50 EST Physical contact outside [place] in the last 30 days : No Hospitalized in Foreign Country : No Infectious Disease History : Chicken pox/Shingles INF Disease TB Screening Calc : 0 INF Disease Recent Travel Calc : 0 Ashwini Shaw RN-PATIENT CARE [facility] NON-EXEMPT - 10/04/2021 11:50 EST Influenza Vaccine Asmt, Adult Previous Vaccines from Immunization Schedule : No qualifying data available. Influenza Immunization, Current Season : Yes Ashwini Shaw RN-PATIENT CARE [facility] NON-EXEMPT - 10/04/2021 11:50 EST Pneumococcal Vaccine Previous Vaccines from Immunization Schedule : No qualifying data available. Pneumonia Immunization Received : No Pneumococcal Risk Assessment < Age 65 : None Ashwini Shaw RN-PATIENT CARE [facility] NON-EXEMPT - 10/04/2021 11:50 EST Order Details Isolation Precautions Order Detail : Standard Precautions IV Order Detail : 1 Lift/Transfer : Independent Room Service : Appropriate Patient Needs Meds Crushed/Liquid : No Ashwini Shaw RN-PATIENT CARE [facility] NON-EXEMPT - 10/04/2021 11:50 EST Nutrition History Eating Poorly Due to Decreased Appetite : No Unplanned Weight Loss in Past 3-6 Months : No Malnutrition Screening Tool Total(mal) : 0 Malnutrition Screening Tool Risk Level : Patient not at risk Ashwini Shaw RN-PATIENT CARE [facility] NON-EXEMPT - 10/04/2021 11:50 EST Brothers Suicide Severity Rating Scale (C-SSRS) CSSRS Past Month Wish to be : No CSSRS Past Month Suicidal Thoughts : No CSSRS Lifetime Suicide Behavior : No Suicide Severity Rating Score : 0 Suicide Severity Rating : No Additional Care Required at this time Ashwini Shaw RN-PATIENT CARE [facility] NON-EXEMPT - 10/04/2021 11:50 EST Psychosocial History Currently in Unsafe Situation : No Ashwini Shaw RN-PATIENT CARE [facility] NON-EXEMPT - 10/04/2021 11:50 EST Sleep Apnea [...] Score : 0 Ashwini Shaw RN-PATIENT CARE [facility] NON-EXEMPT - 10/04/2021 11:50 EST Valuables and [...] - 10/04/2021 11:50 EST Electronically signed by [facility], [facility] Conversion Machine Marker Cerner at 03/09/2023 7:31 PM CDT documented in this encounter Plan of Treatment Not on file documented as of this encounter Visit Diagnoses Not on filedocumented in this encounter
--- OUTSIDE RECORDS SUMMARY | 2025-09-01 08:40 | XMS_ITS | Encounter Summary ---
Author Organization [employer] ([place], [place], [place], [place]) Address [address] [place] [address] Care Team Providers Care Renal Nurse Name Role Phone Unavailable Primary Care Provider Unavailabl e Encounter Details Date Type Department Care Team (Late st Contact Info) Description 10/04/2021 Transcribed Document [facility] [place] Family Medicine [address] [place] [address] ProviderLea MD [address] [place] [address] Social History Tobacco Use Types [...] - Historical ProviderMD - 10/04/2021 5:00 PM GREEN HIDE INSPECTOR Chart Check - Review Order Profile Entered On: 10/04/2021 16:24 EST Performed On: 10/04/2021 17:00 EST by Ashwini Shaw RN-PATIENT CARE BEDSIDE NON-EXEMPT Chart Check Powerplans Initiated/Discontinued as Appropriate : Yes All Active Orders Reviewed : Yes Ashwini Shaw RN-PATIENT CARE BEDSIDE NON-EXEMPT - 10/04/2021 16:24 EST Electronically signed by Jaymie [facility] Conversion Bioinformatics Scientist Cerhan at 03/09/2023 7:22 PM CDT documented in this encounter Plan of Treatment Not on file documented as of this encounter Visit Diagnoses Not on filedocumented in this encounter
--- OUTSIDE RECORDS SUMMARY | 2025-09-01 08:40 | XMS_ITS | Encounter Summary ---
Author Organization Healthcare Address [address] [place] [address] Care Team Providers Care Blood Bank Custodian Name Role Phone Иван Harris MD Primary Care Provider Antonio Henriquez MD Unavailable [phone] Encounter Details Date Type Department Care Team (Late st Contact Info) Description 05/09/2024 Lab Requisition [facility] [address] [place] [address] Christopher Elizondo MD [address] [facility] [address] [place] [address] Encounter for general adult medical [...] and Family Not on file 05/09/2024 Attends [employer] Not on file 05/09 Active Member [...] drink first t federico in the morning (EYE-HIGH SCHOOL BAND DIRECTOR) to steady your nerves or to get rid of a hangover? 0 05/13/2024 CAGE Questionnaire Score 0 024 Utilities Answer Date Recorded In the past 12 months has th e SOLO, gas, oil, or water company threatened to [...] 05/12/2024 8:00 AM EDT Jose Martin Abreu, RN * Question Answer Date of Assessment Author [...] AM EST Appointment Cardiac Imaging [address] [place] [address] 11/29/2025 10:30 AM EST Office Visit [place] [facility] [address], [address] [place] [address] Howie Esparza MD [address] [place] [address] documented as of this encounter Procedures Procedure [...] ORDERABLES Final Result [facility] [address] [place] [address] documented in this encounter Visit Diagnoses Diagnosis [...] documented as of this encounter Care Teams Blood Bank Custodian Relationship Specialty Start Date End Date Иван Harris MD PCP - General 01/05/24 Antonio Henriquez MD [address] [facility] [address] [place] [address] Referring Physician Cardiology 05/05/24 documented as of this encounter
--- OUTSIDE RECORDS SUMMARY | 2025-09-01 08:40 | XMS_ITS | Encounter Summary ---
Author Organization [facility] Address [address] [place] [address] Care Team Providers Care Ice Cream Freezer Assistant Name Role Phone Иван Harris MD Primary Care Provider [phone] Antonio Henriquez MD Unavailable [phone] Encounter Details Date Type Department Care Team (Late st Contact Info) Description 01/25/2024 Orders Only External Location [address] [place] [id number] Aleks Snell, BUS TRANSPORTATION MANAGER [address] [place] [address] Social History Tobacco Use Types [...] AM EST Appointment Cardiac Imaging [address] [place] [address] 11/29/2025 10:30 AM EST Office Visit [place] [facility] [address], [address] [address] Howie Esparza MD [address] [place] [address] documented as of this encounter Procedures Procedure Name Priority Date/Time Associated Diagnosis Comments POC US ECHOCARDIOGRAPHY COMPLETE W DOPPLER AND COLOR 01/25/2024 7:19 AM EST documented in this encounter Results * POC US Echocardiography Complete W Doppler and Color (01/25/2024 7:19 AM EST) Anatomical Region Laterality Modality Other 01/25/2024 7:19 AM EST us Aleks Snell BUS TRANSPORTATION MANAGER IMG POINT OF CARE ULTRASO UND Final Result documented in this encounter Visit Diagnoses Not on filedocumented in this encounter Care Teams Ice Cream Freezer Assistant Relationship Specialty Start Date End Date Иван Harris MD PCP - General 01/05/24 Antonio Henriquez MD [address] [place] [address] [address] [place] [address] Referring Physician Cardiology 05/05/24 documented as of this encounter
--- OUTSIDE RECORDS SUMMARY | 2025-09-01 08:40 | XMS_ITS | Encounter Summary ---
Author Organization [employer] ([place], [place], [place], [place]) Address [address] [place] [address] Care Team Providers Care Paper Control Clerk Name Role Phone Unavailable Primary Care Provider Unavailabl e Encounter Details Date Type Department Care Team (Late st Contact Info) Description 10/04/2021 Transcribed Document [facility] [place] [facility] [address] [place] [address] ProviderLea MD [address] [place] [address] Social History Tobacco Use Types [...] - Lea ProviderMD - 10/04/2021 12:25 PM BECK TENDER EPILEPSY ADMISSION NOTE DATE OF ADMISSION: 10/04/2021 [...] the upper and lower extremities. Coordination: Normal qucleh-ri-drzv. IMPRESSION: Ms. Chua has had recurrent spells that have been fairly stereotypical. The clinical features suggest the possibility of complex partial seizures. Alternatively, the episodes may be nonepileptic in origin. PLAN: 1. Admit to the epilepsy monitoring unit. 2. Start video EEG monitoring. 3. Seizure precautions. 4. Continue home medications. 5. Use lorazepam 2 mg IV for repetitive or prolonged seizures. /[id number] MD SARAH Adair/JOHN / TAF / MODL documented in this encounter Plan of Treatment Not on file documented as of this encounter Visit Diagnoses Not on filedocumented in this encounter
--- OUTSIDE RECORDS SUMMARY | 2025-09-01 08:40 | XMS_ITS | Clinical Summary ---
Author Organization [employer] ([place], [place], [place], [place]) Address [address] [place] [address] Care Team Providers Care Pad Machine Operator Name Role Phone Unavailable Primary Care [...]
--- OUTSIDE RECORDS SUMMARY | 2025-09-01 08:40 | XMS_ITS | Encounter Summary ---
Author Organization [employer] ([place], [place], [place], [place]) Address [address] [place] [address] Care Team Providers Care Crop Duster Name Role Phone Unavailable Primary Care Provider Unavailabl e Encounter Details Date Type Department Care Team (Late st Contact Info) Description 10/04/2021 Transcribed Document [facility] Family Medicine [address] [place] [address] ProviderLea MD [address] [place] [address] Social History Tobacco Use Types [...] - Historical ProviderMD - 10/04/2021 7:50 AM ART PSYCHOTHERAPIST Meds to Bed Enrollment Entered On: 10/04/2021 7:57 EST Performed On: 10/04/2021 7:50 EST by Alfredo Ugarte Caustic Room Attendant Cert Lead Meds to Bed Enrollment Patient Enrollment Decision: : Yes/enroll in meds to bed program Alfredo Ugarte Caustic Room Attendant Cert Lead - 10/04/2021 7:56 EST documented in this encounter Plan of Treatment Not on file documented as of this encounter Visit Diagnoses Not on filedocumented in this encounter
--- OUTSIDE RECORDS SUMMARY | 2025-09-01 08:40 | XMS_ITS | Encounter Summary ---
Author Organization [employer] ([place], [place], [place], [place]) Address [address] [place] [address] Care Team Providers Care Vac Press Operator Name Role Phone Unavailable Primary Care Provider Unavailabl e Encounter Details Date Type Department Care Team (Late st Contact Info) Description 10/06/2021 Transcribed Document [facility] [place] [address] [place] [address] ProviderLea MD [address] [place] [address] Social History Tobacco Use Types [...] - Historical ProviderMD - 10/06/2021 1:37 PM SITE FOREMAN Stroke/Warfarin Instructions Entered On: 10/06/2021 13:37 EST Performed On: 10/06/2021 13:37 EST by SAMANTHA QUINTANA RN Stroke/Warfarin Instructions Stroke/TIA Discharge Ins : N/A Warfarin Discharge Ins : N/A SAMANTHA QUINTANA RN - 10/06/2021 13:37 EST Electronically signed by Jaymie [facility] Conversion Japanese Interpreter Elizabeth at 03/09/2023 7:28 PM CDT documented in this encounter Plan of Treatment Not on file documented as of this encounter Visit Diagnoses Not on filedocumented in this encounter
--- OUTSIDE RECORDS SUMMARY | 2025-09-01 08:41 | XMS_ITS | Encounter Summary ---
Author Organization [employer] ([place], [place], [place], [place]) Address [address] [place] [address] Care Team Providers Care Audiology Director Name Role Phone Unavailable Primary Care Provider Unavailabl e Encounter Details Date Type Department Care Team (Late st Contact Info) Description 10/06/2021 Transcribed Document [facility] [place] Medicine [facility] [place] [address] ProviderLea [place] [address] Social History Tobacco Use Types [...] - Lea ProviderMD - 10/06/2021 1:37 PM ASSISTANT WOMEN'S SOCCER COACH [facility] [place] [address] LISANDRO CHUAE :1975 Visit Time:10/04/2021 Your [...] 1 week Where: [address] [place] [address]- [facility] (1) Medications What How Much When [...] if you have a seizure. ??? Take sljt-gmu-sjzxfrt, prescription medicines and herbal remedies only as [...] provider. Document Revised: 10/15/2020 Document Reviewed: 10/20/2020 [employer] Patient Education ?? 2020 [employer] Emergency Awareness and Preventative Care STROKE [...] Assistance with quitting is available by contacting 2-926-UBMRNOW. This is a free resource providing counseling, support, and referral. Or you may contact your personal physician. Zachary Prell Suicide Prevention Lifeline: The National Suicide Prevention [...] was given the opportunity to ask questions. Patient/Architectural Drafter Name: Patient/Architectural Drafter Signature: Relationship to Patient: Clinician/Hospital Architectural Drafter Signature: Date: documented in this encounter Plan of Treatment Not on file documented as of this encounter Visit Diagnoses Not on filedocumented in this encounter
--- OUTSIDE RECORDS SUMMARY | 2025-09-01 08:41 | XMS_ITS | Encounter Summary ---
Author Organization [employer] ([place], [place], [place], [place]) Address [address] [place] [address] Care Team Providers Care Veneer Marker Name Role Phone Unavailable Primary Care Provider Unavailabl e Encounter Details Date Type Department Care Team (Late st Contact Info) Description 10/06/2021 Transcribed Document [facility] Family Medicine [address] [place] [address] ProviderLea MD [address] [place] [address] Social History Tobacco Use Types [...] - Historical ProviderMD - 10/06/2021 5:00 AM WEAVER NEEDLE LOOM Chart Check - Review Order Profile Entered On: 10/06/2021 3:25 EST Performed On: 10/06/2021 5:00 EST by Adriana Hunt RN Chart Check Powerplans Initiated/Discontinued as Appropriate : Yes All Active Orders Reviewed : Yes Adriana Hunt RN - 10/06/2021 3:25 EST Electronically signed by Jaymie [facility] Conversion Casing Wringer Operator Elizabeth at 03/09/2023 7:18 PM CDT documented in this encounter Plan of Treatment Not on file documented as of this encounter Visit Diagnoses Not on filedocumented in this encounter
--- OUTSIDE RECORDS SUMMARY | 2025-09-01 08:41 | XMS_ITS | Encounter Summary ---
Author Organization [employer] ([place], [place], [place], [place]) Address [address] [place] [address] Care Team Providers Care Social Work Instructor Name Role Phone Unavailable Primary Care Provider Unavailabl e Encounter Details Date Type Department Care Team (Late st Contact Info) Description 10/06/2021 Transcribed Document [facility] [place] Family Medicine [facility] [place] [address] ProviderLea MD [facility] [place] [address] Social History Tobacco Use Types [...] - Lea ProviderMD - 10/06/2021 1:38 PM TELEVISION ANALYZER [facility] [address] RAISSA LISANDROSandy GUTIÉRREZE :1975 Visit Time:10/04/2021 [...] 1 week Where: [address] [place] [address]- [facility] (1) Medications What How Much [...] if you have a seizure. ??? Take pzcr-hxk-mltmrzf, prescription medicines and herbal remedies only as [...] provider. Document Revised: 10/15/2020 Document Reviewed: 10/20/[address] [employer] Patient Education ?? [address] [employer] [address] [employer] Emergency Awareness and Preventative Care STROKE [...] Assistance with quitting is available by contacting 2-286-FXIGNOW. This is a free resource providing counseling, support, and referral. Or you may contact your personal physician. [employer] Suicide Prevention Lifeline: The National Suicide Prevention [...] was given the opportunity to ask questions. Patient/Debubblizer Name: Patient/Debubblizer Signature: Relationship to Patient: Clinician/Hospital Debubblizer Signature: Date: documented in this encounter Plan of Treatment Not on file documented as of this encounter Visit Diagnoses Not on filedocumented in this encounter
--- OUTSIDE RECORDS SUMMARY | 2025-09-01 08:41 | XMS_ITS | Encounter Summary ---
Author Organization [employer] ([place], [place], [place], [place]) Address [address] [place] [address] Care Team Providers Care Job Tracer Name Role Phone Unavailable Primary Care Provider Unavailabl e Encounter Details Date Type Department Care Team (Late st Contact Info) Description 10/05/2021 Transcribed Document [facility] [place] [address] [place] [address] ProviderLea MD [address] [place] [address] Social History Tobacco Use Types [...] - Historical ProviderMD - 10/05/2021 2:00 AM CHEMICAL CELL CHANGER Underwater Roboticist Details Entered On: 10/05/2021 4:06 EST Performed [...] 10/05/2021 4:05 EST Electronically signed by Jaymie [facility] Conversion Manager Study Cerner at 03/09/2023 7:14 PM CDT documented in this encounter Plan of Treatment Not on file documented as of this encounter Visit Diagnoses Not on filedocumented in this encounter
--- OUTSIDE RECORDS SUMMARY | 2025-09-01 08:41 | XMS_ITS | Encounter Summary ---
Author Organization [employer] ([place], [place], [place], [place]) Address [address] [place] [address] Care Team Providers Care Melter Helper Name Role Phone Unavailable Primary Care Provider Unavailabl e Encounter Details Date Type Department Care Team (Late st Contact Info) Description 10/05/2021 Transcribed Document [facility] [place] [address] ProviderLea MD [address] [place] [address] Social History Tobacco Use Types [...] Lea Beverly MD - 10/05/2021 8:29 AM EVISCERATOR DATE OF SERVICE: 10/04/2021 REPORT TYPE: EEG REFERRING PHYSICIAN: Pam Jackson MD REPORT TITLE: Video Electroencephalogram Report STUDY DURATION: One day. HISTORY: This is a 45-year-old woman being evaluated for recurrent seizures. EEG VIDEO MONITORING METHODOLOGY: Time-locked EEG-video monitoring was performed using the 32-channel Schedulicity monitoring system. The seizure detection computer was [...] cerebral dysfunction in the anterior temporal regions. /[id number] MD SARAH Adair/JOHN / SARAH / MODL /[id number] documented in this encounter Plan of Treatment Not on file documented as of this encounter Visit Diagnoses Not on filedocumented in this encounter
--- OUTSIDE RECORDS SUMMARY | 2025-09-01 08:41 | XMS_ITS | Encounter Summary ---
Author Organization [employer] ([place], [place], [place], [place]) Address [address] [place] [address] Care Team Providers Care Automatic Maintainer Name Role Phone Unavailable Primary Care Provider Unavailabl e Encounter Details Date Type Department Care Team (Late st Contact Info) Description 10/06/2021 Transcribed Document [facility] [place] Family Medicine [address] [place] [address] ProviderLea MD [address] [place] [address] Social History Tobacco Use Types [...] - Historical ProviderMD - 10/06/2021 2:00 AM PIPE ASSEMBLY WORKER Stone Engraver Details Entered On: 10/06/2021 2:31 EST Performed [...] 10/06/2021 2:30 EST Electronically signed by Jaymie [facility] Conversion Clinical Pharmacist Cerner at 03/09/2023 7:23 PM CDT documented in this encounter Plan of Treatment Not on file documented as of this encounter Visit Diagnoses Not on filedocumented in this encounter
--- OUTSIDE RECORDS SUMMARY | 2025-09-01 08:41 | XMS_ITS | Encounter Summary ---
Author Organization [employer] ([place], [place], [place], [place]) Address [address] [place] [address] Care Team Providers Care Plant Engineering Supervisor Name Role Phone Unavailable Primary Care Provider Unavailabl e Encounter Details Date Type Department Care Team (Late st Contact Info) Description 10/06/2021 Transcribed Document [facility] Family Medicine [facility] [place] [address] ProviderLea MD [address] [place] [address] Social History Tobacco Use Types [...] Lea Beverly MD - 10/06/2021 8:30 AM TAXICAB COORDINATOR DATE OF SERVICE: 10/05/2021 REPORT TYPE: EEG REFERRING PHYSICIAN: Pam Jackson MD REPORT TITLE: Video Electroencephalogram Report STUDY DURATION: One day. HISTORY: This is a 45-year-old woman being evaluated for recurrent seizures. EEG VIDEO MONITORING METHODOLOGY: Time-locked EEG-video monitoring was performed using the 32-channel [employer] monitoring system. The seizure detection computer was [...] potential epileptogenicity in the right temporal region. /[id number] MD ASRAH Adair/JOHN / SARAH / MODL /[id number] documented in this encounter Plan of Treatment Not on file documented as of this encounter Visit Diagnoses Not on filedocumented in this encounter
--- OUTSIDE RECORDS SUMMARY | 2025-09-01 08:41 | XMS_ITS | Data Portability ---
Author Organization [facility] JORGITO Trimble LUVERNE CLOSED Address [address] [facility] [address] [place] [address] Care Team Providers Care Adapted Physical Education Aide Name Role Phone ONEL SERRANO Referring Provider Assessment No assessment recorded. Plan of Treatment [...] By Organization Details Last Modified Time 08/21/2021 [id number] 1. Follow up as needed [email or web address] Not [...] Time Remove tonsils and adenoids completed [facility] 08/21/2021 14:28:[address] [facility]:[address] [facility]2021 14:29:[address] [facility]/21/2021 14:29:59 [facility] 14:30:16 Imaging Results None recorded. Procedure [...] Not Available Not Available No t Available [place] 3 active Not Available Not Avail able [...] % 97 % 154.94 cm 35.1 kg/m2 19445.1 8 g 97/69 mm[Hg] Joanie Saldana [facility] 14:25:28 Social History Question Answer Notes LastModified by Organizat ion Details LastModified Time Tobacco Smoking Status Current Every Day Smoker Joanie Saldana [facility] 08/21/2021 14:36:22 Have You Recently Traveled Abroad? No [email or web address] Information not available 08/21/2021 Sex: Unknown Functional Status Question Answer Note LastModified by Organization D etails LastModified Time What is your level of alcohol consumption? None Information not available 08/21/2021 Mental Status None recorded. Family History Relationship Description Onset Age of this Age Resolved Age Notes LastModified by Organization Details LastModified Time Father Hypertensive disorder [email or web address] Not available 08/21 14:33:22 Father Heart disease [email or web address] Not available 08/21 14:33:41 Mother Hypertensive disorder [email or web address] Not available 08/21 14:33:22 Sister Asthma [email or web address] Not available 08/21/2021 14:34:05 Sister Family history of malignant neoplasm [email or web address] Not available 08/21 14:35:08 Medical History Condition Response Migraines Y Depression Y Arthritis Y Asthma Y Gynecological HistoryNo gynecological history recorded. 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 J35 .8 Health Concerns Section Related Observation LastModified by Organization Detai ls LastModified Time None Recorded Concern Status LastModified by Organization Details LastModified Time None Recorded Advance Directives Directive None Recorded Payers Insurance Date Sequence Insurance Name Policy Number Policy Mazariegos Covered Member ID Mazariegos Member ID Guarantor Name 08/21/2021 1 [facility] [id number] Brooks Chua [id number] Brooks Chua 08/21/2021 2 [place] BCBS [facility] [id number] H Sajan Chua [id number] Brooks Chua Notes Date Note Type Note [...] did not show anything. ROBERTH CHEN MD [facility] [place], [address], [facility] 08/21/2021 15:04:04 OBGyn Episode No OBEpisode recorded.
--- OUTSIDE RECORDS SUMMARY | 2025-09-01 08:41 | XMS_ITS | Encounter Summary ---
Author Organization [employer] ([place], [place], [place], [place]) Address [address] [place] [address] Care Team Providers Care Ent Consultant Name Role Phone Unavailable Primary Care Provider Unavailabl e Encounter Details Date Type Department Care Team (Late st Contact Info) Description 10/05/2021 Transcribed Document [facility] Family Medicine [facility] [place] [address] ProviderLea MD [address] [place] [address] Social History Tobacco Use Types [...] - Historical ProviderMD - 10/05/2021 4:31 PM PATTERN DUPLICATOR UM Authorization Entered On: 10/05/2021 16:31 EST Performed On: 10/05/2021 16:31 EST by AWILDA ALLEN Rn-Utilization Review Primary Insurance Authorization Authorization and Policy Numbers : Insurance 1 Health Plan: [employer] Policy Number: [id number] Authorization Number: Insurance 2 Health Plan: ANTHEM HMOPPO Policy Number: [id number] Authorization Number: Insurance Primary Name : [employer] Policy Number: [id number] [employer]M [employer]OP[employer] Policy Number: [id number] Historical Authorization Comments-Primary : No Authorization Comments Found AWIDLA ALLEN Rn-Utilization Review - 10/05/2021 16:31 EST Electronically signed by Jaymie [facility] Conversion Toilet Products Molder Cerner at 03/09/2023 7:14 PM CDT documented in this encounter Plan of Treatment Not on file documented as of this encounter Visit Diagnoses Not on filedocumented in this encounter
--- OUTSIDE RECORDS SUMMARY | 2025-09-01 08:41 | XMS_ITS | Encounter Summary ---
Author Organization [employer] ([place], [place], [place], [place]) Address [address] [place] [address] Care Team Providers Care Technical Expert Name Role Phone Unavailable Primary Care Provider Unavailabl e Encounter Details Date Type Department Care Team (Late st Contact Info) Description 10/05/2021 Transcribed Document [facility] Family Medicine [facility] [place] [address] ProviderLea MD [facility] [place] [address] Social History Tobacco Use Types [...] Lea Beverly MD - 10/05/2021 10:20 AM RECREATIONAL THERAPY AIDE Patient: LISANDRO CHUA Age: 45 years Sex: [...] Task Duplication (Not Done) Height Entry Format Molena Height Entry Format Not Done: Task Duplication (Not Done) Height/Length, RWANDAN (ft) 5 ft Height/Length RWANDAN 1 Inch CLINICALHEIGHT 154.94 cm [place] Body Weight 47 kg Weight Source Bed scale Weight Source Not Done: Task Duplication (Not Done) Weight Entry Format Molena Weight Bangladeshi lb 191 lb CLINICALWEIGHT 86.82 kg Body Surface Area (BSA) 1.85 m2 Body Mass Index 36.2 kg/m2 W[place] 10/04/2021 7:50 EST Height Source Not Done: [...]
--- OUTSIDE RECORDS SUMMARY | 2025-09-01 08:41 | XMS_ITS | Encounter Summary ---
Author Organization [employer] ([place], [place], [place], [place]) Address [address] [place] [address] Care Team Providers Care Counter Clerk Farm Equipment Parts Name Role Phone Unavailable Primary Care Provider Unavailabl e Encounter Details Date Type Department Care Team (Late st Contact Info) Description 10/06/2021 Transcribed Document [facility] [place] [facility] [place] [address] ProviderLea MD [address] [place] [address] Social History Tobacco Use Types [...] - Historical ProviderMD - 10/06/2021 11:20 AM UNDRAPED ARTIST MODEL DATE OF ADMISSION: 10/04/2021 DATE OF DISCHARGE: [...] reports having an appointment in one week). /[id number] Pam Jackson MD TAF/AQ / TAF / MODL /[id number] documented in this encounter Plan of Treatment Not on file documented as of this encounter Visit Diagnoses Not on filedocumented in this encounter
[2025-09-01 09:16] LABS: Hematocrit 45.2 % (37.0-47.0); Hemoglobin 15.3 g/dL (12.2-16.2); Immature Granulocytes % 0.2 %; Mean Corpuscular HGB Conc 33.8 g/dL (31.8-35.4); Mean Corpuscular Hemoglobin 31.9 pg (27.0-31.2); Mean Corpuscular Volume 94.2 fl (81-99); Nucleated Red Blood Cells % 0 %; Platelet Count 242 K/mm3 (142-424); Red Blood Count 4.80 M/mm3 (4.20-5.40); Red Cell Distribution Width-SD 45.1 fL; White Blood Count 9.3 K/mm3 (4.8-10.8)
[2025-09-01 09:18] LABS: Albumin Level 4.5 g/dl (3.5-5.0); Chloride 101 mmol/L (98-107); Potassium 3.8 mmoL/L (3.5-5.1); Sodium 141 mmol/L (136-145)
[2025-09-01 09:21] LABS: Alanine Aminotransferase 43 U/L (12-78); Albumin/Globulin Ratio 1.7 (1.1-1.8); Alkaline Phosphatase 96 U/L (38-126); Anion Gap 11.8 mEq/L (5-15); Aspartate Amino Transferase 49 U/L (14-36); Bilirubin,Total 0.4 mg/dl (0.2-1.3); Calcium 10.0 mg/dl (8.4-10.2); Carbon Dioxide 32 mmol/L (22.0-30.0); Globulin 2.7 g/dL (1.3-3.2); Glucose 99 mg/dl (74-100); Total Protein,Serum 7.2 g/dl (6.3-8.2)
[2025-09-01 09:30] LABS: Blood Urea Nitrogen 12 mg/dl (7-17); Creatinine Clearance Estimated 92 mL/min (50-200); Creatinine,Serum 0.90 mg/dl (0.52-1.04); Estimated Glomerular Filt Rate 66 ml/min (>60); GFR (African American) 80 ML/MIN (>60)
[2025-09-01 11:22] LABS: HCG Qualitative, Serum Negative (Negative)
== END 2025-09-01 23:59 | disposition home or self-care (01) ==
LOC: PREOP 08:32
PROVIDERS: PCP Family Medicine; Visit Provider Obstetrics & Gynecology
DX: Z01.812 Encounter for preprocedural laboratory examination (principal)
CPT/HCPCS: 80053; 84703; 85025

== ENCOUNTER 2025-09-08 06:07 | Day surgery (SDC) | payer OTHER, SELFPAY ==
[2025-09-01 11:45] VITALS: BMI 31.7
[2025-09-08] VITALS (11 sets, daily range): BP systolic 111–140; BP diastolic 64–88; PULSE 67–77; RESP 15–18; TEMP 36.1–43; O2SAT 95–99
[2025-09-08] MEDS: SODIUM CHLORIDE IRRIG SOLUTION 3,000 ML 200 ML IR (07:54)
--- NOTE | 2025-09-08 08:27 | EXP.OP.NOTE ---
Date of procedure: 09/08/25 Pre-op Diagnosis:: 1. Thickened endometrium stripe suggestive of an endometrial polyp 2. IUD strings not able to be grasped with IUD removal and replacement Post-op Diagnosis:: 1. Thickened endometrium stripe suggestive of an endometrial polyp 2. IUD strings not able to be grasped with IUD removal and replacement Procedure performed:: 1. Hysteroscopy, dilation, and MyoSure polypectomy 2. IUD removal and replacement, Mirkarma Surgeon:: Milli Kwan DO CORN CUTTER OPERATOR:: Ajay Browne Anesthesia: GETA Estimated blood loss (mL): 5 Operative findings:: Findings: -EUA revealed an 10-week anteverted uterus with regular contour. Small nulliparous cervix with minimal apical support defects. Well supported no significant anterior posterior prolapse. -Hysteroscopy revealed 1 very small endometrial polyp. The IUD strings were curled up around the IUD near the arms of the IUD. IUD was easily grasped and removed. The cervix was noted to be greater than 6 cm long Operative note:: The patient was taken back to the OR where general anesthesia was obtained.? She was placed in the dorsal lithotomy position using yellow fin stirrups and sterilely prepped and draped in the usual fashion.? An in and out catheter was used to drain her bladder.? A timeout was performed.? A weighted speculum was used to visualize this cervix, a single-tooth tenaculum was applied to the anterior lip of the cervix. The cervix was only slightly dilated to allow entry to the ectocervix and hydrodisection was used to get the scope the rest of the way into the cavity. The hysterscope was inserted and the cervix was noted to be very long. Images were obtained of the cavity. A long hysteroscopic grasper was inserted through the operative port of the hysteroscope and the IUD strings were grasped and the IUD was easily removed. The hysteroscope was inserted and decision was made to proceed with the MyoSure for polypectomy. Device set up, primed and zeroed. The device was used to resect the polyp. Following polyp removal the uterus was sounded and sounded to 12 centimeters this is largely secondary to the very long cervix. The IUD was inserted and after IUD insertion the hysteroscope was replaced to ensure that the IUD was in the cavity. Images were taken of the IUD arms displaying that the IUD was in the cavity given the very long cervix. The IUD strings had already started to curl up around the cervix again At the conclusion of the procedure there was a fluid deficit of 200mLs. Total myosure cutting time was 40seconds. Following complete removal of the polyps the MyoSure hysteroscope was removed.?The single-tooth tenaculum was removed and hemostasis was noted at the tenaculum sites.? All instruments were removed from the vagina.? All counts were correct, per nursing.? This concluded the procedure, the patient was awakened from anesthesia, and transferred to the PACU in stable condition. Condition: stable Disposition: PACU Specimens:: Endometrial polyp Complications:: None
--- NOTE | 2025-09-08 08:31 | P.PNANES_ITS ---
[facility] Disclaimer: The information contained in this section may have been updated after the patient was seen, as this information can be updated by other users. Medical History Tobacco abuse counseling Encounter for screening for malignant neoplasm of lung Nocturnal hypoxia Smoking greater than 30 pack years Asthma Dyspnea on exertion Moderate to severe mitral regurgitation Witnessed seizure-like activity Choking episode Tonsil stone pre op Severe mitral regurgitation Mitral regurgitation, acute (HFpEF) heart failure with preserved ejection fraction Syncope Suspected convulsive syncope. 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 Shingles Tobacco dependence Migraine Osteoarthritis Breast cancer Attention deficit disorder (ADD) in adult Major depressive disorder Gastroesophageal reflux disease Hyperlipidemia (~06/15/18) Essential tremor Bilateral hands, minimal with intention, on BB, unchanged for years Surgical History History of heart valve replacement with porcine valve History of stress incontinence procedure using tension free vaginal tape S/P total knee arthroplasty History of reconstruction of both breasts History of carpal tunnel release of both wrists H/O mastectomy History of tonsillectomy History of appendectomy History of section Family History Other Family history of cancer Family history of heart disease Lung cancer Social History Smoking Status: Current every day smoker tobacco type: cigarettes packs per day: 1 second hand exposure: Yes alcohol intake: never substance use type: denies use current occupational status: employed Travel in the last 8 weeks?: None household members: spouse housing: house number of children: 1 current occupation: [employer] current occupational exposures/hazards: No caffeine: Yes Have you lived/traveled outside US in past 30 days?: No Contact w/someone who lives/traveled outside US past 30 days?: No Exposure to someone with infectious disease in past 14 days?: No Do you have a fever (greater than 100.4 F or 38 C)?: No Have you tested positive for COVID-19?: No Exposed to someone with COVID-19 in past 14 days?: No Do you have a sore throat?: No Do you have a cough?: No Do you have any weakness?: No Do you have any diarrhea?: No Are you experiencing any unusual bleeding?: No Do you have any muscle aches/pain?: No Do you have any abdominal pain?: No Are you experiencing loss of taste or smell?: No [facility] Anesthesia Checklist Patient Identification Patient Identification: Verbal (Name & ) Structural Data Admitted From: Home Planned Operative Procedure/s: d/c hyst myosure Consent for Planned Operative Procedure(s) Verified: Yes NPO Status Verified Time NPO: 00:00 Additional verifications Anesthesia Reactions: No Hx Blood Transfusions: No Blood Transfusion Reaction: No Airway Assessment Mallampati Score:: Class II C-Spine Mobility Assessed: Yes TMJ Mobility Assessed: Yes Dentition: Good Dentition Neurological Assessment Level of Consciousness: Awake, Alert and Appropriate Anesthesia Plan Anesthesia Risk discussed: Yes Anesthesia Plan: Verified ASA Class: III Anesthesia Type: General
--- NOTE | 2025-09-08 08:32 | EXP.ANES.I ---
[facility] Anesthesia Record Part I Anesthesia Record I Intake, IV Amount: 1,000 Hydration: Adequate Estimated blood loss (mL): 0 Urine output (mL): 50 Blood Pressure: 140/80 SaO2: 96 Pulse Rate: 67 Airway Patency: Patent Respiratory Rate: 16 Temperature: 97.4 F Patient is:: Awake and Stable Stable to PACU at:: 08:30
--- NOTE | 2025-09-08 10:18 | P.PNANES_ITS ---
[facility] Anesthesia Record Part II Anesthesia Record Part II Discharge Time: 09:31 Destination: Surgical Day Care (OP Surgery) PACU nurse assessment reviewed?: Yes Patient Condition:: Good Anesthesia Complications:: None Swallowing reflex intact?: Yes Airway Patency: Patent Cyanosis?: No Blood Pressure: 111/64 SaO2: 97 Respiratory Rate: 18 Pulse Rate: 74 Temperature: 97.0 F Mental Status: Alert & Oriented Pain level:: 0 Nausea and/or vomitting:: None Intake, IV Amount: 0 Hydration: Adequate
== END 2025-09-08 09:31 | disposition home or self-care (01) ==
PROVIDERS: PCP Family Medicine; Visit Provider Obstetrics & Gynecology
PROC: 0UDB8ZZ Extraction of Endometrium, Via Natural or Artificial Opening Endoscopic (ICD-10-PCS; CPT 58558; principal; 2025-09-08 07:30)
DX: D25.9 Leiomyoma of uterus, unspecified (principal); T83.32XA Displacement of intrauterine contraceptive device, initial encounter; F17.210 Nicotine dependence, cigarettes, uncomplicated; E78.5 Hyperlipidemia, unspecified; J45.909 Unspecified asthma, uncomplicated; I48.0 Paroxysmal atrial fibrillation; I50.33 Acute on chronic diastolic (congestive) heart failure; E87.6 Hypokalemia; N93.9 Abnormal uterine and vaginal bleeding, unspecified; Z79.82 Long term (current) use of aspirin; Z71.6 Tobacco abuse counseling; Y76.8 Miscellaneous obstetric and gynecological devices associated with adverse incidents, not elsewhere classified
CPT/HCPCS: 58300; 58558; J1100; J1885; J2003; J2250; J2405; J2704; J3010

== ENCOUNTER 2025-10-02 14:41 | Outpatient (CLI) | payer OTHER, SELFPAY ==
--- OUTSIDE RECORDS SUMMARY | 2025-08-08 08:30 | XMS_ITS | Encounter Summary ---
Author Organization [facility] Address [address] [place] [address] Care Team Providers Care Fire Fighter [employer] Name Role Phone Unavailable Primary Care Provider Unavailabl e Reason for Referral * Surgical (Routine) - Pending Review Specialty Diagnoses / Procedures Referred By Contyasmine t Referred To Contact Diagnoses Primary osteoarthritis of right knee Procedures AMB OC SURGERY COMMUNICATION ORDER Kev Farris MD [address] [place] [address] Phone: tel: fax: Referral ID Status Reason Start Date Expiration Date V isits Requested Visits Authorized [id number] Pending Review 08/08/2025 08/08/2026 1 1 * Physical Therapy (Routine) - Pending Review Specialty Diagnoses / Procedures Referred By Mray sanchez Referred To Contact Physical Therapy Diagnoses Primary osteoarthritis of right knee Kev Farris MD [address] [place] [address] Phone: tel: fax: Referral ID Status Reason Start Date Expiration Date V isits Requested Visits Authorized [id number] Pending Review 08/08/2025 08/08/2026 1 1 Question Answer surgical procedure total knee arthroplasty Evaluate and Treat Yes Select as appropriate Evaluate and treat appropriately Modalities/Procedures As Indicated Therapeutic Exercise As Indicated Goals: Decrease pain and swelling, Increase ROM, Increase function, Increase strength Additional instructions: Frequency and duration per therapist discretion, Teach HEP Medical Necessity: Prevent need for non-conservative measures, Promote full function post operatively Reason for Visit * Reason Comments Pain Encounter Details Date Type Department Care Team (Late st Contact Info) Description 08/08/2025 9:30 AM EDT Office [facility] [address] [place] [address] [facility] [place] [address] Right knee pain, unspecified chronicity (Primary Dx); Primary osteoarthritis of right knee Social History Tobacco Use Types Packs/Day Years Used Date Smoking Tobacco: Every Day Cigarettes 1 31.9 Started: 1993 Smokeless Tobacco: Never Tobacco Cessation:Ready to Q uit: Not Asked; Counseling Given: Not Answered Alcohol Use Standard Drinks/Week Comments No 0 [...] file Not on file Not on file documented as of this encounter Last Filed Vital Signs Vital Sign Reading Time Taken Comments Blood Pressure - - Pulse - - Temperature - - Respiratory Rate - - Oxygen Saturation - - Inhaled Oxygen Concentration - - Weight 79.8 kg (176 lb) 08/08/2025 10:21 AM EDT Height 154.9 cm (5' 1 ) 08/08/2025 10:21 AM EDT Body Mass Index 33.25 08/08/2025 10:21 AM EDT documented in this encounter Functional Status * Is the person deaf or does he/she have serious difficulty hearing? Answer Date of Assessment Author No 05/17/2020 4:34 PM EDT Valentin Martins CCMA * Is the person blind or does he/she have serious difficulty seeing even when wearing glasses? Answer Date of Assessment Author No 05/17/2020 4:34 PM EDT Valentin Martins CCMA * Does this person have serious difficulty walking or climbing stairs? Answer Date of Assessment Author No 05/17/2020 4:34 PM EDT Valentin Martins CCMA * Does this person have difficulty dressing or bathing? Answer Date of Assessment Author No 05/17/2020 4:34 PM EDT Valentin Martins CCMA * Because of a physical, mental or emotional condition, does this person have difficulty doing errands alone such as visiting a doctor's office or shopping? Answer Date of Assessment Author No 05/17/2020 4:34 PM EDT Valentin Martins CCMA documented as of this encounter Mental Status * Because of a physical, mental or emotional condition, does this person have serious difficulty concentrating, remembering or making decisions? Answer Entry Date Author No 05/17/2020 4:34 PM EDT Valentin Martins CCMA documented in this encounter Progress Notes * Kev Farris MD - 08/08/2025 9:30 AM EDT Images from the original note were not included. [address] [phone] [place], [place] [phone] [place], [place] Brooks Chua 1975 Chief Complaint Patient presents with Right Knee - Pain Subjective: Brooks Chua is a 49 y.o. female presenting for evaluation of Right Knee Pain. Referred by Dr. Harris New Patient The pain began a few years ago. Pain is described as grinding, dull, aching of the knee. Symptoms improve with rest, ice, OTC NSAIDs. The symptoms are worse with activity such as walking, exercising,kneeling, and squatting. Treatment to date has been without significant relief. At this point, the patient describes having significant pain. The pain is more than just a nuisance; it is affecting the patient's quality of life. Going up and down stairs, standing for long periodsof time, and walking long distances are difficult. Rest, ice, anti-inflammatory medications and assisted devices have been tried. None of this has really solved the problem. Left TKA at [facility] Doing well Glad she had it done Right knee pain affects her QOL Tried rest, ice, nsaids, injections, PT exercises. No lasting relief. Here today to discuss options for surgery She had a cardiac valve replacement just over a 1 year ago Doing well Smoker, she is quitting, using gum Tried PT BMI of 33 Social History Substance and Sexual Activity Drug Use No Social History Tobacco Use Smoking Status Every Day Current packs/day: 1.00 Average packs/day: 1 pack/day for 31.7 years (31.7 ttl pk-yrs) Types: Cigarettes Start date: 1993 Smokeless Tobacco Never Objective: Review of Systems Constitutional: Negative. Respiratory: Negative. Cardiovascular: Negative. Gastrointestinal: Negative. Musculoskeletal: Positive for joint pain. Skin: Negative. Body mass index is 33.25 kg/m??. On physical examination the patient is alert and oriented. Appropriate mood for the conversation. Well-developed and well-nourished in appearance. Limited gait examination reveals no obvious abnormalities. Bilateral upper and lower extremities demonstrate apparently normal range of motion and stability with intact pulses and sensation to light touch of the wrist, hand, ankle and foot bilaterally.Skin of bilateral upper and lower extremities with no obvious rash or lesions. Apparently normal muscle tone and reflexes for bilateral knees and ankles. No evidence of obvious significant lymphedemaof bilateral lower extremities. Respiratory rate is normal by clinical examination. Pulse rate is normal by peripheral pulse examination. Right Knee Exam Comments: Examination of the right knee shows that it is stable to varus and valgus stressing. Normal anterior/posterior drawer testing. Normal Aleisha testing. Normal Gina testing. There is tenderness to palpation over the medial joint line, as well as the patellofemoral joint. The skin is intact. Left Knee Exam Comments: The surgical incision is healed very nicely. No erythema or signs of infection. Range of motion is from approximately 0-120 degrees. Stable to varus/valgus stress and to anterior/posterior drawer testing as expected after total knee. There is some numbness adjacent to the incision as expected. No evidence of DVT or PE by clinical examination. Imaging: X-rays reviewed today of the right knee show osteoarthritic degenerative change with joint space narrowing, subchondral sclerosis and osteophyte formation. There are no acute findings noted in these films. Kellgren-Sam Grade 3/4 X-rays reviewed today of the left knee show a joint replacement in the expected position without evidence of complication. Assessment and Plan: Diagnoses and all orders for this visit: Right knee pain, unspecified chronicity - XR KNEE RIGHT AP LATERAL INTERNAL AND EXTERNAL OBLIQUES; Future PLAN: Recommend conservative treatment Discussed treatment options Left TKA [facility], doing well. ~January 06 2023 Right knee end stage OA Tried rest, ice, nsaids, injections, PT exercises. No lasting relief. Patient would likely benefit from surgical intervention. We will proceed with a right total knee arthroplasty. RISKS OF SURGERY: An extensive conversation was held with the patient and/or family regarding the risks, benefits, potential complication and reasonable expectations of the planned procedure. Informed verbal consent was given under no distress. We had ample opportunities for questions regarding the usual outcomes. Risks discussed, but not limited to the following, include possible: bleeding, infection, damage to blood vessels and/or nerves, blood clots, anesthesia complications, loss of reduction (if fracture), re-tear or re-injury (if ligament/tendon fixed), hardware breakage or failure (if used), need for additional surgery, post- operative stiffness, looseness, leg length discrepancy, and dislocation (where applicable). In addition, in rare cases the patient may have loss of a limb or even . Where applicable, we discussed bearing surfaces, fixation, implant materials, and expected longevity. No guarantee of any particular results were given. The patient voiced understanding that in some cases surgery can make them worse. In spite of this, the patient and/or family desired that we proceedwith the operation and expressed clear understanding of these risks. DME Summary No orders found for display Please note that this biofuels production associate was created using voice recognition software. Any errors are unintentional and may be due to voice recognition biofuels production associate. Parts of this note may have been created by a chart review, combined by taking my own patient history. The patient was physically seen and examined by myself, including a personal review of images, tests, and formation of the impression and plan. If questions occur please do not hesitate to call our office. Pre OP Cefazolin Prineo No hx of DVT/PE IV TXA ASA 81mg Q day for 30 days No metal allergies [facility], will use [facility], for PT Has a Walker Family/friends can help at home Medical considerations: No MT, but did have Cardiac valve replacement, Porcine valve No blood thinners Smoker, quitting No problems with anesthesia documented in this encounter Plan of Treatment Upcoming Encounters Date Type Department Care Team (Late st Contact Info) Description 11/08/2025 8:00 AM EST Office Visit [facility] [address] [address] Gloria Short NP [address] [place], [place] [phone] Scheduled Referrals Name Type Priority Associated Diagnoses Orde r Schedule AMB REFERRAL TO PHYSICAL THERAPY Outpatient Referral Routine Primary osteoarthritis of right knee Ordered: 08/08/2025 documented as of this encounter Goals Goal Patient Goal Type Associated Problems Recent Progress Patient-Stated? Author Maintain a healthy diet, exercise regularly and maintain an ideal body weight General No Melita Martins CCMA Stay Tobacco Free Lifestyle No Melita Martins CCMA documented as of this encounter Results * XR KNEE RIGHT AP LATERAL INTERNAL AND EXTERNAL OBLIQUES (08/08/2025 10:41 AM EDT) Narrative GenericuserNasima - 08/08/2025 10:41 AM EDT Please see physician's note from office encounter for x-ray imaging result Kev Farris MD IMG DIAGNOSTIC IMAGI NG ORDERABLES Final Result documented in this encounter Visit Diagnoses Diagnosis Right knee pain, unspecified chronicity- Primary Primary osteoarthritis of right knee Primary localized osteoarthrosis, lower leg Right knee pain, unspecified chronicity documented in this encounter Historical Medications * This list may reflect changes made after this encounter. traZODone (DESYREL) 150 mg Oral Tablet Take 150 mg by mouth daily. 07/18/2025 ZEPBOUND 7.5 mg/0.5 mL SubQ Pen Injector 08/03/2025 omeprazole (PRILOSEC) 40 mg Oral Capsule, Delayed Release(E.C.) Take 40 mg by mouth daily. aspirin 81 mg Oral Tablet, Delayed Release (E.C.) Take 81 mg by mouth nightly. lisdexamfetamine (VYVANSE) 30 mg Oral Capsule Take 30 mg by mouth daily. 07/31/2025 rosuvastatin (CRESTOR) 20 mg Oral Tablet Take 20 mg by mouth nightly. added in this encounter Orders Nursing Count Last Ordered Date First Orde red Date AMB OC SURGERY COMMUNICATION ORDER 1 2024 documented in this encounter
--- OUTSIDE RECORDS SUMMARY | 2025-08-08 09:25 | XMS_ITS | Encounter Summary ---
Author Organization [facility] Address [address] [place] [address] Care Team Providers Care Fitter Machinist Name Role Phone Unavailable Primary Care Provider Unavailabl e Encounter Details Date Type Department Care Team (Late st Contact Info) Description 08/08/2025 10:25 AM EDT Ancillary Procedure [facility] Assistant Professor Of Dietetics [address] [employer] [place], [place] [phone] Kev Farris MD [address] [place], [place] [phone] Right knee pain, unspecified chronicity Social History Tobacco Use Types Packs/Day Years Used Date Smoking Tobacco: Every Day Cigarettes 1 31.9 Started: 1993 Smokeless Tobacco: Never Alcohol Use [...] as of this encounter Functional Status * Is the [...] Valentin Martins CCMA documented in this encounter Plan of Treatment Upcoming Encounters Date Type Department Care Team (Late st Contact Info) Description 11/08/2025 8:00 AM EST [facility] [address] [place] [address] Gloria Short NP [address] [place] [address] documented as of this encounter Goals Goal Patient Goal Type Associated Problems Recent Progress Patient-Stated? Author Maintain a healthy diet, exercise regularly and maintain an ideal body weight General No Melita Martins CCMA Stay Tobacco Free Lifestyle No Lakshmi NERI Rosario documented as of this encounter Procedures Procedure Name Priority Date/Time Associated Diagnosis Comments XR KNEE RIGHT AP LATERAL INTERNAL AND EXTERNAL OBLIQUES Routine 08/08/2025 10:41 AM EDT Right knee pain, unspecified chronicity documented in this encounter Results * XR KNEE RIGHT AP LATERAL INTERNAL AND EXTERNAL OBLIQUES (08/08/2025 10:41 AM EDT) Narrative Genericuser, Audit - 08/08/2025 10:41 AM EDT Please see physician's note from office encounter for x-ray imaging result us Kev Farris MD IMG DIAGNOSTIC IMAGI NG ORDERABLES Final Result documented in this encounter Visit Diagnoses Diagnosis Right knee pain, unspecified chronicity documented in this encounter
--- OUTSIDE RECORDS SUMMARY | 2025-10-02 14:44 | XMS_ITS | Encounter Summary ---
Author Organization [employer] ([place], [place], [place], [place], [place]) Address [address] [place] [address] Care Team Providers Care Geospatial Analyst Name Role Phone Unavailable Primary Care Provider Unavailabl e Encounter Details Date Type Department Care Team (Late st Contact Info) Description 10/06/2021 Transcribed Document [facility] Family Medicine [address] [place] [address] ProviderLea MD [address] [place] [address] Social History Tobacco Use Types [...] - Historical ProviderMD - 10/06/2021 2:00 AM LOCOMOTIVE DRIVER Salt Operator Details Entered On: 10/06/2021 2:31 EST Performed [...] Adriana Hunt RN - 10/06/2021 2:30 EST documented in this encounter Plan of Treatment Not on file documented as of this encounter Visit Diagnoses Not on filedocumented in this encounter
--- OUTSIDE RECORDS SUMMARY | 2025-10-02 14:44 | XMS_ITS | Encounter Summary ---
Author Organization [employer] ([place], [place], [place], [place], [place]) Address [address] [place] [address] Care Team Providers Care Pharmaceutical Scientist Name Role Phone Unavailable Primary Care Provider Unavailabl e Encounter Details Date Type Department Care Team (Late st Contact Info) Description 10/06/2021 Transcribed Document [facility] [place] [facility] [place] [address] ProviderLea MD [facility] [place] [address] Social History Tobacco Use Types [...] - Lea ProviderMD - 10/06/2021 1:38 PM RUBBER ROLLER GRINDER [place] [address] LISANDRO HAJI :1975 Visit Time:10/04/2021 Your Visit Summary Your [...] 1 week Where: [address] [place] [address]- [facility] (1) Medications What How Much [...] if you have a seizure. ??? Take wzok-xry-pktedbl, prescription medicines and herbal remedies only as [...] provider. Document Revised: 10/15/2020 Document Reviewed: 10/20/2020 [employer] Patient Education ?? 2020 [employer] Emergency Awareness and Preventative Care STROKE [...] Assistance with quitting is available by contacting 3-628-NJELNOW. This is a free resource providing counseling, support, and referral. Or you may contact your personal physician. [employer] Online Suicide Prevention Lifeline: The National Suicide Prevention [...] or Other Results This Visit Patient Name:LISANDRO HAJI I have received and understand this information and was given the opportunity to ask questions. Patient/Basin Operator Name: Patient/Basin Operator Signature: Relationship to Patient: Clinician/Hospital Basin Operator Signature: Date: documented in this encounter Plan of Treatment Not on file documented as of this encounter Visit Diagnoses Not on filedocumented in this encounter
--- OUTSIDE RECORDS SUMMARY | 2025-10-02 14:44 | XMS_ITS | Encounter Summary ---
Author Organization [employer] ([place], [place], [place], [place], [place]) Address [address] [place] [address] Care Team Providers Care Careers Counsellor Name Role Phone Unavailable Primary Care Provider Unavailabl e Encounter Details Date Type Department Care Team (Late st Contact Info) Description 10/06/[address] [facility] Family Medicine [address] [place] [address] ProviderLea MD [address] [place] [address] Social History Tobacco Use Types [...] - Historical ProviderMD - 10/06/2021 5:00 AM TESTER OPERATOR Chart Check - Review Order Profile Entered On: 10/06/2021 3:25 EST Performed On: 10/06/2021 5:00 EST by Adriana Hunt RN Chart Check Powerplans Initiated/Discontinued as Appropriate : Yes All Active Orders Reviewed : Yes Adriana Hunt RN - 10/06/2021 3:25 EST Electronically signed by Jaymie [facility] Conversion Farm Supervisor Elizabeth at 03/09/2023 7:18 PM CDT documented in this encounter Plan of Treatment Not on file documented as of this encounter Visit Diagnoses Not on filedocumented in this encounter
--- OUTSIDE RECORDS SUMMARY | 2025-10-02 14:44 | XMS_ITS | Encounter Summary ---
Author Organization [employer] ([place], [place], [place], [place], [place]) Address [address] [place] [address] Care Team Providers Care Oil And Gas Superintendent Name Role Phone Unavailable Primary Care Provider Unavailabl e Encounter Details Date Type Department Care Team (Late st Contact Info) Description 10/06/2021 Transcribed Document [facility] [place] Medicine [facility] [place] [address] ProviderLea MD [facility] [place] [address] Social History Tobacco Use [...] - Lea ProviderMD - 10/06/2021 1:[address] [facility] [place] [address] LISANDRO HAJI :1975 Visit Time:10/04/2021 Your [...] 1 week Where: [address] [place] [address]- [facility] (1) Medications What How Much When [...] if you have a seizure. ??? Take ictb-xwi-esejsic, prescription medicines and herbal remedies only as [...] provider. Document Revised: 10/15/2020 Document Reviewed: 10/20/2020 [employer] Patient Education ?? 2020 [employer] Emergency Awareness and Preventative Care STROKE [...] Assistance with quitting is available by contacting 6-908-GZAHNOW. This is a free resource providing counseling, support, and referral. Or you may contact your personal physician. [employer] Suicide Prevention Lifeline: The National Suicide Prevention [...] was given the opportunity to ask questions. Patient/Metalsmith Apprentice Name: Patient/Metalsmith Apprentice Signature: Relationship to Patient: Clinician/Hospital Metalsmith Apprentice Signature: Date: Electronically signed by Jaymie [facility] Conversion Retail Stocker Elizabeth at 03/09/2023 7:19 PM CDT documented in this encounter Plan of Treatment Not on file documented as of this encounter Visit Diagnoses Not on filedocumented in this encounter
--- OUTSIDE RECORDS SUMMARY | 2025-10-02 14:44 | XMS_ITS | Clinical Summary ---
Author Organization [employer] ([place], [place], [place], [place], [place]) Address [address] [place] [address] Care Team Providers Care Digital Account Director Name Role Phone Unavailable Primary Care [...]
--- OUTSIDE RECORDS SUMMARY | 2025-10-02 14:44 | XMS_ITS | Encounter Summary ---
Author Organization [employer] ([place], [place], [place], [place], [place]) Address [address] [place] [address] Care Team Providers Care Patient Intake Representative Name Role Phone Unavailable Primary Care Provider Unavailabl e Encounter Details Date Type Department Care Team (Late st Contact Info) Description 10/05/2021 Transcribed Document [facility] [place] Family Medicine [address] [place] [address] ProviderLea MD [address] [place] [address] Social History Tobacco Use Types [...] - Historical ProviderMD - 10/05/2021 2:00 AM REGIONAL ENGAGEMENT CONSULTANT Chief Accountant Details Entered On: 10/05/2021 4:06 EST Performed [...] 10/05/2021 4:05 EST Electronically signed by Jaymie [facility] Conversion Customer Relations Representative Cerner at 03/09/2023 7:14 PM CDT documented in this encounter Plan of Treatment Not on file documented as of this encounter Visit Diagnoses Not on filedocumented in this encounter
--- OUTSIDE RECORDS SUMMARY | 2025-10-02 14:44 | XMS_ITS | Encounter Summary ---
Author Organization [employer] ([place], [place], [place], [place], [place]) Address [address] [place] [address] Care Team Providers Care Bale Tie Machine Operator Name Role Phone Unavailable Primary Care Provider Unavailabl e Encounter Details Date Type Department Care Team (Late st Contact Info) Description 10/06/2021 Transcribed Document [facility] [place] Medicine [facility] [place] [address] ProviderLea MD [address] [place] [address] Social History Tobacco Use Types [...] Lea Beverly MD - 10/06/2021 8:30 AM IRRIGATION SERVICE TECHNICIAN DATE OF SERVICE: 10/05/2021 REPORT TYPE: EEG REFERRING PHYSICIAN: Pam Jackson MD REPORT TITLE: Video Electroencephalogram Report STUDY DURATION: One day. HISTORY: This is a 45-year-old woman being evaluated for recurrent seizures. EEG VIDEO MONITORING METHODOLOGY: Time-locked EEG-video monitoring was performed using the 32-channel [employer] monitoring system. The seizure detection computer was [...] potential epileptogenicity in the right temporal region. /[id number] MD SARAH Adair/JOHN / SARAH / MODL /[id number] Electronically signed by Jaymie [facility] Conversion Technical Research Scientist Cerner at 03/09/2023 7:19 PM CDT documented in this encounter Plan of Treatment Not on file documented as of this encounter Visit Diagnoses Not on filedocumented in this encounter
--- OUTSIDE RECORDS SUMMARY | 2025-10-02 14:44 | XMS_ITS | Encounter Summary ---
Author Organization [facility] Address [address] [place] [address] Care Team Providers Care Drain Tile Machine Operator Name Role Phone Иван Harris MD Primary Care Provider [phone] Antonio Henriquez MD Unavailable [phone] Encounter Details Date Type Department Care Team (Late Contact Info) Description 02/24/2024 Orders Only External Location [address] [place] [address] Antonio Henriquez MD [address] [facility] [address] [place] [address] Social History Tobacco Use Types Packs/Day Years [...] AM EST Appointment Cardiac Imaging [address] [place] [address] 11/29/2025 10:30 AM EST Office Visit [place] [facility] [address], [facility] [address] [place] [address] Howie Esparza MD [address] [place] [address] documented as of this encounter [...] on filedocumented in this encounter Care Teams Drain Tile Machine Operator Relationship Specialty Start Date End Date Иван Harris MD PCP - General 01/05/24 Antonio Henriquez MD [address] [place] [address] [place] [address] Referring Physician Cardiology 05/05/24 documented as of this encounter
--- OUTSIDE RECORDS SUMMARY | 2025-10-02 14:44 | XMS_ITS | Encounter Summary ---
Author Organization [employer] ([place], [place], [place], [place], [place]) Address [address] [place] [address] Care Team Providers Care Proof Machine Operator Supervisor Name Role Phone Unavailable Primary Care Provider Unavailabl e Encounter Details Date Type Department Care Team (Late st Contact Info) Description 10/06/2021 Transcribed Document [facility] [place] [facility] [place] [address] ProviderLea MD [address] [place] [address] Social History Tobacco Use Types [...] - Lea ProviderMD - 10/06/2021 1:37 PM DISPENSING OPERATOR Patient Education Materials Follows: Non-Epileptic Seizures, Adult [...] if you have a seizure. ??? Take zxmp-esd-grarunl, prescription medicines and herbal remedies only as [...] provider. Document Revised: 10/15/2020 Document Reviewed: 10/20/2020 [employer] Patient Education ? 2020 [employer] documented in this encounter Plan of Treatment Not on file documented as of this encounter Visit Diagnoses Not on filedocumented in this encounter
--- OUTSIDE RECORDS SUMMARY | 2025-10-02 14:44 | XMS_ITS | Encounter Summary ---
Author Organization [employer] ([place], [place], [place], [place], [place]) Address [address] [place] [address] Care Team Providers Care Grant Coordinator Name Role Phone Unavailable Primary Care Provider Unavailabl e Encounter Details Date Type Department Care Team (Late st Contact Info) Description 10/04/2021 Transcribed Document [facility] [place] Family Medicine [address] [place] [address] ProviderLea MD [address] [place] [address] Social History Tobacco Use Types [...] - Historical ProviderMD - 10/04/2021 5:00 PM ACCOUNT ADMINISTRATOR Chart Check - Review Order Profile Entered On: 10/04/2021 16:24 EST Performed On: 10/04/2021 17:00 EST by Ashwini Shaw RN-PATIENT CARE BEDSIDE NON-EXEMPT Chart Check Powerplans Initiated/Discontinued as Appropriate : Yes All Active Orders Reviewed : Yes Ashwini Shaw RN-PATIENT CARE BEDSIDE NON-EXEMPT - 10/04/2021 16:24 EST documented in this encounter Plan of Treatment Not on file documented as of this encounter Visit Diagnoses Not on filedocumented in this encounter
--- OUTSIDE RECORDS SUMMARY | 2025-10-02 14:44 | XMS_ITS | Encounter Summary ---
Author Organization [employer] ([place], [place], [place], [place], [place]) Address [address] [place] [address] Care Team Providers Care Shell Grader Name Role Phone Unavailable Primary Care Provider Unavailabl e Encounter Details Date Type Department Care Team (Late st Contact Info) Description 10/05/2021 Transcribed Document [facility] [place] [address] [place] [address] ProviderLea MD [address] [place] [address] Social History Tobacco Use Types [...] - Historical ProviderMD - 10/05/2021 5:00 AM MANAGER E LEARNING Chart Check - Review Order Profile Entered On: 10/05/2021 4:06 EST Performed On: 10/05/2021 5:00 EST by Adriana Hunt RN Chart Check Powerplans Initiated/Discontinued as Appropriate : Yes All Active Orders Reviewed : Yes Adriana Hunt RN - 10/05/2021 4:06 EST Electronically signed by Jaymie [facility] Conversion Net Developer Elizabeth at 03/09/2023 7:12 PM CDT documented in this encounter Plan of Treatment Not on file documented as of this encounter Visit Diagnoses Not on filedocumented in this encounter
--- OUTSIDE RECORDS SUMMARY | 2025-10-02 14:44 | XMS_ITS | Encounter Summary ---
Author Organization [employer] ([place], [place], [place], [place], [place]) Address [address] [place] [address] Care Team Providers Care Teletypewriter Operator Name Role Phone Unavailable Primary Care Provider Unavailabl e Encounter Details Date Type Department Care Team (Late st Contact Info) Description 10/06/2021 Transcribed Document [facility] [place] [facility] [place] [address] [place]Lea [place] [address] Social History Tobacco Use Types [...] - Lea ProviderMD - 10/06/2021 11:16 AM SOLUTIONS CONSULTANT [address] , [place] [address] Patient Copy Patient Information: Name: LISANDRO CHUA Current Date: 10/06/2021 11:16:42 : 1975 Patient Address: [address] [place], [place] [address]ON [facility] [address] Patient Attending Physician: YULIA CHINCHILLA MD-NEU Primary Care Provider: AXEL HOPE (REF)JOHN Primary Care Provider Discharge Diagnosis: Nonepileptic episode Weight on Admission: 191 lb, 0 oz Comment: Follow-up Instructions: With: Address: When: Brittnee Dan [address] [place] [id number] [facility] (1) Within 1 week Discharge Instructions: Immunizations [...] Assistance with quitting is available by contacting 1-063-IHFF-NOW. This is a free resource providing counseling, [...] Be sure to sign up for the [employer] patient portal, which gives you 24/ access to your medical information ??? including these discharge instructions ??? using your computer, smartphone, or tablet. Just go to EPIS to get started. Questions? Call . [facility] would like to thank you for allowing us to assist you with your healthcare needs. RAISSA Bradley CASEY MARIE, (or digital sales representative) have received the above patient education materials/instructions and have verbalized understanding: Patient Signature _ Date/Time Patient Internal Affairs Investigator Signature (if needed) Date/Time Clinician/Hospital Internal Affairs Investigator Signature (if needed) Date/Time documented in this encounter Plan of Treatment Not on file documented as of this encounter Visit Diagnoses Not on filedocumented in this encounter
--- OUTSIDE RECORDS SUMMARY | 2025-10-02 14:44 | XMS_ITS | Encounter Summary ---
Author Organization [employer] ([place], [place], [place], [place], [place]) Address [address] [place] [address] Care Team Providers Care Forgeman Helper Name Role Phone Unavailable Primary Care Provider Unavailabl e Encounter Details Date Type Department Care Team (Late st Contact Info) Description 10/04/2021 Transcribed Document [facility] [place] [address] ProviderLea MD [facility] [place] [address] Social History Tobacco Use Types [...] Conversion Note - Lea ProviderMD - 10/04/2021 11:50 AM SEWING MACHINE OPERATOR SEMIAUTOMATIC Admission History, Adult Entered On: 10/04/2021 11:59 [...] #2 Relationship : n Primary Language : Danish Communication Barrier : None Forge Shop Supervisor Needed : No Ashwini Shaw RN-PATIENT CARE [...] Scale Risk Level : 0-24 Low Risk Filer Fall Interventions : Adequate lighting, Assistive devices [...] Desires Tobacco Cessation Medication : Yes Ashwini Sahw RN-PATIENT CARE BEDSIDE NON-EXEMPT - 10/04/2021 11:50 [...] Source : Measured Height Entry Format : [place] Height, Feet : 5 ft(Converted to: 152 cm, 60 Inch) Height, Inches : 1 Inch(Converted to: 0 ft 1 Inch, 2.54 cm) Clinical Height : 154.94 cm Weight Source : Bed scale Weight Entry Format : [place] Clinical Dosing Weight : 86.82 kg Weight, Pounds : 191 lb Body Surface Area (BSA) : 1.85 m2 Body Mass Index : 36.2 kg/m2 (HI) [place] Body Weight : 47 kg Ashwini Shaw RN-PATIENT CARE [facility] NON-EXEMPT - 10/04/2021 11:50 EST Infectious Disease History Does patient have symptoms of COVID-19? : No Has the Patient Been Tested for COVID-19 in the last 14 days? : No, Patient stated Does the Patient state known exposure to a COVID-19 positive case in the last 14 days? : No Patient Vaccinated for COVID-19 : Fully vaccinated Ashwini Shaw RN-PATIENT CARE [facility] NON-EXEMPT - 10/04/2021 11:50 EST Infectious Disease [...] day) : NO Ashwini Shaw RN-PATIENT CARE BEDSIDE NON-EXEMPT - 10/04/2021 11:50 EST Physical contact outside [place] in the last 30 days : No Hospitalized in Foreign Country : No Infectious Disease History : Chicken pox/Shingles INF Disease TB Screening Calc : 0 INF Disease Recent Travel Calc : 0 Ashwini Shaw RN-PATIENT CARE [facility] NON-EXEMPT - 10/04/2021 11:50 EST Influenza Vaccine Asmt, Adult Previous Vaccines from Immunization Schedule : No qualifying data available. Influenza Immunization, Current Season : Yes Ashwini Shaw RN-PATIENT CARE [facility] NON-EXEMPT - 10/04/2021 11:50 EST Pneumococcal Vaccine Previous Vaccines from Immunization Schedule : No qualifying data available. Pneumonia Immunization Received : No Pneumococcal Risk Assessment < Age 65 : None Ashwini Shaw RN-PATIENT CARE [facility] NON-EXEMPT - 10/04/2021 11:50 EST Order Details Isolation Precautions Order Detail : Standard Precautions IV Order Detail : 1 Lift/Transfer : Independent Room Service : Appropriate Patient Needs Meds Crushed/Liquid : No Ashwini Shaw RN-PATIENT CARE [facility] NON-EXEMPT - 10/04/2021 11:50 EST Nutrition History Eating Poorly Due to Decreased Appetite : No Unplanned Weight Loss in Past 3-6 Months : No Malnutrition Screening Tool Total(mal) : 0 Malnutrition Screening Tool Risk Level : Patient not at risk Ashwini Shaw RN-PATIENT CARE [facility] NON-EXEMPT - 10/04/2021 11:50 EST [place] Suicide Severity Rating Scale (C-SSRS) CSSRS Past Month Wish to be : No CSSRS Past Month Suicidal Thoughts : No CSSRS Lifetime Suicide Behavior : No Suicide Severity Rating Score : 0 Suicide Severity Rating : No Additional Care Required at this time Ashwini Shaw RN-PATIENT CARE [facility] NON-EXEMPT - 10/04/2021 11:50 EST Psychosocial History Currently in Unsafe Situation : No Ashwini Shaw RN-PATIENT CARE [facility] NON-EXEMPT - 10/04/2021 11:50 EST Sleep Apnea [...] Score : 0 Ashwini Shaw RN-PATIENT CARE [facility] NON-EXEMPT - 10/04/2021 11:50 EST Valuables and [...] - 10/04/2021 11:50 EST Electronically signed by [facility], [facility] Conversion Jewelry Appraiser Cerner at 03/09/2023 7:31 PM CDT documented in this encounter Plan of Treatment Not on file documented as of this encounter Visit Diagnoses Not on filedocumented in this encounter
--- OUTSIDE RECORDS SUMMARY | 2025-10-02 14:44 | XMS_ITS | Encounter Summary ---
Author Organization [employer] ([place], [place], [place], [place], [place]) Address [address] [place] [address] Care Team Providers Care Bolt Sorter Name Role Phone Unavailable Primary Care Provider Unavailabl e Encounter Details Date Type Department Care Team (Late st Contact Info) Description 10/06/2021 Transcribed Document [facility] [place] [facility] [place] [address] ProviderLea MD [facility] [place] [address] Social History Tobacco Use Types [...] - Historical ProviderMD - 10/06/2021 11:20 AM SUPERVISOR PRODUCTION MANAGING DATE OF ADMISSION: 10/04/2021 DATE OF DISCHARGE: [...] reports having an appointment in one week). /[id number] MD SARAH Adair/AQ / TAF / MODL /[id number] documented in this encounter Plan of Treatment Not on file documented as of this encounter Visit Diagnoses Not on filedocumented in this encounter
--- OUTSIDE RECORDS SUMMARY | 2025-10-02 14:44 | XMS_ITS | Encounter Summary ---
Author Organization [facility] Address [address] [place] [address] Care Team Providers Care Portal Administrator Name Role Phone Иван Harris MD Primary Care Provider [phone] Antonio Henriquez MD Unavailable [phone] Encounter Details Date Type Department Care Team (Late st Contact Info) Description 01/25/2024 Orders Only External Location [address] [place] [id number] Aleks Snell, CONTROL CABINET ASSEMBLER [address] [place] [address] Social History Tobacco Use Types [...] AM EST Appointment Cardiac Imaging [address] [place] [address] 11/29/2025 10:30 AM EST Office Visit [place] [facility] [address], [address] [address] Howie Esparza MD [id number] [place] [address] documented as of this encounter Procedures Procedure Name Priority Date/Time Associated Diagnosis Comments POC US ECHOCARDIOGRAPHY COMPLETE W DOPPLER AND COLOR 01/25/2024 7:19 AM EST documented in this encounter Results * POC US Echocardiography Complete W Doppler and Color (01/25/2024 7:19 AM EST) Anatomical Region Laterality Modality Other 01/25/2024 7:19 AM EST us Aleks Snell CONTROL CABINET ASSEMBLER IMG POINT OF CARE ULTRASO UND Final Result documented in this encounter Visit Diagnoses Not on filedocumented in this encounter Care Teams Portal Administrator Relationship Specialty Start Date End Date Иван Harris MD PCP - General 01/05/24 Antonio Henriquez MD [address] [place] [address] [address] [place] [address] Referring Physician Cardiology 05/05/24 documented as of this encounter
--- OUTSIDE RECORDS SUMMARY | 2025-10-02 14:44 | XMS_ITS | Encounter Summary ---
Author Organization [employer] ([place], [place], [place], [place], [place]) Address [address] [place] [address] Care Team Providers Care Sales Recruiter Name Role Phone Unavailable Primary Care Provider Unavailabl e Encounter Details Date Type Department Care Team (Late st Contact Info) Description 10/05/2021 Transcribed Document [facility] [place] [facility] [place] [address] ProviderLea MD [address] [place] [address] Social History Tobacco Use Types [...] Lea Beverly MD - 10/05/2021 8:29 AM INVESTMENT ADVISOR DATE OF SERVICE: 10/04/2021 REPORT TYPE: EEG REFERRING PHYSICIAN: Pam Jackson MD REPORT TITLE: Video Electroencephalogram Report STUDY DURATION: One day. HISTORY: This is a 45-year-old woman being evaluated for recurrent seizures. EEG VIDEO MONITORING METHODOLOGY: Time-locked EEG-video monitoring was performed using the 32-channel ideasoft monitoring system. The seizure detection computer was [...] cerebral dysfunction in the anterior temporal regions. /[id number] MD SARAH Adair/JOHN / SARAH / MODL /[id number] documented in this encounter Plan of Treatment Not on file documented as of this encounter Visit Diagnoses Not on filedocumented in this encounter
--- OUTSIDE RECORDS SUMMARY | 2025-10-02 14:44 | XMS_ITS | Encounter Summary ---
Author Organization [employer] ([place], [place], [place], [place], [place]) Address [address] [place] [address] Care Team Providers Care Agile Java Developer Name Role Phone Unavailable Primary Care Provider Unavailabl e Encounter Details Date Type Department Care Team (Late st Contact Info) Description 10/04/2021 Transcribed Document [facility] [place] [facility] [address] ProviderLea MD [address] [place] [address] Social History Tobacco Use Types [...] Conversion Note - Lea Beverly MD - 10/04/2021 12:25 PM FLARE MAKER EPILEPSY ADMISSION NOTE DATE OF ADMISSION: [...] the upper and lower extremities. Coordination: Normal [id number]. IMPRESSION: Ms. Chua has had recurrent spells that have been fairly stereotypical. The clinical features suggest the possibility of complex partial seizures. Alternatively, the episodes may be nonepileptic in origin. PLAN: 1. Admit to the epilepsy monitoring unit. 2. Start video EEG monitoring. 3. Seizure precautions. 4. Continue home medications. 5. Use lorazepam 2 mg IV for repetitive or prolonged seizures. /[id number] MD SARAH Adair/JOHN / SARAH / MODL documented in this encounter Plan of Treatment Not on file documented as of this encounter Visit Diagnoses Not on filedocumented in this encounter
--- OUTSIDE RECORDS SUMMARY | 2025-10-02 14:44 | XMS_ITS | Encounter Summary ---
Author Organization [employer] Address [address] [place] [address] Care Team Providers Care Infant Caregiver Name Role Phone Unavailable Primary Care Provider Unavailabl e Reason for Visit * Reason Onset Date Comments Other 09/28/2025 Encounter Details Date Type Department Care Team (Late st Contact Info) Description 09/28/2025 Telephone [facility] [address] [place] [address] Kev Farris MD [address] [place] [address] Other Social History Tobacco Use Types Packs/Day Years [...] Assessment Author No 05/17/2020 4:34 PM EDT UValentin cohn CCMA * Is the person blind or does he/she have serious difficulty seeing even when wearing glasses? Answer Date of Assessment Author No 05/17/2020 4:34 PM EDT UValentin cohn CCMA * Does this person have serious difficulty walking or climbing stairs? Answer Date of Assessment Author No 05/17/2020 4:34 PM EDT UebValentin jones CCMA * Does this person have difficulty dressing or bathing? Answer Date of Assessment Author No 05/17/2020 4:34 PM EDT UValentin cohn CCMA * Because of a physical, mental or emotional condition, does this person have difficulty doing errands alone such as visiting a doctor's office or shopping? Answer Date of Assessment Author No 05/17/2020 4:34 PM EDT UebValentin jones CCMA documented as of this encounter Mental Status * Because of a physical, mental or emotional condition, does this person have serious difficulty concentrating, remembering or making decisions? Answer Entry Date Author No 05/17/2020 4:34 PM EDT UValentin cohn CCMA documented in this encounter Miscellaneous Notes * Telephone Encounter - Maude Tejada MA - 10/02/2025 9:05 AM EST Called PT for fax number. Order has been faxed to [phone]. * Telephone Encounter - Maude Tejada MA - 09/29/2025 1:05 PM EST Attempted to fax order to 2 different fax numbers on their website. Both failed. Tried to call PT to get a different number but no answer. Will try calling again Thursday. If patient calls back, pleaseask her for a fax number. * Telephone Encounter - Maude Tejada MA - 09/29/2025 8:44 AM EST PT order has been faxed. * Telephone Encounter - Gloria Short NP - 09/28/2025 4:47 PM EST Looks like there should already be an order for PT but if , can place another order. * Telephone Encounter - Jerilyn Valero, Clerical Staff - 09/28/2025 4:35 PM ESTSummary: Phone Call Pt called in asking to have orders for physical therapy [facility]. Pt schedule forsurgery . documented in this encounter Plan of Treatment Upcoming Encounters Date Type Department Care Team (Late st Contact Info) Description 11/08/2025 8:00 AM EST [facility] [address] [place] [address] Gloria Short NP [address] [place] [address] documented as of this encounter Goals Goal Patient Goal Type Associated Problems Recent Progress Patient-Stated? Author Maintain a healthy diet, exercise regularly and maintain an ideal body weight General No Melita Martins CCMA Stay Tobacco Free Lifestyle Melita Isidro CCMA documented as of this encounter Visit Diagnoses Not on filedocumented in this encounter
--- OUTSIDE RECORDS SUMMARY | 2025-10-02 14:44 | XMS_ITS | Encounter Summary ---
Author Organization [facility] Address [address] [place] [address] Care Team Providers Care Storage Administrator Name Role Phone Иван Harris MD Primary Care Provider [phone] Antonio Henriquez MD Unavailable [phone] Encounter Details Date Type Department Care Team (Late Contact Info) Description 02/24/2024 Orders Only External Location [address] [place] [address] Antonio Henriquez MD [address] [facility] [address] [place] [address] Social History Tobacco Use Types Packs/Day Years [...] AM EST Appointment Cardiac Imaging [address] [place] [address] 11/29/2025 10:30 AM EST Office Visit [place] [facility] [address], [facility] [address] [place] [address] Howie Esparza MD [address] [place] [address] documented as of this encounter [...] on filedocumented in this encounter Care Teams Storage Administrator Relationship Specialty Start Date End Date Иван Harris MD PCP - General 01/05/24 Antonio Henriquez MD [address] [place] [address] [place] [address] Referring Physician Cardiology 05/05/24 documented as of this encounter
--- OUTSIDE RECORDS SUMMARY | 2025-10-02 14:44 | XMS_ITS | Referral Summary ---
Author Organization [employer] ([place], [place], [place], [place], [place]) Address [address] [place] [address] Care Team Providers Care Drawing Tender Name Role Phone Unavailable Primary Care Provider [...]
--- OUTSIDE RECORDS SUMMARY | 2025-10-02 14:44 | XMS_ITS | Encounter Summary ---
Author Organization [facility] Address [address] [place] [address] Care Team Providers Care Television Presenter Name Role Phone Иван Harris MD Primary Care Provider [phone] Antonio Henriquez MD Unavailable [phone] Encounter Details Date Type Department Care Team (Late st Contact Info) Description 01/25/2024 Orders Only External Location [address] [place] [id number] Aleks Snell, FILTER ASSEMBLER [address] [place] [address] Social History Tobacco Use Types [...] AM EST Appointment Cardiac Imaging [address] [place] [address] 11/29/2025 10:30 AM EST Office Visit [place] [facility] [address] [place], [address] [address] Howie Esparza MD [id number] [place] [address] documented as of this encounter Procedures Procedure Name Priority Date/Time Associated Diagnosis Comments POC US ECHOCARDIOGRAPHY COMPLETE W DOPPLER AND COLOR 01/25/2024 7:19 AM EST documented in this encounter Results * POC US Echocardiography Complete W Doppler and Color (01/25/2024 7:19 AM EST) Anatomical Region Laterality Modality Other 01/25/2024 7:19 AM EST us Aleks Snell FILTER ASSEMBLER IMG POINT OF CARE ULTRASO UND Final Result documented in this encounter Visit Diagnoses Not on filedocumented in this encounter Care Teams Television Presenter Relationship Specialty Start Date End Date Иван Harris MD PCP - General 01/05/24 Antonio Henriquez MD [address] [place] [address] [address] [place] [address] Referring Physician Cardiology 05/05/24 documented as of this encounter
--- OUTSIDE RECORDS SUMMARY | 2025-10-02 14:44 | XMS_ITS | Encounter Summary ---
Author Organization [facility] Address [address] [place] [address] Care Team Providers Care Property Coordinator Name Role Phone Иван Harris MD Primary Care Provider [phone] Antonio Henriquez MD Unavailable [phone] Encounter Details Date Type Department Care Team (Late st Contact Info) Description 05/09/2024 Lab Requisition [facility] [address] [place] [address] Christopher Elizondo MD [address] [facility] [address] [place] [address] Encounter for general adult medical [...] and Family Not on file 05/09/2024 Attends [employer] Not on file 05/09 Active Member [...] place to sleep or slept in a senior living (including now)? No 05/09/2024 CAGE ASSESSMENT Answer [...] drink first t federico in the morning (EYE-INVESTMENT BANKING ASSOCIATE) to steady your nerves or to get rid of a hangover? 0 05/13/2024 CAGE Questionnaire Score 0 024 Utilities Answer Date Recorded In the past 12 months has th e [employer], gas, oil, or water company threatened to [...] AM EST Appointment Cardiac Imaging [address] [place] [address] 11/29/2025 10:30 AM EST Office Visit [place] [facility] [address], [address] [place] [address] Howie Esparza MD [address] [place] [address] documented as of this encounter Procedures Procedure [...] ORDERABLES Final Result [facility] [address] [place] [address] documented in this encounter Visit Diagnoses Diagnosis [...] documented as of this encounter Care Teams Property Coordinator Relationship Specialty Start Date End Date Иван Harris MD PCP - General 01/05/24 Antonio Henriquez MD [address] [facility] [address] [place] [address] Referring Physician Cardiology 05/05/24 documented as of this encounter
--- OUTSIDE RECORDS SUMMARY | 2025-10-02 14:44 | XMS_ITS | Encounter Summary ---
Author Organization [employer] ([place], [place], [place], [place], [place]) Address [address] [place] [address] Care Team Providers Care Actuarial Science Teacher Name Role Phone Unavailable Primary Care Provider Unavailabl e Encounter Details Date Type Department Care Team (Late st Contact Info) Description 10/06/2021 Transcribed Document [facility] [place] [facility] [place] [address] ProviderLea MD [facility] [place] [address] Social History Tobacco Use [...] Lea Beverly MD - 10/06/2021 11:47 AM MANUAL MACHINIST DATE OF SERVICE: 10/06/2021 REPORT TYPE: EEG REFERRING PHYSICIAN: Pam Jackson MD REPORT TITLE: Video Electroencephalogram Report STUDY DURATION: 5 hours 30 minutes. HISTORY: This is a 45-year-old woman being evaluated for recurrent seizures. EEG VIDEO MONITORING METHODOLOGY: Time-locked EEG-video monitoring was performed using the 32-channel Tynt monitoring system. The seizure detection computer was [...] cerebral dysfunction in the anterior temporal regions. /[id number] MD SARAH Adair/JOHN / SARAH / MODL /[id number] documented in this encounter Plan of Treatment Not on file documented as of this encounter Visit Diagnoses Not on filedocumented in this encounter
--- OUTSIDE RECORDS SUMMARY | 2025-10-02 14:44 | XMS_ITS | Encounter Summary ---
Author Organization [employer] ([place], [place], [place], [place], [place]) Address [address] [place] [address] Care Team Providers Care Accountant Name Role Phone Unavailable Primary Care Provider Unavailabl e Encounter Details Date Type Department Care Team (Late st Contact Info) Description 10/04/2021 Transcribed Document [facility] [place] [facility] [place] [address] ProviderLea MD [address] [place] [address] Social History Tobacco Use Types [...] - Historical ProviderMD - 10/04/2021 7:50 AM NARCOTICS AND/OR VICE DETECTIVE Meds to Bed Enrollment Entered On: 10/04/2021 7:57 EST Performed On: 10/04/2021 7:50 EST by Alfredo Ugarte Budget Engineer Cert Lead Meds to Bed Enrollment Patient Enrollment Decision: : Yes/enroll in meds to bed program Alfredo Ugarte Budget Engineer Cert Lead - 10/04/2021 7:56 EST Electronically signed by Zaid Coon Conversion Clay Structure Builder And Servicer Cerner at 03/09/2023 7:33 PM CDT documented in this encounter Plan of Treatment Not on file documented as of this encounter Visit Diagnoses Not on filedocumented in this encounter
--- OUTSIDE RECORDS SUMMARY | 2025-10-02 14:44 | XMS_ITS | Encounter Summary ---
Author Organization [employer] ([place], [place], [place], [place], [place]) Address [address] [place] [address] Care Team Providers Care Chicken And Fish Butcher Name Role Phone Unavailable Primary Care Provider Unavailabl e Encounter Details Date Type Department Care Team (Late st Contact Info) Description 10/04/[address] [facility] [place] [facility] [place] [address] ProviderLea MD [address] [place] [address] Social History Tobacco Use Types [...] Note - Lea Beverly MD - 10/04/2021 9:35 AM ROCK ROOM WORKER Education-(VTE) / (DVT) Entered On: 10/04/2021 16:23 [...]
--- OUTSIDE RECORDS SUMMARY | 2025-10-02 14:44 | XMS_ITS | Encounter Summary ---
Author Organization [employer] ([place], [place], [place], [place], [place]) Address [address] [place] [address] Care Team Providers Care Wire Bender Name Role Phone Unavailable Primary Care Provider Unavailabl e Encounter Details Date Type Department Care Team (Late st Contact Info) Description 10/06/2021 Transcribed Document [facility] [place] [address] [place] [address] ProviderLea MD [address] [place] [address] Social History Tobacco Use Types [...] - Historical ProviderMD - 10/06/2021 1:37 PM RIVETING MACHINE OPERATOR Stroke/Warfarin Instructions Entered On: 10/06/2021 13:37 EST Performed On: 10/06/2021 13:37 EST by SAMANTHA QUINTANA RN Stroke/Warfarin Instructions Stroke/TIA Discharge Ins : N/A Warfarin Discharge Ins : N/A SAMANTHA QUINTANA RN - 10/06/2021 13:37 EST Electronically signed by Zaid Coon Conversion Biodiesel Process Control Technician Elizabeth at 03/09/2023 7:28 PM CDT documented in this encounter Plan of Treatment Not on file documented as of this encounter Visit Diagnoses Not on filedocumented in this encounter
--- OUTSIDE RECORDS SUMMARY | 2025-10-02 14:44 | XMS_ITS | Encounter Summary ---
Author Organization [employer] ([place], [place], [place], [place], [place]) Address [address] [place] [address] Care Team Providers Care Acoustic Intelligence Specialist Name Role Phone Unavailable Primary Care Provider Unavailabl e Encounter Details Date Type Department Care Team (Late st Contact Info) Description 10/05/2021 Transcribed Document [facility] [place] [facility] [place] [address] ProviderLea MD [address] [place] [address] Social History Tobacco Use Types [...] - Historical ProviderMD - 10/05/2021 4:31 PM MACHINE FITTER UM Authorization Entered On: 10/05/2021 16:31 EST Performed On: 10/05/2021 16:31 EST by AWILDA ALLEN Rn-Utilization Review Primary Insurance Authorization Authorization and Policy Numbers : Insurance 1 Health Plan: [employer] Policy Number: [id number] Authorization Number: Insurance 2 Health Plan: [employer]M HMOPPO Policy Number: [id number] Authorization Number: Insurance Primary Name : [employer] Policy Number: [id number] ANTHEM HMOPPO Policy Number: [id number] Historical Authorization Comments-Primary : No Authorization Comments Found AWILDA ALLEN Rn-Utilization Review - 10/05/2021 16:31 EST Electronically signed by Jaymie [facility] Conversion Smart Energy Specialist Cerner at 03/09/2023 7:14 PM CDT documented in this encounter Plan of Treatment Not on file documented as of this encounter Visit Diagnoses Not on filedocumented in this encounter
--- OUTSIDE RECORDS SUMMARY | 2025-10-02 14:44 | XMS_ITS | Encounter Summary ---
Author Organization [employer] ([place], [place], [place], [place], [place]) Address [address] [place] [address] Care Team Providers Care Dietary Director Name Role Phone Unavailable Primary Care Provider Unavailabl e Encounter Details Date Type Department Care Team (Late st Contact Info) Description 10/05/2021 Transcribed Document [facility] [place] [facility] [place] [address] ProviderLea MD [facility] [place] [address] Social History Tobacco Use Types [...] Lea Beverly MD - 10/05/2021 10:20 AM FORMING FIXER Patient: LISANDRO CHUA Age: 45 years Sex: [...] Task Duplication (Not Done) Height Entry Format [place] Height Entry Format Not Done: Task Duplication (Not Done) Height/Length, JAPANESE (ft) 5 ft Height/Length JAPANESE 1 Inch CLINICALHEIGHT 154.94 cm [place] Body Weight 47 kg Weight Source Bed scale Weight Source Not Done: Task Duplication (Not Done) Weight Entry Format [place] Weight Kuwaiti lb 191 lb CLINICALWEIGHT 86.82 kg Body Surface Area (BSA) 1.85 m2 Body Mass Index 36.2 kg/m2 NE 10/04/2021 7:50 EST Height Source Not Done: [...] 05:) 16 (OCT 04 18:00) 16 (OCT 04 18:00) SBP 124 (OCT 05:) 113 (OCT 04 18:00) 124 (OCT 05:) DBP 80 (OCT 05:) 69 (OCT 04:00) 80 (OCT 05:) MAP 98 (OCT 05:) 82 (OCT 04 18:00) 98 (OCT 05:) SpO2 94 (OCT 05) 94 (OCT 05:) 94 (OCT 05:) General: [...] ] No [ x] Electronically signed by Jaymie, Ángel Conversion University Services Program Associate Cerner at 03/09/2023 7:17 PM CDT documented in this encounter Plan of Treatment Not on file documented as of this encounter Visit Diagnoses Not on filedocumented in this encounter
--- OUTSIDE RECORDS SUMMARY | 2025-10-02 14:44 | XMS_ITS | Encounter Summary ---
Author Organization [employer] ([place], [place], [place], [place], [place]) Address [address] [place] [address] Care Team Providers Care Parking Lot Supervisor Name Role Phone Unavailable Primary Care Provider Unavailabl e Encounter Details Date Type Department Care Team (Late st Contact Info) Description 10/04/2021 Transcribed Document [facility] [place] [address] [place] [address] ProviderLea MD [address] [place] [address] Social History Tobacco Use Types [...] - Historical ProviderMD - 10/04/2021 9:50 AM SOLUTIONS CONSULTANT Neurodiagnostics Event Note Entered On: 10/04/2021 9:50 EST Performed On: 10/04/2021 9:50 EST by AYAAN GALICIA [employer] Software Tech Neurodiagnostics Event Note Neurodiagnostic Event Date/Time : 10/04/2021 9:50 EST Neurodiagnostic Event Location : Neurodiagnostic department Neurodiagnostic Event Details : Procedure completed AYAAN GALICIA Neuronaaostic Tech - 10/04/2021 9:50 EST Electronically signed by Zaid Coon Conversion Highway Traffic Control Technician Cerner at 03/09/2023 7:20 PM CDT documented in this encounter Plan of Treatment Not on file documented as of this encounter Visit Diagnoses Not on filedocumented in this encounter
--- OUTSIDE RECORDS SUMMARY | 2025-10-02 14:44 | XMS_ITS | Encounter Summary ---
Author Organization [employer] ([place], [place], [place], [place], [place]) Address [address] [place] [address] Care Team Providers Care Crossbar Frame Wirer Name Role Phone Unavailable Primary Care Provider Unavailabl e Encounter Details Date Type Department Care Team (Late st Contact Info) Description 10/04/2021 Transcribed Document [facility] [place] [facility] [address] ProviderLea MD [address] [place] [address] Social History Tobacco Use Types [...] - Lea ProviderMD - 10/04/2021 12:00 PM HEAD BANDER AND LINER OPERATOR Education-Smoking Cessation Entered On: 10/04/2021 16:24 EST [...] to Tobacco Cues : Refused Activities to Exchange With Smoking Urges : Refused Basic Information About Quitting : Refused Tobacco Use Increases Chance of Relapse : Refused Withdrawal Symptoms Peak After Quitting : Refused Addictive Nature of Tobacco : Refused Ashwini Shaw RN-PATIENT CARE BEDSIDE NON-EXEMPT - 10/04/2021 16:23 EST Electronically signed by Jaymie [facility] Conversion Senior Patient Account Representative Cerner at 03/09/2023 7:34 PM CDT documented in this encounter Plan of Treatment Not on file documented as of this encounter Visit Diagnoses Not on filedocumented in this encounter
--- OUTSIDE RECORDS SUMMARY | 2025-10-02 14:46 | XMS_ITS | Data Portability ---
Author Organization [facility] JORGITO Trimble [place]ONES [place] CLOSED Address [address] [place] [address] Care Team Providers Care Wafer Cleaner Name Role Phone ONEL SERRANO Referring Provider [...] By Organization Details Last Modified Time 08/21/2021 [id number] 1. Follow up as needed [email or web address] Not [...] Time Remove tonsils and adenoids completed Joanie [facility] 08/21/2021 14:28:33 [facility] 14:29[facility]12 [facility]21 14:29:27 [facility]2021 14:29:59 [facility]/21[facility]20[facility] 14:30:16 Imaging Results None recorded. Procedure [...] Not Available Not Available No t Available Pinon 3 active Not Available Not Avail able [...] % 97 % 154.94 cm 35.1 kg/m2 03999.1 8 g 97/69 mm[Hg] Joanie Saldana [facility] 14:25:28 Social History Question Answer Notes LastModified by Organizat ion Details LastModified Time Tobacco Smoking Status Current Every Day Smoker Joanie Saldana [facility] 08/21/2021 14:36:22 Have You Recently Traveled Abroad? No [email or web address] Information not available 08/21/2021 Sex: Unknown Functional Status Question Answer Note LastModified by Organization D etails LastModified Time What is your level of alcohol consumption? None Information not available 08/21/2021 Mental Status None recorded. Family History Relationship Description Onset Age of this Age Resolved Age Notes LastModified by Organization Details LastModified Time Father Hypertensive disorder [email or web address] Not available 08/21 14:33:22 Father Heart disease [email or web address] Not available 08/21 14:33:41 Mother Hypertensive disorder [email or web address] Not available 08/21 14:33:22 Sister Asthma Not available 08/21/2021 14:34:05 Sister Family history of malignant neoplasm [email or web address] Not available 08/21 14:35:08 Medical History Condition Response Arthritis Y Migraines Y Depression Y Asthma Y Gynecological HistoryNo gynecological history recorded. 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 Health Concerns Section Related Observation LastModified by Organization Detai ls LastModified Time None Recorded Concern Status LastModified by Organization Details LastModified Time None Recorded Advance Directives Directive None Recorded Payers Insurance Date Sequence Insurance Name Policy Number Policy Mazariegos Covered Member ID Mazariegos Member ID Guarantor Name 08/21/2021 1 [facility] [id number] Brooks Chua [id number] Brooks Chua 08/21/2021 2 [place] [facility] [id number] H Sajan Chua [id number] Brooks Chua Notes Date Note Type Note [...] did not show anything. ROBERTH CHEN MD [facility] [place], [address], [facility] 08/21/2021 15:04:04 OBGyn Episode No OBEpisode recorded.
--- OUTSIDE RECORDS SUMMARY | 2025-10-02 14:46 | XMS_ITS | Clinical Summary ---
Author Organization [facility] Address [address] [place] [address] Care Team Providers Care Supervisor Type Photography Name Role Phone Иван Harris MD Primary Care Provider [phone] Antonio Henriquez MD Unavailable [phone] Allergies No known active allergies Medications [...] and Family Not on file 05/09/2024 Attends [employer] Not on file 05/09 Active Member [...] place to sleep or slept in a intermediate (including now)? No 05/09/2024 CAGE ASSESSMENT Answer [...] drink first t federico in the morning (EYE-DANCE ARTIST) to steady your nerves or to get [...] AM EST Appointment Cardiac Imaging [address] [place] [address] 11/29/2025 10:30 AM EST Office Visit [facility] [address], [address] [place] [address] Howie Esparza MD [address] [place] [address] Health Maintenance Due Date Last Done Comments [...] (2 of 2 - PCV) 05/17/2021 05/17/2020 Lung Cancer Screening Shared Decision Making 2023 [facility]-Zoster Vaccines (1 of 2) 2023 [facility]-Depression Screening 03/21/2025 03/21/2024 [facility]-Lung Cancer Screening 04/07/2025 04/07/2024 [facility]-Diabetes: Hemoglobin A1C 04/20/2025 04/20/2024 [id number] Vaccine (2 - season) 2025 06/24/2021 [facility]-Influenza [...] this topic Medical Devices Implanted Type Area Videographer Device Identifier Shelf Expiration Date Model / Serial / Lot Valve Mitral Shv Epic Plus Porcine 31mm - [id number] - [id number] Implanted:Qty: 1 on 05/05/2024 by Howie Esparza MD at [facility] N/A: Heart [id number] 02/15/2027 E-[id number] / [id number] / [id number] Description:Rinse 10 seconds x2 in saline. Explanted Type Area Videographer Device Identifier Shelf Expiration Date Model / Serial / Lot Ring Mitral Annuloplasty Physioflex 30mm - [id number] - [id number] Explanted:Qty: 1 on 05/05/2024 at [facility] N/A: Heart [employer]-[id number] 02/26/2027 [id number] / [id number] / [id number] Procedures Procedure Name Priority Date/Time Associated Diagnosis [...] Adults <6.0% Children and Adolescents <7.5% Source: [place] [employer] Association. Standards of medical care in diabetes,2017. Diabetes Care.2017:40 (suppl 1):S1-S135. HbA1c assay performed by an ion-exchange chromatography method that is certified traceable to the DCCT. us Howie Esparza MD LAB BLOOD ORDERABLES Final Resu lt [facility] [address] [place], [place] [id number] * CT Angio Chest (04/07/2024 6:55 PM EDT) Anatomical Region Laterality Modality Chest Computed Tomogra phy 04/07/2024 6:55 PM EDT us Leila Azevedo DO IMG CT PROCEDURES Final Result from Last 3 Months or Most Recently Relevant to Health Maintenance Insurance [facility] Advance Directives * Full Code (Latest Code [...] Patient has decision-making capacity? Yes Care Teams Supervisor Type Photography Relationship Specialty Start Date End Date Иван Harris MD PCP - General 01/05/24 Antonio Henriquez MD [address] [facility] [address] [id number] Referring Physician Cardiology 05/05/24
--- OUTSIDE RECORDS SUMMARY | 2025-10-02 14:46 | XMS_ITS | Clinical Summary ---
Author Organization [employer] Address [address] [place] [address] Phone Care Team Providers Care Manager News Name Role Phone Unavailable Primary Care Provider [...] once daily 30 Tab 06/25/20 21 Active rosuvastatin (CRESTOR) 20 mg Oral Tablet Take 20 mg by mouth nightly. Active lisdexamfetamine (VYVANSE) 30 mg Oral Capsule Take 30 mg by mouth daily. 07/31/20 25 Active aspirin 81 mg Oral Tablet, Delayed Release (E.C.) Take 81 mg by mouth nightly. Active omeprazole (PRILOSEC) 40 mg Oral Capsule, Delayed Release(E.C.) Take 40 mg by mouth daily. Active ZEPBOUND 7.5 mg/0.5 mL SubQ Pen Injector 08/03/20 25 Active traZODone (DESYREL) 150 mg Oral Tablet Take 150 mg by mouth daily. 07/18/20 25 Active Active Problems Problem Noted Date Diagnosed Date Rotator cuff syndrome of right shoulder 04/09/20 21 Current mild episode of eden r depressive disorder without prior episode 05/17/2020 Family history of breast cancer in sister 2019 Overview (05/17/2020): Her sister was dx at age of 45yo. at 46yo. History of breast lump/mass excision 05/17/2020 Overview (05/17/2020): S/p bilateral mastectomy and reconstructions Dr. Naidu, [place] [facility]. Restless legs syndrome (RLS) 05/17/2020 Generalized osteoarthritis of multiple sites Benign essential tremor 05/17/2020 Overview (05/17/2020): On propranolol Mild intermittent asthma without complication Encounters Date Type Department Care Team Description 09/28/2025 [place] [address] Kev Farris MD Other 08/08/2025 10:25 AM EDT [facility] [address] [place] [address] Kev Farris MD Right knee pain, unspecified chronicity 08/08/2025 9:30 AM EDT Office Visit [facility] Accountant Bookkeeper [address] [place] [address] Kev Farris MD Right knee pain, unspecified chronicity (Primary Dx); Primary osteoarthritis of right knee from Last 3 Months Immunizations Immunization Administration Dates Next Due Pneumococcal [...] file Not on file Not on file Last Filed Vital Signs Vital Sign Reading Time Taken Comments Blood Pressure 138/84 06/19/2020 12:39 PM EDT Pulse 69 06/19/2020 12:39 PM EDT Temperature 36.2 C (97.2 F) 06/19/2020 12:39 PM EDT Respiratory Rate 18 04/25/2020 11:31 PM EDT Oxygen Saturation 98% 06/19/2020 12:39 PM EDT Inhaled Oxygen Concentration - - Weight 79.8 kg (176 lb) 08/08/2025 10:21 AM EDT Height 154.9 cm (5' 1 ) 08/08/2025 10:21 AM EDT Body Mass Index 33.25 08/08/2025 10:21 AM EDT Plan of Treatment Upcoming Encounters Date Type Department Care Team (Late st Contact Info) Description 11/08/2025 8:00 AM EST [facility] [address] [place] [address] Gloria Short, [address] [place] [address] Health Maintenance Due Date Last Done Comments Hepatitis B Vaccine (1 of 3 - 19+ 3-dose series) 1992 HPV/Pap Cotest 2003 Cologuard 2018 FIT 2018 Sigmoidoscopy 2018 Virtual Colonography 2018 Cervical Cancer Screening 11/23/2020 Pap Smear 11/23/2020 11/23/2017 Annual Wellness Exam 05/17/2021 05/17/2020 Pneumococcal Vaccine 50+ (2 of 2 - PCV) 05/17/2021 05/17/2020 Zoster (1 of 2) 2023 Low Dose Lung Cancer Screening 04/07/2025 0 04/07/2024, 04/07/2024 COVID-19 Vaccine (1 - 2024-2 6 season) 2025 Influenza Vaccine (#1) 2025 0, 09/09/2017 Colon Cancer Screening 12/18/2025 Colonoscopy 12/18/2025 12/18/2015 DTaP/TDaP/Td (4 - Td or Tdap) 06/24/2031, 01/25/2020, 11/03/2012 Meningococcal B Vaccine Aged Out No l onger eligible based on patient's age to complete this topic Goals Goal Patient Goal Type Associated Problems Recent Progress Patient-Stated? Author Maintain a healthy diet, exercise regularly and maintain an ideal body weight General No Melita Martins, NERI Stay Tobacco Free Lifestyle No Melita Martins CCMA Procedures Procedure Name Priority Date/Time Associated Diagnosis Comments XR KNEE RIGHT AP LATERAL INTERNAL AND EXTERNAL OBLIQUES Routine 08/08/2025 10:41 AM EDT Right knee pain, unspecified chronicity from Last 3 Months Results * XR KNEE RIGHT AP LATERAL INTERNAL AND EXTERNAL OBLIQUES (08/08/2025 10:41 AM EDT) Narrative MikeuserNasima - 08/08/2025 10:41 AM EDT Please see physician's note from office encounter for x-ray imaging result Kev Farris MD IMG DIAGNOSTIC IMAGI NG ORDERABLES Final Result from Last 3 Months Insurance [facility] [id number]
--- OUTSIDE RECORDS SUMMARY | 2025-10-02 14:46 | XMS_ITS ---
Author Organization [facility] Address [address] [place] [address] Care Team Providers Care Electric Operator Name Role Phone Иван Harris MD Primary Care Provider [phone] Antonio Henriquez MD Unavailable [phone] Active Problems Problem Noted Date Diagnosed Date [...]
[2025-10-02] MEDS: ALBUTEROL 0.083% 2.5 MG/3 ML NEB IH (15:48)
== END 2025-10-02 23:59 | disposition home or self-care (01) ==
LOC: RT 14:42
PROVIDERS: PCP Family Medicine; Visit Provider Internal Medicine Pulmonary Disease
DX: R94.2 Abnormal results of pulmonary function studies (principal); R06.02 Shortness of breath; R06.09 Other forms of dyspnea
CPT/HCPCS: 94060; 94618; 94726; 94729

== ENCOUNTER 2025-10-03 07:23 | Outpatient (CLI) | payer OTHER, SELFPAY ==
--- OUTSIDE RECORDS SUMMARY | 2025-08-08 08:30 | XMS_ITS | Encounter Summary ---
Author Organization [facility] Address [address] [place] [address] Care Team Providers Care Office Helper Clerical Name Role Phone Unavailable Primary Care Provider Unavailabl e Reason for Referral * Surgical (Routine) - Pending Review Specialty Diagnoses / Procedures Referred By Contyasmine t Referred To Contact Diagnoses Primary osteoarthritis of right knee Procedures AMB OC SURGERY COMMUNICATION ORDER Kev Farris MD [address] [place] [address] Phone: tel: fax: Referral ID Status Reason Start Date Expiration Date V isits Requested Visits Authorized [id number] Pending Review 08/08/2025 08/08/2026 1 1 * Physical Therapy (Routine) - Pending Review Specialty Diagnoses / Procedures Referred By Mary sanchez Referred To Contact Physical Therapy Diagnoses Primary osteoarthritis of right knee Kev Farris MD [address] [place] [address] Phone: tel: fax: Referral ID Status Reason Start Date Expiration Date V isits Requested Visits Authorized [id number] Pending Review 08/08/2025 08/08/2026 1 1 Question [...] Description 08/08/2025 9:30 AM EDT [facility] Pain[facility] [address] [place] [address] Kev Farris MD [facility] [place] [address] Right knee pain, unspecified chronicity [...] from the original note were not included. [address] [phone] [place], [place] [phone]) [place], [place] Brooks Chua 1975 Chief Complaint Patient [...] really solved the problem. Left TKA at [facility] Doing well Glad she had it done [...] found for display Please note that this drainage engineer was created using voice recognition software. Any errors are unintentional and may be due to voice recognition drainage engineer. Parts of this note may have been [...] day for 30 days No metal allergies [facility], will use [facility], for PT Has a Walker Family/friends can help at home Medical considerations: No [place], but did have Cardiac valve replacement, Porcine valve No blood thinners Smoker, quitting No problems with anesthesia documented in this encounter Plan of Treatment Upcoming Encounters Date Type Department Care Team (Late st Contact Info) Description 11/08/2025 8:00 AM EST [facility] [address] [place] [address] Gloria Short NP [address] [place], [place] [phone] Scheduled Referrals Name Type Priority Associated Diagnoses [...]
--- OUTSIDE RECORDS SUMMARY | 2025-08-08 09:25 | XMS_ITS | Encounter Summary ---
Author Organization [facility] Address [address] [place] [address] Care Team Providers Care Requirements Manager Name Role Phone Unavailable Primary Care Provider Unavailabl e Encounter Details Date Type Department Care Team (Late st Contact Info) Description 08/08/2025 10:25 AM EDT Ancillary Procedure [facility] Indigo Mixer [address] [place], [place] [phone] Kev Farris MD [address] [place], [place] [phone] Right knee pain, unspecified chronicity Social History [...] Description 11/08/2025 8:00 AM EST [facility] [place] [address] [place] [address] Gloria Short NP [address] [place] [address] documented as of this encounter Goals Goal Patient Goal Type Associated Problems Recent Progress Patient-Stated? Author Maintain a healthy diet, exercise regularly and maintain an ideal body weight General No Meilta Martins CCMA Stay Tobacco Free Lifestyle No [...]
--- OUTSIDE RECORDS SUMMARY | 2025-10-03 07:25 | XMS_ITS | Encounter Summary ---
Author Organization [employer] ([place], [place], [place], [place], [place]) Address [address] [place] [address] Care Team Providers Care Hostess Cashier Name Role Phone Unavailable Primary Care Provider Unavailabl e Encounter Details Date Type Department Care Team (Late st Contact Info) Description 10/05/2021 Transcribed Document [facility] [place] [facility] [place] [address] ProviderLea [place] [address] Social History Tobacco Use Types [...] Lea Beverly MD - 10/05/2021 10:20 AM ASSISTANT LIBRARIAN Patient: LISANDRO CHUA Age: 45 years Sex: [...] Task Duplication (Not Done) Height Entry Format [place] Height Entry Format Not Done: Task Duplication (Not Done) Height/Length, TAIWANESE (ft) 5 ft Height/Length TAIWANESE 1 Inch CLINICALHEIGHT 154.94 cm [place] Body Weight 47 kg Weight Source Bed scale Weight Source Not Done: Task Duplication (Not Done) Weight Entry Format [place] Weight [place] lb 191 lb CLINICALWEIGHT 86.82 kg Body [...] x] Electronically signed by Jaymie, Ángel Conversion Central Office Equipment Installer Cerner at 03/09/2023 7:17 PM CDT documented in this encounter Plan of Treatment Not on file documented as of this encounter Visit Diagnoses Not on filedocumented in this encounter
--- OUTSIDE RECORDS SUMMARY | 2025-10-03 07:25 | XMS_ITS | Referral Summary ---
Author Organization [employer] ([place], [place], [place], [place], [place]) Address [address] [place] [address] Care Team Providers Care Wastewater Process Engineer Name Role Phone Unavailable Primary Care [...]
--- OUTSIDE RECORDS SUMMARY | 2025-10-03 07:25 | XMS_ITS | Encounter Summary ---
Author Organization [employer] ([place], [place], [place], [place], [place]) Address [address] [place] [address] Care Team Providers Care Chute Man Name Role Phone Unavailable Primary Care Provider Unavailabl e Encounter Details Date Type Department Care Team (Late st Contact Info) Description 10/04/2021 Transcribed Document [facility] [place] Family Medicine [address] [place] [address] ProviderLea MD [address] [place] [address] Social History Tobacco Use Types [...] - Historical ProviderMD - 10/04/2021 5:00 PM PURCHASING AGENT Chart Check - Review Order Profile Entered [...]
--- OUTSIDE RECORDS SUMMARY | 2025-10-03 07:25 | XMS_ITS | Encounter Summary ---
Author Organization [employer] ([place], [place], [place], [place], [place]) Address [address] [place] [address] Care Team Providers Care Sports Equipment Racker Name Role Phone Unavailable Primary Care Provider Unavailabl e Encounter Details Date Type Department Care Team (Late st Contact Info) Description 10/06/2021 Transcribed Document [facility] [place] [facility] [place] [address] ProviderLea MD [facility] [place] [address] Social History Tobacco Use Types [...] - Historical ProviderMD - 10/06/2021 11:20 AM MAKE UP OPERATOR DATE OF ADMISSION: 10/04/2021 DATE OF DISCHARGE: [...] reports having an appointment in one week). /[id number] MD SARAH Adair/AQ / TAF / MODL /[id number] documented in this encounter Plan of Treatment Not on file documented as of this encounter Visit Diagnoses Not on filedocumented in this encounter
--- OUTSIDE RECORDS SUMMARY | 2025-10-03 07:25 | XMS_ITS | Encounter Summary ---
Author Organization [employer] ([place], [place], [place], [place], [place]) Address [address] [place] [address] Care Team Providers Care Software Tools Developer Name Role Phone Unavailable Primary Care Provider Unavailabl e Encounter Details Date Type Department Care Team (Late st Contact Info) Description 10/05/2021 Transcribed Document [facility] [place] Family Medicine [facility] [place] [address] ProviderLea MD [address] [place] [address] Social History Tobacco Use Types [...] - Historical ProviderMD - 10/05/2021 4:31 PM SITE SAFETY MANAGER UM Authorization Entered On: 10/05/2021 16:31 EST Performed On: 10/05/2021 16:31 EST by AWILDA ALLEN Rn-Utilization Review Primary Insurance Authorization Authorization and Policy Numbers : Insurance 1 Health Plan: [employer] Policy Number: [id number] Authorization Number: Insurance 2 Health Plan: [employer]M HMOPPO Policy Number: [id number] Authorization Number: Insurance Primary Name : [employer] Policy Number: [id number] AN[employer]M [employer]OP[employer] Policy Number: [id number] Historical Authorization Comments-Primary : No Authorization Comments Found AWILDA ALLEN Rn-Utilization Review - 10/05/2021 16:31 EST Electronically signed by Jaymie [facility] Conversion Blaster Helper Cerner at 03/09/2023 7:14 PM CDT documented in this encounter Plan of Treatment Not on file documented as of this encounter Visit Diagnoses Not on filedocumented in this encounter
--- OUTSIDE RECORDS SUMMARY | 2025-10-03 07:25 | XMS_ITS | Encounter Summary ---
Author Organization [employer] ([place], [place], [place], [place], [place]) Address [address] [place] [address] Care Team Providers Care School Guard Name Role Phone Unavailable Primary Care Provider Unavailabl e Encounter Details Date Type Department Care Team (Late st Contact Info) Description 10/04/2021 Transcribed Document [facility] Family Medicine [address] [place] [address] ProviderLea MD [address] [place] [address] Social History Tobacco Use Types [...] - Historical ProviderMD - 10/04/2021 9:50 AM INSECT CONTROL AIDE Neurodiagnostics Event Note Entered On: 10/04/2021 9:50 EST Performed On: 10/04/2021 9:50 EST by AYAAN GALICIA NeurodiagnAnipipo Tech Neurodiagnostics Event Note Neurodiagnostic Event Date/Time : 10/04/2021 9:50 EST Neurodiagnostic Event Location : Neurodiagnostic department Neurodiagnostic Event Details : Procedure completed AYAAN GALICIA Neuronaaostic Tech - 10/04/2021 9:50 EST documented in this encounter Plan of Treatment Not on file documented as of this encounter Visit Diagnoses Not on filedocumented in this encounter
--- OUTSIDE RECORDS SUMMARY | 2025-10-03 07:25 | XMS_ITS | Encounter Summary ---
Author Organization [employer] ([place], [place], [place], [place], [place]) Address [address] [place] [address] Care Team Providers Care House Fellow Name Role Phone Unavailable Primary Care Provider Unavailabl e Encounter Details Date Type Department Care Team (Late st Contact Info) Description 10/05/2021 Transcribed Document [facility] [place] Family Medicine [address] [place] [address] ProviderLea MD [address] [place] [address] Social History Tobacco Use Types [...] - Historical ProviderMD - 10/05/2021 5:00 AM LASER SPECIALIST Chart Check - Review Order Profile Entered On: 10/05/2021 4:06 EST Performed On: 10/05/2021 5:00 EST by Adriana Hunt RN Chart Check Powerplans Initiated/Discontinued as Appropriate : Yes All Active Orders Reviewed : Yes Adriana Hunt RN - 10/05/2021 4:06 EST Electronically signed by Jaymie [facility] Conversion Dividend Deposit Voucher Clerk Elizabeth at 03/09/2023 7:12 PM CDT documented in this encounter Plan of Treatment Not on file documented as of this encounter Visit Diagnoses Not on filedocumented in this encounter
--- OUTSIDE RECORDS SUMMARY | 2025-10-03 07:25 | XMS_ITS | Encounter Summary ---
Author Organization [employer] ([place], [place], [place], [place], [place]) Address [address] [place] [address] Care Team Providers Care Smoke Jumper Name Role Phone Unavailable Primary Care Provider Unavailabl e Encounter Details Date Type Department Care Team (Late st Contact Info) Description 10/06/2021 Transcribed Document [facility] [place] Family Medicine [facility] [place] [address] ProviderLea MD [facility] [place] [address] Social History Tobacco Use Types [...] - Lea ProviderMD - 10/06/2021 11:16 AM SOFTWARE REQUIREMENTS ENGINEER [address] , [place] [address] Patient Copy Patient Information: Name: LISANDRO CHUA Current Date: 10/06/2021 11:16:42 : 1975 Patient Address: [address] [place], [place] [address] [address] Patient Attending Physician: YULIA CHINCHILLA MD-NEU Primary Care Provider: AXEL HOPE (REF)JOHN Primary Care Provider Discharge Diagnosis: Nonepileptic episode Weight on Admission: 191 lb, 0 oz Comment: Follow-up Instructions: With: Address: When: Brittnee Dan [address] [place] [id number] [facility] (1) Within 1 week Discharge Instructions: Immunizations [...] Assistance with quitting is available by contacting 0-143-JIQN-NOW. This is a free resource providing counseling, [...] Be sure to sign up for the [employer] patient portal, which gives you 24/ access to your medical information ??? including these discharge instructions ??? using your computer, smartphone, or tablet. Just go to [employer] to get started. Questions? Call . [facility] would like to thank you for allowing us to assist you with your healthcare needs. RAISSA Bradley CASEY MARIE, (or promotional representative) have received the above patient education materials/instructions and have verbalized understanding: Patient Signature _ Date/Time Patient Specialist Employee Labor Relations Signature (if needed) Date/Time Clinician/Hospital Specialist Employee Labor Relations Signature (if needed) Date/Time documented in this encounter Plan of Treatment Not on file documented as of this encounter Visit Diagnoses Not on filedocumented in this encounter
--- OUTSIDE RECORDS SUMMARY | 2025-10-03 07:25 | XMS_ITS | Encounter Summary ---
Author Organization [employer] ([place], [place], [place], [place], [place]) Address [address] [place] [address] Care Team Providers Care Senior Developer Name Role Phone Unavailable Primary Care Provider Unavailabl e Encounter Details Date Type Department Care Team (Late st Contact Info) Description 10/06/2021 Transcribed Document [facility] [place] Family Medicine [address] [place] [address] ProviderLea MD [address] [place] [address] Social History Tobacco Use Types [...] - Historical ProviderMD - 10/06/2021 5:00 AM ASSISTANT WOMENS VOLLEYBALL COACH Chart Check - Review Order Profile Entered On: 10/06/2021 3:25 EST Performed On: 10/06/2021 5:00 EST by Adriana Hunt RN Chart Check Powerplans Initiated/Discontinued as Appropriate : Yes All Active Orders Reviewed : Yes Adriana Hunt RN - 10/06/2021 3:25 EST Electronically signed by Jaymie [facility] Conversion Deputy Of Counter Intelligence Elizabeth at 03/09/2023 7:18 PM CDT documented in this encounter Plan of Treatment Not on file documented as of this encounter Visit Diagnoses Not on filedocumented in this encounter
--- OUTSIDE RECORDS SUMMARY | 2025-10-03 07:25 | XMS_ITS | Encounter Summary ---
Author Organization [employer] ([place], [place], [place], [place], [place]) Address [address] [place] [address] Care Team Providers Care Equipment Installer Name Role Phone Unavailable Primary Care Provider Unavailabl e Encounter Details Date Type Department Care Team (Late st Contact Info) Description 10/05/2021 Transcribed Document [facility] [place] Family Medicine [address] [place] [address] ProviderLea MD [address] [place] [address] Social History Tobacco Use Types [...] - Historical ProviderMD - 10/05/2021 2:00 AM EXECUTIVE DIRECTOR OF NURSING Product Development Actuary Details Entered On: 10/05/2021 4:06 EST Performed [...] 10/05/2021 4:05 EST Electronically signed by Jaymie [facility] Conversion Livestock Farmers Cerner at 03/09/2023 7:14 PM CDT documented in this encounter Plan of Treatment Not on file documented as of this encounter Visit Diagnoses Not on filedocumented in this encounter
--- OUTSIDE RECORDS SUMMARY | 2025-10-03 07:25 | XMS_ITS | Encounter Summary ---
Author Organization [employer] ([place], [place], [place], [place], [place]) Address [address] [place] [address] Care Team Providers Care Filling Hauler Name Role Phone Unavailable Primary Care Provider Unavailabl e Encounter Details Date Type Department Care Team (Late st Contact Info) Description 10/06/2021 Transcribed Document [facility] [place] Family Medicine [address] [place] [address] ProviderLea MD [address] [place] [address] Social History Tobacco Use Types [...] - Historical ProviderMD - 10/06/2021 1:37 PM POUNDMASTER Stroke/Warfarin Instructions Entered On: 10/06/2021 13:37 EST Performed On: 10/06/2021 13:37 EST by SAMANTHA QUINTANA RN Stroke/Warfarin Instructions Stroke/TIA Discharge Ins : N/A Warfarin Discharge Ins : N/A SAMANTHA QUINTANA RN - 10/06/2021 13:37 EST documented in this encounter Plan of Treatment Not on file documented as of this encounter Visit Diagnoses Not on filedocumented in this encounter
--- OUTSIDE RECORDS SUMMARY | 2025-10-03 07:25 | XMS_ITS | Encounter Summary ---
Author Organization [employer] ([place], [place], [place], [place], [place]) Address [address] [place] [address] Care Team Providers Care Shore Man Name Role Phone Unavailable Primary Care Provider Unavailabl e Encounter Details Date Type Department Care Team (Late st Contact Info) Description 10/05/2021 Transcribed Document [facility] [place] [facility] [place] [address] ProviderLea MD [address] [place] [address] Social History Tobacco Use Types [...] Lea Beverly MD - 10/05/2021 8:29 AM BILLING MANAGER DATE OF SERVICE: 10/04/2021 REPORT TYPE: EEG REFERRING PHYSICIAN: Pam Jackson MD REPORT TITLE: Video Electroencephalogram Report STUDY DURATION: One day. HISTORY: This is a 45-year-old woman being evaluated for recurrent seizures. EEG VIDEO MONITORING METHODOLOGY: Time-locked EEG-video monitoring was performed using the 32-channel [employer] monitoring system. The seizure detection computer was [...] cerebral dysfunction in the anterior temporal regions. /[id number] MD SARAH Adair/JOHN / SARAH / MODL /[id number] documented in this encounter Plan of Treatment Not on file documented as of this encounter Visit Diagnoses Not on filedocumented in this encounter
--- OUTSIDE RECORDS SUMMARY | 2025-10-03 07:25 | XMS_ITS | Clinical Summary ---
Author Organization [employer] ([place], [place], [place], [place], [place]) Address [address] [place] [address] Care Team Providers Care Barrel Centerer Name Role Phone Unavailable Primary Care Provider [...]
--- OUTSIDE RECORDS SUMMARY | 2025-10-03 07:25 | XMS_ITS | Encounter Summary ---
Author Organization [employer] ([place], [place], [place], [place], [place]) Address [address] [place] [address] Care Team Providers Care Turning Machine Operator Name Role Phone Unavailable Primary Care Provider Unavailabl e Encounter Details Date Type Department Care Team (Late st Contact Info) Description 10/04/2021 Transcribed Document [facility] [place] Family Medicine [facility] [place] [address] ProviderLea MD [address] [place] [address] Social History Tobacco Use Types [...] Lea Beverly MD - 10/04/2021 9:35 AM SUPERINTENDENT CEMETERY Education-(VTE) / (DVT) Entered On: 10/04/2021 16:23 [...] - 10/04/2021 16:23 EST Electronically signed by Jaymie, [employer] Conversion Anthropology And Archeology Instructor Cerner at 03/09/2023 7:21 PM CDT documented in this encounter Plan of Treatment Not on file documented as of this encounter Visit Diagnoses Not on filedocumented in this encounter
--- OUTSIDE RECORDS SUMMARY | 2025-10-03 07:25 | XMS_ITS | Encounter Summary ---
Author Organization [employer] ([place], [place], [place], [place], [place]) Address [address] [place] [address] Care Team Providers Care Engine Monitor Name Role Phone Unavailable Primary Care Provider Unavailabl e Encounter Details Date Type Department Care Team (Late st Contact Info) Description 10/04/2021 Transcribed Document [facility] Family Medicine [facility] [place] [address] ProviderLea MD [facility] [address] Social History Tobacco Use Types [...] - Lea ProviderMD - 10/04/2021 11:50 AM SEMICONDUCTOR PACKAGES SEALER Admission History, Adult Entered On: 10/04/2021 11:59 [...] #2 Relationship : n Primary Language : [place]se Communication Barrier : None Bridge Teacher Needed : No Ashwini Shaw RN-PATIENT CARE [...] Scale Risk Level : 0-24 Low Risk [place] Fall Interventions : Adequate lighting, Assistive devices [...] Source : Measured Height Entry Format : [place] Height, Feet : 5 ft(Converted to: 152 cm, 60 Inch) Height, Inches : 1 Inch(Converted to: 0 ft 1 Inch, 2.54 cm) Clinical Height : 154.94 cm Weight Source : Bed scale Weight Entry Format : [place] Clinical Dosing Weight : 86.82 kg Weight, Pounds : 191 lb Body Surface Area (BSA) : 1.85 m2 Body Mass Index : 36.2 kg/m2 (HI) [place] Body Weight : 47 kg Ashwini Shaw RN-PATIENT CARE [facility]-EXEMPT - 10/04/2021 11:50 EST Infectious Disease History Does patient have symptoms of COVID-19? : No Has the Patient Been Tested for COVID-19 in the last 14 days? : No, Patient stated Does the Patient state known exposure to a COVID-19 positive case in the last 14 days? : No Patient Vaccinated for COVID-19 : Fully vaccinated Ashwini Shaw RN-PATIENT CARE [facility] NON-EXEMPT - 10/04/2021 11:50 EST Infectious Disease [...] 0 Ashwini Shaw RN-PATIENT CARE [facility] NON-EXEMPT - 10/04/2021 11:50 EST Influenza Vaccine Asmt, Adult Previous Vaccines from Immunization Schedule : No qualifying data available. Influenza Immunization, Current Season : Yes Ashwini Shaw RN-PATIENT CARE [facility] NON-EXEMPT - 10/04/2021 11:50 EST Pneumococcal Vaccine Previous Vaccines from Immunization Schedule : No qualifying data available. Pneumonia Immunization Received : No Pneumococcal Risk Assessment < Age 65 : None Ashwini Shaw RN-PATIENT CARE [facility] NON-EXEMPT - 10/04/2021 11:50 EST Order Details Isolation Precautions Order Detail : Standard Precautions IV Order Detail : 1 Lift/Transfer : Independent Room Service : Appropriate Patient Needs Meds Crushed/Liquid : No Ashwini Shaw RN-PATIENT CARE [facility] NON-EXEMPT - 10/04/2021 11:50 EST Nutrition History Eating Poorly Due to Decreased Appetite : No Unplanned Weight Loss in Past 3-6 Months : No Malnutrition Screening Tool Total(mal) : 0 Malnutrition Screening Tool Risk Level : Patient not at risk Ashwini Shaw RN-PATIENT CARE [facility] NON-EXEMPT - 10/04/2021 11:50 EST [place] Suicide Severity Rating Scale (C-SSRS) CSSRS Past Month Wish to be : No CSSRS Past Month Suicidal Thoughts : No CSSRS Lifetime Suicide Behavior : No Suicide Severity Rating Score : 0 Suicide Severity Rating : No Additional Care Required at this time Ashwini Shaw RN-PATIENT CARE [facility] NON-EXEMPT - 10/04/2021 11:50 EST Psychosocial History Currently in Unsafe Situation : No Ashwini Shaw RN-PATIENT CARE [facility] NON-EXEMPT - 10/04/2021 11:50 EST Sleep Apnea [...] 0 Ashwini Shaw RN-PATIENT CARE [facility] NON-EXEMPT - 10/04/2021 11:50 EST Valuables and [...] - 10/04/2021 11:50 EST Electronically signed by [facility] Conversion Flat Grinder Operator Cerner at 03/09/2023 7:31 PM CDT documented in this encounter Plan of Treatment Not on file documented as of this encounter Visit Diagnoses Not on filedocumented in this encounter
--- OUTSIDE RECORDS SUMMARY | 2025-10-03 07:25 | XMS_ITS | Encounter Summary ---
Author Organization [employer] ([place], [place], [place], [place], [place]) Address [address] [place] [address] Care Team Providers Care Fireproof Door Maker Name Role Phone Unavailable Primary Care Provider Unavailabl e Encounter Details Date Type Department Care Team (Late st Contact Info) Description 10/06/2021 Transcribed Document [facility] Family Medicine [facility] [place] [address] ProviderLea MD [address] [place] [address] Social History Tobacco Use Types [...] - Lea ProviderMD - 10/06/2021 1:37 PM ELECTRON BEAM PHOTO MASK TECHNICIAN Patient Education Materials Follows: Non-Epileptic Seizures, Adult [...] if you have a seizure. ??? Take uygr-knb-wfdkmec, prescription medicines and herbal remedies only as [...] provider. Document Revised: 10/15/2020 Document Reviewed: 10/20/2020 [employer] Patient Education ? 2020 [employer] documented in this encounter Plan of Treatment Not on file documented as of this encounter Visit Diagnoses Not on filedocumented in this encounter
--- OUTSIDE RECORDS SUMMARY | 2025-10-03 07:25 | XMS_ITS | Encounter Summary ---
Author Organization [employer] ([place], [place], [place], [place], [place]) Address [address] [place] [address] Care Team Providers Care Electronic Equipment Repairmen Name Role Phone Unavailable Primary Care Provider Unavailabl e Encounter Details Date Type Department Care Team (Late st Contact Info) Description 10/06/2021 Transcribed Document [facility] [place] Family Medicine [facility] [place] [address] ProviderLea MD [facility] [place] [address] Social History Tobacco Use Types [...] - Lea ProviderMD - 10/06/2021 1:38 PM TOP [facility] [address] LISANDRO HAJI :1975 Visit Time:10/04/2021 Your [...] 1 week Where: [address] [place] [address]- [facility] (1) Medications What How Much When [...] if you have a seizure. ??? Take yupn-edu-megbxpt, prescription medicines and herbal remedies only as [...] provider. Document Revised: 10/15/2020 Document Reviewed: 10/20/2020 [employer] Patient Education ?? 2020 [employer] Emergency Awareness and Preventative Care STROKE [...] Assistance with quitting is available by contacting 8-824-XJANNOW. This is a free resource providing counseling, support, and referral. Or you may contact your personal physician. Off & Away Suicide Prevention Lifeline: The National Suicide Prevention [...] was given the opportunity to ask questions. Patient/Portuguese Tutor Name: Patient/Portuguese Tutor Signature: Relationship to Patient: Clinician/Hospital Portuguese Tutor Signature: Date: documented in this encounter Plan of Treatment Not on file documented as of this encounter Visit Diagnoses Not on filedocumented in this encounter
--- OUTSIDE RECORDS SUMMARY | 2025-10-03 07:25 | XMS_ITS | Encounter Summary ---
Author Organization [employer] ([place], [place], [place], [place], [place]) Address [address] [place] [address] Care Team Providers Care Camp Nurse Name Role Phone Unavailable Primary Care Provider Unavailabl e Encounter Details Date Type Department Care Team (Late st Contact Info) Description 10/04/2021 Transcribed Document [facility] [place] Family Medicine [facility] [place] [address] ProviderLea MD [address] [place] [address] Social History Tobacco Use Types [...] Lea Beverly MD - 10/04/2021 12:25 PM TRUANT OFFICER EPILEPSY ADMISSION NOTE DATE OF ADMISSION: 10/04/2021 [...] the upper and lower extremities. Coordination: Normal klzkfm-mi-pvla. IMPRESSION: Ms. Chua has had recurrent spells that have been fairly stereotypical. The clinical features suggest the possibility of complex partial seizures. Alternatively, the episodes may be nonepileptic in origin. PLAN: 1. Admit to the epilepsy monitoring unit. 2. Start video EEG monitoring. 3. Seizure precautions. 4. Continue home medications. 5. Use lorazepam 2 mg IV for repetitive or prolonged seizures. /[id number] MD SARHA Adair/JOHN / SARAH / MODL documented in this encounter Plan of Treatment Not on file documented as of this encounter Visit Diagnoses Not on filedocumented in this encounter
--- OUTSIDE RECORDS SUMMARY | 2025-10-03 07:25 | XMS_ITS | Encounter Summary ---
Author Organization [employer] ([place], [place], [place], [place], [place]) Address [address] [place] [address] Care Team Providers Care Twisting Press Operator Name Role Phone Unavailable Primary Care Provider Unavailabl e Encounter Details Date Type Department Care Team (Late st Contact Info) Description 10/06/2021 Transcribed Document [facility] [place] Family Medicine [facility] [place] [address] ProviderLea MD Count includes the [facility] [place] [address] Social History Tobacco Use Types [...] Lea Beverly MD - 10/06/2021 11:47 AM BAND HEAD SAW OPERATOR DATE OF SERVICE: 10/06/2021 REPORT TYPE: EEG REFERRING PHYSICIAN: Pam Jackson MD REPORT TITLE: Video Electroencephalogram Report STUDY DURATION: 5 hours 30 minutes. HISTORY: This is a 45-year-old woman being evaluated for recurrent seizures. EEG VIDEO MONITORING METHODOLOGY: Time-locked EEG-video monitoring was performed using the 32-channel [employer] monitoring system. The seizure detection computer was [...] cerebral dysfunction in the anterior temporal regions. /[id number] MD SARAH Adair/JOHN / SARAH / MODL /[id number] documented in this encounter Plan of Treatment Not on file documented as of this encounter Visit Diagnoses Not on filedocumented in this encounter
--- OUTSIDE RECORDS SUMMARY | 2025-10-03 07:25 | XMS_ITS | Encounter Summary ---
Author Organization [employer] ([place], [place], [place], [place], [place]) Address [address] [place] [address] Care Team Providers Care Merchant Tailor Name Role Phone Unavailable Primary Care Provider Unavailabl e Encounter Details Date Type Department Care Team (Late st Contact Info) Description 10/04/2021 Transcribed Document [facility] [facility] [place] [address] ProviderLea MD [address] [place] [address] Social History Tobacco Use Types [...] - Lea ProviderMD - 10/04/2021 12:00 PM CREATIVE LEAD Education-Smoking Cessation Entered On: 10/04/2021 16:24 EST [...] to Tobacco Cues : Refused Activities to [place] With Smoking Urges : Refused Basic Information About Quitting : Refused Tobacco Use Increases Chance of Relapse : Refused Withdrawal Symptoms Peak After Quitting : Refused Addictive Nature of Tobacco : Refused Ashwini Shaw RN-PATIENT CARE BEDSIDE NON-EXEMPT - 10/04/2021 16:23 EST Electronically signed by Jaymie [place] Conversion Internet Ecommerce Specialist Cerner at 03/09/2023 7:34 PM CDT documented in this encounter Plan of Treatment Not on file documented as of this encounter Visit Diagnoses Not on filedocumented in this encounter
--- OUTSIDE RECORDS SUMMARY | 2025-10-03 07:25 | XMS_ITS | Encounter Summary ---
Author Organization [employer] ([place], [place], [place], [place], [place]) Address [address] [place] [address] Care Team Providers Care Critical Care Transport Nurse Name Role Phone Unavailable Primary Care Provider Unavailabl e Encounter Details Date Type Department Care Team (Late st Contact Info) Description 10/04/2021 Transcribed Document [facility] [place] [facility] [place] [address] ProviderLea MD [address] [place] [address] Social History Tobacco Use Types [...] - Historical ProviderMD - 10/04/2021 7:50 AM RECORDS CLERK Meds to Bed Enrollment Entered On: 10/04/2021 7:57 EST Performed On: 10/04/2021 7:50 EST by Alfredo Ugarte Replanting Machine Operator Cert Lead Meds to Bed Enrollment Patient Enrollment Decision: : Yes/enroll in meds to bed program Alfredo Ugarte Replanting Machine Operator Cert Lead - 10/04/2021 7:56 EST documented in this encounter Plan of Treatment Not on file documented as of this encounter Visit Diagnoses Not on filedocumented in this encounter
--- OUTSIDE RECORDS SUMMARY | 2025-10-03 07:26 | XMS_ITS | Clinical Summary ---
Author Organization [facility] Address [address] [place] [address] Care Team Providers Care Business Law Instructor Name Role Phone Иван Harris MD Primary Care Provider [phone] Antonio Henriquez MD Unavailable [phone] Allergies No known active allergies Medications [...] and Family Not on file 05/09/2024 Attends [employer] Not on file 05/09 Active Member [...] place to sleep or slept in a usp (including now)? No 05/09/2024 CAGE ASSESSMENT Answer [...] drink first t federico in the morning (EYE-RIP MACHINE OPERATOR) to steady your nerves or to get [...] AM EST Appointment Cardiac Imaging [address] [place] [address] 11/29/2025 10:30 AM EST Office Visit [place] [facility] [address], [address] [place] [address] Howie Esparza MD [address] [place] [address] Health Maintenance Due Date Last Done Comments [...] 04/07/2025 04/07/2024 [facility]-Diabetes: Hemoglobin A1C 04/20/2025 04/20/2024 [id number] Vaccine (2 - season) 2025 06/24/2021 [facility]-Influenza [...] this topic Medical Devices Implanted Type Area Motorcycle Riding Instructor Device Identifier Shelf Expiration Date Model / Serial / Lot Valve Mitral Shv Epic Plus Porcine 31mm - [id number] - [id number] Implanted:Qty: 1 on 05/05/2024 by Howie Esparza MD at [facility] N/A: Heart [id number] 02/15/2027 E-200-31M / [id number] / [id number] Description:Rinse 10 seconds x2 in saline. Explanted Type Area Motorcycle Riding Instructor Device Identifier Shelf Expiration Date Model / Serial / Lot Ring Mitral Annuloplasty Physioflex 30mm - [id number] - [id number] Explanted:Qty: 1 on 05/05/2024 at [facility] N/A: Heart muzu [id number] 02/26/2027 [id number] / [id number] / [id number] Procedures Procedure Name Priority Date/Time Associated Diagnosis [...] Adults <6.0% Children and Adolescents <7.5% Source: [place] [employer]. Standards of medical care in diabetes,2017. Diabetes Care.2017:40 (suppl 1):S1-S135. HbA1c assay performed by an ion-exchange chromatography method that is certified traceable to the DCCT. us Howie Esparza MD LAB BLOOD ORDERABLES Final Resu lt [facility] [address] [place], [place] [id number] * CT Angio Chest (04/07/2024 6:55 PM EDT) Anatomical Region Laterality Modality Chest Computed Tomogra phy 04/07/2024 6:55 PM EDT us Leila Azevedo DO IMG CT PROCEDURES Final Result from Last 3 Months or Most Recently Relevant to Health Maintenance Insurance [facility] Advance Directives * Full Code (Latest Code [...] Patient has decision-making capacity? Yes Care Teams Business Law Instructor Relationship Specialty Start Date End Date Иван Harris MD PCP - General 01/05/24 Antonio Henriquez MD [address] [facility] [address] [id number] Referring Physician Cardiology 05/05/24
--- OUTSIDE RECORDS SUMMARY | 2025-10-03 07:26 | XMS_ITS | Encounter Summary ---
Author Organization [facility] Address [address] [place] [address] Care Team Providers Care Cable Worker Helper Name Role Phone Иван Harris MD Primary Care Provider [phone] Antonio Henriquez MD Unavailable [phone] Encounter Details Date Type Department Care Team (Late Contact Info) Description 02/24/2024 Orders Only External Location [address] [place] [address] Antonio Henriquez MD 1210 [facility] [address] [place] [address] Social History Tobacco Use Types Packs/Day Years [...] AM EST Appointment Cardiac Imaging [address] [place] [address] 11/29/2025 10:30 AM EST Office Visit [place] [facility] [address], [facility] [address] [place] [address] Howie Esparza MD [address] [place] [address] documented as of this encounter [...] on filedocumented in this encounter Care Teams Cable Worker Helper Relationship Specialty Start Date End Date Иван Harris MD PCP - General 01/05/24 Antonio Henriquez MD [address] [place] [address] [place] [address] Referring Physician Cardiology 05/05/24 documented as of this encounter
--- OUTSIDE RECORDS SUMMARY | 2025-10-03 07:26 | XMS_ITS | Encounter Summary ---
Author Organization [facility] Address [address] [place] [address] Care Team Providers Care Back Hoe Operator Name Role Phone Иван Harris MD Primary Care Provider [phone] Antonio Henriquez MD Unavailable [phone] Encounter Details Date Type Department Care Team (Late st Contact Info) Description 01/25/2024 Orders Only External Location [address] [place] [id number] Aleks Snell, CUT OFF SAW OPERATOR PIPE BLANKS [address] [place] [address] Social History Tobacco Use Types [...] AM EST Appointment Cardiac Imaging [address] [place] [address] 11/29/2025 10:30 AM EST Office Visit [place] [facility] [address], [address] [address] Howie Esparza MD [id number] [place] [address] documented as of this encounter Procedures Procedure Name Priority Date/Time Associated Diagnosis Comments POC US ECHOCARDIOGRAPHY COMPLETE W DOPPLER AND COLOR 01/25/2024 7:19 AM EST documented in this encounter Results * POC US Echocardiography Complete W Doppler and Color (01/25/2024 7:19 AM EST) Anatomical Region Laterality Modality Other 01/25/2024 7:19 AM EST us Aleks Snell CUT OFF SAW OPERATOR PIPE BLANKS IMG POINT OF CARE ULTRASO UND Final Result documented in this encounter Visit Diagnoses Not on filedocumented in this encounter Care Teams Back Hoe Operator Relationship Specialty Start Date End Date Иван Harris MD PCP - General 01/05/24 Antonio Henriquez MD [address] [place] [address] [address] [place] [address] Referring Physician Cardiology 05/05/24 documented as of this encounter
--- OUTSIDE RECORDS SUMMARY | 2025-10-03 07:26 | XMS_ITS ---
Author Organization [facility] Address [address] [place] [address] Care Team Providers Care Stapler Hand Name Role Phone Иван Harris MD Primary Care Provider [phone] Antonio Henriquez MD Unavailable [phone] Active Problems Problem Noted Date Diagnosed Date [...]
--- OUTSIDE RECORDS SUMMARY | 2025-10-03 07:26 | XMS_ITS | Encounter Summary ---
Author Organization [facility] Address [address] [place] [address] Care Team Providers Care Steam Plant Control Room Operator Name Role Phone Иван Harris MD Primary Care Provider [phone] Antonio Henriquez MD Unavailable [phone] Encounter Details Date Type Department Care Team (Late Contact Info) Description 02/24/2024 Orders Only External Location [address] [place] [address] Antonio Henriquez MD 1210 [facility] [address] [place] [address] Social History Tobacco Use Types Packs/Day Years [...] AM EST Appointment Cardiac Imaging [address] [place] [address] 11/29/2025 10:30 AM EST Office Visit [place] [facility] [address], [facility] [address] [place] [address] Howie Esparza MD [address] [place] [address] documented as of this encounter [...] on filedocumented in this encounter Care Teams Steam Plant Control Room Operator Relationship Specialty Start Date End Date Иван Harris MD PCP - General 01/05/24 Antonio Henriquez MD [address] [place] [address] [place] [address] Referring Physician Cardiology 05/05/24 documented as of this encounter
--- OUTSIDE RECORDS SUMMARY | 2025-10-03 07:26 | XMS_ITS | Encounter Summary ---
Author Organization [facility] ([place], [place], [place], [place], [place]) Address [address] [place] [address] Care Team Providers Care Landscape Account Manager Name Role Phone Unavailable Primary Care Provider Unavailabl e Encounter Details Date Type Department Care Team (Late st Contact Info) Description 10/06/2021 Transcribed Document [facility] [place] [address] ProviderLea MD [address] [place] [address] Social History Tobacco Use Types [...] Lea Beverly MD - 10/06/2021 8:30 AM APPRENTICE COSMETOLOGIST DATE OF SERVICE: 10/05/2021 REPORT TYPE: EEG REFERRING PHYSICIAN: Pam Jackson MD REPORT TITLE: Video Electroencephalogram Report STUDY DURATION: One day. HISTORY: This is a 45-year-old woman being evaluated for recurrent seizures. EEG VIDEO MONITORING METHODOLOGY: Time-locked EEG-video monitoring was performed using the 32-channel Dhingana monitoring system. The seizure detection computer was [...] potential epileptogenicity in the right temporal region. /[id number] MD SARAH Adair/JOHN / SARAH / MODL /[id number] Electronically signed by Jaymie [facility] Conversion Concert Pianist Cerner at 03/09/2023 7:19 PM CDT documented in this encounter Plan of Treatment Not on file documented as of this encounter Visit Diagnoses Not on filedocumented in this encounter
--- OUTSIDE RECORDS SUMMARY | 2025-10-03 07:26 | XMS_ITS | Encounter Summary ---
Author Organization [facility] Address [address] [place] [address] Care Team Providers Care Director General Name Role Phone Unavailable Primary Care Provider Unavailabl e Reason for Visit * Reason Onset Date Comments Other 09/28/2025 Encounter Details Date Type Department Care Team (Late st Contact Info) Description 09/28/2025 Telephone [facility] [address] [place] [address] Kev Farris MD [address] [place] [address] Other Social History Tobacco Use [...] fax number. Order has been faxed to [phone]. * Telephone Encounter - Maude Teajda MA - 09/29/2025 1:05 PM EST Attempted [...] asking to have orders for physical therapy [facility]. Pt schedule forsurgery . documented in this encounter Plan of Treatment Upcoming Encounters Date Type Department Care Team (Late st Contact Info) Description 11/08/2025 8:00 AM EST [facility] [address] [place] [address] Gloria Short NP [address] [place] [address] documented as of this encounter Goals Goal Patient Goal Type Associated Problems Recent Progress Patient-Stated? Author Maintain a healthy diet, exercise regularly and maintain an ideal body weight General No Melita Martins CCMA Stay Tobacco Free Lifestyle Melita Isidro CCMA documented as of this encounter Visit Diagnoses Not on filedocumented in this encounter
--- OUTSIDE RECORDS SUMMARY | 2025-10-03 07:26 | XMS_ITS | Encounter Summary ---
Author Organization [facility] Address [address] [place] [address] Care Team Providers Care Proposal Lead Writer Name Role Phone Иван Harris MD Primary Care Provider [phone] Antonio Henriquez MD Unavailable [phone] Encounter Details Date Type Department Care Team (Late st Contact Info) Description 05/09/2024 Lab Requisition [facility] [address] [place] [address] Christopher Elizondo MD [address] [facility] [address] [place] [address] Encounter for general adult medical [...] and Family Not on file 05/09/2024 Attends [employer] Not on file 05/09 Active Member [...] place to sleep or slept in a fdc (including now)? No 05/09/2024 CAGE ASSESSMENT Answer [...] drink first t federico in the morning (EYE-DATA COLLECTION TECHNICIAN) to steady your nerves or to get rid of a hangover? 0 05/13/2024 CAGE Questionnaire Score 0 024 Utilities Answer Date Recorded In the past 12 months has th e Health 123, gas, oil, or water company threatened to [...] AM EST Appointment Cardiac Imaging [address] [place] [address] 11/29/2025 10:30 AM EST Office Visit [place] [facility] [address], [address] [place] [address] Howie Esparza MD [address] [place] [address] documented as of this encounter Procedures Procedure [...] ORDERABLES Final Result [facility] [address] [place] [address] documented in this encounter Visit Diagnoses Diagnosis [...] documented as of this encounter Care Teams Proposal Lead Writer Relationship Specialty Start Date End Date Иван Harris MD PCP - General 01/05/24 Antonio Henriquez MD 1210 [facility] [address] [place] [address] Referring Physician Cardiology 05/05/24 documented as of this encounter
--- OUTSIDE RECORDS SUMMARY | 2025-10-03 07:26 | XMS_ITS | Encounter Summary ---
Author Organization [facility] Address [address] [place] [address] Care Team Providers Care Senior Patrol Agent Name Role Phone Иван Harris MD Primary Care Provider [phone] Antonio Henriquez MD Unavailable [phone] Encounter Details Date Type Department Care Team (Late st Contact Info) Description 01/25/2024 Orders Only External Location [address] [place] [address] Aleks Snell, BODY MASKER [address] [place] [address] Social History Tobacco Use Types [...] AM EST Appointment Cardiac Imaging [address] [place] [address] 11/29/2025 10:30 AM EST Office Visit [place] [facility] [address], [address] [address] Howie Esparza MD [id number] [place] [address] documented as of this encounter Procedures Procedure Name Priority Date/Time Associated Diagnosis Comments POC US ECHOCARDIOGRAPHY COMPLETE W DOPPLER AND COLOR 01/25/2024 7:19 AM EST documented in this encounter Results * POC US Echocardiography Complete W Doppler and Color (01/25/2024 7:19 AM EST) Anatomical Region Laterality Modality Other 01/25/2024 7:19 AM EST us Aleks Snell BODY MASKER IMG POINT OF CARE ULTRASO UND Final Result documented in this encounter Visit Diagnoses Not on filedocumented in this encounter Care Teams Senior Patrol Agent Relationship Specialty Start Date End Date Иван Harris MD PCP - General 01/05/24 Antonio Henriquez MD [address] [place] [address] [address] [place] [address] Referring Physician Cardiology 05/05/24 documented as of this encounter
--- OUTSIDE RECORDS SUMMARY | 2025-10-03 07:26 | XMS_ITS | Encounter Summary ---
Author Organization [facility] ([place], [place], [place]) Address [address] [place] [address] Care Team Providers Care Quality Control Engineering Technician Name Role Phone Unavailable Primary Care Provider Unavailabl e Encounter Details Date Type Department Care Team (Late st Contact Info) Description 10/06/2021 Transcribed Document [facility] Family Medicine [facility] [place] [address] ProviderLea MD [facility] [place] [address] Social History Tobacco Use Types [...] - Lea ProviderMD - 10/06/2021 1:37 PM NIGHT ORDER SELECTOR [facility] [place] [address] LISANDRO HAJI :1975 Visit Time:10/04/2021 Your [...] 1 week Where: [address] [place] [address]- [facility] (1) Medications What How Much [...] if you have a seizure. ??? Take [id number], prescription medicines and herbal remedies only as [...] provider. Document Revised: 10/15/2020 Document Reviewed: 10/20/2020 [employer] Patient Education ?? 2020 [employer] Emergency Awareness and Preventative Care STROKE [...] Assistance with quitting is available by contacting 4-012-CRNPNOW. This is a free resource providing counseling, support, and referral. Or you may contact your personal physician. [employer] Suicide Prevention Lifeline: The National Suicide Prevention [...] was given the opportunity to ask questions. Patient/Director Global Sales Name: Patient/Director Global Sales Signature: Relationship to Patient: Clinician/Hospital Director Global Sales Signature: Date: Electronically signed by Jaymie [facility] Conversion Rip Machine Operator Elizabeth at 03/09/2023 7:19 PM CDT documented in this encounter Plan of Treatment Not on file documented as of this encounter Visit Diagnoses Not on filedocumented in this encounter
--- OUTSIDE RECORDS SUMMARY | 2025-10-03 07:26 | XMS_ITS | Encounter Summary ---
Author Organization [facility] ([place], [place], [place]) Address [address] [place] [address] Care Team Providers Care Manual Control Auger Press Operator Name Role Phone Unavailable Primary Care Provider Unavailabl e Encounter Details Date Type Department Care Team (Late st Contact Info) Description 10/06/2021 Transcribed Document [facility] [address] [place] [address] ProviderLea MD [address] [place] [address] Social History Tobacco Use Types [...] - Historical ProviderMD - 10/06/2021 2:00 AM MANUFACTURING MECHANIC Resident Care Technician Details Entered On: 10/06/2021 2:31 EST Performed [...] 10/06/2021 2:30 EST Electronically signed by Jaymie [facility] [place] [facility] Conversion Director [facility] Cerner at 03/09/2023 7:23 PM CDT documented in this encounter Plan of Treatment Not on file documented as of this encounter Visit Diagnoses Not on filedocumented in this encounter
--- OUTSIDE RECORDS SUMMARY | 2025-10-03 07:27 | XMS_ITS | Clinical Summary ---
Author Organization [facility] Address [address] [place] [address] Phone Care Team Providers Care Magnetic Tape Composer Operator Name Role Phone Unavailable Primary Care [...] S/p bilateral mastectomy and reconstructions Dr. Naidu, [place] [facility]. Restless legs syndrome (RLS) 05/17/2020 Generalized osteoarthritis of multiple sites Benign essential tremor 05/17/2020 Overview (05/17/2020): On propranolol Mild intermittent asthma without complication Encounters Date Type Department Care Team Description 09/28/2025 [place] [address] Kev Farris MD Other 08/08/2025 10:25 AM EDT [facility] [address] [place] [address] Kev Farris MD Right knee pain, unspecified chronicity 08/08/2025 9:30 AM EDT Office Visit [facility] [address] [place] [address] Kev Farris MD Right knee pain, unspecified chronicity (Primary Dx); Primary osteoarthritis of right knee from Last 3 Months Immunizations Immunization Administration Dates Next Due Pneumococcal Polysaccharide 23 Valent 05/17/2020 Tdap 01/25/2020 Surgical History Surgery Date Site/Laterality Comments MASTECTOMY 11/23/[address] Niadu APPENDECTOMY TONSILLECTOMY SECTION Medical History Medical History [...] Description 11/08/2025 8:00 AM EST [facility] [address] [place] [address] Gloria Short, LOCO [address] [place] [address] Health Maintenance Due Date Last [...] Final Result from Last [address] [facility] [id number]
--- NOTE | 2025-10-03 07:30 | US_ITS ---
PROCEDURE: US TRANSVAGINAL CLINICAL INDICATION: non visible IUD string COMPARISON: No exams were available for comparison FINDINGS: Transvaginal and transabdominal sonographic images of the pelvis were obtained. UTERUS: 8.8 cm x 4.9 cmx 4.2cm with a combined endometrial thickness of 5.7mm. There is an anterior fibroid in the lower uterine segment measuring 4.1 cm x 2.6 cm. The fibroid appears to be calcified. An IUD is seen within the uterine cavity in the correct position. LEFT OVARY: 1.6 cmx1.4cmx1.2cm with a volume of 1.4ml. RIGHT OVARY: 2.1cmx 1.6 cmx1.1cm with a volume of 1.8ml. Both ovaries are seen and appear normal. Doppler flow to both ovaries are seen. There is no fluid in the cul-de-sac. IMPRESSION: 1. Anteverted slightly enlarged uterus. The endometrium is thin. 2. There is an anterior fibroid measuring 4.1 cm located in the lower uterine segment. 3. There is an IUD within the uterine cavity in the correct position. Transabdominal images show these findings the best. 4. Both ovaries are seen transabdominally and appear atrophic. 5. No fluid in the cul-de-sac. Dictated by: Stefan Cordero MD 10/03/2025 12:53 Stefan Cordero MD in [place] 10/03/2025 12:53
== END 2025-10-03 23:59 ==
LOC: RAD 07:24
PROVIDERS: PCP Family Medicine; Visit Provider Obstetrics & Gynecology
DX: T83.32XA Displacement of intrauterine contraceptive device, initial encounter (principal)
CPT/HCPCS: 76830

== ENCOUNTER 2025-11-14 16:00 | Outpatient (RCR) | payer OTHER, SELFPAY | END 2025-11-14 23:59 | disposition home or self-care (01) | LOC: PT 16:00 | PROVIDERS: PCP Family Medicine; Visit Provider Orthopaedic Surgery Adult Reconstructive Orthopaedic Surgery | DX: M17.11 Unilateral primary osteoarthritis, right knee (principal) | CPT/HCPCS: 97110; 97163; 97530 ==